=== PATIENT | male | born 1955 | race Caucasian/White ===

== ENCOUNTER → 2016-11-01 | Outpatient (CLI) | payer BC, OTHER ==
[~2016-11-01] MED LIST: B-CO1TAB29 PO; CARV12.5 PO; CHOL100027 PO; CLON0.5T3 PO; CLOP1TAB15 PO; CYAN10002 INJ; FURO40TA3 PO; GLYB1.257 PO; ISOS30TA3 PO; LOSA25TA18 PO; METF1000 PO; MULT-506 PO; NITR0.4S UT; ROSU5TAB PO
[2016-11-01 13:43] LABS: ESTIMATED AVERAGE GLUCOSE 151 mg/dl; HA1C FLAG Normal (Normal)
[2016-11-01 13:49] LABS: ALKALINE PHOSPHATASE 76 U/L (45-117); AST/SGOT 20 U/L (15-37); BLOOD UREA NITROGEN 11 mg/dl (7-18); CALCIUM 9.5 mg/dl (8.5-10.1); CARBON DIOXIDE 29 mmol/L (21-32); CHLORIDE 105 mmol/L (98-107); GLUCOSE 140 mg/dl (70-99); HDL CHOLESTEROL 32 mg/dl; POTASSIUM 4.3 mmol/L (3.5-5.1); SODIUM 143 mmol/L (136-145)
[2016-11-01 13:54] LABS: ALB/GLOB RATIO 1.4 (0.9-2); ALT/SGPT 36 U/L (12-78); CHOLESTEROL 105 mg/dl (0-200); CHOLESTEROL/HDL RATIO 3.3; TRIGLYCERIDES 243 mg/dl (0-150); VERY LOW DENSITY LIPOPROT CALC 49 mg/dl
== END | disposition home or self-care (01) ==
LOC: C.LABSPEC 12:52
PROVIDERS: ATTEND Internal Medicine
DX: E78.5 Hyperlipidemia, unspecified (principal); I10 Essential (primary) hypertension; I25.10 Atherosclerotic heart disease of native coronary artery without angina pectoris; E11.9 Type 2 diabetes mellitus without complications; Z00.00 Encounter for general adult medical examination without abnormal findings

== ENCOUNTER → 2017-07-05 | Outpatient (CLI) | payer BC, OTHER ==
[2017-07-05 13:46] LABS: ESTIMATED AVERAGE GLUCOSE 128 mg/dl; HA1C FLAG Normal (Normal)
[2017-07-05 14:03] LABS: ALT/SGPT 26 U/L (12-78); BLOOD UREA NITROGEN 13 mg/dl (7-18); BUN/CREATININE RATIO 12.6 (10-20); CALCIUM 9.2 mg/dl (8.5-10.1); CARBON DIOXIDE 32 mmol/L (21-32); CHLORIDE 105 mmol/L (98-107); CHOLESTEROL 99 mg/dl (0-200); GLUCOSE 107 mg/dl (70-99); POTASSIUM 4.4 mmol/L (3.5-5.1); SODIUM 142 mmol/L (136-145)
[2017-07-05 14:06] LABS: ALB/GLOB RATIO 1.4 (0.9-2); ALKALINE PHOSPHATASE 76 U/L (45-117); AST/SGOT 16 U/L (15-37); CHOLESTEROL/HDL RATIO 3.2; HDL CHOLESTEROL 31 mg/dl; TRIGLYCERIDES 219 mg/dl (0-150); VERY LOW DENSITY LIPOPROT CALC 44 mg/dl
== END | disposition home or self-care (01) ==
LOC: C.LABSPEC 12:38
PROVIDERS: ATTEND Internal Medicine
DX: I25.10 Atherosclerotic heart disease of native coronary artery without angina pectoris (principal); E78.5 Hyperlipidemia, unspecified; E11.9 Type 2 diabetes mellitus without complications; I10 Essential (primary) hypertension

== ENCOUNTER → 2018-02-27 | Outpatient (CLI) | payer BC, OTHER ==
[2018-02-27 12:55] LABS: ALT/SGPT 24 U/L (12-78); AST/SGOT 15 U/L (15-37); BLOOD UREA NITROGEN 17 mg/dl (7-18); CARBON DIOXIDE 30 mmol/L (21-32); CREATININE 1.09 mg/dl (0.60-1.40); GLUCOSE 101 mg/dl (70-99); POTASSIUM 4.1 mmol/L (3.5-5.1); SODIUM 140 mmol/L (136-145)
[2018-02-27 12:58] LABS: ALKALINE PHOSPHATASE 74 U/L (45-117); CHOLESTEROL 92 mg/dl (0-200); LDL CHOLESTEROL (DIRECT) 60 mg/dl; TOTAL PROTEIN 7.2 gm/dl (6.4-8.2)
== END | disposition home or self-care (01) ==
LOC: C.LABSPEC 12:15
PROVIDERS: ATTEND Internal Medicine
DX: I25.10 Atherosclerotic heart disease of native coronary artery without angina pectoris (principal); E11.9 Type 2 diabetes mellitus without complications; I10 Essential (primary) hypertension; E78.5 Hyperlipidemia, unspecified

== ENCOUNTER 2019-02-09 16:55 | Inpatient (IN) ==
[2019-02-09] MEDS ORDERED: ALBUT/IPRATROP 3MG/0.5MG NEB 3 ML VIAL INH STA (17:15)
--- NOTE | 2019-02-09 17:30 | XRay Report ---
XR chest 1V portable CLINICAL HISTORY: sob dyspnea COMPARISON STUDY: 02/05/2014 FINDINGS: Moderate cardiac megaly. Interstitial changes both lung bases most likely cardiogenic. With in the upper lungs are clear. IMPRESSION: Interstitial phase of congestive heart failure. The above report was generated using voice recognition software. It may contain grammatical, syntax or spelling errors. Electronically signed by: Lester Gómez M.D. 02/09/2019 5:29 PM
--- NOTE | 2019-02-09 17:42 | Emergency Department Note ---
Entered by Benoit Simmons acting as a scribe for Thong Godoy MD History of Present Illness General Chief complaint: Fever Stated complaint: COUGH FEVER TROUBLE BREATHING Time Seen by Provider: 02/09/19 17:11 Source: patient History of Present Illness Provider complaint: Cough Onset (ago): month(s) 1 Location: chest Radiation: non-radiation Pain Consistency: + constant and + other (Worsening) Associated symptoms: + nausea/vomiting (No vomiting), + shortness of breath and + other (Congested); no chest pain The patient is a 63 year old male who presents to the Emergency Room with complaints of a constant productive cough and congestion for the past month but it has worsened over the past couple days. The coughs consistently produce a yellow colored mucous and this morning there was blood present as well. When the patient has coughing fits, he becomes very short of breath. He also notes that he gets dizzy whenever he stand up. Three days ago the patient went to his family doctors office and his flu swab came back negative. The patient has an extensive cardiac history including 8 stents but reports no chest pain, however he does have some soreness from coughing. He states that he has been staying hydrated and does not use oxygen at baseline. 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 Gaytan. He is not currently on any antibiotics. Home Medications Home Medications Medication Instructions Recorded Confirmed Type aspirin [Aspirin Low Dose] 81 mg PO DAILY 02/09/19 02/09/19 History atorvastatin 20 mg PO DAILY 02/09/19 02/09/19 History carvedilol 12.5 mg PO DAILY 02/09/19 02/09/19 History cholecalciferol (vitamin D3) 5,000 unit PO DAILY 02/09/19 02/09/19 History [Vitamin D3] clonazepam 0.5 mg PO HS 02/09/19 02/09/19 History clopidogrel 75 mg PO DAILY 02/09/19 02/09/19 History cyanocobalamin (vitamin B-12) 1,000 mcg IM MONTHLY 02/09/19 02/09/19 History furosemide 40 mg PO DAILY 02/09/19 02/09/19 History gabapentin 300 mg PO HS 02/09/19 02/09/19 History glyburide 1.25 mg PO DAILY 02/09/19 02/09/19 History isosorbide mononitrate 60 mg PO DAILY 02/09/19 02/09/19 History losartan 25 mg PO DAILY 02/09/19 02/09/19 History metformin [Glucophage] 1,000 mg PO BID 02/09/19 02/09/19 History nitroglycerin 0.4 mg SUBLINGUAL DIRECTED 02/09/19 02/09/19 History ranolazine [Ranexa] 500 mg PO BID 02/09/19 02/09/19 History Allergies Allergy/AdvReac Type Severity Reaction Status Date / Time Penicillins Allergy Unknown Verified 02/09/19 18:22 simvastatin Allergy Unknown muscle pain Verified 02/09/19 18:22 Sulfa (Sulfonamide Allergy Unknown Verified 02/09/19 18:22 Antibiotics) oxycodone AdvReac Mild N/V Verified 02/09/19 18:22 Past Med/Surg History Medical History Diabetes (Chronic) Hyperlipidemia (Chronic) CA (myocardial infarction) (Chronic) 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 and A total of 10 systems reviewed and were otherwise negative Physical Exam Vital Signs Vital Signs - 24 hr 02/09/19 16:58 02/09/19 17:53 02/09/19 17:54 Temperature 36.8 C Temperature Source Oral Sepsis Recent Fever Within 48 Hours Yes Sepsis New/Unexplained Change in Mental Status No Sepsis Action Taken by Nursing No Action Required Pulse Rate 92 H Pulse Rate [Apical] 89 Pulse Rhythm Regular Pulse Strength Normal Respiratory Rate 20 18 Respiratory Effort / Characteristics Non-Labored Spontaneous Non-Labored Spontaneous Respiratory Depth Normal Normal Respiratory Pattern Regular Regular Blood Pressure 95/56 L Blood Pressure [Right Arm] 93/52 L Blood Pressure Mean 69 Blood Pressure Mean [Right Arm] 65 Blood Pressure Position Sitting Blood Pressure Position [Right Arm] Sitting Pulse Oximetry 95 95 94 Pulse Oximetry [Right Index Finger] Oxygen Delivery Method Room Air Room Air Room Air Oxygen Delivery Method [Right Index Finger] 02/09/19 18:30 02/09/19 19:00 02/09/19 19:30 Temperature Temperature Source Sepsis Recent Fever Within 48 Hours Sepsis New/Unexplained Change in Mental Status Sepsis Action Taken by Nursing Pulse Rate 86 90 Pulse Rate [Apical] 88 Pulse Rhythm Pulse Strength Respiratory Rate 18 22 17 Respiratory Effort / Characteristics Non-Labored Spontaneous Respiratory Depth Normal Respiratory Pattern Regular Blood Pressure 101/52 L 101/56 L Blood Pressure [Right Arm] 97/57 L Blood Pressure Mean 68 71 Blood Pressure Mean [Right Arm] 70 Blood Pressure Position Blood Pressure Position [Right Arm] Sitting Pulse Oximetry 93 95 93 Pulse Oximetry [Right Index Finger] Oxygen Delivery Method Room Air Room Air Room Air Oxygen Delivery Method [Right Index Finger] 02/09/19 20:17 02/09/19 20:30 02/09/19 21:32 Temperature Temperature Source Sepsis Recent Fever Within 48 Hours Sepsis New/Unexplained Change in Mental Status Sepsis Action Taken by Nursing Pulse Rate 86 85 Pulse Rate [Apical] Pulse Rhythm Pulse Strength Respiratory Rate 21 24 Respiratory Effort / Characteristics Respiratory Depth Respiratory Pattern Blood Pressure 103/57 L 105/62 Blood Pressure [Right Arm] Blood Pressure Mean 72 76 Blood Pressure Mean [Right Arm] Blood Pressure Position Blood Pressure Position [Right Arm] Pulse Oximetry 94 95 Pulse Oximetry [Right Index Finger] 94 Oxygen Delivery Method Room Air Room Air Oxygen Delivery Method [Right Index Finger] Room Air 02/09/19 21:48 Temperature 37.2 C Temperature Source Oral Sepsis Recent Fever Within 48 Hours Sepsis New/Unexplained Change in Mental Status Sepsis Action Taken by Nursing Pulse Rate 87 Pulse Rate [Apical] 84 Pulse Rhythm Pulse Strength Respiratory Rate 20 Respiratory Effort / Characteristics Non-Labored Respiratory Depth Respiratory Pattern Blood Pressure Blood Pressure [Right Arm] 100/61 Blood Pressure Mean Blood Pressure Mean [Right Arm] 74 Blood Pressure Position Blood Pressure Position [Right Arm] Pulse Oximetry 94 Pulse Oximetry [Right Index Finger] Oxygen Delivery Method Room Air Oxygen Delivery Method [Right Index Finger] GENERAL: Patient is in no acute distress. HEENT: No acute trauma, normocephalic atraumatic, mucous membranes moist, no nasal congestion, no scleral icterus. NECK: No stridor, no adenopathy, no meningismus, trachea is midline. LUNGS: Moist cough noted. Diminished breath sounds bilaterally, equal breath sounds bilaterally. No wheezing or rhonchi. HEART: Without murmurs gallops or rubs, regular rate and rhythm. ABDOMEN: Soft, nontender, bowel sounds positive, no hernias, no peritonitis. EXTREMITIES: No cyanosis or edema, full range of motion of all the joints wi thout pain or difficulty, no signs for acute trauma. NEUROLOGIC: Oriented x 3, no acute motor or sensory deficits, no focal weakness. SKIN: No rash, no jaundice, no diaphoresis. Course 1710: The patient was evaluated in room C02B, and a complete history and physical examination were performed. 1834: I reevaluated the patient and he is stable. I also updated him and his fiance on the results and treatment plan. 1911: I spoke to Dr. Irving Flores [facility] about the patient's case and she is going to accept him for further evaluation. Consultations Consultation #1: I spoke to Dr. Irving Flores [facility] about the patient's case and she is going to accept him for further evaluation. Time: 19:12 Administered Medications Discontinued Medications Albuterol (Duoneb) 3 ml INH NOW STA Stop: 02/09/19 17:16 Last Admin: 02/09/19 17:32 Dose: 3 ml Documented by: [id number] Furosemide (Lasix) Confirm Administered Dose 40 mg IV .STK-MED ONE Stop: 02/09/19 19:01 Last Admin: 02/09/19 19:08 Dose: Not Given Documented by: [id number] Furosemide 20 mg/ Syringe 2 mls @ 4 mls/min IV ONE ONE Stop: 02/09/19 18:34 Last Admin: 02/09/19 19:10 Dose: 4 mls/min Documented by: [id number] Ceftriaxone Sodium (Rocephin) 1,000 mg in 50 mls @ 100 mls/hr IV NOW STA Stop: 02/09/19 19:02 Last Infusion: 02/09/19 19:49 Dose: 0 mls/hr Documented by: [id number] Admin: 02/09/19 19:09 Dose: 100 mls/hr Documented by: [id number] Medical Decision Making Differential Diagnosis Differential Diagnosis: Bronchitis, Pneumonia, CHF, Cardiac ischemia, Anemia, Sinusitis, URI, Influenza or flu-like symptoms, amongst others. Medical Records Attestation: I reviewed the patient's medical records. Home Medications Current Medication List: was personally reviewed by me Laboratory Data Attestation: I reviewed the patient's lab results. Result diagrams: 02/09/19 17:38 02/09/19 17:38 Lab Results 02/09/19 02/09/19 02/09/19 Range/Units 17:33 17:38 17:38 WBC 8.77 (4.8-10.8) K/uL RBC 3.66 L (4.7-6.1) M/uL Hgb 11.5 L (14.0-18.0) g/dL Hct 34.2 L (42-52) % MCV 93.4 (80-100) fL MCH 31.4 (25-34) pg MCHC 33.6 (32-36) g/dL RDW Std Deviation 48.9 H (36.4-46.3) fL RDW Coeff of Neyda 14.3 (11.5-14.5) % Plt Count 149 (130-400) K/uL MPV 10.9 H (7.4-10.4) fL Immature Gran % (Auto) 0.2 % Neut % (Auto) 75.2 % Lymph % (Auto) 10.4 % [place] % (Auto) 12.8 % Eos % (Auto) 1.3 % Baso % (Auto) 0.1 % Immature Gran # (Auto) 0.02 (0.00-0.02) K/uL Neut # (Auto) 6.60 H (1.4-6.5) K/uL Lymph # (Auto) 0.91 L (1.2-3.4) K/uL [place] # (Auto) 1.12 H (0.11-0.59) K/uL Eos # (Auto) 0.11 (0-0.5) K/uL Baso # (Auto) 0.01 (0-0.2) K/uL PT 11.8 (9.0-12.0) Seconds INR 1.2 H (0.9-1.1) APTT 30.2 (21.0-31.0) Seconds PTT Ratio 1.1 Sodium (136-145) mmol/L Potassium (3.5-5.1) mmol/L Chloride (98-107) mmol/L Carbon Dioxide (21-32) mmol/L Anion Gap (3-11) BUN (7-18) mg/dl Creatinine (0.6-1.4) mg/dl Est Cr Clr Drug Dosing ml/min Est GFR ( Amer) Est GFR (Non-Af Amer) BUN/Creatinine Ratio (10-20) Glucose (70-99) mg/dl Calcium (8.5-10.1) mg/dl Phosphorus (2.5-4.9) mg/dl Magnesium (1.8-2.4) mg/dl Total Bilirubin (0.2-1) mg/dl AST (15-37) U/L ALT (12-78) U/L Alkaline Phosphatase (45-117) U/L Troponin I (0-0.045) ng/ml NT-Pro-B Natriuret Pep (0-900) pg/ml Total Protein (6.4-8.2) gm/dl Albumin (3.4-5.0) gm/dl Globulin (2.5-4.0) gm/dl Albumin/Globulin Ratio (0.9-2) Procalcitonin (0-0.5) ng/ml Influenza Type A (PCR) Neg for Influ A (Neg) Influenza Type B (PCR) Neg for Influ B (Neg) 02/09/19 02/09/19 02/09/19 Range/Units 17:38 21:47 21:47 WBC (4.8-10.8) K/uL RBC (4.7-6.1) M/uL Hgb (14.0-18.0) g/dL Hct (42-52) % MCV (80-100) fL MCH (25-34) pg MCHC (32-36) g/dL RDW Std Deviation (36.4-46.3) fL RDW Coeff of Neyda (11.5-14.5) % Plt Count (130-400) K/uL MPV (7.4-10.4) fL Immature Gran % (Auto) % Neut % (Auto) % Lymph % (Auto) % [place] % (Auto) % Eos % (Auto) % Baso % (Auto) % Immature Gran # (Auto) (0.00-0.02) K/uL Neut # (Auto) (1.4-6.5) K/uL Lymph # (Auto) (1.2-3.4) K/uL [place] # (Auto) (0.11-0.59) K/uL Eos # (Auto) (0-0.5) K/uL Baso # (Auto) (0-0.2) K/uL PT (9.0-12.0) Seconds INR (0.9-1.1) APTT (21.0-31.0) Seconds PTT Ratio Sodium 139 (136-145) mmol/L Potassium 4.0 (3.5-5.1) mmol/L Chloride 103 (98-107) mmol/L Carbon Dioxide 28 (21-32) mmol/L Anion Gap 8.0 (3-11) BUN 19 H (7-18) mg/dl Creatinine 1.07 (0.6-1.4) mg/dl Est Cr Clr Drug Dosing 85.3 ml/min Est GFR ( Amer) 84.0 Est GFR (Non-Af Amer) 72.5 BUN/Creatinine Ratio 18.0 (10-20) Glucose 131 H (70-99) mg/dl Calcium 8.8 (8.5-10.1) mg/dl Phosphorus 3.1 (2.5-4.9) mg/dl Magnesium 1.9 (1.8-2.4) mg/dl Total Bilirubin 0.7 (0.2-1) mg/dl AST 14 L (15-37) U/L ALT 23 (12-78) U/L Alkaline Phosphatase 93 (45-117) U/L Troponin I 0.403 H* 0.427 H* (0-0.045) ng/ml NT-Pro-B Natriuret Pep 4852 H (0-900) pg/ml Total Protein 6.2 L (6.4-8.2) gm/dl Albumin 2.9 L (3.4-5.0) gm/dl Globulin 3.3 (2.5-4.0) gm/dl Albumin/Globulin Ratio 0.9 (0.9-2) Procalcitonin < 0.05 (0-0.5) ng/ml Influenza Type A (PCR) (Neg) Influenza Type B (PCR) (Neg) Imaging Data Radiologist's Impression: Radiology results as stated below per my review and the radiologist's interpretation: XR chest 1V portable CLINICAL HISTORY: sob dyspnea COMPARISON STUDY: 02/05/2014 FINDINGS: Moderate cardiac megaly. Interstitial changes both lung bases most likely cardiogenic. Within the upper lungs are clear. IMPRESSION: Interstitial phase of congestive heart failure. The above report was generated using voice recognition software. It may contain grammatical, syntax or spelling errors. Electronically signed by: Lester Gómez M.D. 02/09/2019 5:29 PM ECG Data Attestation: I personally reviewed and interpreted this ECG as follows: Indication: SOB/dyspnea Rate (beats per minute): 88 Rhythm: normal sinus Findings: + T-wave inversion (Inferiorly and laterally); no ST elevation Comparison ECG Date: from (02/05/14) Change: the following changes noted (Significant changes have occurred) Blood Pressure Blood Pressure Findings: Low blood pressure Blood Pressure Disposition: further management by hospitalist MDM Narrative There is no leukocytosis. The patient is somewhat anemic with a hemoglobin of 11.5, the number is nowhere critical. No concerning coagulopathy. No significa nt electrolyte abnormality or kidney failure. No hepatitis. BNP is elevated at over 4000, this is consistent with fluid overload. EKG shows a sinus rhythm, there are some T wave changes in the inferior and lateral leads. These changes are new compared to an EKG from 2013. Cardiac troponin was slightly elevated, this could be consistent with cardiac strain or possibly mismatch. Chest film does show some parenchymal congestion possibly consistent with CHF. There was no focal pneumonia. Influenza testing was negative. The patient received IV Lasix and a DuoNeb. He received a dose of IV ceftriaxone. He does seem comfortable. His blood pressure has remained somewhat low. He has coughed up some yellow sputum at times. The patient presents with increasing dyspnea and cough. He is slightly hypotensive, he appears to be fluid overloaded by lab work and by chest film. He does have an elevated cardiac troponin and some abnormal findings on his EKG. Given the findings on workup, I do think a hospital stay is warranted. I spoke to the patient and case management. The on-call hospitalist was consulted. Further cardiac workup is warranted, diuresis is needed. Impression & Plan Shortness of breath, CHF (congestive heart failure), Hypotension, Elevated troponin, Abnormal EKG Discharge Plan Visit Data *Final* Discharge Date/Time: 02/09/19 21:00 Chief Complaint: Fever Stated Complaint: COUGH FEVER TROUBLE BREATHING ED Provider: Thong Godoy Discharge Problem: Shortness of breath, CHF (congestive heart failure), Hypotension, Elevated troponin, Abnormal EKG Patient Disposition: Admitted As Inpatient Discharge Instructions Interventions: ED Discharge Assessment Last Done: 02/09/19 21:00 Discharge Problem: CHF (congestive heart failure) Qualifiers: Heart failure type: unspecified Heart failure chronicity: unspecified Qualified Code(s): I50.9 - Heart failure, unspecified Hypotension Qualifiers: Hypotension type: unspecified hypotension type Qualified Code(s): I95.9 - Hypotension, unspecified The scribe's documentation has been prepared under my direction and personally reviewed by me in its entirety. I confirm that the note above accurately reflects all work, treatment, procedures, and medical decision making performed by me.
[2019-02-09 18:00] LABS: Basophils # (auto) 0.01 K/uL (0-0.2); Basophils % (auto) 0.1 %; Eosinophils # (auto) 0.11 K/uL (0-0.5); Eosinophils % (auto) 1.3 %; Hematocrit (blood only) 34.2 % (42-52); Hemoglobin 11.5 g/dL (14.0-18.0); Immature Granulocytes # (auto) 0.02 K/uL (0.00-0.02); Immature Granulocytes % (auto) 0.2 %; Lymphocytes # (auto) 0.91 K/uL (1.2-3.4); Lymphocytes % (auto) 10.4 %; Mean Corpuscular Hgb Conc 33.6 g/dL (32-36); Mean Corpuscular Volume 93.4 fL (80-100); Mean Platelet Volume 10.9 fL (7.4-10.4); Monocytes # (auto) 1.12 K/uL (0.11-0.59); Monocytes % (auto) 12.8 %; Neutrophils % (auto) 75.2 %; Platelet Count 149 K/uL (130-400); RDW Coefficient of Variation 14.3 % (11.5-14.5); RDW Standard Deviation 48.9 fL (36.4-46.3); Red Blood Count 3.66 M/uL (4.7-6.1); White Blood Count 8.77 K/uL (4.8-10.8)
[2019-02-09 18:11] LABS: Influenza A virus by PCR Neg for Influ A (Neg); Influenza B virus by PCR Neg for Influ B (Neg)
[2019-02-09 18:17] LABS: INR 1.2 (0.9-1.1); Partial Thromboplastin Ratio 1.1; Partial Thromboplastin Time 30.2 Seconds (21.0-31.0); Prothrombin Time 11.8 Seconds (9.0-12.0)
[2019-02-09 18:18] LABS: Albumin Level 2.9 gm/dl (3.4-5.0); Calcium 8.8 mg/dl (8.5-10.1); Creatinine Clr Calc Pharmacy 85.3 ml/min; Est GFR (Non-African American) 72.5
[2019-02-09 18:26] LABS: Albumin Globulin Ratio 0.9 (0.9-2); Bilirubin,Total 0.7 mg/dl (0.2-1); Globulin 3.3 gm/dl (2.5-4.0); Total Protein 6.2 gm/dl (6.4-8.2); Troponin I 0.403 ng/ml (0-0.045)
[2019-02-09] MEDS ORDERED: cefTRIAXone SODIUM 1,000 MG/50 ML BAG IV STA (18:33)
[2019-02-09] MEDS ORDERED: FUROSEMIDE 20 MG in SYRINGE 0 ML IV ONE (18:33)
[2019-02-09] MEDS ORDERED: FUROSEMIDE 40 MG/4 ML VIAL IV ONE (19:00)
[2019-02-09] MEDS ORDERED: DOCUSATE SODIUM 100 MG CAP PO PRN (21:32)
[2019-02-09] MEDS ORDERED: GLUCOSE 40% GEL 15 GM TUBE PO PRN (21:32)
[2019-02-09] MEDS ORDERED: GLUCOSE 10 TABS/TUBE PO PRN (21:32)
[2019-02-09] MEDS ORDERED: DEXTROSE 50% 50 ML SYRINGE IV PRN (21:32)
[2019-02-09] MEDS ORDERED: ONDANSETRON INJ 2 MG/ML 2 ML VIAL IV PRN (21:32)
[2019-02-09] MEDS ORDERED: GLUCAGON FOR INJ 1 MG VIAL SQ PRN (21:32)
[2019-02-09] MEDS ORDERED: CARBOHYDRATES FOR HYPOGLYCEMIA PO PRN (21:32)
[2019-02-09] MEDS ORDERED: NITROGLYCERIN SL 0.4 MG/TAB TAB SL PRN (21:32)
[2019-02-09] MEDS ORDERED: ENOXAPARIN INJ 40 MG/0.4 ML SYR SQ SCH (21:45)
[2019-02-09 22:21] LABS: Magnesium 1.9 mg/dl (1.8-2.4); Phosphorus 3.1 mg/dl (2.5-4.9); Troponin I 0.427 ng/ml (0-0.045)
[2019-02-10] MEDS: BENZONATATE 100 MG CAPSULE PO SCH ×4 (00:35→20:57)
[2019-02-10] MEDS: clonazePAM 0.5 MG TAB PO SCH ×2 (00:35→20:57)
--- NOTE | 2019-02-10 01:22 | History & Physical Report ---
Date of Service February 09, 2019 Assessment & Plan (1) Shortness of breath: Patient with progressive SOB over the last month, acute worsening over the last three days. Also with edema and orthopnea. He reports some mild dull left sided chest pressure at times. Patient presently hemodynamically stable, NAD. Adequate oxygenation on room air with no evidence of respiratory distress. He is afebrile, no leukocytosis, Procalcitonin negative, no infiltrate noted on CXR to suggest infectious process. Elevated BNP and interstitial edema concerning for CHF. Last available echo in [facility] from 01/15/13 which showed multiple WMA. LVEF of 50 - 55%, Grade I diastolic dysfunction. -Admit to PCU -Diuresis with Lasix 20mg IV BID -Monitor renal function and electrolytes -Strict I/Os -Daily weights -Low Na diet as tolerated -Check 2D echo in the AM -[facility] Cardiology consultation - appreciate assistance with this case -Trend cardiac enzymes Present on Admission?: Yes (2) CHF (congestive heart failure): Concern for CHF -Plan as above -Continue ASA, Plavix, Atorvastatin, Carvedilol, Losartan -Lasix as above Present on Admission?: Yes (3) Elevated troponin: Patient with mildly elevated troponin. Presently with no CP. EKG with ST-T changes new from prior. Concern for demand ischemia in setting of presumed CHF. -Continue to trend troponin -If level increases or patient develops chest pain will initiate heparin gtt -Cardiac monitoring Present on Admission?: Yes (4) CAD (coronary artery disease): Patient with early onset aggressive CAD. Has had multiple PCIs. -Continue ASA, Plavix, Metoprolol, Cozaar, increased dose of Atorvastatin -Continue anti-anginals, Ranexa -Continue Imdur -Trend cardiac enzymes -EKG in AM (5) Abnormal EKG: As above (6) Diabetes: Well controlled on Glipizide and Metformin at home. SkC8a=8 on 02/27/18. -Hold Glipizide and Metformin -Lantus 7u BID, ISS -Continue to monitor Present on Admission?: Yes (7) Hyperlipidemia: Chronic -Continue Atorvastatin -Will increase to 80mg po daily -Continue to monitor F/E/N - Diuresis as above, monitor renal function and electrolytes and replete as needed, Heart healthy diet as tolerated, NPO after midnight for possible cardiac catheterization Ppx - Patient on ASA and Plavix Code - Full Dispo - Admit to PCU Sutures to be removed tomorrow Present on Admission?: Yes History of Present Illness Chief Complaint: Cough/congestion Primary Care Provider: Zac Torres MD Mr. Mcdowell is a pleasant 63yo male with history of early onset aggressive CAD present since age 48. He has had multiple PCIs in the past - left circumflex and right coronary artery in 1998, angioplasty of the left anterior descending in 2000 and 2007, stenting of the second obtuse marginal January 2011, stenting of the obtuse marginal on 12/12/2012 due to recurrent unstable angina, repeat presentation 01/15/13 with acute in-stent thrombosis noted on coronary angiography, this vessel was not amenable to PCI and he completed a lateral apical infarction at that time. Patient follows with Dr. Gaytan of [facility] Cardiology. He believes he was last seen in January 2018 and is scheduled to see him next month. Patient presents today with complaint of cough for a couple of months as well as chest congestion. His symptoms acutely worsened on Sunday02/07/19. He was seen by his PCP on 02/07 and was swabbed for the flu which was reportedly negative. Patient's symptoms continued to progress - ISAAC, SOB especially with coughing as well as dizziness and nausea. He admits to worsening edema and orthopnea as well as dull left sided chest pressure since yesterday. Patient denies fevers but had some shaking chills. He was in [place] for an auto race on 02/08 and his symptoms progressed. He has been taking Tylenol and Chorecedin for symptom management. ER Course: Albuterol, Ceftriaxone, Lasix 20mg IV Allergies Allergy/AdvReac Type Severity Reaction Status Date / Time Penicillins Allergy Unknown Verified 02/09/19 18:22 simvastatin Allergy Unknown muscle pain Verified 02/09/19 18:22 Sulfa (Sulfonamide Allergy Unknown Verified 02/09/19 18:22 Antibiotics) oxycodone AdvReac Mild N/V Verified 02/09/19 18:22 Home Medications Home Medications Medication Instructions Recorded Confirmed Type aspirin [Aspirin Low Dose] 81 mg PO DAILY 02/09/19 02/09/19 History atorvastatin 20 mg PO DAILY 02/09/19 02/09/19 History carvedilol 12.5 mg PO DAILY 02/09/19 02/09/19 History cholecalciferol (vitamin D3) 5,000 unit PO DAILY 02/09/19 02/09/19 History [Vitamin D3] clonazepam 0.5 mg PO HS 02/09/19 02/09/19 History clopidogrel 75 mg PO DAILY 02/09/19 02/09/19 History cyanocobalamin (vitamin B-12) 1,000 mcg IM MONTHLY 02/09/19 02/09/19 History furosemide 40 mg PO DAILY 02/09/19 02/09/19 History gabapentin 300 mg PO HS 02/09/19 02/09/19 History glyburide 1.25 mg PO DAILY 02/09/19 02/09/19 History isosorbide mononitrate 60 mg PO DAILY 02/09/19 02/09/19 History losartan 25 mg PO DAILY 02/09/19 02/09/19 History metformin [Glucophage] 1,000 mg PO BID 02/09/19 02/09/19 History nitroglycerin 0.4 mg SUBLINGUAL DIRECTED 02/09/19 02/09/19 History ranolazine [Ranexa] 500 mg PO BID 02/09/19 02/09/19 History Past Med/Surg History Medical History Diabetes (Chronic) Hyperlipidemia (Chronic) [place] (myocardial infarction) (Chronic) Bypass gastroenterostomy (Resolved 01/14/13) Chest pain (Acute) Unstable angina (Acute) CAD (coronary artery disease) Peripheral neuropathy Surgical History S/P appendectomy S/P cardiac catheterization S/P cholecystectomy Social History Preferred Language: Ukrainian Communication Ability: Effective Commercial Attorney Required: No Beliefs That Will Affect Care: None Current Living Situation: Significant Other Other Information That Helps Us Care for You: No Feels Safe at Home: Yes Safety Concerns: Feels Safe At This Time Smoking Status: Never smoker Hx Alcohol Use: No Hx Substance Use: No Review of Systems All systems reviewed & are unremarkable except as noted in HPI & below Physical Exam Vital Signs (Past 24 Hours): Last Vital Signs Temp 37.4 C 02/09/19 23:16 Pulse 100 H 02/09/19 23:16 Resp 18 02/09/19 23:16 BP 99/44 L 02/09/19 23:16 Pulse Ox 92 02/09/19 23:19 Physical Exam: General: patient resting comfortably, NAD, anxious but non- toxic in appearance, AA&O x 4 Skin: warm, dry, no rashes or lesions, sutures present on right index finger HEENT: NC/AT, PERRL, EOMI, anicteric sclera, conjunctiva without injection, external ear normal to inspection and nontender, nares patent, moist mucus membranes, dentition intact, no oropharyngeal lesions, neck supple, trachea midline, no LAD, no thyromegaly, no JVD Heart: +S1/S2, regular, no m/r/g Lungs: equal air entry bilaterally, crackles in bilateral bases, no rhonchi/wheezes Abd: +BS, soft, NT/ND, no masses/organomegaly/ascites Ext: warm, 2+ pulses in UE/LE bilaterally, no clubbing/cyanosis, 1+ pitting edema of bilateral LEs Neuro: nonfocal, patient AA&O x 4, speech intact, no facial droop, moving all extremities on command with equal strength 5/5 Results & Data Laboratory Results Lab Results 02/09/19 02/09/19 02/09/19 Range/Units 17:33 17:38 17:38 WBC 8.77 (4.8-10.8) K/uL RBC 3.66 L (4.7-6.1) M/uL Hgb 11.5 L (14.0-18.0) g/dL Hct 34.2 L (42-52) % MCV 93.4 (80-100) fL MCH 31.4 (25-34) pg MCHC 33.6 (32-36) g/dL RDW Std Deviation 48.9 H (36.4-46.3) fL RDW Coeff of Neyda 14.3 (11.5-14.5) % Plt Count 149 (130-400) K/uL MPV 10.9 H (7.4-10.4) fL Immature Gran % (Auto) 0.2 % Neut % (Auto) 75.2 % Lymph % (Auto) 10.4 % [place] % (Auto) 12.8 % Eos % (Auto) 1.3 % Baso % (Auto) 0.1 % Immature Gran # (Auto) 0.02 (0.00-0.02) K/uL Neut # (Auto) 6.60 H (1.4-6.5) K/uL Lymph # (Auto) 0.91 L (1.2-3.4) K/uL [place] # (Auto) 1.12 H (0.11-0.59) K/uL Eos # (Auto) 0.11 (0-0.5) K/uL Baso # (Auto) 0.01 (0-0.2) K/uL PT 11.8 (9.0-12.0) Seconds INR 1.2 H (0.9-1.1) APTT 30.2 (21.0-31.0) Seconds PTT Ratio 1.1 Sodium (136-145) mmol/L Potassium (3.5-5.1) mmol/L Chloride (98-107) mmol/L Carbon Dioxide (21-32) mmol/L Anion Gap (3-11) BUN (7-18) mg/dl Creatinine (0.6-1.4) mg/dl Est Cr Clr Drug Dosing ml/min Est GFR ( Amer) Est GFR (Non-Af Amer) BUN/Creatinine Ratio (10-20) Glucose (70-99) mg/dl Calcium (8.5-10.1) mg/dl Phosphorus (2.5-4.9) mg/dl Magnesium (1.8-2.4) mg/dl Total Bilirubin (0.2-1) mg/dl AST (15-37) U/L ALT (12-78) U/L Alkaline Phosphatase (45-117) U/L Troponin I (0-0.045) ng/ml NT-Pro-B Natriuret Pep (0-900) pg/ml Total Protein (6.4-8.2) gm/dl Albumin (3.4-5.0) gm/dl Globulin (2.5-4.0) gm/dl Albumin/Globulin Ratio (0.9-2) Procalcitonin (0-0.5) ng/ml Influenza Type A (PCR) Neg for Influ A (Neg) Influenza Type B (PCR) Neg for Influ B (Neg) 02/09/19 02/09/19 02/09/19 Range/Units 17:38 21:47 21:47 WBC (4.8-10.8) K/uL RBC (4.7-6.1) M/uL Hgb (14.0-18.0) g/dL Hct (42-52) % MCV (80-100) fL MCH (25-34) pg MCHC (32-36) g/dL RDW Std Deviation (36.4-46.3) fL RDW Coeff of Neyda (11.5-14.5) % Plt Count (130-400) K/uL MPV (7.4-10.4) fL Immature Gran % (Auto) % Neut % (Auto) % Lymph % (Auto) % [place] % (Auto) % Eos % (Auto) % Baso % (Auto) % Immature Gran # (Auto) (0.00-0.02) K/uL Neut # (Auto) (1.4-6.5) K/uL Lymph # (Auto) (1.2-3.4) K/uL [place] # (Auto) (0.11-0.59) K/uL Eos # (Auto) (0-0.5) K/uL Baso # (Auto) (0-0.2) K/uL PT (9.0-12.0) Seconds INR (0.9-1.1) APTT (21.0-31.0) Seconds PTT Ratio Sodium 139 (136-145) mmol/L Potassium 4.0 (3.5-5.1) mmol/L Chloride 103 (98-107) mmol/L Carbon Dioxide 28 (21-32) mmol/L Anion Gap 8.0 (3-11) BUN 19 H (7-18) mg/dl Creatinine 1.07 (0.6-1.4) mg/dl Est Cr Clr Drug Dosing 85.3 ml/min Est GFR ( Amer) 84.0 Est GFR (Non-Af Amer) 72.5 BUN/Creatinine Ratio 18.0 (10-20) Glucose 131 H (70-99) mg/dl Calcium 8.8 (8.5-10.1) mg/dl Phosphorus 3.1 (2.5-4.9) mg/dl Magnesium 1.9 (1.8-2.4) mg/dl Total Bilirubin 0.7 (0.2-1) mg/dl AST 14 L (15-37) U/L ALT 23 (12-78) U/L Alkaline Phosphatase 93 (45-117) U/L Troponin I 0.403 H* 0.427 H* (0-0.045) ng/ml NT-Pro-B Natriuret Pep 4852 H (0-900) pg/ml Total Protein 6.2 L (6.4-8.2) gm/dl Albumin 2.9 L (3.4-5.0) gm/dl Globulin 3.3 (2.5-4.0) gm/dl Albumin/Globulin Ratio 0.9 (0.9-2) Procalcitonin < 0.05 (0-0.5) ng/ml Influenza Type A (PCR) (Neg) Influenza Type B (PCR) (Neg) Diagnostic Findings XR chest 1V portable CLINICAL HISTORY: sob dyspnea COMPARISON STUDY: 02/05/2014 FINDINGS: Moderate cardiac megaly. Interstitial changes both lung bases most likely cardiogenic. Within the upper lungs are clear. IMPRESSION: Interstitial phase of congestive heart failure. The above report was generated using voice recognition software. It may contain grammatical, syntax or spelling errors. Electronically signed by: Lester Gómez M.D. 02/09/2019 5:29 PM Dictated: 02/09/191727 Transcribed: 02/09/191727 ECG Additional Comments: The study shows NSR at 88bpm, normal axis, WO=301, LHG=316, AIh=940. ST depression in lateral leads, TWI in inferior/lateral leads Code Status & VTE Plan Code Status FULL Critical Care Time Critical Care Time: No (1) Diabetes Diabetes mellitus complication detail: with polyneuropathy Diabetes mellitus complication status: with neurologic complications Diabetes mellitus shelter insulin use: with lobsterman use Diabetes mellitus type: type 2 Qualified Code(s): E11.42 - Type 2 diabetes mellitus with diabetic polyneuropathy; Z79.4 - senior care (current) use of insulin (2) CAD (coronary artery disease) Coronary Disease-Associated Artery/Lesion type: [place] artery [place] vs. transplanted heart: [place] heart Associated angina: angina presence unspecified Qualified Code(s): I25.10 - Atherosclerotic heart disease of [place] coronary artery without angina pectoris (3) CHF (congestive heart failure) Heart failure chronicity: unspecified Heart failure type: unspecified Qualified Code(s): I50.9 - Heart failure, unspecified (4) Hyperlipidemia Hyperlipidemia type: unspecified Qualified Code(s): E78.5 - Hyperlipidemia, unspecified
[2019-02-10] MEDS ORDERED: Heparin IV Standard *NO* Bolus IV ONE (05:00)
[2019-02-10] MEDS ORDERED: Heparin Adult STANDARD Wt-Based Dextrose 5% 25,000 units/500 mL IV SCH (05:15)
[2019-02-10 05:40] LABS: Basophils # (auto) 0.02 K/uL (0-0.2); Basophils % (auto) 0.3 %; Eosinophils # (auto) 0.16 K/uL (0-0.5); Eosinophils % (auto) 2.2 %; Hematocrit (blood only) 35.6 % (42-52); Immature Granulocytes # (auto) 0.01 K/uL (0.00-0.02); Immature Granulocytes % (auto) 0.1 %; Lymphocytes # (auto) 0.88 K/uL (1.2-3.4); Lymphocytes % (auto) 11.9 %; Mean Corpuscular Volume 94.7 fL (80-100); Mean Platelet Volume 10.9 fL (7.4-10.4); Monocytes # (auto) 0.92 K/uL (0.11-0.59); Monocytes % (auto) 12.4 %; Neutrophils # (auto) 5.42 K/uL (1.4-6.5); Neutrophils % (auto) 73.1 %; Platelet Count 153 K/uL (130-400); RDW Coefficient of Variation 14.4 % (11.5-14.5); RDW Standard Deviation 49.6 fL (36.4-46.3); Red Blood Count 3.76 M/uL (4.7-6.1); White Blood Count 7.41 K/uL (4.8-10.8)
[2019-02-10 05:46] LABS: Mean Corpuscular Hgb Conc 33.7 g/dL (32-36)
[2019-02-10 05:48] LABS: INR 1.2 (0.9-1.1); Partial Thromboplastin Ratio 1.1; Partial Thromboplastin Time 30.6 Seconds (21.0-31.0); Prothrombin Time 11.9 Seconds (9.0-12.0)
[2019-02-10 06:09] LABS: BUN Creatinine Ratio 19.3 (10-20); Calcium 8.4 mg/dl (8.5-10.1); Creatinine Clr Calc Pharmacy 102.3 ml/min; Est GFR (African American) 104.5; Est GFR (Non-African American) 90.1; Potassium 3.6 mmol/L (3.5-5.1)
[2019-02-10 06:14] LABS: Prealbumin 10.6 mg/dl (20-40)
[2019-02-10] MEDS: INSULIN ASPART 100 UNITS/ML 3 ML PEN SC SCH ×5 (08:39→21:00)
[2019-02-10] MEDS: FUROSEMIDE 20 MG in SYRINGE 0 ML IV SCH ×2 (08:49→20:57)
[2019-02-10] MEDS: RANOLAZINE 500 MG ER TAB PO SCH ×2 (08:50→20:57)
[2019-02-10] MEDS: ASPIRIN 81 MG ECTAB PO SCH (08:50)
[2019-02-10] MEDS: LOSARTAN POTASSIUM 25 MG TAB PO SCH (08:51)
[2019-02-10] MEDS: CLOPIDOGREL BISULFATE 75 MG TAB PO SCH (08:51)
[2019-02-10] MEDS: INSULIN GLARGINE SOLOSTAR 100 UNITS/ML 3 ML PEN SC SCH ×2 (08:53→21:01)
[2019-02-10] MEDS ORDERED: FUROSEMIDE 40 MG TAB PO SCH (09:00)
[2019-02-10] MEDS ORDERED: ISOSORBIDE MONO EXTENDED REL 60 MG TABCR PO SCH (09:00)
[2019-02-10] MEDS ORDERED: ATORVASTATIN 20 MG TAB PO SCH (09:00)
[2019-02-10] MEDS ORDERED: CARVEDILOL 12.5 MG TAB PO SCH (09:00)
--- NOTE | 2019-02-10 10:36 | Hospitalist Progress Note ---
Date of Service February 10, 2019 Assessment & Plan (1) Shortness of breath: Patient with progressive SOB over the last month, acute worsening over the last three days. Also with edema and orthopnea. He reports some mild dull left sided chest pressure at times. - afebrile, no leukocytosis, Procalcitonin negative, no infiltrate noted on CXR to suggest infectious process in the lungs. - Elevated BNP and interstitial edema concerning for CHF. - Last available echo in [facility] from 01/15/13 which showed multiple WMA. LVEF of 50 - 55%, Grade I diastolic dysfunction. Repeat echo with decreased EF 25% and akinesis of the posterior and inferior justin with diffuse hypokinesis. -continue diuresis with Lasix 20mg IV BID -Strict I/Os -Daily weights -Low Na diet as tolerated -[facility] consultation - discussed with Dr. Gaytan, likely will need cath tomorrow morning -Trend cardiac enzymes - peaked at .43 and are trending down (2) CHF (congestive heart failure): Concern for CHF -Plan as above -Continue ASA, Plavix, Atorvastatin, Carvedilol, Losartan -Lasix as above (3) Elevated troponin: Patient with mildly elevated troponin, peaked at 0.43. Presently with no CP. EKG with ST-T changes new from prior. - per cardiology, continue heparin gtt and will likely go for cath tomorrow - made NPO after MN. -Cardiac monitoring (4) CAD (coronary artery disease): Patient with early onset aggressive CAD. Has had multiple PCIs. -Continue ASA, Plavix, Metoprolol, Cozaar, increased dose of Atorvastatin -Continue anti-anginals, Ranexa -Continue Imdur (5) Abnormal EKG: As above (6) Diabetes: Well controlled on Glipizide and Metformin at home. DqQ6v=2 on 02/27/18. -Hold Glipizide and Metformin -Lantus 7u BID, ISS -Continue to monitor (7) Hyperlipidemia: Chronic -Continue Atorvastatin -Will increase to 80mg po daily -Continue to monitor (8) Sinusitis: With persistent cough over the last month and pain across maxillary sinuses that worsens when he bends forward, chills. Will start Levaquin 500 mg which patient reports he has tolerated in the past as he has a penicillin allergy. (9) DVT prophylaxis: Heparin gtt Subjective Mr. Mcdowell reports he has had a productive cough for months, now worsening with sob since Sunday. He is producing yellow sputum and reports chills and nausea. He does have sinus pain through his maxillary sinuses. Denies chest pain. Review of Systems All systems reviewed & are unremarkable except as noted in HPI & below Physical Exam Vital Signs (Past 24 Hours): Last Vital Signs Temp 36.8 C 02/10/19 07:56 Pulse 76 02/10/19 07:56 Resp 18 02/10/19 07:56 BP 98/60 L 02/10/19 07:56 Pulse Ox 97 02/10/19 07:56 Physical Exam: General: no distress Eyes: normal inspection, PERLL Respiratory: chest non tender, diminished to auscultation, no respiratory distress, no accessory muscle use Cardiac: regular rate and rhythm, no rub or gallop, no murmur, no edema, no jvd GI/: active bowel sounds, no abd pain or tenderness, soft, non distended Extremities: normal range of motion, normal strength, non tender Neuro/Psych: alert and oriented x 3, normal mood and affect Skin: normal color, dry Results & Data Laboratory Results Abnormal lab results 02/09/19 02/09/19 02/09/19 Range/Units 17:38 17:38 17:38 RBC 3.66 L (4.7-6.1) M/uL Hgb 11.5 L (14.0-18.0) g/dL Hct 34.2 L (42-52) % RDW Std Deviation 48.9 H (36.4-46.3) fL MPV 10.9 H (7.4-10.4) fL Neut # (Auto) 6.60 H (1.4-6.5) K/uL Lymph # (Auto) 0.91 L (1.2-3.4) K/uL [place] # (Auto) 1.12 H (0.11-0.59) K/uL INR 1.2 H (0.9-1.1) BUN 19 H (7-18) mg/dl Glucose 131 H (70-99) mg/dl Calcium (8.5-10.1) mg/dl AST 14 L (15-37) U/L Troponin I 0.403 H* (0-0.045) ng/ml NT-Pro-B Natriuret Pep 4852 H (0-900) pg/ml Total Protein 6.2 L (6.4-8.2) gm/dl Albumin 2.9 L (3.4-5.0) gm/dl Prealbumin (20-40) mg/dl 02/09/19 02/10/19 02/10/19 Range/Units 21:47 05:16 05:16 RBC 3.76 L (4.7-6.1) M/uL Hgb 12.0 L (14.0-18.0) g/dL Hct 35.6 L (42-52) % RDW Std Deviation 49.6 H (36.4-46.3) fL MPV 10.9 H (7.4-10.4) fL Neut # (Auto) (1.4-6.5) K/uL Lymph # (Auto) 0.88 L (1.2-3.4) K/uL [place] # (Auto) 0.92 H (0.11-0.59) K/uL INR (0.9-1.1) BUN (7-18) mg/dl Glucose (70-99) mg/dl Calcium 8.4 L (8.5-10.1) mg/dl AST (15-37) U/L Troponin I 0.427 H* (0-0.045) ng/ml NT-Pro-B Natriuret Pep (0-900) pg/ml Total Protein (6.4-8.2) gm/dl Albumin (3.4-5.0) gm/dl Prealbumin 10.6 L (20-40) mg/dl 02/10/19 02/10/19 Range/Units 05:16 08:47 RBC (4.7-6.1) M/uL Hgb (14.0-18.0) g/dL Hct (42-52) % RDW Std Deviation (36.4-46.3) fL MPV (7.4-10.4) fL Neut # (Auto) (1.4-6.5) K/uL Lymph # (Auto) (1.2-3.4) K/uL [place] # (Auto) (0.11-0.59) K/uL INR 1.2 H (0.9-1.1) BUN (7-18) mg/dl Glucose (70-99) mg/dl Calcium (8.5-10.1) mg/dl AST (15-37) U/L Troponin I 0.270 H* (0-0.045) ng/ml NT-Pro-B Natriuret Pep (0-900) pg/ml Total Protein (6.4-8.2) gm/dl Albumin (3.4-5.0) gm/dl Prealbumin (20-40) mg/dl (1) Diabetes Diabetes mellitus complication detail: with polyneuropathy Diabetes mellitus complication status: with neurologic complications Diabetes mellitus termite exterminator insulin use: with correction use Diabetes mellitus type: type 2 Qualified Code(s): E11.42 - Type 2 diabetes mellitus with diabetic polyneuropathy; Z79.4 - computer terminal operator (current) use of insulin (2) CAD (coronary artery disease) Associated angina: angina presence unspecified Coronary Disease-Associated Artery/Lesion type: [place] artery [place] vs. transplanted heart: [place] heart Qualified Code(s): I25.10 - Atherosclerotic heart disease of [place] coronary artery without angina pectoris (3) CHF (congestive heart failure) Heart failure chronicity: unspecified Heart failure type: unspecified Qualified Code(s): I50.9 - Heart failure, unspecified (4) Hyperlipidemia Hyperlipidemia type: unspecified Qualified Code(s): E78.5 - Hyperlipidemia, unspecified
[2019-02-10] MEDS: ATORVASTATIN 40 MG TAB PO SCH ×2 (11:01→11:03)
[2019-02-10] MEDS: PREGABALIN 75 MG CAP PO SCH (11:29)
[2019-02-10 12:28] LABS: Partial Thromboplastin Ratio 1.7
[2019-02-10 12:37] LABS: Partial Thromboplastin Time 46.4 Seconds (21.0-31.0)
[2019-02-10] MEDS: levoFLOXacin 500 MG TAB PO SCH (12:46)
--- NOTE | 2019-02-10 14:00 | Consultation Report ---
DATE OF CONSULTATION: 02/10/2019 REFERRING PHYSICIAN: Brittney Villatoro DO PRIMARY CARE PHYSICIAN: Zac Torres MD INDICATIONS: Cough, shortness of breath, congestive heart failure, elevated troponin. HISTORY OF PRESENT ILLNESS: The patient is a very complex 63-year-old male with known history of ischemic cardiomyopathy with prior multiple coronary interventions. History is notable for prior two-vessel angioplasty in 1989 of the circumflex and right coronary artery, angioplasty of the left anterior descending in 2000, stenting of the mid left anterior descending in 2007, and stenting of an obtuse marginal in January 2011 and November 2012. He is noted to have thrombotic occlusion of the stented obtuse marginal in 2012. Most recent diagnostic cardiac catheterization was performed in 2013, which demonstrated diffuse coronary atherosclerosis with normal left main, 40% proximal LAD, and patent stent in the mid LAD, 50% mid left circumflex, 100% occlusion of the obtuse marginal and 60% of the distal circumflex with the circumflex dominant. LV systolic function was noted approximately 40% at that time. His underlying history is notable for class 2 angina pectoris, low HDL dyslipidemia, diabetes mellitus. The patient presents this admission noting difficulty with cough and shortness of breath for nearly a month's duration. Symptoms are becoming persistently worse after recent travel with severe coughing and shortness of breath. He noted no distinct chest discomfort though has felt tight in the chest with symptoms. Notes no productive cough. Notes no melena, hematochezia, dysuria, or hematuria. Weight has been gradually trending downward and is down at least 6 kilograms over the last year's time. He notes no distinct fevers or chills. Notes no melena, hematochezia, dysuria, or hematuria. Notes no headache or visual changes. Notes no acute neurologic complaints. He is modestly active about home with symptoms worsening over the past month with acute dyspnea x3 days. He was seen in the outpatient setting on Sunday 3 days ago for symptoms and flu screening was negative. On presentation to the Emergency Room, troponins are elevated and chest x-rays demonstrate an increase in interstitial process, probable early congestive failure. Echocardiogram this morning demonstrates decline in overall LV function with inferoposterior worsening wall motion abnormalities, EF 25% to 30%. He is referred now for further evaluation with review of systems as above. ALLERGIES: PENICILLIN, SIMVASTATIN, SULFA ANTIBIOTICS AND ROXICET. HE HAS HAD PAST HISTORY OF POOR TOLERANCE OF HIGHER DOSE STATINS. MEDICATIONS: Per list prior to hospitalization were aspirin 81 mg p.o. daily, atorvastatin 20 mg p.o. daily, carvedilol 12.5 mg p.o. daily. Prior outpatient records are demonstrating carvedilol 25 mg in a.m. and 12.5 mg in p.m., history of clopidogrel 75 mg p.o. daily, clonazepam at bedtime, furosemide 40 mg p.o. daily, gabapentin 300 mg at bedtime, glyburide 1.25 mg every day, isosorbide 60 mg p.o. daily, losartan 25 mg p.o. daily, metformin 1000 mg twice per day, Ranexa 500 mg b.i.d., nitroglycerin sublingual p.r.n. PAST SURGICAL HISTORY: Notable for appendectomy, cholecystectomy, prior multiple cystoscopies, prior SVT ablation. FAMILY HISTORY: Noncontributory. SOCIAL HISTORY: The patient is a nonsmoker since 1999 with prior history of greater than [id number]-[id number] history of tobacco use. Uses no significant alcoholic beverages. PHYSICAL EXAMINATION: GENERAL: The patient is a chronically ill appearing, age-appropriate male denying any current acute distress. VITAL SIGNS: Heart rate is 76, blood pressure is 98/60. HEENT: Normocephalic and atraumatic. Nares without discharge. NECK: Thin. There is no distinct jugular venous distention. LUNGS: Reveal crackles bibasilar. CARDIOVASCULAR: Regular with normal S1, S2. There is no S3 gallop. PMI is nondisplaced. ABDOMEN: Soft, nontender. There is no palpable hepatosplenomegaly. EXTREMITIES: Without cyanosis or clubbing. There is trace to 1+ lower extremity edema bilaterally. NEUROLOGIC: The patient is alert and answering questions appropriately. DATA: EKG demonstrates sinus rhythm with nonspecific intraventricular conduction delay, T-wave inversion in inferolateral leads. Echocardiogram performed this morning demonstrates inferoposterior basilar scar with EF 25% to 30% with [id number] mitral and tricuspid insufficiency and elevated pulmonary pressures. Chest x-ray reveals diffuse interstitial markings. LABORATORY STUDIES: White cell count 7.4, hemoglobin is 12.0, platelet count is 153. Sodium is 141, potassium is 3.6, chloride is 107, bicarbonate is 30, BUN 17, creatinine 0.88. Troponins are elevated at 0.4, 0.4, and 0.3. IMPRESSION: A complex 63-year-old male with a history of known ischemic heart disease and ischemic cardiomyopathy, presents now with 1-month history of worsening cough and shortness of breath culminating in severe shortness of breath x3 days. X-ray and exam suggest mild congestive heart failure. Echocardiogram demonstrates decline in LV function. PLAN: Diuresis initiated. We will continue IV heparin. Will likely need to proceed with diagnostic cardiac catheterization this admission. In the interim, we will change medical therapies to hopefully allow slightly greater blood pressure. The patient's cough and weight loss is concerning, though x-ray initially looks like congestive heart failure is a possible cause.
[2019-02-10] MEDS ORDERED: NiCARDipine HCL INJ 2.5 MG/ML 10 ML AMP ONE (15:22)
[2019-02-10] MEDS ORDERED: HEPARIN (PORCINE) 1000 UNIT/ML 10 ML (CATH LAB USE ONLY) ONE (15:22)
[2019-02-10] MEDS ORDERED: NITROGLYCERIN/D5W 100MCG/ML 20ML SYR ONE (15:22)
[2019-02-10] MEDS ORDERED: fentaNYL citrate 100 MCG/2 ML VIAL ONE (15:23)
[2019-02-10] MEDS ORDERED: MIDAZOLAM HCL 1 MG/ML 2ML VIAL ONE ×2 (15:23→16:47)
--- NOTE | 2019-02-10 16:32 | Cardiac Catheterization ---
Cardiac Cath Procedure: Brief Procedure Date February 10, 2019 Pre-Procedure Diagnosis Pre-Procedure Diagnosis: Non STEMI AUC Score AUC Score: 8 Post-Procedure Diagnosis Post-Procedure Diagnosis: Severe CAD Procedure(s) Performed Procedure(s) Performed: Coronary Angiography and Left Heart Cath Supervisor Functional Testing Terry Gaytan MD Automotive Title Clerk(s) Sandoval Conte Estimated Blood Loss Estimated Blood Loss: <15cc Medication(s) Medication(s): Fentanyl (12.5 mcg IV), Heparin (2000 units IV), Lidocaine 1% (Local infiltration access site), Nicardipine (250 mcg intra-arterial after arterial sheath inserted) and Versed (1 mg IV) Preliminary Findings Left dominant coronary anatomy Left main: Long and moderately calcified without obstruction Left anterior descending: Type III in distribution, giving rise to a moderate first diagonal small second diagonal. Within the left anterior descending there is a long area stenting in its proximal segment with in-stent narrowing of 50% there is moderate diffuse disease in the mid vessel of 30%. A large first diagonal branch is narrowed at its origin by 60% Left circumflex: Dominant in distribution. Gives rise to a small first marginal, a moderately large and chronically occluded second marginal and turns along the AV groove to give rise to 2 long posterior lateral branches and a posterior descending artery. Within the left circumflex there is a long area of stenting in its proximal third encompassing the origin of the small first marginal branch. The origin of the marginal branch is narrowed by 80%. The left circumflex beyond the area of stent has a high-grade 99% stenosis at its AV groove portion. The distal circumflex beyond the posterior lateral branches has competitive flow via right to left collateral fill Right coronary artery: Small nondominant consisting of 2 large right ventricular branches supplying collateral flow to the distal circumflex LV angiography: Not performed LV end-diastolic pressure 24 Recommendations Recommendations: PCI without planned CABG Specimens Specimens: None Fluids (cc crystalloids) Fluids (cc crystalloids): 28 Anesthesia Start time 1547, stop time 1613 Procedural Complication(s) None
--- NOTE | 2019-02-10 16:42 | Cardiac Catheterization ---
Cardiac Cath Procedure Full Procedure Date February 10, 2019 Pre-Procedure Diagnosis Pre-Procedure Diagnosis: Non STEMI AUC Score AUC Score: 8 Post-Procedure Diagnosis Post-Procedure Diagnosis: Severe CAD Procedure(s) Performed Procedure(s) Performed: Coronary Angiography and Left Heart Cath Ict Analyst Terry Gaytan MD Warp Preparer(s) Sandoval Conte Estimated Blood Loss Estimated Blood Loss: <15cc Medication(s) Medication(s): Fentanyl (12.5 mcg IV), Heparin (2000 units IV), Lidocaine 1% (Local infiltration access site), Nicardipine (250 mcg intra-arterial after arterial sheath inserted) and Versed (1 mg IV) Summary of Findings Left dominant coronary anatomy Left main: Long and moderately calcified without obstruction Left anterior descending: Type III in distribution, giving rise to a moderate first diagonal small second diagonal. Within the left anterior descending there is a long area stenting in its proximal segment with in-stent narrowing of 50% there is moderate diffuse disease in the mid vessel of 30%. A large first diagonal branch is narrowed at its origin by 60% Left circumflex: Dominant in distribution. Gives rise to a small first marginal, a moderately large and chronically occluded second marginal and turns along the AV groove to give rise to 2 long posterior lateral branches and a posterior descending artery. Within the left circumflex there is a long area of stenting in its proximal third encompassing the origin of the small first marginal branch. The origin of the first marginal branch is narrowed by 80%. The second marginal branch is known to be chronically occluded and fills faintly via left to left collateral fill. The left circumflex beyond the proximal area of stenting has a high-grade 99% stenosis at its AV groove portion. The distal circumflex beyond the posterior lateral branches has competitive flow via right to left collateral fill Right coronary artery: Small nondominant consisting of 2 large right ventricular branches supplying collateral flow to the distal circumflex LV angiography: Not performed LV end-diastolic pressure 24 Hemodynamics Rest Ao:: / Final Ao: LV: /08/21 Recommendations Recommendations: PCI without planned CABG Specimens Specimens: None Radiation Exposure (mGy) 1448 Contrast (mls) 67 Fluids (cc crystalloids) Fluids (cc crystalloids): 28 Anesthesia Start time 1547, stop time 1613 Procedural Complication(s) None ACC Data: Certification Engineer Cardiac Status 63-year-old male with known diffuse coronary disease, prior multivessel stenting presented with worsening shortness of breath cough with acute dyspnea times 2-3 days elevated troponin consistent with non-ST segment elevation myocardial infarction and decline in overall LV systolic function on echocardiogram EF now 25%, newly observed congestive heart failure present CAD Presenation: Non STEMI Anginal Classification: CCS IV Heart Failure: Yes Cardiogenic Shock within 24 Hours: No Cardiac Arrest within 24 Hours: No Imaging Studies Past 6 Months: Yes Stress Studies Past 6 Months: No Standard Exercise Test: No Stress Echocardiogram: No Stress Testing w/SPECT MPI: No Cardiac CTA: No Coronary Anatomy Dominant: Left Left Main (% Stenosis): Ostial (10% with moderate calcification) LAD (% Stenosis): Proximal (50) and Mid (40) D1 (% Stenosis): Ostial (70) D2 (% Stenosis): Normal (Small) Circumflex (% Stenosis): Proximal (30) and Mid (99%) OM1 (% Stenosis): Ostial (80%) OM2 (% Stenosis): Ostial (100%) L PL1 (% Stenosis): Normal L PL2 (% Stenosis): Normal L PDA (% Stenosis): Normal Diagnostic Physicians Name: Terry Gaytan MD Status: Urgent Closure Device Percutaneous Entry Location: Radial Recommendations: PCI without planned CABG
[2019-02-10] MEDS ORDERED: CLOPIDOGREL BISULFATE 300 MG TAB ONE (17:02)
--- NOTE | 2019-02-10 17:02 | Post Anesthesia Assessment ---
Date of Service February 10, 2019 Post Sedation Assessment Vital Signs Temp Pulse Pulse Resp BP BP BP 02/10/19 11:46 36.8 C 92 H 18 94/45 L 02/10/19 08:30 89 02/10/19 07:56 36.8 C 76 18 98/60 L 02/10/19 04:51 37.3 C 76 18 103/60 02/09/19 23:19 02/09/19 23:16 37.4 C 100 H 18 99/44 L 02/09/19 21:48 37.2 C 87 84 20 100/61 02/09/19 21:32 02/09/19 20:30 85 24 105/62 02/09/19 20:17 86 21 103/57 L 02/09/19 19:30 90 17 101/56 L 02/09/19 19:00 86 22 101/52 L 02/09/19 18:30 88 18 97/57 L 02/09/19 17:54 02/09/19 17:53 89 18 93/52 L Pulse Ox Pulse Ox 02/10/19 11:46 95 02/10/19 08:30 02/10/19 07:56 97 02/10/19 04:51 92 02/09/19 23:19 92 02/09/19 23:16 86 L 02/09/19 21:48 94 02/09/19 21:32 94 02/09/19 20:30 95 02/09/19 20:17 94 02/09/19 19:30 93 02/09/19 19:00 95 02/09/19 18:30 93 02/09/19 17:54 94 02/09/19 17:53 95 Recovery Score Activity: Moves 4 extremities Respiration: Deep Breath/Cough Circulation: +/-20% PreAnes Value Consciousness: Fully Awake Oxygen Saturation: O2 needed for >90% Discharge Sedation Level of Care: Fast Track Phase II Post Sedation Plan On clinical assessment, the patient appears to have tolerated the sedation without complications. Patient is recovering as anticipated. Patient will continue to be monitored by nursing and may be discharged when sedation discharge criteria are met per below protocol. Upon Completions of procedure and additional 15 minutes continue every 5 minute vital signs and the P.A.R. score; then discharge to a Phase I or Fast Track to Phase II per the following guidelines: * Discharge Patient to appropriate Phase II area if PAR is 8 or greater or return to pre- procedure baseline. The post - procedure orders will be as directed. * If PAR score is less than 8 or not return to pre-procedure baseline then patient will follow Phase I monitoring till PAR is reached for Phase II. The Phase I may be done in procedure room or may call to secure a Phase I area. * If naloxone or flumazenil are used for reversal, hold in Phase I for continued monitoring from when last reversal dose was given for a minimum of 60 minutes or longer pending the nurse and/or physician discretion of patient condition before discharge to Phase II. Please call the Sedation Physician to re-evaluate and complete post-note for discharge to Phase II area. Do NOT discharge from procedure sedation or Phase 1 until post- sedation evaluation note is complete by procedure /sedation MD Sedation Discharge Instructions to be given to the patient at discharge to home.
--- NOTE | 2019-02-10 17:07 | Cardiac Catheterization ---
Cardiac Cath Procedure: Brief Procedure Date February 10, 2019 Pre-Procedure Diagnosis Pre-Procedure Diagnosis: Non STEMI AUC Score AUC Score: 8 Post-Procedure Diagnosis Post-Procedure Diagnosis: Severe CAD Procedure(s) Performed Procedure(s) Performed: Coronary Angiography and Drug Eluting Stent Reprint Sorter Iker Moya MD Rounding Machine Tender(s) Sandoval Conte Estimated Blood Loss Estimated Blood Loss: <15cc Medication(s) Medication(s): Clopidogrel, Fentanyl (12.5 mcg IV), Heparin (2000 units IV), Nicardipine (250 mcg intra-arterial after arterial sheath inserted), Nitroglycerin and Versed (1 mg IV) Preliminary Findings For full details of patient's coronary angiography please see cath report dictated by Dr. Gaytan. Found to have subtotal occlusion of mid circumflex. Successful PCI of mid circumflex with single drug-eluting stent (2.75 x 18 mm Xience [place]; postdilated with 3.5 NC). Recommendations: Reloaded with clopidogrel 300 mg in label fuser tender Continue clopidogrel likely indefinitely in the setting of multiple, overlapping stents. If were to need invasive procedure clopidogrel could be held in 1 month. 88//43/62 /44/ contrast: 142 mGy 3911 Recommendations Recommendations: PCI without planned CABG Specimens Specimens: None Fluids (cc crystalloids) Fluids (cc crystalloids): 88 Drains Drains: none Anesthesia moderate Procedural Complication(s) None Disposition PCU
[2019-02-10] MEDS: METOPROLOL SUCC 25MG EXT REL TAB PO SCH (20:59)
[2019-02-10] MEDS ORDERED: GABAPENTIN 300 MG CAP PO SCH (21:00)
--- NOTE | 2019-02-10 22:09 | Cardiac Catheterization ---
Cardiac Cath Procedure Full Procedure Date February 10, 2019 Pre-Procedure Diagnosis Pre-Procedure Diagnosis: Non STEMI AUC Score AUC Score: 8 Post-Procedure Diagnosis Post-Procedure Diagnosis: Severe CAD and Successful PCI Procedure(s) Performed Procedure(s) Performed: Coronary Angiography and Drug Eluting Stent Scrap Drop Operator Iker Moya MD Director Of Convention Services(s) Sandoval Conte Estimated Blood Loss Estimated Blood Loss: <15cc Medication(s) Medication(s): Clopidogrel, Fentanyl (12.5 mcg IV), Heparin (2000 units IV), Nicardipine (250 mcg intra-arterial after arterial sheath inserted), Nitroglycerin and Versed (1 mg IV) Summary of Findings Indication: NSTEMI, Cardiomyopathy Access: 6Fr right radial artery Catheters: EBU 3.75 guide Findings: For full details of patient's coronary angiography please see cath report dictated by Dr. Gaytan. Found to have subtotal occlusion of mid circumflex. Decision to proceed with PCI of circumflex. -- PCI -- Antithrombotic therapy: Heparin, Clopidogrel Procedure: Left main cannulated with EBU 3.75 guide Cargo Service Supervisor 50 wire passed across lesion into distal vessel Mid circumflex lesion predilated with 2.0 and 2.5 compliant balloons Dilated lesion stented with 2.75 x 18 mm Xience [place] Stent post-dilated with 3.5 noncompliant balloon IC vasodilators administered for spasm Post procedure DOROTHY 3 flow, stent well expanded with minimal residual stenosis and no apparent cardiac complications. Arterial Closure: TR Band Summary: 1. Successful PCI of mid circumflex with a single drug-eluting stent overlapping distal aspect of prior stent (2.75 x Recommendations: To PCU for continued monitoring Continue clopidogrel likely indefinitely in the setting of multiple, overlapping stents. If were to need invasive procedure clopidogrel could be held in 1 month. Continue statin, and ASCVD risk factor modification Consult cardiac Rehab Hemodynamics Rest Ao:: Final Ao: LV: -- Recommendations Recommendations: PCI without planned CABG Specimens Specimens: None Radiation Exposure (mGy) 3911 Contrast (mls) 142 Fluids (cc crystalloids) Fluids (cc crystalloids): 88 Drains Drains: none Anesthesia moderate Procedural Complication(s) None Disposition PCU ACC Data: Body Service Team Member Cardiac Status Clinical evaluation leading to the procedure CAD Presenation: Non STEMI Anginal Classification: CCS III Heart Failure: NYHA Class: CCS III Cardiogenic Shock within 24 Hours: No Cardiac Arrest within 24 Hours: No Imaging Studies Past 6 Months: Yes Stress Studies Past 6 Months: No Diagnostic Physicians Name: Iker Moya MD Status: Elective Closure Device Percutaneous Entry Location: Radial Closure Device: Radial Band Recommendations: PCI without planned CABG PCI Indication: PCI for high risk Non-PANCHO Lesion Segment Name: mid circumflex Culprit Artery: Yes Stenosis Prior to Rx (%): 99 Chronic Total Occlusion: No IVUS: No FFR: No Pre-Procedure DOROTHY Flow: 2 Previously Treated Lesion: No Lesion Complexity: Non-High/Non-C Lesion Length (mm): 15 Thrombus Present: Yes Bifurcation Lesion: No Guidewire Across Lesion: Stenosis Post-Procedure (%): 0 Post-Procedure DOROTHY Flow: 3 Devices(s) Deployed: Yes Yes Intraprocedure Events Significant Disection: No Perforation: No
[2019-02-10 22:11] LABS: Appearance Urine Clear (Clear); Bilirubin Urine Negative (Negative); Blood Urine Negative (Negative); Color Urine Yellow; Glucose Urine UA Negative (Negative); Ketones Urine Negative (Negative); Leukocyte Esterase Urine Negative (Negative); Nitrite Urine Negative (Negative); Protein Urine Negative (Negative); Specific Gravity Urine 1.037 (1.000-1.030); Urobilinogen Urine Negative (Negative); pH Urine 6.5 (4.5-7.5)
[2019-02-11] MEDS: ACETAMINOPHEN 325 MG TAB PO PRN ×2 (00:05→11:25)
[2019-02-11 07:04] LABS: Hematocrit (blood only) 37.2 % (42-52); Hemoglobin 12.8 g/dL (14.0-18.0); Mean Corpuscular Hgb Conc 34.4 g/dL (32-36); Mean Corpuscular Volume 92.5 fL (80-100); Mean Platelet Volume 10.8 fL (7.4-10.4); Platelet Count 180 K/uL (130-400); RDW Standard Deviation 47.6 fL (36.4-46.3); Red Blood Count 4.02 M/uL (4.7-6.1); White Blood Count 7.72 K/uL (4.8-10.8)
[2019-02-11 07:29] LABS: BUN Creatinine Ratio 16.6 (10-20); Calcium 8.8 mg/dl (8.5-10.1); Creatinine Clr Calc Pharmacy 96.8 ml/min; Est GFR (African American) 105.5; Potassium 3.5 mmol/L (3.5-5.1)
[2019-02-11] MEDS: INSULIN ASPART 100 UNITS/ML 3 ML PEN SC SCH ×4 (08:00→20:50)
[2019-02-11] MEDS: INSULIN GLARGINE SOLOSTAR 100 UNITS/ML 3 ML PEN SC SCH ×2 (08:00→20:52)
[2019-02-11] MEDS: CLOPIDOGREL BISULFATE 75 MG TAB PO SCH (08:02)
[2019-02-11] MEDS: METOPROLOL SUCC 25MG EXT REL TAB PO SCH ×2 (08:03→20:51)
[2019-02-11] MEDS: ASPIRIN 81 MG ECTAB PO SCH (08:03)
[2019-02-11] MEDS: LOSARTAN POTASSIUM 25 MG TAB PO SCH (08:03)
[2019-02-11] MEDS: RANOLAZINE 500 MG ER TAB PO SCH (08:04)
[2019-02-11] MEDS: BENZONATATE 100 MG CAPSULE PO SCH ×3 (08:04→20:50)
[2019-02-11] MEDS: ISOSORBIDE MONO EXTENDED REL 30 MG TABCR PO SCH (08:04)
[2019-02-11] MEDS: FUROSEMIDE 20 MG in SYRINGE 0 ML IV SCH ×2 (08:05→18:46)
[2019-02-11] MEDS: ATORVASTATIN 40 MG TAB PO SCH (08:05)
[2019-02-11] MEDS: PREGABALIN 75 MG CAP PO SCH (08:07)
--- NOTE | 2019-02-11 09:13 | Hospitalist Progress Note ---
Date of Service February 11, 2019 Assessment & Plan (1) Shortness of breath: Patient with progressive SOB over the last month, acute worsening over the three days prior to admission. Also with edema and orthopnea. He reports some mild dull left sided chest pressure at times. - afebrile, no leukocytosis, Procalcitonin negative, no infiltrate noted on CXR to suggest infectious process in the lungs. - Elevated BNP and interstitial edema concerning for CHF. - Last available echo in [facility] from 01/15/13 which showed multiple WMA. LVEF of 50 - 55%, Grade I diastolic dysfunction. Repeat echo with decreased EF 25% and akinesis of the posterior and inferior justin with diffuse hypokinesis. -continue diuresis with Lasix 20mg IV BID -Strict I/Os -Daily weights -Low Na diet as tolerated -[facility] Cardiology consultation -Trend cardiac enzymes - peaked at .43 and are trending down - cardiac cath 02/10 with stent to the distal circumflex (2) CHF (congestive heart failure): Acute systolic CHF -Plan as above -Continue ASA, Plavix, Atorvastatin, Carvedilol, Losartan -Lasix as above - negative a liter and a half and 1kg (3) Elevated troponin: Patient with mildly elevated troponin, peaked at 0.43. Presently with no CP. EKG with ST-T changes new from prior. - cath 02/10 as above -Cardiac monitoring (4) CAD (coronary artery disease): Patient with early onset aggressive CAD. Has had multiple PCIs. -Continue ASA, Plavix, Metoprolol, Cozaar, increased dose of Atorvastatin -Continue anti-anginals, Ranexa -Continue Imdur (5) Abnormal EKG: As above (6) Diabetes: Well controlled on Glipizide and Metformin at home. [id number]=8 on 02/27/18. -Hold Glipizide and Metformin -Lantus 7u BID, ISS -Continue to monitor (7) Hyperlipidemia: Chronic -Continue Atorvastatin -Will increase to 80mg po daily -Continue to monitor (8) Sinusitis: With persistent cough over the last month and pain across maxillary sinuses that worsens when he bends forward, chills. - continue Levaquin 500 mg started 02/11 (9) DVT prophylaxis: heparin subq Subjective Mr. Richardson is less sob today. Continues to have a cough productive of clear to yellow sputum and pain through his maxillary sinuses. Review of Systems All systems reviewed & are unremarkable except as noted in HPI & below Physical Exam Vital Signs (Past 24 Hours): Last Vital Signs Temp 36.6 C 02/11/19 08:08 Pulse 77 02/11/19 08:08 Resp 18 02/11/19 08:08 BP 95/54 L 02/11/19 08:08 Pulse Ox 92 02/11/19 08:08 Physical Exam: General: no distress Eyes: normal inspection, PERLL Respiratory: chest non tender, clear to auscultation, normal breath sounds, no respiratory distress, no accessory muscle use Cardiac: regular rate and rhythm, no rub or gallop, no murmur, no edema, no jvd GI/: active bowel sounds, no abd pain or tenderness, soft, non distended Extremities: normal range of motion, normal strength, non tender Neuro/Psych: alert and oriented x 3, normal mood and affect Skin: normal color, dry (1) Diabetes Diabetes mellitus complication detail: with polyneuropathy Diabetes mellitus complication status: with neurologic complications Diabetes mellitus supervisor intermediates insulin use: with snf use Diabetes mellitus type: type 2 Qualified Code(s): E11.42 - Type 2 diabetes mellitus with diabetic polyneuropathy; Z79.4 - long term care phlebotomist (current) use of insulin (2) CAD (coronary artery disease) Associated angina: angina presence unspecified Coronary Disease-Associated Artery/Lesion type: [place] artery [place] vs. transplanted heart: [place] heart Qualified Code(s): I25.10 - Atherosclerotic heart disease of [place] coronary artery without angina pectoris (3) CHF (congestive heart failure) Heart failure chronicity: unspecified Heart failure type: unspecified Qualified Code(s): I50.9 - Heart failure, unspecified (4) Hyperlipidemia Hyperlipidemia type: unspecified Qualified Code(s): E78.5 - Hyperlipidemia, unspecified
[2019-02-11] MEDS ORDERED: POTASSIUM CHLORIDE 20 MEQ TABCR PO ONE (10:30)
[2019-02-11] MEDS: FUROSEMIDE 40 MG TAB PO SCH (11:06)
[2019-02-11] MEDS: levoFLOXacin 500 MG TAB PO SCH (11:26)
[2019-02-11] MEDS ORDERED: GUAIFENESIN/CODEINE 100MG/10MG 5ML UDC PO PRN (11:49)
--- NOTE | 2019-02-11 11:59 | Cardiology Progress Note ---
Date of Service February 11, 2019 Assessment & Plan (1) CHF (congestive heart failure): Patient is responded to diuresis we will continue IV furosemide today, resume oral diuretic in a.m. Add spironolactone to her regimen We will optimize medical regimen. Will discontinue carvedilol to allow greater blood pressure begin Toprol-XL. Reduce Imdur to 30 mg/day Discontinue Ranexa Ultimate goal stable medical regimen to allow initiation of Entresto as outpatient (2) CAD (coronary artery disease): Status post urgent diagnostic cardiac catheterization yesterday demonstrating 99% circumflex and AV groove portion of a dominant vessel. Patient status post successful drug-eluting stent We will continue aspirin and clopidogrel (3) Cardiomyopathy, ischemic: Recommendations as above (4) Sinusitis: Patient with persistent symptoms Subjective Patient seen and examined, chart medications telemetry reviewed. Patient feels improved this morning but continues to have difficulties with marked sinus and facial pressure. Denies any chest pain or worsening shortness of breath. Notes no dizziness or lightness notes no syncope or near syncope tolerating current medications Right radial access healing well Physical Exam Vital Signs (Past 24 Hours): Last Vital Signs Temp 36.6 C 02/11/19 08:08 Pulse 77 02/11/19 08:08 Resp 18 02/11/19 08:08 BP 95/54 L 02/11/19 08:08 Pulse Ox 92 02/11/19 08:08 Constitutional: WD/WN, vitals as above Eyes: PERRL, conjunctivae normal, anicteric sclerae ENMT: external ear and nose normal, oropharynx normal Neck: trachea midline, no thyromegaly Respiratory: normal respiratory effort and + cough; no respiratory distress and no audible wheezes Auscultation: lungs clear to auscultation bilaterally and + diminished lung sounds Cardiovascular: Rate/Rhythm: regular rate and regular rhythm Heart Sounds: normal S1 and normal S2; no gallop and no murmur Extremities: + pedal edema Gastrointestinal (Abdomen): normal bowel sounds, soft, nontender, no hepatosplenomegaly Musculoskeletal: no cyanosis or clubbing, extremities motor strength 5/5 Results & Data Laboratory Results Laboratory Results - last 24 hr 02/10/19 02/10/19 02/10/19 11:54 15:37 17:35 WBC RBC Hgb Hct MCV MCH MCHC RDW Std Deviation RDW Coeff of Neyda Plt Count MPV APTT 46.4 H* PTT Ratio 1.7 Activ Coag Time Kaolin 224 H Sodium Potassium Chloride Carbon Dioxide Anion Gap BUN Creatinine Est Cr Clr Drug Dosing Est GFR ( Amer) Est GFR (Non-Af Amer) BUN/Creatinine Ratio Glucose POC Glucose 100 H Calcium Urine Color Urine Appearance Urine pH Ur Specific [place] Urine Protein Urine Glucose (UA) Urine Ketones Urine Blood Urine Nitrite Urine Bilirubin Urine Urobilinogen Ur Leukocyte Esterase 02/10/19 02/10/19 02/11/19 20:37 21:27 06:39 WBC 7.72 RBC 4.02 L Hgb 12.8 L Hct 37.2 L MCV 92.5 MCH 31.8 MCHC 34.4 RDW Std Deviation 47.6 H RDW Coeff of Neyda 14.0 Plt Count 180 MPV 10.8 H APTT PTT Ratio Activ Coag Time Kaolin Sodium Potassium Chloride Carbon Dioxide Anion Gap BUN Creatinine Est Cr Clr Drug Dosing Est GFR ( Amer) Est GFR (Non-Af Amer) BUN/Creatinine Ratio Glucose POC Glucose 159 H Calcium Urine Color Yellow Urine Appearance Clear Urine pH 6.5 Ur Specific [place] 1.037 H Urine Protein Negative Urine Glucose (UA) Negative Urine Ketones Negative Urine Blood Negative Urine Nitrite Negative Urine Bilirubin Negative Urine Urobilinogen Negative Ur Leukocyte Esterase Negative 02/11/19 02/11/19 02/11/19 06:39 07:41 11:21 WBC RBC Hgb Hct MCV MCH MCHC RDW Std Deviation RDW Coeff of Neyda Plt Count MPV APTT PTT Ratio Activ Coag Time Kaolin Sodium 141 Potassium 3.5 Chloride 106 Carbon Dioxide 29 Anion Gap 6.0 BUN 14 Creatinine 0.86 Est Cr Clr Drug Dosing 96.8 Est GFR ( Amer) 105.5 Est GFR (Non-Af Amer) 91.0 BUN/Creatinine Ratio 16.6 Glucose 102 H POC Glucose 125 H 137 H Calcium 8.8 Urine Color Urine Appearance Urine pH Ur Specific [place] Urine Protein Urine Glucose (UA) Urine Ketones Urine Blood Urine Nitrite Urine Bilirubin Urine Urobilinogen Ur Leukocyte Esterase (1) CHF (congestive heart failure) Heart failure chronicity: unspecified Heart failure type: unspecified Qualified Code(s): I50.9 - Heart failure, unspecified (2) CAD (coronary artery disease) Coronary Disease-Associated Artery/Lesion type: [place] artery [place] vs. transplanted heart: [place] heart Associated angina: angina presence unspecified Qualified Code(s): I25.10 - Atherosclerotic heart disease of [place] coronary artery without angina pectoris
[2019-02-11] MEDS: SPIRONOLACTONE 25 MG TAB PO SCH (12:14)
[2019-02-11] MEDS: clonazePAM 0.5 MG TAB PO SCH (20:49)
[2019-02-11] MEDS: HEPARIN SOD 5,000 UNIT/0.5 ML VIAL SQ SCH (20:51)
[2019-02-12 07:54] LABS: Hematocrit (blood only) 38.2 % (42-52); Mean Corpuscular Volume 92.7 fL (80-100); Mean Platelet Volume 10.5 fL (7.4-10.4); Platelet Count 188 K/uL (130-400); RDW Coefficient of Variation 14.1 % (11.5-14.5); RDW Standard Deviation 47.8 fL (36.4-46.3); Red Blood Count 4.12 M/uL (4.7-6.1); White Blood Count 6.58 K/uL (4.8-10.8)
[2019-02-12 08:12] LABS: BUN Creatinine Ratio 13.5 (10-20); Calcium 9.3 mg/dl (8.5-10.1); Creatinine Clr Calc Pharmacy 101.5 ml/min; Est GFR (African American) 107.6; Est GFR (Non-African American) 92.8; Potassium 3.9 mmol/L (3.5-5.1)
[2019-02-12] MEDS: INSULIN ASPART 100 UNITS/ML 3 ML PEN SC SCH ×4 (09:13→20:36)
[2019-02-12] MEDS: SPIRONOLACTONE 25 MG TAB PO SCH (09:18)
[2019-02-12] MEDS: LOSARTAN POTASSIUM 25 MG TAB PO SCH (09:20)
[2019-02-12] MEDS: ASPIRIN 81 MG ECTAB PO SCH (09:21)
[2019-02-12] MEDS: ISOSORBIDE MONO EXTENDED REL 30 MG TABCR PO SCH (09:24)
[2019-02-12] MEDS: ATORVASTATIN 40 MG TAB PO SCH (09:27)
[2019-02-12] MEDS: CLOPIDOGREL BISULFATE 75 MG TAB PO SCH (09:28)
[2019-02-12] MEDS: BENZONATATE 100 MG CAPSULE PO SCH ×3 (09:29→20:33)
[2019-02-12] MEDS: PREGABALIN 75 MG CAP PO SCH (09:29)
[2019-02-12] MEDS: METOPROLOL SUCC 25MG EXT REL TAB PO SCH ×2 (09:30→20:34)
[2019-02-12] MEDS: FUROSEMIDE 40 MG TAB PO SCH (09:31)
[2019-02-12] MEDS: FUROSEMIDE 20 MG in SYRINGE 0 ML IV SCH (09:32)
[2019-02-12] MEDS: HEPARIN SOD 5,000 UNIT/0.5 ML VIAL SQ SCH ×2 (09:33→20:34)
[2019-02-12] MEDS: INSULIN GLARGINE SOLOSTAR 100 UNITS/ML 3 ML PEN SC SCH ×2 (09:33→20:35)
--- NOTE | 2019-02-12 11:23 | Cardiology Progress Note ---
Date of Service February 12, 2019 Assessment & Plan (1) CHF (congestive heart failure): Patient is responded to diuresis adjustments made to medical regimen for optimization of therapy We will see patient return to tentative appointment on 02/26/2019 Consider Entresto at time of post discharge evaluation CHF instructions and teaching ordered (2) CAD (coronary artery disease): Status post urgent diagnostic cardiac catheterization yesterday demonstrat ing 99% circumflex and AV groove portion of a dominant vessel. Patient status post successful drug-eluting stent We will continue aspirin and clopidogrel (3) Cardiomyopathy, ischemic: Recommendations as above (4) Sinusitis: Patient with persistent symptoms on antibiotic therapies if symptoms persist may require corticosteroid treatment Subjective Patient seen and examined, chart medications telemetry reviewed. Patient feels improved this morning but continues to have difficulties with sinus drainage and facial pressure. Denies any chest pain or worsening shortness of breath. Notes no dizziness or lightness notes no syncope or near syncope tolerating current medications Right radial access healing well Physical Exam Vital Signs (Past 24 Hours): Last Vital Signs Temp 36.9 C 02/12/19 07:55 Pulse 78 02/12/19 07:55 Resp 18 02/12/19 07:55 BP 101/59 L 02/12/19 07:55 Pulse Ox 94 02/12/19 07:55 Constitutional: WD/WN, vitals as above Eyes: PERRL, conjunctivae normal, anicteric sclerae ENMT: external ear and nose normal, oropharynx normal Neck: trachea midline, no thyromegaly Respiratory: normal respiratory effort and + cough; no respiratory distress and no audible wheezes Auscultation: lungs clear to auscultation bilaterally and + diminished lung sounds Cardiovascular: Rate/Rhythm: regular rate and regular rhythm Heart Sounds: normal S1 and normal S2; no gallop and no murmur Extremities: + pedal edema Gastrointestinal (Abdomen): normal bowel sounds, soft, nontender, no hepatosplenomegaly Musculoskeletal: no cyanosis or clubbing, extremities motor strength 5/5 Results & Data Laboratory Results Laboratory Results - last 24 hr 02/11/19 02/11/19 02/11/19 11:21 16:24 20:35 WBC RBC Hgb Hct MCV MCH MCHC RDW Std Deviation RDW Coeff of Neyda Plt Count MPV Sodium Potassium Chloride Carbon Dioxide Anion Gap BUN Creatinine Est Cr Clr Drug Dosing Est GFR ( Amer) Est GFR (Non-Af Amer) BUN/Creatinine Ratio Glucose POC Glucose 137 H 132 H 121 H Calcium 02/12/19 02/12/19 02/12/19 07:26 07:29 07:29 WBC 6.58 RBC 4.12 L Hgb 13.0 L Hct 38.2 L MCV 92.7 MCH 31.6 MCHC 34.0 RDW Std Deviation 47.8 H RDW Coeff of Neyda 14.1 Plt Count 188 MPV 10.5 H Sodium 140 Potassium 3.9 Chloride 107 Carbon Dioxide 28 Anion Gap 5.0 BUN 11 Creatinine 0.82 Est Cr Clr Drug Dosing 101.5 Est GFR ( Amer) 107.6 Est GFR (Non-Af Amer) 92.8 BUN/Creatinine Ratio 13.5 Glucose 110 H POC Glucose 109 H Calcium 9.3 (1) CHF (congestive heart failure) Heart failure chronicity: unspecified Heart failure type: unspecified Qualified Code(s): I50.9 - Heart failure, unspecified (2) CAD (coronary artery disease) Coronary Disease-Associated Artery/Lesion type: [place] artery [place] vs. transplanted heart: platinum heart Associated angina: angina presence unspecified Qualified Code(s): I25.10 - Atherosclerotic heart disease of [place] coronary artery without angina pectoris
[2019-02-12] MEDS: FLUTICASONE PROPIONATE NA SPR 16 GM BTL SCH (12:06)
[2019-02-12] MEDS: levoFLOXacin 500 MG TAB PO SCH (12:17)
--- NOTE | 2019-02-12 13:28 | Hospitalist Progress Note ---
Date of Service February 12, 2019 Assessment & Plan (1) Shortness of breath: Patient with progressive SOB over the last month, acute worsening over the three days prior to admission. Also with edema and orthopnea. He reports some mild dull left sided chest pressure at times. - afebrile, no leukocytosis, Procalcitonin negative, no infiltrate noted on CXR to suggest infectious process in the lungs. - Elevated BNP and interstitial edema concerning for CHF on admission - Last available echo in [facility] from 01/15/13 which showed multiple WMA. LVEF of 50 - 55%, Grade I diastolic dysfunction. Repeat echo with decreased EF 25% and akinesis of the posterior and inferior justin with diffuse hypokinesis. -diuresed with Lasix 20mg IV BID - now back to home dosing po lasix -Strict I/Os - almost 3L negative -Daily weights - decreased by 2 kg -Low Na diet as tolerated -[facility] consultation -Trend cardiac enzymes - peaked at .43 and are trending down - cardiac cath 02/10 with stent to the distal circumflex (2) CHF (congestive heart failure): Acute systolic CHF -Plan as above -Continue ASA, Plavix, Atorvastatin, Carvedilol, Losartan -Lasix as above (3) Elevated troponin: Patient with mildly elevated troponin, peaked at 0.43. Presently with no CP. EKG with ST-T changes new from prior. - cath 02/10 as above -Cardiac monitoring (4) CAD (coronary artery disease): Patient with early onset aggressive CAD. Has had multiple PCIs. -Continue ASA, Plavix, Metoprolol, Cozaar, increased dose of Atorvastatin -Continue anti-anginals, Ranexa -Continue Imdur (5) Abnormal EKG: As above (6) Diabetes: Well controlled on Glipizide and Metformin at home. [id number] on 02/27/18. -Hold Glipizide and Metformin -Lantus 7u BID, ISS -Continue to monitor (7) Hyperlipidemia: Chronic -Continue Atorvastatin -Will increase to 80mg po daily -Continue to monitor (8) Sinusitis: With persistent cough over the last month and pain across maxillary sinuses that worsens when he bends forward, chills. - continue Levaquin 500 mg started 02/11 - will add nasal irrigation and Flonase (9) DVT prophylaxis: heparin subq Subjective MrPoli Rays breathing is much better today but his cough persists. He is not getting much sleep. He is able to lay flat without getting sob. Review of Systems Review of Systems: All systems reviewed & are unremarkable except as noted in HPI & below Physical Exam Physical Exam: General: no distress Eyes: normal inspection, PERLL Respiratory: chest non tender, clear to auscultation, normal breath sounds, no respiratory distress, no accessory muscle use Cardiac: regular rate and rhythm, no rub or gallop, no murmur, no edema, no jvd GI/: active bowel sounds, no abd pain or tenderness, soft, non distended Extremities: normal range of motion, normal strength, non tender Neuro/Psych: alert and oriented x 3, normal mood and affect Skin: normal color, dry Results & Data Vital Signs (Past 12 Hours) Vital Signs Temp Pulse Pulse Resp BP Pulse Ox 02/12/19 11:38 36.4 C L 80 24 87/42 L 95 02/12/19 07:55 36.9 C 78 18 101/59 L 94 02/12/19 07:42 83 02/12/19 04:24 37.1 C 74 19 106/64 93 (1) CHF (congestive heart failure) Heart failure chronicity: unspecified Heart failure type: unspecified Qualified Code(s): I50.9 - Heart failure, unspecified (2) CAD (coronary artery disease) Coronary Disease-Associated Artery/Lesion type: [place] artery [place] vs. transplanted heart: [place] heart Associated angina: angina presence unspecified Qualified Code(s): I25.10 - Atherosclerotic heart disease of [place] coronary artery without angina pectoris (3) Diabetes Diabetes mellitus type: type 2 Diabetes mellitus detention insulin use: with terminal operator use Diabetes mellitus complication status: with neurologic complications Diabetes mellitus complication detail: with polyneuropathy Qualified Code(s): E11.42 - Type 2 diabetes mellitus with diabetic polyneuropathy; Z79.4 - senior living (current) use of insulin (4) Hyperlipidemia Hyperlipidemia type: unspecified Qualified Code(s): E78.5 - Hyperlipidemia, unspecified
[2019-02-12] MEDS: clonazePAM 0.5 MG TAB PO SCH (20:34)
[2019-02-13 06:41] LABS: Hematocrit (blood only) 38.9 % (42-52); Hemoglobin 13.1 g/dL (14.0-18.0); Mean Corpuscular Hgb Conc 33.7 g/dL (32-36); Mean Corpuscular Volume 92.6 fL (80-100); Mean Platelet Volume 10.4 fL (7.4-10.4); Platelet Count 189 K/uL (130-400); RDW Coefficient of Variation 13.9 % (11.5-14.5); White Blood Count 6.11 K/uL (4.8-10.8)
[2019-02-13 07:12] LABS: Calcium 8.5 mg/dl (8.5-10.1); Creatinine Clr Calc Pharmacy 106.7 ml/min; Est GFR (African American) 109.8; Est GFR (Non-African American) 94.7; Potassium 3.8 mmol/L (3.5-5.1)
[2019-02-13] MEDS: FUROSEMIDE 40 MG TAB PO SCH (07:38)
[2019-02-13] MEDS: LOSARTAN POTASSIUM 25 MG TAB PO SCH (07:38)
[2019-02-13] MEDS: SPIRONOLACTONE 25 MG TAB PO SCH (07:38)
[2019-02-13] MEDS: ASPIRIN 81 MG ECTAB PO SCH (07:38)
[2019-02-13] MEDS: BENZONATATE 100 MG CAPSULE PO SCH ×2 (07:38→14:07)
[2019-02-13] MEDS: METOPROLOL SUCC 25MG EXT REL TAB PO SCH (07:39)
[2019-02-13] MEDS: ISOSORBIDE MONO EXTENDED REL 30 MG TABCR PO SCH (07:39)
[2019-02-13] MEDS: ATORVASTATIN 40 MG TAB PO SCH (07:39)
[2019-02-13] MEDS: CLOPIDOGREL BISULFATE 75 MG TAB PO SCH (07:39)
[2019-02-13] MEDS: HEPARIN SOD 5,000 UNIT/0.5 ML VIAL SQ SCH (07:40)
[2019-02-13] MEDS: INSULIN ASPART 100 UNITS/ML 3 ML PEN SC SCH ×2 (07:40→12:20)
[2019-02-13] MEDS: INSULIN GLARGINE SOLOSTAR 100 UNITS/ML 3 ML PEN SC SCH (07:41)
[2019-02-13] MEDS: FLUTICASONE PROPIONATE NA SPR 16 GM BTL SCH (07:41)
[2019-02-13] MEDS: PREGABALIN 75 MG CAP PO SCH (09:03)
[2019-02-13] MEDS: levoFLOXacin 500 MG TAB PO SCH (12:19)
[2019-02-13] MEDS ORDERED: OPTIRAY 320 125ml IV PRN (12:38)
--- NOTE | 2019-02-13 12:59 | CT Scan Report ---
CT head/brain wo con CT DOSE: 750.89 mGy.cm HISTORY: Mental status change rule out stroke, sinusitis TECHNIQUE: Multiaxial CT images of the head were performed without the use of intravenous contrast. A dose lowering technique was utilized adhering to the principles of ALARA. Comparison: None Findings: Moderate mucosal thickening of all major sinuses. Air-fluid level within the left maxillary sinus. Mastoid air cells are clear. The calvarium and skull base are intact. The ventricles and sulc i are within normal limits. There is no mass, hematoma, midline shift, or acute infarct. Impression: No acute intracranial abnormality. Combination of acute and chronic sinusitis as discussed. The above report was generated using voice recognition software. It may contain grammatical, syntax or spelling errors. Electronically signed by: Lester Gómez M.D. 02/13/2019 12:57 PM
--- NOTE | 2019-02-13 13:16 | CT Scan Report ---
CTA ANGIOGRAPHY OF THE HEAD CLINICAL HISTORY: Stroke symptoms. COMPARISON STUDY: CT June 24, 2009. TECHNIQUE: Helical axial images of the head were obtained following uneventful intravenous administr ation of 120 cc of Optiray 320. Automated exposure control was utilized for the study. A dose lower ing technique was utilized adhering to the principles of ALARA. FINDINGS: Please note that the head CT will be reported separately. No acute intracranial hemorrhage, midline shift or mass effect is present. There is extensive mucosal thickening of the sinuses with a ir-fluid level within the left maxillary sinus. Ventricular system is normal. Basilar cisterns are pa tent. The bilateral M1, M2, A1 and A2 segments are patent. There is moderate calcified plaque within the bilateral cavernous carotids with mild stenosis. No abrupt vessel cut off is identified. There is no intracranial aneurysm. Posterior circulation is intact. IMPRESSION: 1. Unremarkable CTA of the head for age. No aneurysm. No abrupt vessel cut off. 2. Findings suggestive of acute on chronic sinusitis. Electronically signed by: Rober Ricci M.D. 02/13/2019 1:15 PM
--- NOTE | 2019-02-13 13:41 | Cardiology Progress Note ---
Date of Service February 13, 2019 Assessment & Plan (1) CHF (congestive heart failure): Patient is responded to diuresis adjustments made to medical regimen for optimization of therapy We will see patient return to tentative appointment on 02/26/2019 Consider Entresto at time of post discharge evaluation CHF instructions and teaching ordered (2) CAD (coronary artery disease): Status post urgent diagnostic cardiac catheterization yesterday demonstrat ing 99% circumflex and AV groove portion of a dominant vessel. Patient status post successful drug-eluting stent We will continue aspirin and clopidogrel Patient presented with likely demand based non-ST segment elevation MS acutely exacerbated by worsening respiratory status, declining LV function and congestive heart failure. Patient notes symptoms of angina worsening over the past 2 months prior. Patient had successful revascularization as above Will follow cardiomyopathy post hospital discharge. Currently patient on guideline directed optimal medical regimen including CHF indicated beta-mack, losartan, statin, dual antiplatelet therapy, spironolactone. Arrangements made for follow-up in the next 2 weeks time (3) Cardiomyopathy, ischemic: Recommendations as above (4) Sinusitis: Patient with persistent symptoms on antibiotic therapies if symptoms persist may require corticosteroid treatment Subjective No chest pain or shortness of breath. Still with cough and sinus pressure but improved. No orthopnea. Lower extremity edema improved. Has noted some visual changes today with floating spots. Notes no acute neurologic loss motor strength or speech Blood sugars have been controlled Telemetry reveals no arrhythmias Physical Exam Constitutional: WD/WN, vitals as above Eyes: PERRL, conjunctivae normal, anicteric sclerae ENMT: external ear and nose normal, oropharynx normal Neck: trachea midline, no thyromegaly Respiratory: normal respiratory effort and + cough; no respiratory distress and no audible wheezes Auscultation: lungs clear to auscultation bilaterally and + diminished lung sounds Cardiovascular: Rate/Rhythm: regular rate and regular rhythm Heart Sounds: normal S1 and normal S2; no gallop and no murmur Extremities: no pedal edema Gastrointestinal (Abdomen): normal bowel sounds, soft, nontender, no hepatosplenomegaly Musculoskeletal: no cyanosis or clubbing, extremities motor strength 5/5 Results & Data Vital Signs (Past 12 Hours) Vital Signs Temp Pulse Resp BP Pulse Ox 02/13/19 11:59 36.8 C 92 H 18 103/74 94 02/13/19 07:31 36.9 C 75 16 119/49 L 95 02/13/19 03:06 36.8 C 62 17 100/61 93 Laboratory Results Laboratory Results - last 24 hr 02/12/19 02/12/19 02/13/19 16:14 20:20 06:22 WBC 6.11 RBC 4.20 L Hgb 13.1 L Hct 38.9 L MCV 92.6 MCH 31.2 MCHC 33.7 RDW Std Deviation 47.0 H RDW Coeff of Neyda 13.9 Plt Count 189 MPV 10.4 Sodium Potassium Chloride Carbon Dioxide Anion Gap BUN Creatinine Est Cr Clr Drug Dosing Est GFR ( Amer) Est GFR (Non-Af Amer) BUN/Creatinine Ratio Glucose POC Glucose 122 H 251 H Calcium 02/13/19 02/13/19 02/13/19 06:22 07:30 11:22 WBC RBC Hgb Hct MCV MCH MCHC RDW Std Deviation RDW Coeff of Neyda Plt Count MPV Sodium 141 Potassium 3.8 Chloride 109 H Carbon Dioxide 29 Anion Gap 3.0 BUN 13 Creatinine 0.78 Est Cr Clr Drug Dosing 106.7 Est GFR ( Amer) 109.8 Est GFR (Non-Af Amer) 94.7 BUN/Creatinine Ratio 17.0 Glucose 111 H POC Glucose 135 H 119 H Calcium 8.5 (1) CHF (congestive heart failure) Heart failure chronicity: unspecified Heart failure type: unspecified Qualified Code(s): I50.9 - Heart failure, unspecified (2) CAD (coronary artery disease) Coronary Disease-Associated Artery/Lesion type: [place] artery [place] vs. transplanted heart: [place] heart Associated angina: angina presence unspecified Qualified Code(s): I25.10 - Atherosclerotic heart disease of [place] coronary artery without angina pectoris
--- NOTE | 2019-02-13 15:57 | Discharge Summary ---
Date of Service February 13, 2019 Admission HPI Per Admitting Provider Mr. Mcdowell is a pleasant 63yo male with history of early onset aggressive CAD present since age 48. He has had multiple PCIs in the past - left circumflex and right coronary artery in 1998, angioplasty of the left anterior descending in 2000 and 2007, stenting of the second obtuse marginal January 2011, stenting of the obtuse marginal on 12/12/2012 due to recurrent unstable angina, repeat presentation 01/15/13 with acute in-stent thrombosis noted on coronary angiography, this vessel was not amenable to PCI and he completed a lateral apical infarction at that time. Patient follows with Dr. Gaytan of [facility]. He believes he was last seen in January 2018 and is scheduled to see him next month. Patient presents today with complaint of cough for a couple of months as well as chest congestion. His symptoms acutely worsened on Sunday02/07/19. He was seen by his PCP on 02/07 and was swabbed for the flu which was reportedly negative. Patient's symptoms continued to progress - ISAAC, SOB especially with coughing as well as dizziness and nausea. He admits to worsening edema and orthopnea as well as dull left sided chest pressure since yesterday. Patient denies fevers but had some shaking chills. He was in [place] for an auto race on 02/08 and his symptoms progressed. He has been taking Tylenol and Chorecedin for symptom management. ER Course: Albuterol, Ceftriaxone, Lasix 20mg IV Principal Diagnosis CHF exacerbation Discharge Exam Constitutional WD/WN, vitals as above Eyes PERRL, conjunctivae normal, anicteric sclerae Respiratory normal respiratory effort, lungs clear to auscultation Cardiovascular RRR, no murmur, no edema Gastrointestinal (Abdomen) normal bowel sounds, soft, nontender, no hepatosplenomegaly Musculoskeletal no cyanosis or clubbing, extremities motor strength 5/5 Skin no rashes, warm and dry Neurologic moves all extremities and awake Psychiatric A+Ox3, euthymic affect Discharge Data Allergies Allergy/AdvReac Type Severity Reaction Status Date / Time Penicillins Allergy Unknown Verified 02/09/19 18:22 simvastatin Allergy Unknown muscle pain Verified 02/09/19 18:22 Sulfa (Sulfonamide Allergy Unknown Verified 02/09/19 18:22 Antibiotics) oxycodone AdvReac Mild N/V Verified 02/09/19 18:22 Consultations 02/09/19 18:59 ED Decision to Admit Stat 02/09/19 21:32 Consult Cardiology Routine 02/10/19 17:09 Consult Cardiac Rehabilitation Routine Procedures Performed Operation Date: 02/10/19 15:20 Actual Procedures p Cath, Left with Cors and Vent - Terry Gaytan MD s Cineradiography w/Routine Exam - Terry Gaytan MD s Drug Eluting Stent SGl Vessel - Estuardo Moya MD Ordered Studies 02/10/19 12:13 CL Cath Imgs for PACS use only Routine 02/13/19 11:01 CT angio head w con Routine CT head/brain wo con Routine Hospital Course (1) Shortness of breath: Patient with progressive SOB over the last month, acute worsening over the three days prior to admission. Also with edema and orthopnea. He reports some mild dull left sided chest pressure at times. - afebrile, no leukocytosis, Procalcitonin negative, no infiltrate noted on CXR to suggest infectious process in the lungs. - Elevated BNP and interstitial edema concerning for CHF on admission - Last available echo in [facility] from 01/15[facility]13 which showed multiple WMA. LVEF of 50 - 55%, Grade I diastolic dysfunction. Repeat echo with decreased EF 25% and akinesis of the posterior and inferior justin with diffuse hypokinesis. -diuresed with Lasix 20mg IV BID - now back to home dosing po lasix -Strict I/Os - almost 3L negative -Daily weights - decreased by 2 kg -Low Na diet as tolerated -[facility] consultation -Trend cardiac enzymes - peaked at .43 and are trending down - cardiac cath 02/10 with stent to the distal circumflex (2) CHF (congestive heart failure): Acute systolic CHF -Plan as above -Continue ASA, Plavix, Atorvastatin, Carvedilol, Losartan -Lasix as above (3) Elevated troponin: Patient with mildly elevated troponin, peaked at 0.43. Presently with no CP. EKG with ST-T changes new from prior. - cath 02/10 as above -Cardiac monitoring (4) Visual loss: Patient reporting today loss of vision in bottom right hemisphere of his eye. He does not have any focal findings on exam. No acute processes on CTA and CT of head except for acute on chronic sinusitis. Discussed case with gas collection system operator etcher printed circuit boards Dr. Huerta. He arranged for an appointment with Dr. Gonzales tomorrow at 1:00 pm to further evaluate. (5) CAD (coronary artery disease): Patient with early onset aggressive CAD. Has had multiple PCIs. -Continue ASA, Plavix, Metoprolol, Cozaar, increased dose of Atorvastatin -discontinued Ranexa per cardiology -Imdur decreased per cardiology (6) Abnormal EKG: As above (7) Diabetes: Well controlled on Glipizide and Metformin at home. [id number] on 02/27/18. -Hold Glipizide and Metformin - can restart for home but metformin will be held until 02/16 to avoid dye interaction -Lantus 7u BID, ISS -Continue to monitor (8) Hyperlipidemia: Chronic -Continue Atorvastatin -Will increase to 80mg po daily -Continue to monitor (9) Sinusitis: With persistent cough over the last month and pain across maxillary sinuses that worsens when he bends forward, chills - chills now resolved, pain is much relieved - continue Levaquin 500 mg started 02/11 for 7 day regimen - continue nasal irrigation and Flonase - sinusitis seen on CT (10) DVT prophylaxis: heparin subq while inpatient Note: I called patient after he had left to let him know that I had added one m ore script for his increased atorvastatin. His girlfriend Crista got on the phone as she was concerned because he "flipped out on her". I asked her for further clarification and she was unable to really describe what happened except that he was agitated and upset. I asked her if she was concerned for her safety or his and she said no. She denied any confusion, hemiplegia, slurred speech, increase in vision changes, or aphasia and said that she knew the s/s of stroke and was not concerned for that. I did tell her to take him back to the hospital if she felt his situation was urgent or if he had s/s of change in mental status or stroke. Total Time Total Time Spent Total Time Spent (In Minutes): greater than 30 minutes Discharge Plan Discharge Items Patient Disposition: Home - Self-Care Reason For Visit: CHF ADMISSION Discharge Diagnosis: CHF exacerbation, chest pain Discharge Goals: Decrease discomfort and Improve disease control Activity: Resume your previous activity Activity Comment: gradually as tolerated Non-emergency contact: Primary Care Provider and Sharepoint Administrator Call non-emergency contact if: you have any medication questions, your pain is worsening and you have a fever Follow-up/Referrals: Zac Torres MD [Primary Care Provider] - 02/17/19 11:30 am (Please, follow up with Dr. Brendon Glass on SundayFebruary 17 at 11:30 am. *If you need to change this appointment, call the office at [phone].) Iona Bear CRNP [Hospitalist] - Terry Gaytan MD [Physician] - 02/26/19 9:45 am (Please, follow up with Dr. Terry Gaytan on SundayFebruary 26 at 9:45 am. *If you need to change this appointment, call the office at [phone].) Addtl Provider Instructions: You have an appointment with Dr. Gonzales in the [facility] office at 1:00 pm Wednesday 02/14 . The address is: [address] [place] [address], [address], [place] [address] Please make sure you make this appointment to avoid delay on care concerning your vision. Please hold your metformin until Friday 02/16 to avoid potential interaction with CT dye. Please keep your follow up appointments and complete your antibiotic regimen. Take the Flonase we were giving you home with you and continue until the bottle is finished. Continue nasal irrigation Prescriptions: New isosorbide mononitrate 30 mg Tablet Extended Release 24 Hr 30 mg PO DAILY Qty: 30 RF: 1 spironolactone 25 mg Tablet 12.5 mg PO DAILY 30 Days Qty: 15 RF: 1 metoprolol succinate 25 mg Tablet Extended Release 24 Hr 25 mg PO BID 30 Days Qty: 60 RF: 0 Lyrica 75 mg Capsule 75 mg PO DAILY Qty: 30 RF: 0 levofloxacin 500 mg Tablet 500 mg PO DAILY@1100 Qty: 3 RF: 0 atorvastatin 20 mg Tablet 80 mg PO DAILY Qty: 30 RF: 0 Continued furosemide 40 mg Tablet 40 mg PO DAILY RF: 0 clonazepam 0.5 mg Tablet 0.5 mg PO HS RF: 0 clopidogrel 75 mg Tablet 75 mg PO DAILY RF: 0 aspirin [Aspirin Low Dose] 81 mg Tablet,Delayed Release (Dr/Ec) 81 mg PO DAILY RF: 0 cyanocobalamin (vitamin B-12) 1,000 mcg/mL Solution 1,000 mcg IM MONTHLY RF: 0 metformin [Glucophage] 1,000 mg Tablet 1,000 mg PO BID RF: 0 losartan 25 mg Tablet 25 mg PO DAILY RF: 0 nitroglycerin 0.4 mg Tablet, Sublingual 0.4 mg sublingual DIRECTED RF: 0 gabapentin 300 mg Capsule 300 mg PO HS RF: 0 glyburide 1.25 mg Tablet 1.25 mg PO DAILY RF: 0 cholecalciferol (vitamin D3) [Vitamin D3] 5,000 unit Tablet 5,000 unit PO DAILY RF: 0 Discontinued carvedilol 25 mg tablet 12.5 mg PO DAILY RF: 0 isosorbide mononitrate 60 mg Tablet Extended Release 24 Hr 60 mg PO DAILY RF: 0 ranolazine [Ranexa] 500 mg Tablet Extended Release 12 Hr 500 mg PO BID RF: 0 Stand-Alone Forms: [facility] Discharge Orders: Discharge Order (Routine); Ordered 02/13/19 Ordered By: Iona Bear Admission Data Admit Date/Time: 02/09/19 20:28 Attending Provider: Anirudh Vazquez Admit Provider: Brittney Villatoro Primary Care Provider: Zac Torres Other Providers: Brittney Villatoro ; Dandre Ortiz ; Nilo Trivedi ; Terry Gaytan ; Anirudh Roberts ; Rakesh Mead ; Lester Curry ; Nayla Salgado ; Lani Weiss Service: Telemetry Other Interventions: Discharge Summary Assessment (RN) Last Done: 02/13/19 15:54 DC Date/Time DO NOT enter until pt leaves facility: 02/13/19 16:18
== END 2019-02-13 16:18 | disposition home or self-care (01) | DRG 246 ==
LOC: ED 16:55 → 2S 20:28 → SUATTDRO 20:28 → 2S 21:00

== ENCOUNTER 2019-07-10 21:48 | Observation (INO) ==
[2019-07-10] MEDS ORDERED: NITROGLYCERIN 2% OINTMENT 30GM TUBE EXT ONE (22:14)
[2019-07-10] MEDS ORDERED: ASPIRIN 81 MG CHEW PO STA (22:14)
[2019-07-10] MEDS ORDERED: SODIUM CHLORIDE 0.9% 1000ML 1,000 ML IV SCH (22:15)
[2019-07-10 22:32] LABS: Basophils # (auto) 0.03 K/uL (0-0.2); Basophils % (auto) 0.7 %; Eosinophils % (auto) 2.4 %; Hematocrit (blood only) 39.2 % (42-52); Hemoglobin 12.9 g/dL (14.0-18.0); Lymphocytes # (auto) 0.65 K/uL (1.2-3.4); Lymphocytes % (auto) 15.3 %; Mean Corpuscular Hemoglobin 31.3 pg (25-34); Mean Corpuscular Hgb Conc 32.9 g/dL (32-36); Mean Corpuscular Volume 95.1 fL (80-100); Mean Platelet Volume 11.2 fL (7.4-10.4); Monocytes # (auto) 0.96 K/uL (0.11-0.59); Monocytes % (auto) 22.6 %; Neutrophils # (auto) 2.51 K/uL (1.4-6.5); Platelet Count 128 K/uL (130-400); RDW Coefficient of Variation 14.4 % (11.5-14.5); RDW Standard Deviation 50.1 fL (36.4-46.3); Red Blood Count 4.12 M/uL (4.7-6.1); White Blood Count 4.25 K/uL (4.8-10.8)
[2019-07-10 22:45] LABS: INR 1.1 (0.9-1.1); Partial Thromboplastin Time 26.9 Seconds (21.0-31.0); Prothrombin Time 11.1 Seconds (9.0-12.0)
[2019-07-10 22:49] LABS: Alanine Aminotransferase 22 U/L (12-78); Albumin Level 3.4 gm/dl (3.4-5.0); Aspartate Aminotransferase 14 U/L (15-37); BUN Creatinine Ratio 18.4 (10-20); Blood Urea Nitrogen 17 mg/dl (7-18); Calcium 8.7 mg/dl (8.5-10.1); Carbon Dioxide 30 mmol/L (21-32); Chloride 109 mmol/L (98-107); Est GFR (African American) 102.8; Est GFR (Non-African American) 88.7; Glucose 106 mg/dl (70-99); Lipase 301 U/L (73-393); Magnesium 2.2 mg/dl (1.8-2.4); Potassium 4.4 mmol/L (3.5-5.1); Sodium 142 mmol/L (136-145)
[2019-07-10 22:54] LABS: Alkaline Phosphatase 101 U/L (45-117); Bilirubin,Total 0.4 mg/dl (0.2-1); Globulin 3.4 gm/dl (2.5-4.0); NT Pro B Type Natriuretic Pept 3003 pg/ml (0-900); Total Protein 6.8 gm/dl (6.4-8.2); Troponin I 0.019 ng/ml (0-0.045)
--- NOTE | 2019-07-10 22:56 | XRay Report ---
XR chest 2V routine CLINICAL HISTORY: 64 years-old Male presenting with Chest pain, shortness of breath. TECHNIQUE: AP and lateral views of the chest were obtained. COMPARISON: 04/26/2019. FINDINGS: Atherosclerosis of the aortic arch. Cardiac silhouette mildly enlarged. Coronary artery calcification . No focal opacity. No large effusion or pneumothorax. Degenerative changes of the thoracic spine. Up per abdomen normal. IMPRESSION: 1. Cardiomegaly. No other convincing evidence of acute cardiopulmonary disease. Electronically signed by: Ben Peters M.D. 07/10/2019 10:55 PM
[2019-07-10] MEDS ORDERED: FUROSEMIDE 20 MG in SYRINGE 0 ML IV ONE (23:10)
--- NOTE | 2019-07-10 23:32 | Emergency Department Note ---
History of Present Illness General Chief complaint: Shortness of Breath/Dyspnea Stated complaint: SOB,BACK PAIN Time Seen by Provider: 07/10/19 22:07 History of Present Illness Maximum Pain Intensity: 5 This is a 64-year-old male presenting to the emergency department for evaluation of shortness of breath and back pain between his shoulder blades. The patient states that he worked until 7 PM, and when he got home he had his symptoms, this was roughly 3 hours prior to arrival. The patient has an extensive history of cardiopulmonary disease. He has multiple stents with n-STEMI a few months ago. He states that he has had at least 8 different heart attacks over the years. He does have a history of diabetes and unstable angina. The patient rates his current discomfort a 5/10. He is on Plavix but did not take any aspirin or nitroglycerin. Home Medications Home Medications Medication Instructions Recorded Confirmed Type clonazepam 0.5 mg PO HS 02/09/19 07/10/19 History clopidogrel 75 mg PO QAM 02/09/19 07/10/19 History cyanocobalamin (vitamin B-12) 1,000 mcg IM MONTHLY 02/09/19 07/10/19 History furosemide 40 mg PO QAM 02/09/19 07/10/19 History metformin [Glucophage] 1,000 mg PO BID 02/09/19 07/10/19 History glipizide 2.5 mg PO QAM 04/26/19 07/10/19 History metoprolol succinate 25 mg PO BID 04/26/19 07/10/19 History pregabalin [Lyrica] 75 mg PO HS 04/26/19 07/10/19 History atorvastatin 40 mg PO HS 07/10/19 07/10/19 History nitroglycerin 0.4 mg SUBLINGUAL DIRECTED PRN 07/10/19 07/10/19 History sacubitril-valsartan [Entresto] 1 tab PO BID 07/10/19 07/10/19 History Allergies Allergy/AdvReac Type Severity Reaction Status Date / Time Penicillins Allergy Unknown Unknown Verified 07/10/19 22:33 Sulfa (Sulfonamide Allergy Unknown Unknown Verified 07/10/19 22:33 Antibiotics) oxycodone AdvReac Mild Nausea/Vomi Verified 07/10/19 22:33 ting simvastatin AdvReac Unknown muscle pain Verified 07/10/19 22:33 Past Med/Surg History Medical History Diabetes (Chronic) Hyperlipidemia (Chronic) [place] (myocardial infarction) (Chronic) Bypass gastroenterostomy (Resolved 01/14/13) Chest pain (Acute) Unstable angina (Acute) CAD (coronary artery disease) Peripheral neuropathy Surgical History S/P appendectomy S/P cardiac catheterization S/P cholecystectomy Family History Father Coronary heart disease Other Diabetes Social History Preferred Language: Austrian Communication Ability: Effective 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 Required: No Beliefs That Will Affect Care: None Current Living Situation: Alone Feels Safe at Home: Yes Smoking Status: Never smoker Tobacco Type: smokeless tobacco ; Hx Alcohol Use: No Hx Substance Use: No Review of Systems A total of 10 systems reviewed and were otherwise negative Physical Exam Vital Signs Vital Signs - 24 hr 07/10/19 21:52 07/10/19 22:15 07/11/19 00:00 Temperature 36.9 C Temperature Source Oral Sepsis Recent Fever Within 48 Hours No Sepsis New/Unexplained Change in Mental Status No Sepsis Action Taken by Nursing No Action Required Pulse Rate 84 Pulse Rate [Bilateral] 100 H Respiratory Rate 20 20 Respiratory Effort / Characteristics Non-Labored Spontaneous Non-Labored Spontaneous Respiratory Depth Shallow Normal Blood Pressure 106/54 L Blood Pressure [Right Arm] 105/60 Blood Pressure Mean 71 Blood Pressure Mean [Right Arm] 75 Blood Pressure Position Sitting Blood Pressure Position [Right Arm] Sitting Pulse Oximetry 99 99 99 Oxygen Delivery Method Room Air Room Air Nasal Cannula Oxygen Flow Rate 2 VITALS: Vitals are noted on the nurse's note and reviewed by myself. Vital signs stable. GENERAL: Well-developed, well-nourished, white male, who is in no acute distress and resting comfortably. Patient is cooperative with the examination. HEAD: Normocephalic atraumatic. HEART: Regular rate and rhythm LUNGS: Clear to auscultation bilaterally without wheezes, rales or rhonchi. No retractions or accessory muscle use. ABDOMEN: Positive normal bowel sounds x 4. Soft, nontender, without masses or organomegaly. No guarding or rebound tenderness. MUSCULOSKELETAL: No muscle atrophy, erythema, or edema noted. Full range of motion in all extremities. NEURO: Patient was alert and oriented to person place and time. CN II through XII grossly intact. SKIN: The skin was without rashes, erythema, edema, or bruising. Capillary refill less than 2 seconds. Course Administered Medications Discontinued Medications Aspirin (Aspirin Chew) 324 mg PO NOW STA Stop: 07/10/19 22:15 Last Admin: 07/10/19 22:29 Dose: 324 mg Documented by: [id number] Furosemide (Lasix) Confirm Administered Dose 40 mg IV .STK-MED ONE Stop: 07/10/19 23:46 Last Admin: 07/10/19 23:49 Dose: 20 mg Documented by: [id number] Sodium Chloride (Nss 1000ml) 1,000 mls @ 125 mls/hr IV .Q8H SHANE Stop: 08/09/19 22:14 Last Admin: 07/10/19 23:49 Dose: 125 mls/hr Documented by: [id number] Furosemide 20 mg/ Syringe 2 mls @ 4 mls/min IV ONE ONE Stop: 07/10/19 23:11 Last Admin: 07/10/19 23:50 Dose: Not Given Documented by: [id number] Nitroglycerin (Nitro-Bid 2%) 1 inch EXT NOW ONE Stop: 07/10/19 22:15 Last Admin: 07/10/19 22:29 Dose: 1 inch Documented by: [id number] Medical Decision Making Differential Diagnosis Differential diagnosis includes, but is not limited to: Myocardial infarction, dysrhythmia, pericarditis, pneumothorax, aortic aneurysm/dissection, DVT/PE, anxiety, GERD, PUD, electrolyte imbalance, thyroid disorder, pneumonia, bronchitis, pancreatitis, and others Laboratory Data Result diagrams: 07/10/19 22:07/10/19 22:19 Lab Results 07/10/19 07/10/19 07/10/19 Range/Units : 22: 22:19 WBC 4.25 L (4.8-10.8) K/uL RBC 4.12 L (4.7-6.1) M/uL Hgb 12.9 L (14.0-18.0) g/dL Hct 39.2 L (42-52) % MCV 95.1 (80-100) fL MCH 31.3 (25-34) pg MCHC 32.9 (32-36) g/dL RDW Std Deviation 50.1 H (36.4-46.3) fL RDW Coeff of Neyda 14.4 (11.5-14.5) % Plt Count 128 L (130-400) K/uL MPV 11.2 H (7.4-10.4) fL Immature Gran % (Auto) 0.0 % Neut % (Auto) 59.0 % Lymph % (Auto) 15.3 % Clarke % (Auto) 22.6 % Eos % (Auto) 2.4 % Baso % (Auto) 0.7 % Immature Gran # (Auto) 0.00 (0.00-0.02) K/uL Neut # (Auto) 2.51 (1.4-6.5) K/uL Lymph # (Auto) 0.65 L (1.2-3.4) K/uL Clarke # (Auto) 0.96 H (0.11-0.59) K/uL Eos # (Auto) 0.10 (0-0.5) K/uL Baso # (Auto) 0.03 (0-0.2) K/uL PT 11.1 (9.0-12.0) Seconds INR 1.1 (0.9-1.1) APTT 26.9 (21.0-31.0) Seconds PTT Ratio 1.0 Sodium 142 (136-145) mmol/L Potassium 4.4 (3.5-5.1) mmol/L Chloride 109 H (98-107) mmol/L Carbon Dioxide 30 (21-32) mmol/L Anion Gap 4.0 (3-11) BUN 17 (7-18) mg/dl Creatinine 0.90 (0.6-1.4) mg/dl Est Cr Clr Drug Dosing Not Reportable Est GFR ( Amer) 102.8 Est GFR (Non-Af Amer) 88.7 BUN/Creatinine Ratio 18.4 (10-20) Glucose 106 H (70-99) mg/dl Calcium 8.7 (8.5-10.1) mg/dl Magnesium 2.2 (1.8-2.4) mg/dl Total Bilirubin 0.4 (0.2-1) mg/dl AST 14 L (15-37) U/L ALT 22 (12-78) U/L Alkaline Phosphatase 101 (45-117) U/L Troponin I 0.019 (0-0.045) ng/ml NT-Pro-B Natriuret Pep 3003 H (0-900) pg/ml Total Protein 6.8 (6.4-8.2) gm/dl Albumin 3.4 (3.4-5.0) gm/dl Globulin 3.4 (2.5-4.0) gm/dl Albumin/Globulin Ratio 1.0 (0.9-2) Lipase 301 (73-393) U/L TSH 1.630 (0.300-4.500) uIu/ml 07/10/19 Range/Units 22:19 WBC (4.8-10.8) K/uL RBC (4.7-6.1) M/uL Hgb (14.0-18.0) g/dL Hct (42-52) % MCV (80-100) fL MCH (25-34) pg MCHC (32-36) g/dL RDW Std Deviation (36.4-46.3) fL RDW Coeff of Neyda (11.5-14.5) % Plt Count (130-400) K/uL MPV (7.4-10.4) fL Immature Gran % (Auto) % Neut % (Auto) % Lymph % (Auto) % Clarke % (Auto) % Eos % (Auto) % Baso % (Auto) % Immature Gran # (Auto) (0.00-0.02) K/uL Neut # (Auto) (1.4-6.5) K/uL Lymph # (Auto) (1.2-3.4) K/uL Clarke # (Auto) (0.11-0.59) K/uL Eos # (Auto) (0-0.5) K/uL Baso # (Auto) (0-0.2) K/uL PT (9.0-12.0) Seconds INR (0.9-1.1) APTT (21.0-31.0) Seconds PTT Ratio Sodium (136-145) mmol/L Potassium (3.5-5.1) mmol/L Chloride (98-107) mmol/L Carbon Dioxide (21-32) mmol/L Anion Gap (3-11) BUN (7-18) mg/dl Creatinine (0.6-1.4) mg/dl Est Cr Clr Drug Dosing Est GFR ( Amer) Est GFR (Non-Af Amer) BUN/Creatinine Ratio (10-20) Glucose (70-99) mg/dl Calcium (8.5-10.1) mg/dl Magnesium (1.8-2.4) mg/dl Total Bilirubin (0.2-1) mg/dl AST (15-37) U/L ALT (12-78) U/L Alkaline Phosphatase (45-117) U/L Troponin I (0-0.045) ng/ml NT-Pro-B Natriuret Pep (0-900) pg/ml Total Protein (6.4-8.2) gm/dl Albumin (3.4-5.0) gm/dl Globulin (2.5-4.0) gm/dl Albumin/Globulin Ratio (0.9-2) Lipase (73-393) U/L TSH Cancelled (0.300-4.500) uIu/ml MDM Narrative Physical exam and history were performed. Nursing notes, EMR, and Medication List were personally reviewed. Patient appears to have shortness of breath as well as pain between his shoulder blades. The patient has an extensive history of cardiac disease. IV access was established and labs were obtained. EKG was normal sinus rhythm without acute ST elevation. Patient was placed on the quality assurance monitor final. He was given aspirin and Nitropaste. Case was discussed with my attending physician, Dr. Nair, who remained involved in care and decision-making. The patient's blood work is as above and was reviewed. He does not have a significantly elevated white blood cell count, gross anemia, bandemia, or significant electrolyte imbalance. Lipase and transaminases are not diagnostic. Troponin x1 is not 0, however it is not significantly elevated at this time. BNP is elevated at over 3000 and patient was given 20 mg IV Lasix. On reevaluation the patient did feel improved after aspirin and Nitropaste. I have significant concern for his symptoms which seem to best correlate with unstable angina, but certainly could evolve into an NSTEMI. Out of concern for the patient's history and well-being the case was discussed with the on-call hospitalist, Dr Norman, who agreed to evaluate the patient here in the department. Please see Dr. Norman's dictation for further patient course, plan, and disposition. The chart was completed utilizing [employer] Speech Voice Recognition Software. Grammatical errors, random word insertions, pronoun errors, and incomplete sentences are an occasional consequence of this system due to software limitations, ambient noise, and hardware issues. Any formal questions or concerns about the content, text, or information contained within the body of this dictation should be directly addressed to the provider for clarification. . Impression & Plan Unstable angina, Shortness of breath, CHF (congestive heart failure) Discharge Plan Visit Data *Final* Discharge Date/Time: 07/11/19 02:20 Chief Complaint: Shortness of Breath/Dyspnea Stated Complaint: SOB,BACK PAIN ED Provider: Ross Nair ED Midlevel Provider: Nilo Carrasco Discharge Problem: Unstable angina, Shortness of breath, CHF (congestive heart failure) Patient Disposition: Admitted As Inpatient
[2019-07-10] MEDS ORDERED: FUROSEMIDE 40 MG/4 ML VIAL IV ONE (23:45)
[2019-07-11] MEDS ORDERED: PREGABALIN 75 MG CAP PO SCH (00:39)
[2019-07-11] MEDS ORDERED: clonazePAM 0.5 MG TAB PO SCH (00:39)
--- NOTE | 2019-07-11 01:04 | History & Physical Report ---
Date of Service July 11, 2019 Assessment & Plan (1) Chest pain: Observation to tele serial trops PRN NTG continue metoprolol and Plavix Cardiology consult. DVT prophylaxis with SCDs and Lovenox (2) CAD (coronary artery disease): (3) Diabetes: Accu checks continue glipizide Hold metformin in event patient requires dye load cover highs with sliding scale insulin (4) Hyperlipidemia: Continue Atorvastatin History of Present Illness 64 y/r male presented to the ED with SOB and pain between shoulder blades and to the left shoulder with 5/10 intensity. No diaphoresis, cough, or F/C. He was not exerting himself at time of onset, but had worked a full day just prior. He has a history of multiple MIs and has had multiple stents placed. As I saw the patient he only had mild left shoulder pain. Primary Care Provider: Zac Torres MD Allergies Allergy/AdvReac Type Severity Reaction Status Date / Time Penicillins Allergy Unknown Unknown Verified 07/10/19 22:33 Sulfa (Sulfonamide Allergy Unknown Unknown Verified 07/10/19 22:33 Antibiotics) oxycodone AdvReac Mild Nausea/Vomi Verified 07/10/19 22:33 ting simvastatin AdvReac Unknown muscle pain Verified 07/10/19 22:33 Home Medications Home Medications Medication Instructions Recorded Confirmed Type clonazepam 0.5 mg PO HS 02/09/19 07/10/19 History clopidogrel 75 mg PO QAM 02/09/19 07/10/19 History cyanocobalamin (vitamin B-12) 1,000 mcg IM MONTHLY 02/09/19 07/10/19 History furosemide 40 mg PO QAM 02/09/19 07/10/19 History metformin [Glucophage] 1,000 mg PO BID 02/09/19 07/10/19 History glipizide 2.5 mg PO QAM 04/26/19 07/10/19 History metoprolol succinate 25 mg PO BID 04/26/19 07/10/19 History pregabalin [Lyrica] 75 mg PO HS 04/26/19 07/10/19 History atorvastatin 40 mg PO HS 07/10/19 07/10/19 History nitroglycerin 0.4 mg SUBLINGUAL DIRECTED PRN 07/10/19 07/10/19 History sacubitril-valsartan [Entresto] 1 tab PO BID 07/10/19 07/10/19 History Past Med/Surg History Medical History Diabetes (Chronic) Hyperlipidemia (Chronic) [place] (myocardial infarction) (Chronic) Bypass gastroenterostomy (Resolved 01/14/13) Chest pain (Acute) Unstable angina (Acute) CAD (coronary artery disease) Peripheral neuropathy Surgical History S/P appendectomy S/P cardiac catheterization S/P cholecystectomy Family History Father Coronary heart disease Other Diabetes Social History Preferred Language: Mexican Communication Ability: Effective Supervisor Cigar Processing Required: No Beliefs That Will Affect Care: None Current Living Situation: Significant Other Feels Safe at Home: Yes Smoking Status: Never smoker Tobacco Type: smokeless tobacco ; Hx Alcohol Use: No Hx Substance Use: No Review of Systems Review of Systems: NEEDS EDITING Constitutional- no fever; no weight loss Eyes- no acute visual changes ENT- no sinus drainage; no pharyngitis Pulmonary- no cough, no wheezing, no shortness of breath Cardiac- See HPI GI- no nausea, no vomiting, no diarrhea, no melena, no hematochezia - no dysuria, no hematuria Musculoskeletal- no arthralgias, no myalgias Derm- no rashes, no new skin lesions, no changing skin lesions Hematologic- no unusual bruising, no unusual bleeding Lymphatics- no adenopathy Endocrine- no polyuria or polydipsia; no heat or cold intolerance Neuro- no headaches, no focal neurologic symptoms Psych- no anxiety, no depression Physical Exam Physical Exam: NEEDS EDITING General- adult, not in acute distress Head- atraumatic Eyes- PERRL, EOMI, anicteric ENT- oropharynx clear Neck- supple, no JVD, no adenopathy, no thyromegaly. Lungs- clear to auscultation and percussion Heart- regular rhythm; no murmur, no gallop, no rub appreciated Abdomen- normal bowel sounds, soft, nontender. Extremities- no pretibial edema, no calf tenderness; peripheral pulses intact Neuro- alert, oriented x 3; PERRL, EOMI; no facial palsy; no dysarthria; motor 5/5 bilaterally. Skin- warm & dry Results & Data Vital Signs (Past 12 Hours) Vital Signs Temp Pulse Pulse Resp BP BP Pulse Ox 07/11/19 00:00 100 H 20 105/60 99 07/10/19 22:15 99 07/10/19 21:52 36.9 C 84 20 106/54 L 99 Laboratory Results Laboratory Results WBC 4.25 K/uL (4.8-10.8) L 07/10/19 22: RBC 4.12 M/uL (4.7-6.1) L 07/10/19 22: Hgb 12.9 g/dL (14.0-18.0) L 07/10/19 22: Hct 39.2 % (42-52) L 07/10/19 22: MCV 95.1 fL (80-100) 07/10/19 22: MCH 31.3 pg (25-34) 07/10/19 22: MCHC 32.9 g/dL (32-36) 07/10/19 22: RDW Std Deviation 50.1 fL (36.4-46.3) H 07/10/19: RDW Coeff of Neyda 14.4 % (11.5-14.5) 07/10/19 22: Plt Count 128 K/uL (130-400) L 07/10/19 22: MPV 11.2 fL (7.4-10.4) H 07/10/19 22:19 Immature Gran % (Auto) 0.0 % 07/10/19 22: Neut % (Auto) 59.0 % 07/10/19: Lymph % (Auto) 15.3 % 07/10/19: Peach % (Auto) 22.6 % 07/10/19 22: Eos % (Auto) 2.4 % 07/10/19: Baso % (Auto) 0.7 % 07/10/19: Immature Gran # (Auto) 0.00 K/uL (0.00-0.02) 07/10/19: Neut # (Auto) 2.51 K/uL (1.4-6.5) 07/10/19 22: Lymph # (Auto) 0.65 K/uL (1.2-3.4) L 07/10/19 22:19 Peach # (Auto) 0.96 K/uL (0.11-0.59) H 07/10/19 22:19 Eos # (Auto) 0.10 K/uL (0-0.5) 07/10/19 22: Baso # (Auto) 0.03 K/uL (0-0.2) 07/10/19 22: PT 11.1 Seconds (9.0-12.0) 07/10/19 22: INR 1.1 (0.9-1.1) 07/10/19 22: APTT 26.9 Seconds (21.0-31.0) 07/10/19 22: PTT Ratio 1.0 07/10/19 22: Sodium 142 mmol/L (136-145) 07/10/19 22: Potassium 4.4 mmol/L (3.5-5.1) 07/10/19 22: Chloride 109 mmol/L (98-107) H 07/10/19 22: Carbon Dioxide 30 mmol/L (21-32) 07/10/19 22: Anion Gap 4.0 (3-11) 07/10/19 22: BUN 17 mg/dl (7-18) 07/10/19 22: Creatinine 0.90 mg/dl (0.6-1.4) 07/10/19: Est Cr Clr Drug Dosing Not Reportable 07/10/19 22: Est GFR ( Amer) 102.8 07/10/19 22: Est GFR (Non-Af Amer) 88.7 07/10/19: BUN/Creatinine Ratio 18.4 (10-20) 07/10/19 22: Glucose 106 mg/dl (70-99) H 07/10/19 22:19 Calcium 8.7 mg/dl (8.5-10.1) 07/10/19 22: Magnesium 2.2 mg/dl (1.8-2.4) 09/12/19 22:19 Total Bilirubin 0.4 mg/dl (0.2-1) 07/10/19 22:19 AST 14 U/L (15-37) L 07/10/19 22:19 ALT 22 U/L (12-78) 07/10/19 22:19 Alkaline Phosphatase 101 U/L (45-117) 07/10/19 22:19 Troponin I 0.019 ng/ml (0-0.045) 07/10/19 22:19 NT-Pro-B Natriuret Pep 3003 pg/ml (0-900) H 07/10/19 22:19 Total Protein 6.8 gm/dl (6.4-8.2) 07/10/19 22: Albumin 3.4 gm/dl (3.4-5.0) 07/10/19 22: Globulin 3.4 gm/dl (2.5-4.0) 07/10/19 22:19 Albumin/Globulin Ratio 1.0 (0.9-2) 07/10/19 22: Lipase 301 U/L (73-393) 07/10/19 22:19 TSH 1.630 uIu/ml (0.300-4.500) 07/10/19 22: TSH Cancelled 07/10/19 22:19 Code Status & VTE Plan VTE Prophylaxis Plan VTE Prophylaxis will be ordered: Yes PG Care Time/CCT Total # of Minutes Spent Total Time Spent: 45 Total Time Spent with Patient: Total time spent is greater than 50% in coordination of care (as documented) at patient's floor/unit and/or counseling patient: (1) CAD (coronary artery disease) Coronary Disease-Associated Artery/Lesion type: [place] artery [place] vs. transplanted heart: [place] heart Associated angina: angina presence unspecified Qualified Code(s): I25.10 - Atherosclerotic heart disease of [place] coronary artery without angina pectoris (2) Diabetes Diabetes mellitus type: type 2 Diabetes mellitus care home insulin use: with terminal gauger use Diabetes mellitus complication status: with neurologic complications Diabetes mellitus complication detail: with polyneuropathy Qualified Code(s): E11.42 - Type 2 diabetes mellitus with diabetic polyneuropathy; Z79.4 - nursing home (current) use of insulin (3) Hyperlipidemia Hyperlipidemia type: unspecified Qualified Code(s): E78.5 - Hyperlipidemia, unspecified
[2019-07-11 01:34] LABS: Appearance Urine Clear (Clear); Bilirubin Urine Negative (Negative); Blood Urine Negative (Negative); Color Urine Yellow; Glucose Urine UA Negative (Negative); Ketones Urine Negative (Negative); Leukocyte Esterase Urine Negative (Negative); Nitrite Urine Negative (Negative); Protein Urine Negative (Negative); Urobilinogen Urine Negative (Negative)
[2019-07-11] MEDS ORDERED: MoRPHine SULFATE 2 MG/ML CARP IV PRN (02:14)
[2019-07-11] MEDS ORDERED: ACETAMINOPHEN 325 MG TAB PO PRN (02:14)
[2019-07-11] MEDS ORDERED: GLUCAGON FOR INJ 1 MG VIAL SQ PRN (02:14)
[2019-07-11] MEDS ORDERED: MoRPHine SULFATE 4 MG/ML 1 ML CARP\\VIAL IV PRN (02:14)
[2019-07-11] MEDS ORDERED: CARBOHYDRATES FOR HYPOGLYCEMIA PO PRN (02:14)
[2019-07-11] MEDS ORDERED: NITROGLYCERIN SL 0.4 MG/TAB TAB SL PRN (02:14)
[2019-07-11] MEDS ORDERED: DEXTROSE 50% 50 ML SYRINGE IV PRN (02:14)
[2019-07-11] MEDS ORDERED: GLUCOSE 40% GEL 15 GM TUBE PO PRN (02:14)
[2019-07-11] MEDS ORDERED: GLUCOSE 10 TABS/TUBE PO PRN (02:14)
[2019-07-11] MEDS ORDERED: CYANOCOBALAMIN 1000 MCG/ML VIAL IM SCH (02:14)
[2019-07-11] MEDS: SACUBITRIL-VALSARTAN 49/51 MG TAB PO SCH ×2 (04:40→11:00)
[2019-07-11] MEDS: METOPROLOL SUCC 25MG EXT REL TAB PO SCH ×2 (04:40→11:00)
[2019-07-11 06:49] LABS: Hematocrit (blood only) 37.8 % (42-52); Hemoglobin 12.7 g/dL (14.0-18.0); Mean Corpuscular Hemoglobin 32.1 pg (25-34); Mean Corpuscular Hgb Conc 33.6 g/dL (32-36); Mean Corpuscular Volume 95.5 fL (80-100); Platelet Count 121 K/uL (130-400); RDW Coefficient of Variation 14.5 % (11.5-14.5); RDW Standard Deviation 50.8 fL (36.4-46.3); Red Blood Count 3.96 M/uL (4.7-6.1); White Blood Count 3.76 K/uL (4.8-10.8)
[2019-07-11 07:19] LABS: BUN Creatinine Ratio 16.7 (10-20); Calcium 8.5 mg/dl (8.5-10.1); Creatinine Clr Calc Pharmacy 96.6 ml/min; Est GFR (African American) 105.2; Est GFR (Non-African American) 90.8; Magnesium 2.1 mg/dl (1.8-2.4)
[2019-07-11] MEDS ORDERED: ENOXAPARIN INJ 40 MG/0.4 ML SYR SQ SCH (08:00)
[2019-07-11 08:01] LABS: Estimated Average Glucose 137 mg/dl; Hemoglobin A1C 6.4 % (4.5-5.6)
--- NOTE | 2019-07-11 08:29 | Cardiology Consultation ---
Date of Consultation July 11, 2019 Assessment & Plan (1) Acute systolic HF (heart failure): Patient presents with SOB, possible mild volume overload, Symptoms improved with IV lasix x 2 doses. Resume oral furosemide today low sodium diet encouraged daily weight encouraged (2) Cardiomyopathy, ischemic: update echo We discussed AICD placement/EP referral as an outpatient if LVEF < 35% this was previously discussed as an outpatient, but patient was not interested in proceeding at that time. (3) Atypical chest pain: Patient with back pain/radiating to left shoulder/chest area resolved with nitro paste Negative cardiac enzymes x2 3rd set pending for 12:30 PM today He denies recent need for SL nitro or exertional chest pain Update 2D echo to reassess function Consider outpatient nuclear stress test if symptoms return/worsen. (4) CAD (coronary artery disease): Continue home medications. He reportedly has not been taking ASA. Will resume Otherwise continue atorvastatin, Plavix, Entresto, metoprolol Case discussed with Dr. Ortiz. Symptoms improved. Anticipate discharge later today if repeat enzymes are unremarkable and echo is unchanged. Cardiology f/u will be arranged. Supervising Physician Co-Signing Physician Notes Patient seen and examined with Nayla Salgado PA-C. Agree with findings and assessment as above. Symptoms resolved after 2 doses of IV lasix, likely representing congestion. PO diuretics resumed. Ok to d/c to home from cardiac standpoint. My office will call to arrange CHF clinic f/u in 1-2 weeks. Spironolactone added to regimen. Will check bmp in 1 week. Patient and fiancee in agreement with plan. General: Awake, alert and oriented x 3. No acute distress. HEENT: Normocephalic, atraumatic. Pupils equal, round and reactive to light and accommodation. Extraocular muscles are intact. Anicteric sclera. Moist mucous membranes. Neck: No JVD. No bruit. Cardiovascular: Regular. Positive S-4. Normal S-1 and S-2. No S-3. No murmurs or rubs. Pulmonary: Clear to auscultation B/L. No rales, rhonchi or wheezing Abdomen: Bowel sounds x 4, soft. No rebound, guarding or tenderness. No organomegaly. Extremities: No clubbing, cyanosis or edema. +2 pedal pulses bilaterally. Skin: Warm and dry. History of Present Illness Reason for Consultation: SOB; back pain; ischemic cardiomyopathy; history of CAD Requesting Physician: Dr. Norman Attending Physician: Dr. 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 Patient presented to [facility] emergency department yesterday with complaints of pain between his shoulder blades, radiating to his left shoulder x1 week. Symptoms were nonexertional. Yesterday the patient reported worsening shortness of breath with activity and at rest. His fiance noted that he had increased labored breathing and therefore he came to the emergency department for evaluation. Upon arrival EKG demonstrated ectopic atrial rhythm with T wave inversions similar to prior EKG. Initial cardiac enzymes negative. BNP elevated and chest x-ray was relatively unremarkable. Due to his shortness of breath and elevated BNP with mild weight gain, he was started on IV Lasix. Renée patterson reports ongoing cough over the last several days and fianc recently treated for bronchitis. He was started on Nitropatch which aided his back pain. He was admitted for further observation and treatment. At time of consult, patient reports interval improvement in his shortness of breath after several doses of IV Lasix. He continues to report sinus congestion and cough. Back pain improved. Blood pressure lower this AM. He denies orthopnea, PND or edema. Weight down about 5 lbs since admission with good diuresis. No dizziness, syncope or near syncope. No palpitations. No recent exertional chest pain. He does not weigh himself daily. He does not avoid high sodium foods ICD implantation previously discussed at office visit, but patient declined at that time. wished to wait for 6 months post intervention and repeat echo. Complex history: 1. Atherosclerotic coronary disease, diffuse, with multiple coronaryinterventions including 2-vessel angioplasty in 1998 of circumflex and rightcoronary artery; left anterior descending in 2000; stenting of the leftanterior descending in 2007, stenting of the obtuse marginal in JanuaryNovember 2012. 2. 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 3. Class II angina pectoris. 4. Low HDL dyslipidemia. 5. Diabetes mellitus. 6. Non ST segment elevation myocardial infarction February 09, 2019 setting of increased demand acute sinusitis. Coronary intervention drug-eluting stent to 99% AV groove circumflex, dominant vessel 7. Ischemic cardiomyopathy , EF 25 to 30% reconfirmed by study of May 28, 2019 8. Possible TIA /stroke post coronary intervention January 2019 Allergies Allergy/AdvReac Type Severity Reaction Status Date / Time Penicillins Allergy Unknown Unknown Verified 07/10/19 22:33 Sulfa (Sulfonamide Allergy Unknown Unknown Verified 07/10/19 22:33 Antibiotics) oxycodone AdvReac Mild Nausea/Vomi Verified 07/10/19 22:33 ting simvastatin AdvReac Unknown muscle pain Verified 07/10/19 22:33 Home Medications Home Medications Medication Instructions Recorded Confirmed Type clonazepam 0.5 mg PO HS 02/09/19 07/10/19 History clopidogrel 75 mg PO QAM 02/09/19 07/10/19 History cyanocobalamin (vitamin B-12) 1,000 mcg IM MONTHLY 02/09/19 07/10/19 History furosemide 40 mg PO QAM 02/09/19 07/10/19 History metformin [Glucophage] 1,000 mg PO BID 02/09/19 07/10/19 History glipizide 2.5 mg PO QAM 04/26/19 07/10/19 History metoprolol succinate 25 mg PO BID 04/26/19 07/10/19 History pregabalin [Lyrica] 75 mg PO HS 04/26/19 07/10/19 History atorvastatin 40 mg PO HS 07/10/19 07/10/19 History nitroglycerin 0.4 mg SUBLINGUAL DIRECTED PRN 07/10/19 07/10/19 History sacubitril-valsartan [Entresto] 1 tab PO BID 07/10/19 07/10/19 History Patient History Medical History Diabetes (Chronic) Hyperlipidemia (Chronic) ME (myocardial infarction) (Chronic) Bypass gastroenterostomy (Resolved 01/14/13) Chest pain (Acute) Unstable angina (Acute) CAD (coronary artery disease) Peripheral neuropathy Surgical History S/P appendectomy S/P cardiac catheterization S/P cholecystectomy Family History Father Coronary heart disease Other Diabetes Social History Preferred Language: German Communication Ability: 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 Beliefs That Will Affect Care: None Current Living Situation: Alone Feels Safe at Home: Yes Smoking Status: Never smoker Tobacco Type: smokeless tobacco ; Hx Alcohol Use: No Hx Substance Use: No Review of Systems Review of Systems: All systems reviewed & are unremarkable except as noted in HPI & below Physical Exam Constitutional: WD/WN, vitals as above well nourished; no acute distress Respiratory: normal respiratory effort Auscultation: + rales (mild bases b/l) Cardiovascular: Rate/Rhythm: regular rate and regular rhythm Heart Sounds: + murmur (II/ systolic murmur) Extremities: no edema Gastrointestinal (Abdomen): normal bowel sounds, soft, nontender, no hepatosplenomegaly Psychiatric: A+Ox3, euthymic affect Results & Data Vital Signs (Past 12 Hours) Vital Signs Temp Pulse Pulse Pulse Resp BP BP 07/11/19 07:27 36.9 C 81 18 86/47 L 07/11/19 02:14 37.1 C 86 20 104/57 L 07/11/19 01:13 90 18 105/58 L 07/11/19 00:00 100 H 20 105/60 07/10/19 22:15 07/10/19 21:52 36.9 C 84 20 106/54 L Pulse Ox 07/11/19 07:27 94 07/11/19 02:14 98 07/11/19 01:13 94 07/11/19 00:00 99 07/10/19 22:15 99 07/10/19 21:52 99 Laboratory Results 07/11/19 07/11/19 07/11/19 Range/Units 07:18 06:31 06:31 WBC (4.8-10.8) K/uL RBC (4.7-6.1) M/uL Hgb (14.0-18.0) g/dL Hct (42-52) % MCV (80-100) fL MCH (25-34) pg MCHC (32-36) g/dL RDW Std Deviation (36.4-46.3) fL RDW Coeff of Neyda (11.5-14.5) % Plt Count (130-400) K/uL MPV (7.4-10.4) fL Immature Gran % (Auto) % Neut % (Auto) % Lymph % (Auto) % Coleman % (Auto) % Eos % (Auto) % Baso % (Auto) % Immature Gran # (Auto) (0.00-0.02) K/uL Neut # (Auto) (1.4-6.5) K/uL Lymph # (Auto) (1.2-3.4) K/uL Coleman # (Auto) (0.11-0.59) K/uL Eos # (Auto) (0-0.5) K/uL Baso # (Auto) (0-0.2) K/uL PT (9.0-12.0) Seconds INR (0.9-1.1) APTT (21.0-31.0) Seconds PTT Ratio Sodium (136-145) mmol/L Potassium (3.5-5.1) mmol/L Chloride (98-107) mmol/L Carbon Dioxide (21-32) mmol/L Anion Gap (3-11) BUN (7-18) mg/dl Creatinine (0.6-1.4) mg/dl Est Cr Clr Drug Dosing Est GFR ( Amer) Est GFR (Non-Af Amer) BUN/Creatinine Ratio (10-20) Glucose (70-99) mg/dl POC Glucose 103 H (70-99) Estimat Average Glucose mg/dl Hemoglobin A1c (4.5-5.6) % Calcium (8.5-10.1) mg/dl Magnesium (1.8-2.4) mg/dl Total Bilirubin (0.2-1) mg/dl AST (15-37) U/L ALT (12-78) U/L Alkaline Phosphatase (45-117) U/L Troponin I 0.028 (0-0.045) ng/ml NT-Pro-B Natriuret Pep (0-900) pg/ml Total Protein (6.4-8.2) gm/dl Albumin (3.4-5.0) gm/dl Globulin (2.5-4.0) gm/dl Albumin/Globulin Ratio (0.9-2) Lipase (73-393) U/L TSH (0.300-4.500) uIu/ml Urine Color Urine Appearance (Clear) Urine pH (4.5-7.5) Ur Specific [place] (1.000-1.030) Urine Protein (Negative) Urine Glucose (UA) (Negative) Urine Ketones (Negative) Urine Blood (Negative) Urine Nitrite (Negative) Urine Bilirubin (Negative) Urine Urobilinogen (Negative) Ur Leukocyte Esterase (Negative) Hepatitis C Ab Screen Pending 07/11/19 07/11/19 07/11/19 Range/Units 06:31 06:31 06:31 WBC 3.76 L (4.8-10.8) K/uL RBC 3.96 L (4.7-6.1) M/uL Hgb 12.7 L (14.0-18.0) g/dL Hct 37.8 L (42-52) % MCV 95.5 (80-100) fL MCH 32.1 (25-34) pg MCHC 33.6 (32-36) g/dL RDW Std Deviation 50.8 H (36.4-46.3) fL RDW Coeff of Neyda 14.5 (11.5-14.5) % Plt Count 121 L (130-400) K/uL MPV 11.0 H (7.4-10.4) fL Immature Gran % (Auto) % Neut % (Auto) % Lymph % (Auto) % Coleman % (Auto) % Eos % (Auto) % Baso % (Auto) % Immature Gran # (Auto) (0.00-0.02) K/uL Neut # (Auto) (1.4-6.5) K/uL Lymph # (Auto) (1.2-3.4) K/uL Coleman # (Auto) (0.11-0.59) K/uL Eos # (Auto) (0-0.5) K/uL Baso # (Auto) (0-0.2) K/uL PT (9.0-12.0) Seconds INR (0.9-1.1) APTT (21.0-31.0) Seconds PTT Ratio Sodium 142 (136-145) mmol/L Potassium 4.0 (3.5-5.1) mmol/L Chloride 107 (98-107) mmol/L Carbon Dioxide 30 (21-32) mmol/L Anion Gap 5.0 (3-11) BUN 14 (7-18) mg/dl Creatinine 0.85 (0.6-1.4) mg/dl Est Cr Clr Drug Dosing 96.6 Est GFR ( Amer) 105.2 Est GFR (Non-Af Amer) 90.8 BUN/Creatinine Ratio 16.7 (10-20) Glucose 111 H (70-99) mg/dl POC Glucose (70-99) Estimat Average Glucose 137 mg/dl Hemoglobin A1c 6.4 H (4.5-5.6) % Calcium 8.5 (8.5-10.1) mg/dl Magnesium 2.1 (1.8-2.4) mg/dl Total Bilirubin (0.2-1) mg/dl AST (15-37) U/L ALT (12-78) U/L Alkaline Phosphatase (45-117) U/L Troponin I (0-0.045) ng/ml NT-Pro-B Natriuret Pep (0-900) pg/ml Total Protein (6.4-8.2) gm/dl Albumin (3.4-5.0) gm/dl Globulin (2.5-4.0) gm/dl Albumin/Globulin Ratio (0.9-2) Lipase (73-393) U/L TSH (0.300-4.500) uIu/ml Urine Color Urine Appearance (Clear) Urine pH (4.5-7.5) Ur Specific [place] (1.000-1.030) Urine Protein (Negative) Urine Glucose (UA) (Negative) Urine Ketones (Negative) Urine Blood (Negative) Urine Nitrite (Negative) Urine Bilirubin (Negative) Urine Urobilinogen (Negative) Ur Leukocyte Esterase (Negative) Hepatitis C Ab Screen 07/11/19 07/11/19 07/10/19 Range/Units 02:31 01:08 22:19 WBC (4.8-10.8) K/uL RBC (4.7-6.1) M/uL Hgb (14.0-18.0) g/dL Hct (42-52) % MCV (80-100) fL MCH (25-34) pg MCHC (32-36) g/dL RDW Std Deviation (36.4-46.3) fL RDW Coeff of Neyda (11.5-14.5) % Plt Count (130-400) K/uL MPV (7.4-10.4) fL Immature Gran % (Auto) % Neut % (Auto) % Lymph % (Auto) % Coleman % (Auto) % Eos % (Auto) % Baso % (Auto) % Immature Gran # (Auto) (0.00-0.02) K/uL Neut # (Auto) (1.4-6.5) K/uL Lymph # (Auto) (1.2-3.4) K/uL Coleman # (Auto) (0.11-0.59) K/uL Eos # (Auto) (0-0.5) K/uL Baso # (Auto) (0-0.2) K/uL PT (9.0-12.0) Seconds INR (0.9-1.1) APTT (21.0-31.0) Seconds PTT Ratio Sodium (136-145) mmol/L Potassium (3.5-5.1) mmol/L Chloride (98-107) mmol/L Carbon Dioxide (21-32) mmol/L Anion Gap (3-11) BUN (7-18) mg/dl Creatinine (0.6-1.4) mg/dl Est Cr Clr Drug Dosing Est GFR ( Amer) Est GFR (Non-Af Amer) BUN/Creatinine Ratio (10-20) Glucose (70-99) mg/dl POC Glucose 85 (70-99) Estimat Average Glucose mg/dl Hemoglobin A1c (4.5-5.6) % Calcium (8.5-10.1) mg/dl Magnesium (1.8-2.4) mg/dl Total Bilirubin (0.2-1) mg/dl AST (15-37) U/L ALT (12-78) U/L Alkaline Phosphatase (45-117) U/L Troponin I (0-0.045) ng/ml NT-Pro-B Natriuret Pep (0-900) pg/ml Total Protein (6.4-8.2) gm/dl Albumin (3.4-5.0) gm/dl Globulin (2.5-4.0) gm/dl Albumin/Globulin Ratio (0.9-2) Lipase (73-393) U/L TSH Cancelled (0.300-4.500) uIu/ml Urine Color Yellow Urine Appearance Clear (Clear) Urine pH 7.0 (4.5-7.5) Ur Specific [place] 1.010 (1.000-1.030) Urine Protein Negative (Negative) Urine Glucose (UA) Negative (Negative) Urine Ketones Negative (Negative) Urine Blood Negative (Negative) Urine Nitrite Negative (Negative) Urine Bilirubin Negative (Negative) Urine Urobilinogen Negative (Negative) Ur Leukocyte Esterase Negative (Negative) Hepatitis C Ab Screen 07/10/19 07/10/19 07/10/19 Range/Units 22:19 22:: WBC 4.25 L (4.8-10.8) K/uL RBC 4.12 L (4.7-6.1) M/uL Hgb 12.9 L (14.0-18.0) g/dL Hct 39.2 L (42-52) % MCV 95.1 (80-100) fL MCH 31.3 (25-34) pg MCHC 32.9 (32-36) g/dL RDW Std Deviation 50.1 H (36.4-46.3) fL RDW Coeff of Neyda 14.4 (11.5-14.5) % Plt Count 128 L (130-400) K/uL MPV 11.2 H (7.4-10.4) fL Immature Gran % (Auto) 0.0 % Neut % (Auto) 59.0 % Lymph % (Auto) 15.3 % Coleman % (Auto) 22.6 % Eos % (Auto) 2.4 % Baso % (Auto) 0.7 % Immature Gran # (Auto) 0.00 (0.00-0.02) K/uL Neut # (Auto) 2.51 (1.4-6.5) K/uL Lymph # (Auto) 0.65 L (1.2-3.4) K/uL Coleman # (Auto) 0.96 H (0.11-0.59) K/uL Eos # (Auto) 0.10 (0-0.5) K/uL Baso # (Auto) 0.03 (0-0.2) K/uL PT 11.1 (9.0-12.0) Seconds INR 1.1 (0.9-1.1) APTT 26.9 (21.0-31.0) Seconds PTT Ratio 1.0 Sodium 142 (136-145) mmol/L Potassium 4.4 (3.5-5.1) mmol/L Chloride 109 H (98-107) mmol/L Carbon Dioxide 30 (21-32) mmol/L Anion Gap 4.0 (3-11) BUN 17 (7-18) mg/dl Creatinine 0.90 (0.6-1.4) mg/dl Est Cr Clr Drug Dosing Not Reportable Est GFR ( Amer) 102.8 Est GFR (Non-Af Amer) 88.7 BUN/Creatinine Ratio 18.4 (10-20) Glucose 106 H (70-99) mg/dl POC Glucose (70-99) Estimat Average Glucose mg/dl Hemoglobin A1c (4.5-5.6) % Calcium 8.7 (8.5-10.1) mg/dl Magnesium 2.2 (1.8-2.4) mg/dl Total Bilirubin 0.4 (0.2-1) mg/dl AST 14 L (15-37) U/L ALT 22 (12-78) U/L Alkaline Phosphatase 101 (45-117) U/L Troponin I 0.019 (0-0.045) ng/ml NT-Pro-B Natriuret Pep 3003 H (0-900) pg/ml Total Protein 6.8 (6.4-8.2) gm/dl Albumin 3.4 (3.4-5.0) gm/dl Globulin 3.4 (2.5-4.0) gm/dl Albumin/Globulin Ratio 1.0 (0.9-2) Lipase 301 (73-393) U/L TSH 1.630 (0.300-4.500) uIu/ml Urine Color Urine Appearance (Clear) Urine pH (4.5-7.5) Ur Specific [place] (1.000-1.030) Urine Protein (Negative) Urine Glucose (UA) (Negative) Urine Ketones (Negative) Urine Blood (Negative) Urine Nitrite (Negative) Urine Bilirubin (Negative) Urine Urobilinogen (Negative) Ur Leukocyte Esterase (Negative) Hepatitis C Ab Screen Diagnostic Findings EKG on admission: Unusual P axis, possible ectopic atrial rhythm with Premature atrial complexes Septal infarct (cited on or before 10-JUL-2019) ST & T wave abnormality, consider inferolateral ischemia When compared with prior EKG in March 2019, No significant change was found chest xray on admission: 1. Cardiomegaly. No other convincing evidence of acute cardiopulmonary disease Prior echocardiogram report reviewed, dated May 28, 2019 at [facility]: Interpretation Summary The examination is adequate to evaluate the referral indication. Findings are consistent with an ischemic cardiomyopathy, with severe left ventricular systolic dysfunction. The left ventricle is severely dilated. There is a large sized septal, inferior, and posterior wall motion abnormality with hypokinesis to akinesis of the segments and associated myocardial thinning in this territory consistent with scar. Calculated LV ejection Fraction = 25% (three dimensional volumes). The left atrium is moderately enlarged (42-48 ml/m^2). Mild to moderate mitral regurgitation is present. The etiology of the mitral regurgitation is likely due to papillary muscle dysfunction as well as left ventricular chamber dilatation. There is evidence of either a small atrial septal defect or PFO with [id number] interatrial shunting documented by color-flow Doppler. (1) CAD (coronary artery disease) Associated angina: angina presence unspecified Coronary Disease-Associated Artery/Lesion type: [place] artery [place] vs. transplanted heart: [place] heart Qualified Code(s): I25.10 - Atherosclerotic heart disease of [place] coronary artery without angina pectoris
[2019-07-11] MEDS ORDERED: CLOPIDOGREL BISULFATE 75 MG TAB PO SCH (09:00)
[2019-07-11] MEDS ORDERED: FUROSEMIDE 40 MG TAB PO SCH (09:00)
[2019-07-11] MEDS ORDERED: FAMOTIDINE 20 MG TAB PO SCH (09:00)
[2019-07-11] MEDS ORDERED: glipiZIDE ER 2.5 MG TABCR PO SCH (09:00)
[2019-07-11] MEDS ORDERED: ASPIRIN 81 MG ECTAB PO SCH (10:00)
[2019-07-11] MEDS ORDERED: SPIRONOLACTONE 25 MG TAB PO SCH (13:15)
[2019-07-11] MEDS: INSULIN ASPART 100 UNITS/ML 3 ML PEN SC SCH ×2 (15:09→15:10)
[2019-07-11] MEDS ORDERED: ATORVASTATIN 40 MG TAB PO SCH (21:00)
--- NOTE | 2019-07-20 23:58 | Discharge Summary ---
Date of Service date of admission - July 11, 2019 date of discharge - July 11, 2019 Admission HPI Per Admitting Provider Patient is a 64 year old male well known to [facility] with primary medical radiation dosimetrist being Dr. Terry Gaytan. Patient presented to [facility] emergency department with complaints of pain between his shoulder blades, radiating to his left shoulder x1 week. Symptoms were nonexertional. Yesterday the patient reported worsening shortness of breat h with activity and at rest. His fiance noted that he had increased labored breathing and therefore he came to the emergency department for evaluation. Upon arrival EKG demonstrated ectopic atrial rhythm with T wave inversions similar to prior EKG. Initial cardiac enzymes negative. BNP elevated and chest x-ray was relatively unremarkable. Due to his shortness of breath and elevated BNP with mild weight gain, he was started on IV Lasix. Patient reports ongoing cough over the last several days and fianc recently treated for bronchitis. He was started on Nitropatch which aided his back pain. He was admitted for further observation and treatment. Principal Diagnosis chest pain, ACS ruled out Discharge Exam Constitutional WD/WN, vitals as above no acute distress ENMT external ear and nose normal, oropharynx normal Respiratory normal respiratory effort, lungs clear to auscultation Cardiovascular Rate/Rhythm: regular rate and regular rhythm Heart Sounds: normal S1 and normal S2; no murmur Vessels: posterior tibial pulses present and dorsalis pedis pulses present; no JVD Extremities: no edema Gastrointestinal (Abdomen) normal bowel sounds, soft, nontender, no hepatosplenomegaly Psychiatric A+Ox3, euthymic affect Discharge Data Allergies Allergy/AdvReac Type Severity Reaction Status Date / Time Penicillins Allergy Unknown Unknown Verified 07/10/19 22:33 Sulfa (Sulfonamide Allergy Unknown Unknown Verified 07/10/19 22:33 Antibiotics) oxycodone AdvReac Mild Nausea/Vomi Verified 07/10/19 22:33 ting simvastatin AdvReac Unknown muscle pain Verified 07/10/19 22:33 Consultations cardiology - Dandre Ortiz DO Procedures Performed echo - * EF 25-30% * akinesis or hypokinesis of all segments * limited study Hospital Course (1) Acute on chronic systolic heart failure: The patient likely had mildly decompensated CHF. Pulmonary symptoms improved rapidly with diuresis. He was seen by [facility] and aldactone 12.5mg daily was added to his lasix. He will need repeat labs in about 5 days to ensure stability of creatinine and potassium. Beta mack dose will remain the same. He will continue entresto. Echo was unchanged from 04/2019 echocardiogram. (2) Chest pain: Troponins were negative x 3. Symptoms may have been 2nd to decompensated CHF. (3) CAD (coronary artery disease): Ruled out for ACS while hospitalized. He will continue plavix, statin, beta mack, etc. (4) Diabetes: continue glipizide continue metformin (5) Hyperlipidemia: Continue Atorvastatin (6) Cough: May have been 2nd to decompensated CHF/volume overload. However, his had acute bronchitis and it is undetermined if he had early acute bronchitis as well. A prescription was given for doxycycline for a week. He was asked to HOLD the antibiotic and hold take it if pulmonary symptoms persisted and/or worsened over the next 5 days. (7) Leukopenia: If he indeed has a respiratory virus then perhaps his mild leukopenia and thrombocytopenia could be 2nd to such. In addition to BMP I recommended a repeat CBC w/ diff in about 5 days post- discharge. Total Time Total Time Spent Total Time Spent (In Minutes): 25 Total Time Includes: Examination of the Patient, Discharge Planning, Medication Reconciliation and Communication With Other Providers Discharge Plan Discharge Items Patient Disposition: Home - Self-Care Reason For Visit: CHEST PAIN Discharge Diagnosis: 1. chest pain - resolved; heart attack ruled out. 2. cough, congestion, shortness of breath - improved. Possibly due to fluid retention in the lungs from your heart VS developing bronchitis. Goals: 1. check for heart attack 2. relieve shortness of breath Activity: Resume your previous activity Non-emergency contact: Primary Care Provider and Assistant Basketball Coach Call non-emergency contact if: you have any medication questions, your symptoms worsen, your pain is not controlled, your pain is worsening and you have a fever Follow-up/Referrals: Zac Torres MD [Primary Care Provider] - (see Dr Brendon Glass in 5 days; you will need repeat labs at that time) Dandre Ortiz DO [Physician] - (see Dr Ortiz or Lukas in 1-2 weeks) Diet: Carb Consistent or DM2 and Heart Healthy Fluids: 1800ml (7 cups) Ambulatory Orders: Basic Metabolic Panel (Routine) Timeframe: 5 Days Location: Determined by Patient Ordered By: Shaw Noble Complete Blood Count with Diff (Routine) Timeframe: 5 Days Location: Determined by Patient Ordered By: Shaw Noble Addearline Attending Provider Instructions: You were seen for chest discomfort and shortness of breath. Your blood work for the heart was normal; therefore heart attack was ruled out. You were seen by [facility]. They felt you had been retaining fluid from your congestive heart failure over the last few days. Your shortness of breath may have been either from the congestive heart failure OR developing bronchitis. I believe it was probably the congestive heart failure. However, if your cough, sputum production, and/or congestion continues or worsens in the next 3-4 days you can fill the prescription for the antibiotic (doxycycline). Recommendations: 1. take aldactone (spironolactone) 12.5mg once daily for your heart. Take this every morning. It is a water pill. 2. if your cough/congestion worsens in the next 3-4 days you can fill the antibiotic. The antibiotic is doxycycline and it is taken twice daily for 7 days. The antibiotic can cause heartburn. It can also cause a rash if you go out in the sun while taking it. Thus, cover up in the sun for 7-10 days IF you fill the antibiotic. 3. check your weight EVERY MORNING when you awaken. Call your medical radiation dosimetrist if you gain more than 2-3 pounds of weight over 1-2 days. 4. may use sycl-uqi-[id number] mucinex up to 1200mg twice a day for cough/congestion, if desired. 5. your wbc (white count) and platelet count on your CBC were mildly low while here. This could be a sign of a virus. I would like for you to have repeat blood work in about 5 days. Please have your labs rechecked at that time. See lab slips. Follow-up -- see separate section Return to [facility] if -- * you have fevers over 100.5 degrees * you have worsening shortness of breath * you have chest pain * you have to use your nitroglycerin tablets that go under the tongue * any other concerns Pending Studies at Discharge: No Stand-Alone Forms: My [facility] Medications and DC Order Prescriptions: New spironolactone 25 mg Tablet 12.5 mg PO DAILY Qty: 30 RF: 1 Continued glipizide 2.5 mg tablet extended release 24hr 2.5 mg PO QAM RF: 0 metoprolol succinate 25 mg tablet extended release 24 hr 25 mg PO BID RF: 0 pregabalin [Lyrica] 75 mg capsule 75 mg PO HS RF: 0 furosemide 40 mg Tablet 40 mg PO QAM RF: 0 clonazepam 0.5 mg Tablet 0.5 mg PO HS RF: 0 clopidogrel 75 mg Tablet 75 mg PO QAM RF: 0 cyanocobalamin (vitamin B-12) 1,000 mcg/mL Solution 1,000 mcg IM MONTHLY RF: 0 metformin [Glucophage] 1,000 mg Tablet 1,000 mg PO BID RF: 0 atorvastatin 40 mg tablet 40 mg PO HS RF: 0 nitroglycerin 0.4 mg tablet, sublingual 0.4 mg sublingual DIRECTED PRN (Reason: Chest Pain) RF: 0 Entresto 49-51 mg tablet 1 tab PO BID RF: 0 Discharge Orders: Discharge Order (Routine); Ordered 07/11/19 Ordered By: Shaw Richardson/Other Patient Handouts: Doxycycline Monohydrate Oral tablet Admission Data Admit Date/Time: 07/11/19 00:39 Attending Provider: Shaw Noble Admit Provider: Charles Norman Primary Care Provider: Zac Torres Other Providers: Dandre Ortiz Keith D. Other Interventions: Discharge Summary Assessment (RN) Last Done: 07/11/19 17:22 DC Date/Time DO NOT enter until pt leaves facility: 07/11/19 17:45
== END 2019-07-11 17:45 | disposition home or self-care (01) ==
LOC: ED 21:48 → 2S 21:48 → SUATTDRO 07-11 00:39 → 2S 07-11 02:20

== ENCOUNTER 2019-07-30 11:08 | Observation (INO) ==
--- NOTE | 2019-07-30 12:52 | History & Physical Bridge Note ---
Date of Service July 30, 2019 History & Physical Bridge Note I have examined the patient, reviewed the History & Physical and in the interval since the performance of the History & Physical I have noted the following changes of clinical significance: no changes noted
--- NOTE | 2019-07-30 12:53 | Pre Anesthesia Assessment ---
Date of Service July 30, 2019 Pre Sedation Assessment Vital Signs Temp Pulse Resp BP Pulse Ox 07/30/19 12:20 36.8 C 73 18 111/58 L 98 Cardiovascular RRR, no murmur, no edema Respiratory normal respiratory effort, lungs clear to auscultation Pre-Sedation Airway Assessment Smoking Status: Never smoker Short, Thick Neck: No Thyromental Distance: > or= 3.5 Finger Breadths Oral Cavity: + Dental Abnormalities Mallampati Class: III ASA: ASA3 NPO Status Date of Last Intake of Fluids: 07/29/19 Date of Last Intake of Solid Food: 07/29/19 Procedure Planning Contraindications for Sedation: none Current Medications Reviewed: Yes Notes The planned sedation has been discussed with the patient. Informed Consent was obtained. I have identified the patient, determined the appropriateness of sedation and have assessed the patient immediately prior to the procedure. All medicine(s) and interventions are by my order.
[2019-07-30] MEDS ORDERED: LIDOCAINE HCL 1% 20 ML VIAL ONE (13:06)
[2019-07-30] MEDS ORDERED: BUPIVACAINE 0.25% 30 ML VIAL ONE (13:06)
[2019-07-30] MEDS ORDERED: BACITRACIN INJ 50,000 UNIT VIAL ONE (13:06)
[2019-07-30] MEDS ORDERED: fentaNYL citrate 100 MCG/2 ML VIAL ONE ×5 (13:07→15:38)
[2019-07-30] MEDS ORDERED: MIDAZOLAM HCL 5 MG/ML 1 ML VIAL ONE ×3 (13:07→16:11)
[2019-07-30] MEDS ORDERED: NURSING DECISION MEDICATION ONE (13:10)
[2019-07-30] MEDS ORDERED: CLINDAMYCIN 600 MG in DEXTROSE 5% 50 ML IV SCH (13:30)
--- NOTE | 2019-07-30 16:57 | Post Anesthesia Assessment ---
Date of Service July 30, 2019 Post Sedation Assessment Vital Signs Temp Pulse Resp BP Pulse Ox 07/30/19 12:20 36.8 C 73 18 111/58 L 98 Recovery Score Activity: Moves 4 extremities Respiration: Deep Breath/Cough Circulation: +/-20% PreAnes Value Consciousness: Fully Awake Oxygen Saturation: > 92% On Room Air Discharge Sedation Level of Care: Fast Track Phase II Post Sedation Plan On clinical assessment, the patient appears to have tolerated the sedation without complications. Patient is recovering as anticipated. Patient will continue to be monitored by nursing and may be discharged when sedation discharge criteria are met per below protocol. Upon Completions of procedure and additional 15 minutes continue every 5 minute vital signs and the P.A.R. score; then discharge to a Phase I or Fast Track to [facility] II per the following guidelines: * Discharge Patient to appropriate Phase II area if PAR is 8 or greater or return to pre- procedure baseline. The post - procedure orders will be as directed. * If PAR score is less than 8 or not return to pre-procedure baseline then patient will follow Phase I monitoring till PAR is reached for Phase II. The Phase I may be done in procedure room or may call to secure a Phase I area. * If naloxone or flumazenil are used for reversal, hold in Phase I for continued monitoring from when last reversal dose was given for a minimum of 60 minutes or longer pending the nurse and/or physician discretion of patient condition before discharge to Phase II. Please call the Sedation Physician to re-evaluate and complete post-note for discharge to Phase II area. Do NOT discharge from procedure sedation or Phase 1 until post- sedation evaluation note is complete by procedure /sedation MD Sedation Discharge Instructions to be given to the patient at discharge to home.
--- NOTE | 2019-07-30 16:59 | Operative Report ---
Post Operative Report Pre & Post Diagnosis Pre: ICM, Chronic systolic and diastolic HF-NYHA Class III, IVCD Post Same Operation Date: 07/30/19 13:00 <No data on this case meets the specified criteria> Procedure Operation Date: 07/30/19 13:00 Actual Procedures p ICD Insertion Single or Dual - DO kaitlin Bergeron Lead LV (No Priopr Implant) - DO kaitlin Bergeron Venogram, Unilateral - Lani Weiss DO Surgeon Lani Weiss, Clay Mixer none Estimated Blood Loss 35 Findings Consistent with Post-Op Diagnosis Specimens None Description of Procedure See official report I attest to the content of the Intraoperative Record and any orders documented therein. Any exceptions are noted below.
[2019-07-30] MEDS ORDERED: ACETAMINOPHEN 325 MG TAB PO PRN (17:00)
[2019-07-30] MEDS ORDERED: MoRPHine SULFATE 2 MG/ML CARP IV STA (18:03)
[2019-07-30] MEDS ORDERED: MoRPHine SULFATE 2 MG/ML CARP ONE (18:06)
[2019-07-30] MEDS ORDERED: clonazePAM 0.5 MG TAB PO PRN (20:18)
[2019-07-30] MEDS ORDERED: NITROGLYCERIN SL 0.4 MG/TAB TAB SL PRN (20:26)
[2019-07-30] MEDS ORDERED: PREGABALIN 75 MG CAP PO SCH (21:00)
[2019-07-30] MEDS ORDERED: ATORVASTATIN 40 MG TAB PO SCH (21:00)
[2019-07-30] MEDS: METOPROLOL SUCC 25MG EXT REL TAB PO SCH (21:49)
[2019-07-30] MEDS: SACUBITRIL-VALSARTAN 24-26 MG TAB PO SCH (21:51)
[2019-07-31] MEDS: OXYCODONE/ACETAMINOPHEN 5mg/325mg TAB PO PRN ×2 (00:18→06:22)
[2019-07-31] MEDS: ONDANSETRON INJ 2 MG/ML 2 ML VIAL IV PRN ×3 (00:18→10:55)
[2019-07-31] MEDS ORDERED: glipiZIDE 5 MG TAB PO SCH (07:30)
--- NOTE | 2019-07-31 07:38 | XRay Report ---
XR chest 1V portable CLINICAL HISTORY: post implant COMPARISON STUDY: Chest radiograph July 10, 2019. FINDINGS: There is no pneumothorax following placement of a left subclavian pacer/AICD. A lead projec ts over the right ventricle. Additional leads project over the right atrium. There is cardiomegaly wi thout evidence for pulmonary edema. Minimal right basilar opacity suggests atelectasis. There is no c onsolidation to suggest pneumonia. IMPRESSION: No pneumothorax following placement of a left subclavian pacer/AICD. Electronically signed by: Rober Ricci M.D. 07/31/2019 7:37 AM
[2019-07-31] MEDS ORDERED: METFORMIN HCL 500 MG TAB PO SCH (08:00)
[2019-07-31] MEDS: SACUBITRIL-VALSARTAN 24-26 MG TAB PO SCH (08:18)
[2019-07-31] MEDS: METOPROLOL SUCC 25MG EXT REL TAB PO SCH (08:21)
[2019-07-31] MEDS ORDERED: CLINDAMYCIN 900 MG in DEXTROSE 5% 50 ML IV ONE (08:31)
[2019-07-31] MEDS ORDERED: CLOPIDOGREL BISULFATE 75 MG TAB PO SCH (09:00)
[2019-07-31] MEDS ORDERED: FUROSEMIDE 40 MG TAB PO SCH (09:00)
[2019-07-31] MEDS ORDERED: SPIRONOLACTONE 25 MG TAB PO SCH (09:00)
--- NOTE | 2019-08-05 14:54 | Operative Report ---
DATE OF OPERATION: 07/30/2019 PREOPERATIVE DIAGNOSES: Ischemic cardiomyopathy; chronic combined systolic and diastolic heart failure, [place] Heart Association class 3; incomplete left bundle branch block with a QRS of 122 milliseconds. POSTOPERATIVE DIAGNOSES: same with now His bundle pacing the QRS is 79ms PROCEDURE: Biventricular implantable cardiac defibrillator under fluoroscopic guidance along with peripheral venogram and coronary sinus venogram with the LV lead positioned over the His bundle area. SURGEON: Lani Weiss DO. GAME PRESERVE MANAGER: None. ANESTHESIA: Monitored conscious sedation administered by Laureen Domínguez under my supervision for a total of 12 mg of Versed, 500 mcg of fentanyl. Start time 1:39, end time 4:55. INTRAVENOUS FLUIDS: 100 mL. ANTIBIOTICS: 600 mg of clindamycin. CONTRAST: 25 mL. URINE OUTPUT: Not applicable. SPECIMENS: None. FINDINGS: See below. DRAINS: None. BLOOD LOSS: 25 mL. INDICATIONS: This is a 64-year-old gentleman with past medical history for ischemic cardiomyopathy, ejection fraction of 25%-30% in 04/2019, coronary artery disease, history of multiple PCIs in the past. In 1998, he had PCI to the circ and RCA. In 2000 to the LAD. Then again in 2007 to the LAD. He had in 2010 PCI to the OM and then again in 2012 as well as most recently a non-STEMI in 01/2019 with another PCI to the circ. Hyperlipidemia, diabetes, history of a TIA/CVA post intervention of the cath in 01/2019, obstructive sleep apnea, gastroesophageal reflux disease, obesity, ectopic atrial arrhythmia. Due to his worsening ischemic cardiomyopathy, his heart failure and his incomplete left bundle, he was recommended a biventricular implantable cardiac defibrillator. CONSENT: Consent was obtained prior to the patient going into electrophysiology lab. The patient was informed of the risks, benefits and alternatives to the procedure. Risks include but not limited to sudden cardiac , cardiac arrhythmias, cerebrovascular accident, myocardial infarction, injury to the blood vessels, chamber of the heart, lungs, bleeding and infection. The patient understood these risks and agreed to the procedure as planned. Informed consent was obtained. DESCRIPTION OF THE PROCEDURE: The patient was brought into the electrophysiology lab in fasting state. He was connected to continuous patient monitor. A timeout was performed to ensure patient identity and procedure correctly. The patient was prepped and draped over the left infraclavicular space in normal surgical standard fashion. Monitored conscious sedation was given throughout the procedure for patient's comfort level. [place] precautions maintained throughout the procedure. 10 mL of 1% lidocaine-bupivacaine mixture were given in the left deltopectoral groove. Incision was made in the left deltopectoral groove. Blunt dissection was performed down to identify the cephalic vein. The cephalic vein was identified and isolated using 0 silk ties. Then a peripheral venogram using 10 mL of contrast diluted in 10 mL of saline was performed and this identified the axillary vein. Then using a needle stick, the axillary vein was obtained and a guidewire was inserted without any resistance. Then I went back to the cephalic vein, I nicked it with an 11 blade and a guidewire was inserted without any resistance. An 8-Angolan sheath was inserted over the guidewire without any resistance. Dilator was removed and a second guidewire was inserted through the 8-Angolan sheath to allow for retained venous access. The sheath was then removed and a 9.5-Angolan sheath was inserted over the guidewire without any resistance. Guidewire and dilator were removed and the defibrillator lead was advanced into right ventricle and positioned into right ventricular apex under fluoroscopic guidance. There was adequate pacing and sensing thresholds and no diaphragmatic stimulation with high output pacing. The 9.5-Angolan sheath was peeled away and lead was fixated to pectoralis muscle using 0 silk suture. A second 8-Angolan sheath was inserted over the retained guidewire without any resistance. The guidewire and dilator removed. The right atrial lead was then advanced into right atrium and positioned into the right atrial appendage under fluoroscopic guidance. There was adequate pacing and sensing thresholds and no diaphragmatic stimulation with high output pacing. The 8-Angolan sheath was peeled away and lead was fixated to pectoralis muscle using 0 silk suture. We then set up to do the LV lead. A 9.5-Angolan sheath was inserted over the guidewire through the axillary vein. The guidewire and dilator were removed. Then, the outer MPX Medtronic sheath was inserted over a guidewire into the right atrium. The guidewire and dilator removed and then we cannulated the coronary sinus with the EP diagnostic catheter and the MPX outer sheath was advanced through it. We then performed a coronary sinus venogram with the balloon out into the coronary sinus that was in a posterolateral branch, so we did try to wire this; however, I was able to eventually wire with a Whisper. There was a very sharp takeoff from the main coronary sinus branch into this vessel and I tried using an inner as well and I could never get stability that the lead would never migrate out, so we opted to abort the LV lead and do a His bundle instead, so the LV equipment was removed. The 9.5-Angolan sheath remained in and a His sheath was then advanced into right atrium. The dilator and wire were removed and then we did 3D electrogram mapping of the His bundle region and found the AH to be 95 milliseconds, HV to be 70 milliseconds. We screwed the His lead in and we got adequate pacing and sensing thresholds and impedance. The His sheath was then split under fluoroscopic guidance and then a 9.5-Angolan sheath was peeled away. The lead was fixated to pectoralis muscle using 0 silk suture. A defibrillator pocket was then created using blunt dissection over the pectoralis muscle. Pocket was flushed with copious amounts of bacitracin saline wash and inspected for hemostasis. The leads were then attached to the device, making sure that the pins were in appropriate position, passed set screws and set screws were all tightened. The device was then placed in the pocket, making sure that the leads were lying flat beneath the device. The incision was then closed in a 3-layer fashion using 2-0 Vicryl interrupted suture followed by 3-0 Vicryl interrupted suture, followed by 4-0 Monocryl running stitch, followed then by Dermabond, Matteo and Micropore dressing, then a pressure dressing over that. EQUIPMENT: 1. The generator is a FunnelFire WELDER METAL FAB-D SureScan [id number], serial number [id number]. 2. Right atrial lead Medtronic 5076-52 cm, serial number [id number]. 3. Right ventricular lead, Medtronic 6935M-62 cm, serial number [id number]. 4. Left ventricular, which is actually the His lead, Medtronic 3830-69 cm, serial number [id number]. INTRAOPERATIVE TESTIN. Right atrial lead: P waves 1.9 millivolts, impedance 546 ohms, threshold 0.5 volts at 0.4 milliseconds. 2. Right ventricular lead: R waves 18.9 millivolts, impedance 699 ohms, threshold 0.7 volts at 0.4 milliseconds. 3. Left ventricular lead positioned over the His bundle: R waves 2.3 millivolts, impedance 623 ohms, threshold 1.9 volts at 1 millisecond. FINAL MEASUREMENTS THROUGH THE DEVICE: 1. Right atrial lead: P-wave 2.9 millivolts, impedance 399 ohms, threshold 0.5 volts at 0.4 milliseconds. 2. Right ventricular lead: R-wave 20 millivolts, impedance 589 ohms, threshold 0.25 volts at 0.4 milliseconds. 3. Left ventricular lead which is the His bundle lead is impedance 456 ohms, threshold 1.5 volts at 1 millisecond. FINAL PARAMETERS: DDD 60/140. Right atrial and right ventricular amplitude 3.5 volts, pulse width 0.4 milliseconds, sensitivity 0.3 millivolts. The His bundle lead which is in the LV port has the amplitude of 4 volts and pulse width of 1 milliamp. He has a VT monitor zone of 140 beats for 32 detection intervals, VT zone at 171 beats for 20 detection intervals and a VF zone at 200 beats for 30/40 detection intervals. IMPRESSION: Successful biventricular rate responsive implantable cardiac defibrillator implant secondary to ischemic cardiomyopathy, incomplete left bundle branch block and chronic systolic and diastolic heart failure, [place] Heart Association class 3. PLAN: Monitor patient overnight, 12-lead ECG, chest x-ray. He is not allowed to lift the left elbow or left shoulder for 1 month. He cannot lift more than 10 pounds with the left arm for 2 weeks. He can shower in 2 days, let water run over the incision, do not scrub it. Try to keep the pressure dressing on for 2 days. Try to keep the Micropore dressing on until his wound check next week. Continue his home medications and follow up with general cardiology as scheduled. I attest to the content of the Intraoperative Record and any orders documented therein. Any exceptions are noted below. DANIEL
--- NOTE | 2019-08-13 10:35 | Discharge Summary ---
Date of Service July 31, 2019 Admission HPI Per Admitting Provider Pt admitted for elective biv ICD implant Admission Exam Per Admitting Provider aaox3, NAD NC/AT, EOMI Supple No JVD Nrl S1/S2, No murmur CTA b/l no w/r/r soft nt/nd no LE edema b/l skin intact no focal deficits Principal Diagnosis Ischemic cardiomyopathy s/p biv ICD Discharge Exam aaox3, NAD NC/AT, EOMI Supple No JVD Nrl S1/S2, No murmur CTA b/l no w/r/r soft nt/nd no LE edema b/l skin intact no focal deficits left pectoral incision intact, no hematoma mild ecchymosis ENMT Mallampati Class: III Respiratory normal respiratory effort, lungs clear to auscultation Cardiovascular RRR, no murmur, no edema Discharge Data Allergies Allergy/AdvReac Type Severity Reaction Status Date / Time Penicillins Allergy Unknown Unknown Verified 07/10/19 22:33 Sulfa (Sulfonamide Allergy Unknown Unknown Verified 07/10/19 22:33 Antibiotics) oxycodone AdvReac Mild Nausea/Vomi Verified 07/10/19 22:33 ting simvastatin AdvReac Unknown muscle pain Verified 07/10/19 22:33 Procedures Performed Operation Date: 07/30/19 13:00 Actual Procedures p ICD Insertion Single or Dual - Lani Weiss DO s Lead LV (No Priopr Implant) - Lani Weiss DO s Venogram, Unilateral - Lani Weiss DO Ordered Studies ECG: -BIV His bundle paced CXR: No PTX leads in position His BiV ICD Interrogation: normal stable lead testing since implant 07/30/19 06:45 EP Lab Images for PACS ONCE Hospital Course (1) Ischemic cardiomyopathy: Total Time Total Time Spent Total Time Spent (In Minutes): 30 Total Time Includes: Examination of the Patient, Discharge Planning, Medication Reconciliation and Other Discharge Plan Discharge Items Patient Disposition: Home - Self-Care Reason For Visit: BIVICD Discharge Diagnosis: ICM s/p BiV ICD(HIS BUndle) Condition on Discharge: Good Activity: Per Instructions section Activity Comment: do not raise the left elbow over the left shoulder for 1 month Lifting: No more than 10 pounds Lifting Comment: do not lift more than 10pounds with left arm for 2 weeks Bathing: Keep incision dry Bathing Comment: keep dry for at least 2 days Sexual Activity: After two weeks Driving/Machine Use: Resume 1 day after discharge 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 Weiss's office Device and wound check next Friday 08/10 at [facility] Keep outer big brown pressure dressing on for 2 days if possible Keep white thin dressing on until wound check if possible Pending Studies at Discharge: No Stand-Alone Forms: My [facility] Medications and DC Order Prescriptions: Continued glipizide 2.5 mg tablet extended release 24hr 2.5 mg PO QAM RF: 0 metoprolol succinate 25 mg tablet extended release 24 hr 25 mg PO BID RF: 0 pregabalin [Lyrica] 75 mg capsule 75 mg PO HS RF: 0 furosemide 40 mg Tablet 40 mg PO QAM RF: 0 clonazepam 0.5 mg Tablet 0.5 mg PO HS RF: 0 clopidogrel 75 mg Tablet 75 mg PO QAM RF: 0 cyanocobalamin (vitamin B-12) 1,000 mcg/mL Solution 1,000 mcg IM MONTHLY RF: 0 metformin [Glucophage] 1,000 mg Tablet 1,000 mg PO BID RF: 0 atorvastatin 40 mg tablet 40 mg PO HS RF: 0 nitroglycerin 0.4 mg tablet, sublingual 0.4 mg sublingual DIRECTED PRN (Reason: Chest Pain) RF: 0 Entresto 49-51 mg tablet 1 tab PO BID RF: 0 spironolactone 25 mg Tablet 12.5 mg PO DAILY Qty: 30 RF: 1 Discharge Orders: Discharge Order (Routine); Ordered 07/31/19 Ordered By: Lani Richardson/Other Patient Handouts: Pacemaker Biventricular and ICD Admission Data Admit Date/Time: 07/30/19 14:46 Attending Provider: Lani Weiss Admit Provider: Lani Weiss Primary Care Provider: Zac Torres Other Interventions: Discharge Summary Assessment (RN) Last Done: 07/31/19 10:42 DC Date/Time DO NOT enter until pt leaves facility: 07/31/19 12:01
== END 2019-07-31 12:01 | disposition home or self-care (01) ==
LOC: 2S 11:08 → EP 11:08
PROC: EPB.ICD (2019-07-30 13:00)

== ENCOUNTER 2020-06-12 16:21 | Inpatient (IN) ==
[2020-06-12] MEDS ORDERED: MoRPHine SULFATE 10 MG/ML CARP/VIAL IV STA (16:31)
[2020-06-12] MEDS ORDERED: ONDANSETRON INJ 2 MG/ML 2 ML VIAL IV STA (16:31)
[2020-06-12] MEDS ORDERED: NITROGLYCERIN 2% OINTMENT 30GM TUBE EXT STA (16:37)
--- NOTE | 2020-06-12 16:44 | Emergency Department Note ---
History of Present Illness General Chief Complaint: Chest Pain Stated Complaint: CHEST PAIN, CARDIAC Hx Time Seen by Provider: 06/12/20 16:26 Source: patient, RN notes reviewed and old records reviewed Mode of arrival: ambulatory Limitations: no limitations History of Present Illness Provider Complaint: chest pain Onset (ago): hour(s) 4 Duration: constant Onset: during rest Pain Radiation: back Severity: moderate Maximum Pain Intensity: 7 Current Pain Intensity: 7 Quality: + tightness Relieved By: + nothing Exacerbated By: + movement Treatments prior to arrival: other (Nitro) This is a 65-year-old male who has a history of stents. The patient reports he has a heart attacks and is complaining of chest pain that has been ongoing for the past 4 hours. Patient reports he took 2 nitro for the pain without relief of the symptoms. He reports the pain gets worse with walking. Home Medications Home Medications Medication Instructions Recorded Confirmed Type clonazepam 0.5 mg PO HS 02/09/19 06/12/20 History clopidogrel 75 mg PO QAM 02/09/19 06/12/20 History cyanocobalamin (vitamin B-12) 1,000 mcg IM MONTHLY 02/09/19 06/12/20 History furosemide 40 mg PO QAM 02/09/19 06/12/20 History metformin [Glucophage] 1,000 mg PO BID 02/09/19 06/12/20 History glipizide 2.5 mg PO QAM PRN 04/26/19 06/12/20 History metoprolol succinate 25 mg PO BID 04/26/19 06/12/20 History pregabalin [Lyrica] 75 mg PO HS 04/26/19 06/12/20 History atorvastatin 40 mg PO HS 07/10/19 06/12/20 History nitroglycerin 0.4 mg SUBLINGUAL DIRECTED PRN 07/10/19 06/12/20 History spironolactone 12.5 mg PO DAILY #30 tab 07/11/19 06/12/20 Rx sacubitril-valsartan [Entresto] 1 tab PO BID 06/12/20 06/12/20 History Allergies Allergy/AdvReac Type Severity Reaction Status Date / Time Penicillins Allergy Unknown Unknown Verified 06/12/20 17:14 Sulfa (Sulfonamide Allergy Unknown Unknown Verified 06/12/20 17:14 Antibiotics) oxycodone AdvReac Mild Nausea/Vomi Verified 06/12/20 17:14 ting simvastatin AdvReac Unknown muscle pain Verified 06/12/20 17:14 Past Med/Surg History Medical History 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) [facility] CAD (coronary artery disease) Chest pain Diabetes Hyperlipidemia [place] (myocardial infarction) 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 events; 10 stents in total Peripheral neuropathy Surgical History S/P appendectomy S/P cardiac catheterization S/P cholecystectomy Family History Father , 51 Coronary heart disease Myocardial infarction Brother Coronary heart disease Brother Coronary heart disease Other Diabetes Social History Smoking Status: Former smoker packs per day: 2; Years Smoked: 25; Hx Alcohol Use: No Hx Substance Use: No Preferred Language: Vietnamese Communication Ability: Effective Medical Accounts Receivable Specialist Required: No Beliefs That Will Affect Care: Yarsanism Yarsanism Beliefs: christain marital status: / marital status details: 01/2020 Current Living Situation: Alone current occupational status: employed 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 How many Children do You have: 1 How many Children do You have Comment: son Other Information That Helps Us Care for You: No Feels Safe at Home: Yes Safety Concerns: Feels Safe At This Time Physical Exam Vital Signs Vital Signs - 24 hr 06/12/20 16:42 06/12/20 16:53 06/12/20 17:36 Temperature Temperature Source Pulse Rate [Left Finger] 83 72 Pulse Rhythm [Left Finger] Pulse Strength [Left Finger] Respiratory Rate 12 16 Respiratory Effort / Characteristics Respiratory Depth Respiratory Pattern Blood Pressure [Left Arm] 114/60 125/62 Blood Pressure Mean [Left Arm] 78 83 Blood Pressure Position [Left Arm] Pulse Oximetry 98 98 99 Oxygen Delivery Method Nasal Cannula Nasal Cannula Nasal Cannula Oxygen Flow Rate 2 2 2 Fraction of Inspired Oxygen 98 06/12/20 18:40 06/12/20 18:47 06/12/20 20:30 Temperature 36.6 C Temperature Source Oral Pulse Rate [Left Finger] 69 71 70 Pulse Rhythm [Left Finger] Regular Pulse Strength [Left Finger] Normal Respiratory Rate 12 16 14 Respiratory Effort / Characteristics Non-Labored Spontaneous Respiratory Depth Normal Respiratory Pattern Regular Blood Pressure [Left Arm] 127/65 117/59 L 111/50 L Blood Pressure Mean [Left Arm] 85 78 70 Blood Pressure Position [Left Arm] Sitting Pulse Oximetry 99 99 95 Oxygen Delivery Method Nasal Cannula Nasal Cannula Room Air Oxygen Flow Rate 2 2 Fraction of Inspired Oxygen Course Administered Medications Aspirin (Aspirin 81 Mg Ectab) 81 mg PO [facility] Stop: 07/13/20 08:59 Last Admin: 06/13/20 08:54 Dose: 81 mg Documented by: [id number] Atorvastatin Calcium (Atorvastatin 40 Mg Tab) 40 mg PO [facility] Stop: 07/12/20 21:27 Last Admin: 06/12/20 22:26 Dose: 40 mg Documented by: [id number] Clonazepam (Clonazepam 0.5 Mg Tab) 0.5 mg PO [facility] Stop: 07/12/20 21:27 Last Admin: 06/12/20 22:30 Dose: 0.5 mg Documented by: [id number] Clopidogrel Bisulfate (Clopidogrel Bisulfate 75 Mg Tab) 75 mg PO [facility] Stop: 07/13/20 08:59 Last Admin: 06/13/20 08:54 Dose: 75 mg Documented by: [id number] Sodium Chloride (Nss) 500 mls @ 80 mls/hr IV .Q6H15M [facility] Stop: 06/13/20 18:30 Last Admin: 06/13/20 13:29 Dose: 80 mls/hr Documented by: [id number] Insulin Aspart (Insulin Aspart 100 Units/Ml 3 Ml Pen) [address] [facility] Stop: 07/13/20 07:29 Last Admin: 06/13/20 12:16 Dose: Not Given Documented by: [id number] Admin: 06/13/20 08:55 Dose: 2 units Documented by: [id number] Cosigned by: [id number] Pregabalin (Pregabalin 75 Mg Cap) 75 mg PO [facility] Stop: 07/12/20 21:27 Last Admin: 06/12/20 22:30 Dose: 75 mg Documented by: [id number] Sacubitril/Valsartan (Sacubitril-Valsartan 24-26 Mg Tab) 1 tab PO BID [facility] Stop: 07/12/20 21:27 Last Admin: 06/12/20 22:26 Dose: 1 tab Documented by: [id number] Discontinued Medications Aspirin (Aspirin Chew 324 Mg) Confirm Administered Dose 324 mg .ROUTE .STK-MED ONE Stop: 06/12/20 18:38 Last Admin: 06/12/20 18:39 Dose: 324 mg Documented by: [id number] Clopidogrel Bisulfate (Clopidogrel Bisulfate 300 Mg Tab) Confirm Administered Dose 300 mg .ROUTE .STK-MED ONE Stop: 06/12/20 20:11 Last Admin: 06/12/20 22:21 Dose: Not Given Documented by: [id number] Fentanyl Citrate (Fentanyl Citrate 100 Mcg/2 Ml Vial) Confirm Administered Dose 100 mcg .ROUTE .STK-MED ONE Stop: 06/12/20 18:46 Last Admin: 06/12/20 22:20 Dose: Not Given Documented by: [id number] Heparin Sodium (Porcine) (Heparin (Porcine) 1000 Unit/Ml 10 Ml (System Software Programmer Use Only)) Confirm Administered Dose 10,000 units .ROUTE .STK-MED ONE Stop: 06/12/20 18:46 Last Admin: 06/12/20 22:20 Dose: Not Given Documented by: [id number] Heparin Sodium (Porcine) (Heparin (Porcine) 1000 Unit/Ml 10 Ml (System Software Programmer Use Only)) Confirm Administered Dose 10,000 units .ROUTE .STK-MED ONE Stop: 06/12/20 19:48 Last Admin: 06/12/20 22:21 Dose: Not Given Documented by: [id number] Heparin Sodium/Dextrose (Heparin Iv Standard *No* Bolus) 1 ea N/A ONE ONE; Protocol Stop: 06/12/20 17:47 Last Admin: 06/12/20 18:39 Dose: Not Given Documented by: [id number] Heparin Sodium/Sodium Chloride (Heparin In Nss Infusion 1000 Unit/500 Ml (2 U/Ml) Bag) Confirm Administered Dose 3,000 units IV .STK-MED ONE Stop: 06/12/20 18:46 Last Admin: 06/12/20 22:20 Dose: Not Given Documented by: [id number] Heparin Sodium/Dextrose (Heparin Sodium/Dextrose) 25,000 units in 500 mls @ 0.02 mls/hr IV .Q24H [facility]; Protocol Stop: 07/12/20 17:59 Last Admin: 06/12/20 22:21 Dose: Not Given Documented by: [id number] Metoprolol Succinate (Metoprolol Succ 25mg Ext Rel Tab) 25 mg PO BID [facility] Stop: 07/12/20 21:27 Last Admin: 06/12/20 22:26 Dose: 25 mg Documented by: [id number] Midazolam HCl (Midazolam Hcl 1 Mg/Ml 2ml Vial) Confirm Administered Dose 2 mg .ROUTE .STK-MED ONE Stop: 06/12/20 18:46 Last Admin: 06/12/20 22:20 Dose: Not Given Documented by: [id number] Midazolam HCl (Midazolam Hcl 1 Mg/Ml 2ml Vial) Confirm Administered Dose 2 mg .ROUTE .STK-MED ONE Stop: 06/12/20 19:53 Last Admin: 06/12/20 22:21 Dose: Not Given Documented by: [id number] Morphine Sulfate (Morphine Sulfate 10 Mg/Ml Carp/Vial) 6 mg IV NOW STA Stop: 06/12/20 16:32 Last Admin: 06/12/20 16:50 Dose: 6 mg Documented by: [id number] Morphine Sulfate (Morphine Sulfate 2 Mg/Ml Carp) Confirm Administered Dose 2 mg .ROUTE .ST-MED ONE Stop: 06/12/20 18:02 Last Admin: 06/12/20 18:09 Dose: 2 mg Documented by: [id number] Morphine Sulfate (Morphine Sulfate 2 Mg/Ml Carp) 2 mg IV NOW STA Stop: 06/12/20 18:02 Last Admin: 06/12/20 18:09 Dose: Not Given Documented by: [id number] Nicardipine HCl (Nicardipine Hcl Inj 2.5 Mg/Ml 10 Ml Amp) Confirm Administered Dose 25 mg .ROUTE .STK-MED ONE Stop: 06/12/20 18:46 Last Admin: 06/12/20 22:20 Dose: Not Given Documented by: [id number] Nitroglycerin (Nitroglycerin 2% Ointment 30gm Tube) 1 inch EXT NOW STA Stop: 06/12/20 16:38 Last Admin: 06/12/20 16:50 Dose: 1 inch Documented by: [id number] Nitroglycerin (Nitroglycerin Sl 0.4 Mg/Tab Tab) 0.4 mg SL NOW STA Stop: 06/12/20 18:16 Last Admin: 06/12/20 22:21 Dose: Not Given Documented by: [id number] Nitroglycerin (Nitroglycerin Sl 0.4 Mg/Tab Tab) Confirm Administered Dose 0.4 mg .ROUTE .STK-MED ONE Stop: 06/12/20 18:17 Last Admin: 06/12/20 18:18 Dose: 0.4 mg Documented by: [id number] Nitroglycerin/Dextrose (Nitroglycerin/D5w 100mcg/Ml 20ml Syr) Confirm Administered Dose 2,000 mcg .ROUTE .STK-MED ONE Stop: 06/12/20 18:46 Last Admin: 06/12/20 22:20 Dose: Not Given Documented by: [id number] Ondansetron HCl (Ondansetron Inj 2 Mg/Ml 2 Ml Vial) 4 mg IV NOW STA Stop: 06/12/20 16:32 Last Admin: 06/12/20 16:50 Dose: 4 mg Documented by: [id number] Medical Decision Making Differential Diagnosis + stable angina, + atypical chest pain, + st elevation myocardial infarction, + costochondritis, + chest pain, + cardiac ischemia, + myocarditis, + pericarditis, + aortic dissection, + pneumonia and + pancreatitis Home Medications Current Medication List: was personally reviewed by me Laboratory Data Result diagrams: 06/12/20 16:34 06/13/20 05:55 Labs: Lab Results 06/12/20 06/12/20 06/12/20 Range/Units 16:34 16:34 16:34 WBC 8.08 (4.8-10.8) K/uL RBC 4.55 L (4.7-6.1) M/uL Hgb 14.8 (14.0-18.0) g/dL Hct 42.8 (42-52) % MCV 94.1 (80-100) fL MCH 32.5 (25-34) pg MCHC 34.6 (32-36) g/dL RDW Std Deviation 46.8 H (36.4-46.3) fL RDW Coeff of Neyda 13.6 (11.5-14.5) % Plt Count 173 (130-400) K/uL MPV 10.8 H (7.4-10.4) fL Immature Gran % (Auto) 0.4 % Neut % (Auto) 74.7 % Lymph % (Auto) 15.3 % [place] % (Auto) 7.4 % Eos % (Auto) 2.0 % Baso % (Auto) 0.2 % Neut # (Auto) 6.03 (1.4-6.5) K/uL Lymph # (Auto) 1.24 (1.2-3.4) K/uL [place] # (Auto) 0.60 H (0.11-0.59) K/uL Eos # (Auto) 0.16 (0-0.5) K/uL Baso # (Auto) 0.02 (0-0.2) K/uL Immature Gran # (Auto) 0.03 H (0.00-0.02) K/uL PT 11.1 (9.0-12.0) Seconds INR 1.1 (0.9-1.1) APTT 27.9 (21.0-31.0) Seconds PTT Ratio 1.0 Activ Coag Time Kaolin (94-140) SECONDS Sodium 142 (136-145) mmol/L Potassium 4.0 (3.5-5.1) mmol/L Chloride 109 H (98-107) mmol/L Carbon Dioxide 28 (21-32) mmol/L Anion Gap 5.0 (3-11) BUN 11 (7-18) mg/dl Creatinine 0.96 (0.6-1.4) mg/dl Est Cr Clr Drug Dosing 84.4 ml/min Est GFR ( Amer) 94.4 Est GFR (Non-Af Amer) 81.5 BUN/Creatinine Ratio 11.1 (10-20) Glucose 117 H (70-99) mg/dl POC Glucose (70-99) mg/dl Calcium 8.5 (8.5-10.1) mg/dl Total Bilirubin 0.6 (0.2-1) mg/dl AST 16 (15-37) U/L ALT 18 (12-78) U/L Alkaline Phosphatase 93 (45-117) U/L Total Creatine Kinase 95 (39-308) U/L CK-MB (CK-2) 3.1 (0.5-3.6) ng/ml CK/CKMB % Calc 3.3 H (0-3.0) POC Troponin I (0-0.045) ng/ml Troponin I < 0.015 (0-0.045) ng/ml NT-Pro-B Natriuret Pep 1549 H (0-900) pg/ml Total Protein 6.9 (6.4-8.2) gm/dl Albumin 3.4 (3.4-5.0) gm/dl Globulin 3.5 (2.5-4.0) gm/dl Albumin/Globulin Ratio 1.0 (0.9-2) Lipase 178 (73-393) U/L 06/12/20 06/12/20 06/12/20 Range/Units 16:46 19:33 19:55 WBC (4.8-10.8) K/uL RBC (4.7-6.1) M/uL Hgb (14.0-18.0) g/dL Hct (42-52) % MCV (80-100) fL MCH (25-34) pg MCHC (32-36) g/dL RDW Std Deviation (36.4-46.3) fL RDW Coeff of Neyda (11.5-14.5) % Plt Count (130-400) K/uL MPV (7.4-10.4) fL Immature Gran % (Auto) % Neut % (Auto) % Lymph % (Auto) % [place] % (Auto) % Eos % (Auto) % Baso % (Auto) % Neut # (Auto) (1.4-6.5) K/uL Lymph # (Auto) (1.2-3.4) K/uL [place] # (Auto) (0.11-0.59) K/uL Eos # (Auto) (0-0.5) K/uL Baso # (Auto) (0-0.2) K/uL Immature Gran # (Auto) (0.00-0.02) K/uL PT (9.0-12.0) Seconds INR (0.9-1.1) APTT (21.0-31.0) Seconds PTT Ratio Activ Coag Time Kaolin 257 H 268 H (94-140) SECONDS Sodium (136-145) mmol/L Potassium (3.5-5.1) mmol/L Chloride (98-107) mmol/L Carbon Dioxide (21-32) mmol/L Anion Gap (3-11) BUN (7-18) mg/dl Creatinine (0.6-1.4) mg/dl Est Cr Clr Drug Dosing ml/min Est GFR ( Amer) Est GFR (Non-Af Amer) BUN/Creatinine Ratio (10-20) Glucose (70-99) mg/dl POC Glucose (70-99) mg/dl Calcium (8.5-10.1) mg/dl Total Bilirubin (0.2-1) mg/dl AST (15-37) U/L ALT (12-78) U/L Alkaline Phosphatase (45-117) U/L Total Creatine Kinase (39-308) U/L CK-MB (CK-2) (0.5-3.6) ng/ml CK/CKMB % Calc (0-3.0) POC Troponin I < 0.03 (0-0.045) ng/ml Troponin I (0-0.045) ng/ml NT-Pro-B Natriuret Pep (0-900) pg/ml Total Protein (6.4-8.2) gm/dl Albumin (3.4-5.0) gm/dl Globulin (2.5-4.0) gm/dl Albumin/Globulin Ratio (0.9-2) Lipase (73-393) U/L 06/12/20 Range/Units 20:54 WBC (4.8-10.8) K/uL RBC (4.7-6.1) M/uL Hgb (14.0-18.0) g/dL Hct (42-52) % MCV (80-100) fL MCH (25-34) pg MCHC (32-36) g/dL RDW Std Deviation (36.4-46.3) fL RDW Coeff of Neyda (11.5-14.5) % Plt Count (130-400) K/uL MPV (7.4-10.4) fL Immature Gran % (Auto) % Neut % (Auto) % Lymph % (Auto) % [place] % (Auto) % Eos % (Auto) % Baso % (Auto) % Neut # (Auto) (1.4-6.5) K/uL Lymph # (Auto) (1.2-3.4) K/uL [place] # (Auto) (0.11-0.59) K/uL Eos # (Auto) (0-0.5) K/uL Baso # (Auto) (0-0.2) K/uL Immature Gran # (Auto) (0.00-0.02) K/uL PT (9.0-12.0) Seconds INR (0.9-1.1) APTT (21.0-31.0) Seconds PTT Ratio Activ Coag Time Kaolin (94-140) SECONDS Sodium (136-145) mmol/L Potassium (3.5-5.1) mmol/L Chloride (98-107) mmol/L Carbon Dioxide (21-32) mmol/L Anion Gap (3-11) BUN (7-18) mg/dl Creatinine (0.6-1.4) mg/dl Est Cr Clr Drug Dosing ml/min Est GFR ( Amer) Est GFR (Non-Af Amer) BUN/Creatinine Ratio (10-20) Glucose (70-99) mg/dl POC Glucose 106 H (70-99) mg/dl Calcium (8.5-10.1) mg/dl Total Bilirubin (0.2-1) mg/dl AST (15-37) U/L ALT (12-78) U/L Alkaline Phosphatase (45-117) U/L Total Creatine Kinase (39-308) U/L CK-MB (CK-2) (0.5-3.6) ng/ml CK/CKMB % Calc (0-3.0) POC Troponin I (0-0.045) ng/ml Troponin I (0-0.045) ng/ml NT-Pro-B Natriuret Pep (0-900) pg/ml Total Protein (6.4-8.2) gm/dl Albumin (3.4-5.0) gm/dl Globulin (2.5-4.0) gm/dl Albumin/Globulin Ratio (0.9-2) Lipase (73-393) U/L Imaging Data [place], [place] [phone] XRay Report Patient: GRACE LAUREN Date: 06/12/20 MR#: [id number]: [address] Acct ID:[id number]: [address] Date: 1955[facility] Zip: [place] [address] Age: 65Location: ED Sex: M Room/Bed: Att Phy:Diagnosis: CHEST PAIN, CARDIAC Hx Rina Phy: Zac Puga M.D.Service Date: 06/12/20 [facility] Phy:Interpreting Phy: Rainer Kay MD Admit Phy: Ordering Phy: Addison Gomes MD cc: ~ XR chest 1V portable CLINICAL HISTORY: Atypical chest pain COMPARISON STUDY: 07/31/2019 FINDINGS: The heart is mildly enlarged. There is a left subclavian pacer/defibrillator present. There is no failure. There is no focal pulmonary consolidation. There are no pleural effusions. There is mild basilar interstitial thickening similar to the prior study[ IMPRESSION: No active disease in the chest. ACT 112: Negative or not required by law. Electronically signed by: Rainer Kay M.D. 06/12/2020 5:11 PM Dictated: 06/12/201709 Transcribed: 06/12/201709: Radiologist's impression: [place], [place] [phone] XRay Report Patient: GRACE LAUREN Date: 06/12/20 MR#: [id number]: [address] Acct ID:[id number]: [address] Date: [address] [place] [address] Zip: [place] [address] Age: 65Location: ED Sex: M Room/Bed: Att Phy:Diagnosis: CHEST PAIN, CARDIAC Hx Rina Phy: Zac Puga M.D.Service Date: 06/12/20 [facility] Phy:Interpreting Phy: Rainer Kay MD Admit Phy: Ordering Phy: Addison Gomes MD cc: ~ XR chest 1V portable CLINICAL HISTORY: Atypical chest pain COMPARISON STUDY: 07/31/2019 FINDINGS: The heart is mildly enlarged. There is a left subclavian pacer/def ibrillator present. There is no failure. There is no focal pulmonary consolidation. There are no pleural effusions. There is mild basilar interstitial thickening similar to the prior study[ IMPRESSION: No active disease in the chest. ACT 112: Negative or not required by law. Electronically signed by: Rainer Kay M.D. 06/12/2020 5:11 PM Dictated: 06/12/201709 Transcribed: 06/12/201709 ECG Data Attestation: I personally reviewed and interpreted this ECG as follows: Indication: chest pain Rate (beats per minute): 84 Rhythm: other (Atrial-sense ventricular paced rhythm) Comparison ECG Date: from (06/12/2020) Change: the following changes noted (Paced changes) MDM Narrative This is a 65-year-old male who presents emergency department complaining of chest pain. The patient was given nitro and morphine here in the emergency department without relief of the pain. 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 He was placed on a heparin drip. He was subsequently discussed with the hospitalist and taken to the System Software Programmer. Patient was seen and evaluated as above in room C8. Review was performed of nursing notes and vital signs. I did review pertinent previous visits and patient history. After obtaining a thorough history and physical examination the above work up was performed. An order was placed for continuous cardiac monitoring. The monitor shows a rate of 75 with Normal SInus rhythm. The patient was evaluated during the global COVID-19 pandemic, and that diagnosis was suspected/considered upon their initial presentation. Their evaluation, treatment and testing was consistent with current guidelines for patients who present with complaints or symptoms that may be related to COVID- 19. Impression & Plan Chest pain Critical Care Time I have personally spent greater than 30 minutes of critical care time in the direct management of this patient. This includes bedside care, interpretation of diagnostic studies, and testing, discussion with consultants, patient, and family members, and other required patient management activities. This 30 minutes is in excess of all separately billable procedures. Discharge Plan Visit Data Chief Complaint: Chest Pain Stated Complaint: CHEST PAIN, CARDIAC Hx ED Provider: Addison Gomes Discharge Problem: Chest pain Patient Disposition: Still a Patient Discharge Instructions Interventions: ED Discharge Assessment Last Done: 06/12/20 18:58 Discharge Problem: Chest pain Qualifiers: Chest pain type: unspecified Qualified Code(s): R07.9 - Chest pain, unspecified
[2020-06-12 16:51] LABS: Basophils # (auto) 0.02 K/uL (0-0.2); Basophils % (auto) 0.2 %; Eosinophils # (auto) 0.16 K/uL (0-0.5); Hematocrit (blood only) 42.8 % (42-52); Hemoglobin 14.8 g/dL (14.0-18.0); Immature Granulocytes # (auto) 0.03 K/uL (0.00-0.02); Immature Granulocytes % (auto) 0.4 %; Lymphocytes # (auto) 1.24 K/uL (1.2-3.4); Lymphocytes % (auto) 15.3 %; Mean Corpuscular Hemoglobin 32.5 pg (25-34); Mean Corpuscular Hgb Conc 34.6 g/dL (32-36); Mean Corpuscular Volume 94.1 fL (80-100); Mean Platelet Volume 10.8 fL (7.4-10.4); Monocytes % (auto) 7.4 %; Neutrophils # (auto) 6.03 K/uL (1.4-6.5); Neutrophils % (auto) 74.7 %; Platelet Count 173 K/uL (130-400); RDW Coefficient of Variation 13.6 % (11.5-14.5); RDW Standard Deviation 46.8 fL (36.4-46.3); Red Blood Count 4.55 M/uL (4.7-6.1); White Blood Count 8.08 K/uL (4.8-10.8)
[2020-06-12 17:01] LABS: Alanine Aminotransferase 18 U/L (12-78); Albumin Level 3.4 gm/dl (3.4-5.0); Aspartate Aminotransferase 16 U/L (15-37); BUN Creatinine Ratio 11.1 (10-20); Blood Urea Nitrogen 11 mg/dl (7-18); Calcium 8.5 mg/dl (8.5-10.1); Carbon Dioxide 28 mmol/L (21-32); Chloride 109 mmol/L (98-107); Creatinine Clr Calc Pharmacy 84.4 ml/min; Est GFR (African American) 94.4; Est GFR (Non-African American) 81.5; Glucose 117 mg/dl (70-99); Lipase 178 U/L (73-393); Sodium 142 mmol/L (136-145)
[2020-06-12 17:02] LABS: INR 1.1 (0.9-1.1); Partial Thromboplastin Time 27.9 Seconds (21.0-31.0); Prothrombin Time 11.1 Seconds (9.0-12.0)
[2020-06-12 17:06] LABS: Alkaline Phosphatase 93 U/L (45-117); Bilirubin,Total 0.6 mg/dl (0.2-1); Creatine Kinase 95 U/L (39-308); Creatine Kinase MB 3.1 ng/ml (0.5-3.6); Globulin 3.5 gm/dl (2.5-4.0); NT Pro B Type Natriuretic Pept 1549 pg/ml (0-900); Total Protein 6.9 gm/dl (6.4-8.2); Troponin I < 0.015 ng/ml (0-0.045)
--- NOTE | 2020-06-12 17:12 | XRay Report ---
XR chest 1V portable CLINICAL HISTORY: Atypical chest pain COMPARISON STUDY: 07/31/2019 FINDINGS: The heart is mildly enlarged. There is a left subclavian pacer/defibrillator present. There is no failure. There is no focal pulmonary consolidation. There are no pleural effusions. There is m ild basilar interstitial thickening similar to the prior study[ IMPRESSION: No active disease in the chest. ACT 112: Negative or not required by law. Electronically signed by: Rainer Kay M.D. 06/12/2020 5:11 PM
[2020-06-12] MEDS ORDERED: Heparin IV Standard *NO* Bolus ONE (17:46)
--- NOTE | 2020-06-12 17:57 | History & Physical Report ---
Date of Service June 12, 2020 Assessment & Plan (1) ACS (acute coronary syndrome): ACS/unstable angina. Refractory chest pain despite copious SL/topical nitro and morphine IV in a patient with known, severe CAD s/p numerous stents in the past. Dr Terry Gaytan from [facility] Cardiology saw patient in consult in the ER. We discussed Mr Mcdowell's care, and in light of the above, decision was made to call a Code Heart Alert. 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 If cath does not reveal any culprit lesion consider CTA chest to r/o PE in light of patient's recent travel to [place]. (2) Precordial chest pain: see above in "ACS" (3) CAD (coronary artery disease): severe. s/p multiple acute MIs and [address] Gaytan. asa 324mg given in ER. cont plavix. check lipids in am; cont statin. cont BB. (4) Cardiomyopathy, ischemic: prior echo with EF <30%. has AICD/BiV pacer. cont BB. hold lasix/aldactone until creatinine is checked in am. if Cr is stable resume both diuretics. patient euvolemic at presentation tonight. (5) Status post biventricular pacemaker: with AICD. (6) Diabetic foot ulcer: left foot. clean, no signs of infection. appears it is packed with xeroform and covered with optifoam. cont local wound care. (7) Diabetes: BSGs ac/hs. DM diet. hold oral agents. novolog sliding scale. check a1c am. (8) Hyperlipidemia: check lipids am. cont statin. (9) Chronic systolic (congestive) heart failure: EF <30%. cont BB. cont entresto. euvolemic on exam. in light of contrast given for cath tonight hold lasix/aldactone, check Cr in am, and if stable then resume diuretics. (10) DVT prophylaxis: heparin 5000 BID care d/w Dr Gaytan History of Present Illness Chief Complaint: chest pain Primary Care Provider: Zac Torres MD 65yo male with history of CAD, T2DM, ischemic cardiomyopathy - presents with chest pain. Pain started about 2pm over the left upper breast. Pain has been constant and has not radiated to his left arm, neck, jaw or back. Some associated dyspnea. No nausea or emesis. Some sweats. Pain was 8/10 on pain scale in the car (brother brought him to [facility] by private car). Now it is 6-7/10. Pain is similar to past heart attack pain. Took 2 SL nitros at home without relief of pain. Has received nitropaste and morphine in the ER without resolution of pain. No fevers, chills, loss of taste or smell, cough, congestion. No change in appetite. No abdominal pain. During my assessment that patient, although comfortable-appearing, continued to complain of persistent left-sided chest pain. He initially was 6-7/10. Gave morphine 2mg IV x 1 without any relief. Additional SL nitro 0.4mg x 1 given with minimal improvement - down to 5/10 on pain scale. Thus, he had had total of 4mg of morphine, 3 SL nitro, and 1" nitropaste. Spoke with Dr Gaytan from [facility] cardiology. In light of his extensive CAD history and refractory chest pain we elected to activate a code Heart Alert. Heart Alert activated and patient taken to open hearth furnace laborer from ER. Allergies Allergy/AdvReac Type Severity Reaction Status Date / Time Penicillins Allergy Unknown Unknown Verified 06/12/20 17:14 Sulfa (Sulfonamide Allergy Unknown Unknown Verified 06/12/20 17:14 Antibiotics) oxycodone AdvReac Mild Nausea/Vomi Verified 06/12/20 17:14 ting simvastatin AdvReac Unknown muscle pain Verified 06/12/20 17:14 Home Medications Home Medications Medication Instructions Recorded Confirmed Type clonazepam 0.5 mg PO HS 02/09/19 06/12/20 History clopidogrel 75 mg PO QAM 02/09/19 06/12/20 History cyanocobalamin (vitamin B-12) 1,000 mcg IM MONTHLY 02/09/19 06/12/20 History furosemide 40 mg PO QAM 02/09/19 06/12/20 History metformin [Glucophage] 1,000 mg PO BID 02/09/19 06/12/20 History glipizide 2.5 mg PO QAM PRN 04/26/19 06/12/20 History metoprolol succinate 25 mg PO BID 04/26/19 06/12/20 History pregabalin [Lyrica] 75 mg PO HS 04/26/19 06/12/20 History atorvastatin 40 mg PO HS 07/10/19 06/12/20 History nitroglycerin 0.4 mg SUBLINGUAL DIRECTED PRN 07/10/19 06/12/20 History spironolactone 12.5 mg PO DAILY #30 tab 07/11/19 06/12/20 Rx sacubitril-valsartan [Entresto] 1 tab PO BID 06/12/20 06/12/20 History Past Med/Surg History Medical History 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) [facility] CAD (coronary artery disease) Chest pain Diabetes Hyperlipidemia ID (myocardial infarction) x 8 events; 10 stents in total Peripheral neuropathy Surgical History S/P appendectomy S/P cardiac catheterization S/P cholecystectomy Family History Father , 51 Coronary heart disease Myocardial infarction Brother Coronary heart disease Brother Coronary heart disease Other Diabetes Social History Smoking Status: Former smoker packs per day: 2; Years Smoked: 25; Hx Alcohol Use: No Hx Substance Use: No Preferred Language: Sierra Leonean Communication Ability: Effective Securities Broker Required: No Beliefs That Will Affect Care: None marital status: / marital status details: 01/2020 Current Living Situation: Alone current occupational status: employed current occupation: [employer] How many Children do You have: 1 How many Children do You have Comment: son Feels Safe at Home: Yes Physical Exam Constitutional: well developed, well nourished and + acute distress (occasionally would grab his left chest ); no altered mental status Eyes: PERRL ENMT: external ear and nose normal, oropharynx normal Neck: trachea midline, no thyromegaly Respiratory: normal respiratory effort, lungs clear to auscultation Cardiovascular: Rate/Rhythm: regular rate and regular rhythm Heart Sounds: normal S1 and normal S2; no murmur Vessels: posterior tibial pulses present and dorsalis pedis pulses present; no JVD Extremities: no edema Gastrointestinal (Abdomen): normal bowel sounds, soft, nontender, no hepatosplenomegaly Musculoskeletal: no cyanosis or clubbing, extremities motor strength 5/5 Skin: 0.5cm clean ulcer, left foot, plantar aspect, 5th metatarsal head region Neurologic: deep tendon reflexes 2+ bilaterally and moves all extremities; no focal motor deficits Psychiatric: Orientation: alert and oriented x 3 Affect: + anxious affect and + tearful affect Lymphatic: no cervical lymphadenopathy Results & Data Results & Data ([facility]) Vital Signs (Past 12 Hours) Vital Signs Temp Pulse Pulse Resp BP BP Pulse Ox 06/12/20 17:36 72 16 125/62 99 06/12/20 16:53 83 12 114/60 98 06/12/20 16:42 98 06/12/20 16:23 36.9 C 84 16 102/53 L 95 Laboratory Results Laboratory Results - last 24 hr 06/12/20 06/12/20 06/12/20 16:34 16:34 16:34 WBC 8.08 RBC 4.55 L Hgb 14.8 Hct 42.8 MCV 94.1 MCH 32.5 MCHC 34.6 RDW Std Deviation 46.8 H RDW Coeff of Neyda 13.6 Plt Count 173 MPV 10.8 H Immature Gran % (Auto) 0.4 Neut % (Auto) 74.7 Lymph % (Auto) 15.3 Bee % (Auto) 7.4 Eos % (Auto) 2.0 Baso % (Auto) 0.2 Neut # (Auto) 6.03 Lymph # (Auto) 1.24 Bee # (Auto) 0.60 H Eos # (Auto) 0.16 Baso # (Auto) 0.02 Immature Gran # (Auto) 0.03 H PT 11.1 INR 1.1 APTT 27.9 PTT Ratio 1.0 Activ Coag Time Kaolin Sodium 142 Potassium 4.0 Chloride 109 H Carbon Dioxide 28 Anion Gap 5.0 BUN 11 Creatinine 0.96 Est Cr Clr Drug Dosing 84.4 Est GFR ( Amer) 94.4 Est GFR (Non-Af Amer) 81.5 BUN/Creatinine Ratio 11.1 Glucose 117 H Calcium 8.5 Total Bilirubin 0.6 AST 16 ALT 18 Alkaline Phosphatase 93 Total Creatine Kinase 95 CK-MB (CK-2) 3.1 CK/CKMB % Calc 3.3 H POC Troponin I Troponin I < 0.015 NT-Pro-B Natriuret Pep 1549 H Total Protein 6.9 Albumin 3.4 Globulin 3.5 Albumin/Globulin Ratio 1.0 Lipase 178 06/12/20 06/12/20 06/12/20 16:46 19:33 19:55 WBC RBC Hgb Hct MCV MCH MCHC RDW Std Deviation RDW Coeff of Neyda Plt Count MPV Immature Gran % (Auto) Neut % (Auto) Lymph % (Auto) Bee % (Auto) Eos % (Auto) Baso % (Auto) Neut # (Auto) Lymph # (Auto) Bee # (Auto) Eos # (Auto) Baso # (Auto) Immature Gran # (Auto) PT INR APTT PTT Ratio Activ Coag Time Kaolin 257 H 268 H Sodium Potassium Chloride Carbon Dioxide Anion Gap BUN Creatinine Est Cr Clr Drug Dosing Est GFR ( Amer) Est GFR (Non-Af Amer) BUN/Creatinine Ratio Glucose Calcium Total Bilirubin AST ALT Alkaline Phosphatase Total Creatine Kinase CK-MB (CK-2) CK/CKMB % Calc POC Troponin I < 0.03 Troponin I NT-Pro-B Natriuret Pep Total Protein Albumin Globulin Albumin/Globulin Ratio Lipase Diagnostic Findings 1. CXR - no pulmonary edema, no infiltrates, AICD present 2. EKG - with pacemaker turned off transiently - NSR, no ST changes Code Status & VTE Plan Code Status full VTE Prophylaxis Plan VTE Prophylaxis will be ordered: Yes PG Care Time/CCT Total # of Minutes Spent Total Time Spent with Patient: Total time spent is greater than 50% in coordination of care (as documented) at patient's floor/unit and/or counseling patient: Coding Level of Care Code 45824 Initial Inpt Care Lvl 3 Diagnoses ACS (acute coronary syndrome) I24.9 Precordial chest pain R07.2 CAD (coronary artery disease) I25.10 Associated angina: angina presence unspecified Coronary Disease-Associated Artery/Lesion type: [place] artery [place] vs. transplanted heart: [place] heart Cardiomyopathy, ischemic I25.5 Status post biventricular pacemaker Z95.0 Diabetic foot ulcer E11.621; L97.529 Diabetes mellitus type: type 2 Diabetic foot ulcer location: unspecified part of foot Laterality: left Non-pressure ulcer stage: unspecified non-pressure ulcer stage Diabetes E11.42; Z79.4 Diabetes mellitus complication detail: with polyneuropathy Diabetes mellitus complication status: with neurologic complications Diabetes mellitus dedicated intermodal truck driver insulin use: with dedicated intermodal truck driver use Diabetes mellitus type: type 2 Hyperlipidemia E78.5 Hyperlipidemia type: unspecified Chronic systolic (congestive) heart failure I50.22 DVT prophylaxis Z29.9 (1) Diabetes Diabetes mellitus complication detail: with polyneuropathy Diabetes mellitus complication status: with neurologic complications Diabetes mellitus dedicated intermodal truck driver insulin use: with intermediate use Diabetes mellitus type: type 2 Qualified Code(s): E11.42 - Type 2 diabetes mellitus with diabetic polyneuropathy; Z79.4 - director long term care (current) use of insulin (2) CAD (coronary artery disease) Associated angina: angina presence unspecified Coronary Disease-Associated Artery/Lesion type: [place] artery [place] vs. transplanted heart: [place] heart Qualified Code(s): I25.10 - Atherosclerotic heart disease of [place] coronary artery without angina pectoris (3) Diabetic foot ulcer Diabetes mellitus type: type 2 Diabetic foot ulcer location: unspecified part of foot Laterality: left Non-pressure ulcer stage: unspecified non-pressure ulcer stage Qualified Code(s): E11.621 - Type 2 diabetes mellitus with foot ulcer; L97.529 - Non-pressure chronic ulcer of other part of left foot with unspecified severity (4) Hyperlipidemia Hyperlipidemia type: unspecified Qualified Code(s): E78.5 - Hyperlipidemia, unspecified
[2020-06-12] MEDS ORDERED: HEPARIN SODIUM/DEXTROSE 25,000 UNITS/500 ML BAG IV SCH (18:00)
[2020-06-12] MEDS ORDERED: MoRPHine SULFATE 2 MG/ML CARP IV STA (18:01)
[2020-06-12] MEDS ORDERED: MoRPHine SULFATE 2 MG/ML CARP ONE (18:01)
[2020-06-12] MEDS ORDERED: NITROGLYCERIN SL 0.4 MG/TAB TAB SL STA (18:15)
[2020-06-12] MEDS ORDERED: NITROGLYCERIN SL 0.4 MG/TAB TAB ONE (18:16)
--- NOTE | 2020-06-12 18:21 | Cardiology Consultation ---
Date of Consultation June 12, 2020 Assessment & Plan (1) Precordial chest pain: Patient presents with concerning symptoms reminiscent of his prior angina pectoris though no evidence of acute injury or ischemia by enzyme or EKG (pacemaker inhibited) Still remain concerned regarding complaints. We will plan on admitting to hospital with IV heparin with plans for diagnostic cardiac catheterization either later with stabilization or acutely if symptoms persist Addendum. Patient with persistent pain and now worsening once again while in the emergency room patient will go to cardiac catheterization as heart alert (2) Ischemic cardiomyopathy: (3) Status post biventricular pacemaker: His bundle lead, device functioning appropriately (4) Bypass gastroenterostomy: History of Present Illness Reason for Consultation: Chest pain Requesting Physician: Dr. Gomes Attending Physician: Dr. Rsuh History of Present Illness Patient is a 65-year-old male well-known to me with underlying cardiac history which includes 1. Atherosclerotic coronary disease, diffuse, with multiple coronaryinterventions including 2-vessel angioplasty in 1998 of circumflex and rightcoronary artery; left anterior descending in 2000; stenting of the leftanterior descending in 2007, stenting of the obtuse marginal in Januarynd November 2012. 2. Thrombotic occlusion with closure of the stented obtuse [id number]/20/2013 with lateral apical infarct. 3. Class II angina pectoris. 4. Low HDL dyslipidemia. 5. Diabetes mellitus. 6. Non ST segment elevation myocardial infarction February 09, 2019 setting of increased demand acute sinusitis. Coronary intervention drug-eluting stent to 99% AV groove circumflex, dominant vessel 7. Ischemic cardiomyopathy , EF 25 to 30% reconfirmed by study of May 28, 2019 8. Possible TIA /stroke post coronary intervention January 2019 9. Biventricular/His bundle pacer defibrillator implantation July 30, 2019:MedtronicModel:Karlene MRI CRTD [id number](His bundle pacing) Patient presents today noting having developed substernal chest pressure reminiscent of prior angina while sitting at rest approximately 4 hours prior to ER presentation. Symptoms did not respond to sublingual nitroglycerin who presented to emergency room. Initial symptoms improved with IV morphine topical nitrates and oxygen. Initial EKG demonstrated paced rhythm. Troponins at 4 hours of chest discomfort revealed no injury EKG repeated with pacemaker inhibited demonstrated normal tracing without ST elevation or ischemia Patient symptoms were gradually resolving Patient denies any fevers chills or productive cough. Notes no tachypalpitations syncope or near syncope. Notes no melena medication dysuria hematuria. Has been struggling with a nonhealing foot ulcer Denies acute weight gain or loss denies orthopnea PND or peripheral edema. Notes some home stress. Has been taking medications as prescribed including oral clopidogrel and Entresto 2426 twice daily No recent signs or symptoms of congestive heart failure Allergies Allergy/AdvReac Type Severity Reaction Status Date / Time Penicillins Allergy Unknown Unknown Verified 06/12/20 17:14 Sulfa (Sulfonamide Allergy Unknown Unknown Verified 06/12/20 17:14 Antibiotics) oxycodone AdvReac Mild Nausea/Vomi Verified 06/12/20 17:14 ting simvastatin AdvReac Unknown muscle pain Verified 06/12/20 17:14 Home Medications Home Medications Medication Instructions Recorded Confirmed Type clonazepam 0.5 mg PO HS 02/09/19 06/12/20 History clopidogrel 75 mg PO QAM 02/09/19 06/12/20 History cyanocobalamin (vitamin B-12) 1,000 mcg IM MONTHLY 02/09/19 06/12/20 History furosemide 40 mg PO QAM 02/09/19 06/12/20 History metformin [Glucophage] 1,000 mg PO BID 02/09/19 06/12/20 History glipizide 2.5 mg PO QAM PRN 04/26/19 06/12/20 History metoprolol succinate 25 mg PO BID 04/26/19 06/12/20 History pregabalin [Lyrica] 75 mg PO HS 04/26/19 06/12/20 History atorvastatin 40 mg PO HS 07/10/19 06/12/20 History nitroglycerin 0.4 mg SUBLINGUAL DIRECTED PRN 07/10/19 06/12/20 History spironolactone 12.5 mg PO DAILY #30 tab 07/11/19 06/12/20 Rx sacubitril-valsartan [Entresto] 1 tab PO BID 06/12/20 06/12/20 History Patient History Medical History 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) [facility] CAD (coronary artery disease) Chest pain Diabetes Hyperlipidemia SC (myocardial infarction) x 8 events; 10 stents in total Peripheral neuropathy Surgical History S/P appendectomy S/P cardiac catheterization S/P cholecystectomy Family History Father , 51 Coronary heart disease Myocardial infarction Brother Coronary heart disease Brother Coronary heart disease Other Diabetes Social History Smoking Status: Former smoker packs per day: 2; Years Smoked: 25; Hx Alcohol Use: No Hx Substance Use: No Preferred Language: Turkish Communication Ability: Effective Ginner Helper Required: No Beliefs That Will Affect Care: None marital status: / marital status details: 01/2020 Current Living Situation: Alone current occupational status: employed current occupation: [employer] How many Children do You have: 1 How many Children do You have Comment: son Feels Safe at Home: Yes Review of Systems Review of Systems: All systems reviewed & are unremarkable except as noted in HPI & below Physical Exam Constitutional: WD/WN, vitals as above Uncomfortable appearing but no acute distress currently Eyes: PERRL, conjunctivae normal, anicteric sclerae ENMT: external ear and nose normal, oropharynx normal Neck: trachea midline, no thyromegaly Respiratory: normal respiratory effort, lungs clear to auscultation Cardiovascular: Rate/Rhythm: regular rate and regular rhythm Heart Sounds: normal S1 and normal S2; no gallop and no murmur Palpation: normal PMI Vessels: normal carotid upstroke and radial pulses present; no JVD and no carotid bruit Extremities: no edema Chest (Breasts): Chest: + pacemaker (Pacer defibrillator site without tenderne ss) Gastrointestinal (Abdomen): normal bowel sounds, soft, nontender, no hepatosplenomegaly Musculoskeletal: no cyanosis or clubbing, extremities motor strength 5/5 Skin: no rashes, warm and dry Neurologic: PERRL, EOMI, accommodation nl, no face palsy, no dysarthria Psychiatric: A+Ox3, euthymic affect Results & Data ([facility]) Vital Signs (Past 12 Hours) Vital Signs Temp Pulse Pulse Resp BP BP Pulse Ox 06/12/20 17:36 72 16 125/62 99 06/12/20 16:53 83 12 114/60 98 06/12/20 16:42 98 06/12/20 16:23 36.9 C 84 16 102/53 L 95 Laboratory Results Laboratory Results - last 24 hr 06/12/20 06/12/20 06/12/20 16:34 16:34 16:34 WBC 8.08 RBC 4.55 L Hgb 14.8 Hct 42.8 MCV 94.1 MCH 32.5 MCHC 34.6 RDW Std Deviation 46.8 H RDW Coeff of Neyda 13.6 Plt Count 173 MPV 10.8 H Immature Gran % (Auto) 0.4 Neut % (Auto) 74.7 Lymph % (Auto) 15.3 Ector % (Auto) 7.4 Eos % (Auto) 2.0 Baso % (Auto) 0.2 Neut # (Auto) 6.03 Lymph # (Auto) 1.24 Ector # (Auto) 0.60 H Eos # (Auto) 0.16 Baso # (Auto) 0.02 Immature Gran # (Auto) 0.03 H PT 11.1 INR 1.1 APTT 27.9 PTT Ratio 1.0 Sodium 142 Potassium 4.0 Chloride 109 H Carbon Dioxide 28 Anion Gap 5.0 BUN 11 Creatinine 0.96 Est Cr Clr Drug Dosing 84.4 Est GFR ( Amer) 94.4 Est GFR (Non-Af Amer) 81.5 BUN/Creatinine Ratio 11.1 Glucose 117 H Calcium 8.5 Total Bilirubin 0.6 AST 16 ALT 18 Alkaline Phosphatase 93 Total Creatine Kinase 95 CK-MB (CK-2) 3.1 CK/CKMB % Calc 3.3 H POC Troponin I Troponin I < 0.015 NT-Pro-B Natriuret Pep 1549 H Total Protein 6.9 Albumin 3.4 Globulin 3.5 Albumin/Globulin Ratio 1.0 Lipase 178 06/12/20 16:46 WBC RBC Hgb Hct MCV MCH MCHC RDW Std Deviation RDW Coeff of Neyda Plt Count MPV Immature Gran % (Auto) Neut % (Auto) Lymph % (Auto) Ector % (Auto) Eos % (Auto) Baso % (Auto) Neut # (Auto) Lymph # (Auto) Ector # (Auto) Eos # (Auto) Baso # (Auto) Immature Gran # (Auto) PT INR APTT PTT Ratio Sodium Potassium Chloride Carbon Dioxide Anion Gap BUN Creatinine Est Cr Clr Drug Dosing Est GFR ( Amer) Est GFR (Non-Af Amer) BUN/Creatinine Ratio Glucose Calcium Total Bilirubin AST ALT Alkaline Phosphatase Total Creatine Kinase CK-MB (CK-2) CK/CKMB % Calc POC Troponin I < 0.03 Troponin I NT-Pro-B Natriuret Pep Total Protein Albumin Globulin Albumin/Globulin Ratio Lipase
[2020-06-12] MEDS ORDERED: ASPIRIN CHEW 324 MG ONE (18:37)
[2020-06-12] MEDS ORDERED: MIDAZOLAM HCL 1 MG/ML 2ML VIAL ONE ×2 (18:45→19:52)
[2020-06-12] MEDS ORDERED: fentaNYL citrate 100 MCG/2 ML VIAL ONE (18:45)
[2020-06-12] MEDS ORDERED: NiCARDipine HCL INJ 2.5 MG/ML 10 ML AMP ONE (18:45)
[2020-06-12] MEDS ORDERED: HEPARIN (PORCINE) 1000 UNIT/ML 10 ML (CATH LAB USE ONLY) ONE ×2 (18:45→19:47)
[2020-06-12] MEDS ORDERED: NITROGLYCERIN/D5W 100MCG/ML 20ML SYR ONE (18:45)
[2020-06-12] MEDS ORDERED: ASPIRIN CHEW 324 MG PO STA (18:47)
--- NOTE | 2020-06-12 19:02 | Pre Anesthesia Assessment ---
Date of Service June 12, 2020 Pre Sedation Assessment Vital Signs Temp Pulse Pulse Resp BP BP Pulse Ox 06/12/20 18:47 71 16 117/59 L 99 06/12/20 18:40 69 12 127/65 99 06/12/20 17:36 72 16 125/62 99 06/12/20 16:53 83 12 114/60 98 06/12/20 16:42 98 06/12/20 16:23 98.4 F 84 16 102/53 L 95 Cardiovascular RRR, no murmur, no edema Respiratory normal respiratory effort, lungs clear to auscultation Pre-Sedation Airway Assessment Smoking Status: Former smoker Hx Sleep Apnea: No Hx Difficult Intubation: No Short, Thick Neck: No Thyromental Distance: > or= 3.5 Finger Breadths Oral Cavity: + WNL Mallampati Class: III ASA: ASA2 Procedure Planning Contraindications for Sedation: none Current Medications Reviewed: Yes Notes The planned sedation has been discussed with the patient. Informed Consent was obtained. I have identified the patient, determined the appropriateness of sedation and have assessed the patient immediately prior to the procedure. All medicine(s) and interventions are by my order.
[2020-06-12] MEDS ORDERED: CLOPIDOGREL BISULFATE 300 MG TAB ONE (20:10)
--- NOTE | 2020-06-12 20:13 | Post Anesthesia Assessment ---
Date of Service June 12, 2020 Post Sedation Assessment Vital Signs Temp Pulse Pulse Resp BP BP Pulse Ox 06/12/20 18:47 71 16 117/59 L 99 06/12/20 18:40 69 12 127/65 99 06/12/20 17:36 72 16 125/62 99 06/12/20 16:53 83 12 114/60 98 06/12/20 16:42 98 06/12/20 16:23 98.4 F 84 16 102/53 L 95 Recovery Score Activity: Moves 4 extremities Respiration: Deep Breath/Cough Circulation: +/-20% PreAnes Value Consciousness: Fully Awake Oxygen Saturation: O2 needed for >90% Discharge Sedation Level of Care: Fast Track Phase II Post Sedation Plan On clinical assessment, the patient appears to have tolerated the sedation without complications. Patient is recovering as anticipated. Patient will continue to be monitored by nursing and may be discharged when sedation discharge criteria are met per below protocol. Upon Completions of procedure up to 15 minutes continue every 5 minute vital signs and the P.A.R. score; then discharge to a Phase I or Fast Track to Phase II per the following guidelines: * Discharge Patient to appropriate Phase II area if PAR is 8 or greater or return to pre- procedure baseline. The post - procedure orders will be as directed. * If PAR score is less than 8 or not return to pre-procedure baseline then patient will follow Phase I monitoring till PAR is reached for Phase II. The Phase I may be done in procedure room or may call to secure a Phase I area. * If naloxone or flumazenil are used for reversal, hold in Phase I for continued monitoring from when last reversal dose was given for a minimum of 60 minutes or longer pending the nurse and/or physician discretion of patient condition before discharge to Phase II. Please call the Sedation Physician to re-evaluate and complete post-note for discharge to Phase II area. Do NOT discharge from procedure sedation or Phase 1 until post- sedation evaluation note is complete by procedure /sedation MD Sedation Discharge Instructions to be given to the patient at discharge to home.
--- NOTE | 2020-06-12 20:29 | Cardiac Catheterization ---
ACC Data: [employer] Cardiac Status Clinical evaluation leading to the procedure CAD Presenation: Unstable angina Anginal Classification: CCS IV Heart Failure: No Cardiogenic Shock within 24 Hours: No Cardiac Arrest within 24 Hours: No Imaging Studies Past 6 Months: Yes Stress Studies Past 6 Months: No Diagnostic Physicians Name: Iker Moya MD Status: Elective Closure Device Percutaneous Entry Location: Radial Closure Device: Radial Band Recommendations: PCI without planned CABG PCI Indication: Unstable Angina Lesion Segment Name: Proximal LAD Culprit Artery: Yes Stenosis Prior to Rx (%): 75 Chronic Total Occlusion: No IVUS: Yes FFR: No Pre-Procedure DOROTHY Flow: 3 Previously Treated Lesion: Timeframe: time unknown Treated with Stent: Yes In- Stent Restenosis: Yes In-Stent Thrombosis: No Stent Type: AIDEE Yes Lesion Complexity: Non-High/Non-C Lesion Length (mm): 12 Thrombus Present: No Bifurcation Lesion: No Guidewire Across Lesion: Stenosis Post-Procedure (%): 0 Post-Procedure DOROTHY Flow: 3 Devices(s) Deployed: Yes Yes Lesion #2 Segment Name: Distal circumflex Culprit Artery: Yes Stenosis Prior to Rx (%): 75 Chronic Total Occlusion: No IVUS: No Pre-Procedure DOROTHY Flow: 3 Previously Treated Lesion: No Lesion Complexity: Non-High/Non-C Lesion Length (mm): 12 Thrombus Present: No Bifurcation Lesion: No Guidewire Across Lesion: Yes Stenosis Post-Procedure (%): 0 Post-Procedure DOROTHY Flow: 3 Devices(s) Deployed: Yes Intraprocedure Events Significant Disection: No Perforation: No Cardiac Cath Procedure Full Procedure Date June 12, 2020 Pre-Procedure Diagnosis Pre-Procedure Diagnosis: Acute Coronary Syndrome AUC Score AUC Score: 8 Post-Procedure Diagnosis Post-Procedure Diagnosis: Severe CAD and Successful PCI Procedure(s) Performed Procedure(s) Performed: Coronary Angiography, Drug Eluting Stent and IVUS Software Validation Technician Iker Moya MD Mystery Shopper(s) Schuyler Estimated Blood Loss Estimated Blood Loss: 20 Medication(s) Medication(s): Clopidogrel, Fentanyl, Heparin, Lidocaine 1%, Nicardipine, Nitroglycerin and Versed Summary of Findings Indication: Acute coronary syndrome Access: 6 Fr slender right radial artery Catheters: EBU 3.5 guide, JR4 Findings: LM -medium caliber, luminal irregularities LAD -70 to 80% proximal in-stent restenosis mid stent widely patent, distal vessel without significant disease. Medium caliber first diagonal without significant disease Circumflex -dominant, medium caliber, 40% proximal stenosis, mid to distal stent widely patent. Chronic occlusion of proximal OM 2 stent. 70 to 80% in distal AV groove circumflex prior to left PLB and PDA. RCA -small, nondominant, no significant disease LVEDP -13 -- PCI -- Antithrombotic therapy: Heparin, clopidogrel Procedure: Left main cannulated with EBU 3.5 guide BMW wire passed across LAD lesion into distal vessel IVUS used to assess severity and extent of disease. Severe in-stent restenosis involving proximal aspect prior stents with mild to moderate, severely calcified disease extending to ostium. MLA 2.9 mm, in-stent restenosis proximally 70 to 75% by IVUS. Proximal LAD lesion predilated with 2.5 compliant balloon Dilated lesion stented with 3.0 x 15 mm Issa drug-eluting stent Stent post-dilated with 3.5 noncompliant balloon IC vasodilators administered for spasm IVUS showed well apposed, well-expanded proximal LAD stent BMW wire removed from LAD and placed into distal left PLB across distal circumflex stenosis Distal circumflex dilated with 2.5 balloon Distal circumflex stented with 2.75 x 15 mm Issa drug-eluting stent Stent postdilated with stent balloon Post procedure DOROTHY 3 flow, stentS well expanded with minimal residual stenosis and no apparent cardiac complications. Arterial Closure: TR band Summary: 1. Severe 2 vessel coronary artery disease -70 to 80% proximal LAD in-stent restenosis 70 to 80% distal circumflex Chronic occlusion of proximal OM 2 stent Mid LAD and proximal to mid circumflex stents widely patent. 2. Normal intracardiac filling pressure 3. Successful PCI of proximal LAD in-stent restenosis with single drug-eluting stent (3.0 x 15 mm Issa; postdilated with 3.5 NC). 4. Successful PCI of distal circumflex with single drug-eluting stent (2.75 x 15 mm Issa). Recommendations: To PCU for continued monitoring Reloaded with clopidogrel 300 mg in cath Continue dual-antiplatelet therapy for at least 1 year, likely indefinitely in the setting of numerous, overlapping stents. Continue statin, and ASCVD risk factor modification Consult cardiac Rehab Hemodynamics Rest Ao:: 108/55/84 Final Ao: 108/58/79 LV: 104/13 Recommendations Recommendations: PCI without planned CABG Specimens Specimens: None Radiation Exposure (mGy) 3046 Contrast (mls) 150 Fluids (cc crystalloids) Fluids (cc crystalloids): 110 Drains Drains: None Anesthesia Moderate Procedural Complication(s) None Disposition PCU I attest to the content of the Intraoperative Record and any orders documented therein. Any exceptions are noted below. [facility] Card Cath Procedure Codes Cardiac Catheterization Procedure 1: Cardiovascular Cath Procedures: 04040 Coronaries and LHC (+/-LV) Therapeutic Services & Ancillary Proc Procedure 1: Cardiovascular Tx and Anc Procedures: 28676 IV Ultrasound (Coronary or Graft) Moderate Sedation Procedure 1: Sedation/Anesthesia: 09521 Mod Sedation by the same physician;Init15 Min Child Age 5 & Up Procedure 2: Sedation/Anesthesia: 43481 Mod Sedation by the same physician; Ea [id number] Minutes Stenting Procedure 1: Cardiovascular Stent Procedures: 47699 Perc transcatheter placement of intracoronary stent(s), with ang Procedure 2: Cardiovascular Stent Procedures: 52783 Ea addl branch of a major coronary artery PG Care Time/CCT Total # of Minutes Spent Total Time Spent with Patient: Total time spent is greater than 50% in coordination of care (as documented) at patient's floor/unit and/or counseling patient:
[2020-06-12] MEDS ORDERED: METOPROLOL SUCC 25MG EXT REL TAB PO SCH (21:28)
[2020-06-12] MEDS ORDERED: SACUBITRIL-VALSARTAN 24-26 MG TAB PO SCH (21:28)
[2020-06-12] MEDS ORDERED: NITROGLYCERIN SL 0.4 MG/TAB TAB SL PRN (21:28)
[2020-06-12] MEDS ORDERED: GLUCOSE 10 TABS/TUBE PO PRN (22:00)
[2020-06-12] MEDS ORDERED: GLUCAGON FOR INJ 1 MG VIAL IM PRN (22:00)
[2020-06-12] MEDS ORDERED: CARBOHYDRATES FOR HYPOGLYCEMIA PO PRN (22:00)
[2020-06-12] MEDS ORDERED: DEXTROSE 50% 50 ML SYRINGE IV PRN (22:00)
[2020-06-12] MEDS ORDERED: GLUCOSE 40% GEL 15 GM TUBE PO PRN (22:00)
[2020-06-12] MEDS: ATORVASTATIN 40 MG TAB PO SCH (22:26)
[2020-06-12] MEDS: PREGABALIN 75 MG CAP PO SCH (22:30)
[2020-06-12] MEDS: clonazePAM 0.5 MG TAB PO SCH (22:30)
[2020-06-13 06:45] LABS: BUN Creatinine Ratio 12.9 (10-20); Calcium 8.1 mg/dl (8.5-10.1); Creatinine Clr Calc Pharmacy 75.1 ml/min; Est GFR (African American) 74.3; Est GFR (Non-African American) 64.1; Potassium 4.2 mmol/L (3.5-5.1)
[2020-06-13 06:56] LABS: Troponin I 0.156 ng/ml (0-0.045)
[2020-06-13] MEDS: CLOPIDOGREL BISULFATE 75 MG TAB PO SCH (08:54)
[2020-06-13] MEDS: ASPIRIN 81 MG ECTAB PO SCH (08:54)
[2020-06-13] MEDS: INSULIN ASPART 100 UNITS/ML 3 ML PEN SC SCH ×4 (08:55→20:55)
[2020-06-13] MEDS ORDERED: CLOPIDOGREL BISULFATE 75 MG TAB PO SCH (09:00)
--- NOTE | 2020-06-13 12:35 | Cardiology Progress Note ---
Date of Service June 13, 2020 Assessment & Plan (1) ACS (acute coronary syndrome): Patient status post urgent diagnostic cardiac catheterization demonstrating two-vessel worsening disease with drug-eluting stents placed to the proximal left anterior descending and distal left circumflex. Patient tolerated procedure well (2) Ischemic cardiomyopathy: Echocardiogram without acute change in LV systolic function. 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 Patient on appropriate medical therapies though blood pressure chronically low. We will reduce metoprolol succinate to 12.5 mg twice per day, hold Entresto to restart on discharge in a.m. Hydrate gently today Complains predominantly of symptomatic hypoglycemia prior to admission. Will need reduction in insulin dose Arrange outpatient follow-up in 1 to 2 weeks time (3) Bypass gastroenterostomy: (4) Precordial chest pain: (5) Status post biventricular pacemaker: His bundle lead, device functioning appropriately Admission and Anticipated Discharge Date Admission Date: June 12, 2020 Subjective With Toprol and Entresto held this morning Patient was seen and examined, chart, medications, telemetry reviewed. No further chest pain or discomfort. Blood pressures trended low overnight, To prol and Entresto held this morning Patient overall feels well. Tolerated cardiac catheterization without difficulty last night Notes outpatient issues with hypoglycemia with associated irritability Physical Exam Constitutional: WD/WN, vitals as above Eyes: PERRL, conjunctivae normal, anicteric sclerae ENMT: external ear and nose normal, oropharynx normal Neck: trachea midline, no thyromegaly Respiratory: normal respiratory effort, lungs clear to auscultation Cardiovascular: Rate/Rhythm: regular rate and regular rhythm Heart Sounds: normal S1 and normal S2; no gallop and no murmur Palpation: normal PMI Vessels: normal carotid upstroke and radial pulses present; no JVD and no carotid bruit Extremities: no edema Chest (Breasts): Chest: + pacemaker (Pacer defibrillator site without tenderness) Gastrointestinal (Abdomen): normal bowel sounds, soft, nontender, no hepatosplenomegaly Musculoskeletal: no cyanosis or clubbing, extremities motor strength 5/5 Skin: no rashes, warm and dry Neurologic: PERRL, EOMI, accommodation nl, no face palsy, no dysarthria Psychiatric: A+Ox3, euthymic affect Results & Data ([facility]) Vital Signs (Past 12 Hours) Vital Signs Temp Pulse Pulse Resp BP Pulse Ox 06/13/20 11:30 36.8 C 89 16 90/52 L 97 06/13/20 08:00 74 06/13/20 07:57 36.5 C 82 18 85/40 L 98 06/13/20 06:48 75 14 78/46 L 92 06/13/20 05:48 76 16 82/44 L 94 06/13/20 04:48 72 16 80/54 L 95 06/13/20 03:48 74 16 82/48 L 93 06/13/20 02:48 73 16 70/30 L 92 06/13/20 02:14 74 16 78/56 L 94 06/13/20 01:48 71 16 86/52 L 93 06/13/20 01:33 75 16 82/52 L 94 06/13/20 01:18 76 14 80/48 L 95 06/13/20 01:03 76 14 82/48 L 95 Laboratory Results Laboratory Results - last 24 hr 06/12/20 06/12/20 06/12/20 16:34 16:34 16:34 WBC 8.08 RBC 4.55 L Hgb 14.8 Hct 42.8 MCV 94.1 MCH 32.5 MCHC 34.6 RDW Std Deviation 46.8 H RDW Coeff of Neyda 13.6 Plt Count 173 MPV 10.8 H Immature Gran % (Auto) 0.4 Neut % (Auto) 74.7 Lymph % (Auto) 15.3 [place] % (Auto) 7.4 Eos % (Auto) 2.0 Baso % (Auto) 0.2 Neut # (Auto) 6.03 Lymph # (Auto) 1.24 [place] # (Auto) 0.60 H Eos # (Auto) 0.16 Baso # (Auto) 0.02 Immature Gran # (Auto) 0.03 H PT 11.1 INR 1.1 APTT 27.9 PTT Ratio 1.0 Activ Coag Time Kaolin Sodium 142 Potassium 4.0 Chloride 109 H Carbon Dioxide 28 Anion Gap 5.0 BUN 11 Creatinine 0.96 Est Cr Clr Drug Dosing 84.4 Est GFR ( Amer) 94.4 Est GFR (Non-Af Amer) 81.5 BUN/Creatinine Ratio 11.1 Glucose 117 H POC Glucose Estimat Average Glucose Hemoglobin A1c Calcium 8.5 Total Bilirubin 0.6 AST 16 ALT 18 Alkaline Phosphatase 93 Total Creatine Kinase 95 CK-MB (CK-2) 3.1 CK/CKMB % Calc 3.3 H POC Troponin I Troponin I < 0.015 NT-Pro-B Natriuret Pep 1549 H Total Protein 6.9 Albumin 3.4 Globulin 3.5 Albumin/Globulin Ratio 1.0 Triglycerides Cholesterol LDL Cholesterol, Calc VLDL Cholesterol, Calc HDL Cholesterol Cholesterol/HDL Ratio Lipase 178 06/12/20 06/12/20 06/12/20 16:46 19:33 19:55 WBC RBC Hgb Hct MCV MCH MCHC RDW Std Deviation RDW Coeff of Neyda Plt Count MPV Immature Gran % (Auto) Neut % (Auto) Lymph % (Auto) [place] % (Auto) Eos % (Auto) Baso % (Auto) Neut # (Auto) Lymph # (Auto) [place] # (Auto) Eos # (Auto) Baso # (Auto) Immature Gran # (Auto) PT INR APTT PTT Ratio Activ Coag Time Kaolin 257 H 268 H Sodium Potassium Chloride Carbon Dioxide Anion Gap BUN Creatinine Est Cr Clr Drug Dosing Est GFR ( Amer) Est GFR (Non-Af Amer) BUN/Creatinine Ratio Glucose POC Glucose Estimat Average Glucose Hemoglobin A1c Calcium Total Bilirubin AST ALT Alkaline Phosphatase Total Creatine Kinase CK-MB (CK-2) CK/CKMB % Calc POC Troponin I < 0.03 Troponin I NT-Pro-B Natriuret Pep Total Protein Albumin Globulin Albumin/Globulin Ratio Triglycerides Cholesterol LDL Cholesterol, Calc VLDL Cholesterol, Calc HDL Cholesterol Cholesterol/HDL Ratio Lipase 06/12/20 06/13/20 06/13/20 20:54 00:13 05:55 WBC RBC Hgb Hct MCV MCH MCHC RDW Std Deviation RDW Coeff of Neyda Plt Count MPV Immature Gran % (Auto) Neut % (Auto) Lymph % (Auto) [place] % (Auto) Eos % (Auto) Baso % (Auto) Neut # (Auto) Lymph # (Auto) [place] # (Auto) Eos # (Auto) Baso # (Auto) Immature Gran # (Auto) PT INR APTT PTT Ratio Activ Coag Time Kaolin Sodium 142 Potassium 4.2 Chloride 109 H Carbon Dioxide 28 Anion Gap 5.0 BUN 15 Creatinine 1.17 Est Cr Clr Drug Dosing 75.1 Est GFR ( Amer) 74.3 Est GFR (Non-Af Amer) 64.1 BUN/Creatinine Ratio 12.9 Glucose 119 H POC Glucose 106 H Estimat Average Glucose Hemoglobin A1c Calcium 8.1 L Total Bilirubin AST ALT Alkaline Phosphatase Total Creatine Kinase CK-MB (CK-2) CK/CKMB % Calc POC Troponin I Troponin I 0.044 0.156 H* NT-Pro-B Natriuret Pep Total Protein Albumin Globulin Albumin/Globulin Ratio Triglycerides 119 Cholesterol 78 LDL Cholesterol, Calc 26 VLDL Cholesterol, Calc 24 HDL Cholesterol 28 Cholesterol/HDL Ratio 3 Lipase 06/13/20 06/13/20 06/13/20 05:55 07:15 11:29 WBC RBC Hgb Hct MCV MCH MCHC RDW Std Deviation RDW Coeff of Neyda Plt Count MPV Immature Gran % (Auto) Neut % (Auto) Lymph % (Auto) [place] % (Auto) Eos % (Auto) Baso % (Auto) Neut # (Auto) Lymph # (Auto) [place] # (Auto) Eos # (Auto) Baso # (Auto) Immature Gran # (Auto) PT INR APTT PTT Ratio Activ Coag Time Kaolin Sodium Potassium Chloride Carbon Dioxide Anion Gap BUN Creatinine Est Cr Clr Drug Dosing Est GFR ( Amer) Est GFR (Non-Af Amer) BUN/Creatinine Ratio Glucose POC Glucose 149 H 135 H Estimat Average Glucose Pending Hemoglobin A1c Pending Calcium Total Bilirubin AST ALT Alkaline Phosphatase Total Creatine Kinase CK-MB (CK-2) CK/CKMB % Calc POC Troponin I Troponin I NT-Pro-B Natriuret Pep Total Protein Albumin Globulin Albumin/Globulin Ratio Triglycerides Cholesterol LDL Cholesterol, Calc VLDL Cholesterol, Calc HDL Cholesterol Cholesterol/HDL Ratio Lipase
--- NOTE | 2020-06-13 13:04 | Hospitalist Progress Note ---
Date of Service June 13, 2020 Assessment & Plan (1) ACS (acute coronary syndrome): S/p PCI with AIDEE to proximal LAD (in-stent restenosis) and distal LCx on 06/[address] Moya. - Feels well today. - Continue medical therapy with ASA, Plavix, statin, and beta-mack (2) Precordial chest pain: see above in "ACS" (3) CAD (coronary artery disease): Severe. S/p multiple acute MIs and [address] Gaytan. - As above (4) Cardiomyopathy, ischemic: Prior echo with EF <30%. Has AICD/BiV pacer. - As above - Presently appears euvolemic. - Hold Lasix/aldactone at present (5) Status post biventricular pacemaker: with AICD. (6) Diabetic foot ulcer: Left foot. Clean, no signs of infection. - Appears it is packed with xeroform and covered with optifoam. - Cont local wound care. (7) Diabetes: BSGs ac/hs. DM diet. hold oral agents. novolog sliding scale. check a1c am. (8) Hyperlipidemia: check lipids am. cont statin. (9) Chronic systolic (congestive) heart failure: EF <30%. - Cont beta-mack - Entresto presently on hold for low BP -> Cardiology titrating. (10) DVT prophylaxis: heparin 5000 BID Admission and Anticipated Discharge Date Admission Date: June 12, 2020 Subjective Feels well. No chest pain. No lightheaded or dizziness. Reports no fevers/chills, chest pain, shortness of breath, abdominal pain, nausea, or vomiting. Physical Exam Constitutional: WD/WN, vitals as above Eyes: EOM intact bilaterally; no conjunctival abnormality ENMT: external ear and nose normal, oropharynx normal Neck: trachea midline, no thyromegaly normal visual inspection Respiratory: normal respiratory effort, lungs clear to auscultation no respiratory distress Cardiovascular: RRR, no murmur, no edema Gastrointestinal (Abdomen): Inspection/Auscultation: abdomen normal to inspection; abdomen not distended Musculoskeletal: no cyanosis or clubbing, extremities motor strength 5/5 Skin: no rashes, warm and dry Neurologic: moves all extremities and awake Psychiatric: Orientation: alert, oriented to person and cooperative Results & Data Results & Data ([facility]) Vital Signs (Past 12 Hours) Vital Signs Temp Pulse Pulse Resp BP Pulse Ox 06/13/20 11:30 36.8 C 89 16 90/52 L 97 06/13/20 08:00 74 06/13/20 07:57 36.5 C 82 18 85/40 L 98 06/13/20 06:48 75 14 78/46 L 92 06/13/20 05:48 76 16 82/44 L 94 06/13/20 04:48 72 16 80/54 L 95 06/13/20 03:48 74 16 82/48 L 93 06/13/20 02:48 73 16 70/30 L 92 06/13/20 02:14 74 16 78/56 L 94 06/13/20 01:48 71 16 86/52 L 93 06/13/20 01:33 75 16 82/52 L 94 06/13/20 01:18 76 14 80/48 L 95 06/13/20 01:03 76 14 82/48 L 95 PG Care Time/CCT Total # of Minutes Spent Total Time Spent with Patient: Total time spent is greater than 50% in coordination of care (as documented) at patient's floor/unit and/or counseling patient: Coding Level of Care Code 00893 Subseq Hosp Care Lvl 2 Diagnoses ACS (acute coronary syndrome) I24.9 Precordial chest pain R07.2 CAD (coronary artery disease) I25.10 Coronary Disease-Associated Artery/Lesion type: [place] artery [place] vs. transplanted heart: [place] heart Associated angina: angina presence unspecified Cardiomyopathy, ischemic I25.5 Status post biventricular pacemaker Z95.0 Diabetic foot ulcer E11.621; L97.529 Diabetic foot ulcer location: unspecified part of foot Diabetes mellitus type: type 2 Laterality: left Non-pressure ulcer stage: unspecified non-pressure ulcer stage Diabetes E11.42; Z79.4 Diabetes mellitus type: type 2 Diabetes mellitus mcc insulin use: with middle or intermediate school principal use Diabetes mellitus complication status: with neurologic complications Diabetes mellitus complication detail: with polyneuropathy Hyperlipidemia E78.5 Hyperlipidemia type: unspecified Chronic systolic (congestive) heart failure I50.22 DVT prophylaxis Z29.9 (1) CAD (coronary artery disease) Coronary Disease-Associated Artery/Lesion type: [place] artery [place] vs. transplanted heart: [place] heart Associated angina: angina presence unspecified Qualified Code(s): I25.10 - Atherosclerotic heart disease of [place] coronary artery without angina pectoris (2) Diabetic foot ulcer Diabetic foot ulcer location: unspecified part of foot Diabetes mellitus type: type 2 Laterality: left Non-pressure ulcer stage: unspecified non- pressure ulcer stage Qualified Code(s): E11.621 - Type 2 diabetes mellitus with foot ulcer; L97.529 - Non-pressure chronic ulcer of other part of left foot with unspecified severity (3) Diabetes Diabetes mellitus type: type 2 Diabetes mellitus middle or intermediate school principal insulin use: with mcc use Diabetes mellitus complication status: with neurologic complications Diabetes mellitus complication detail: with polyneuropathy Qualified Code(s): E11.42 - Type 2 diabetes mellitus with diabetic polyneuropathy; Z79.4 - terminal clerk (current) use of insulin (4) Hyperlipidemia Hyperlipidemia type: unspecified Qualified Code(s): E78.5 - Hyperlipidemia, unspecified
[2020-06-13] MEDS ORDERED: SODIUM CHLORIDE 0.9% 500 ML IV SCH (13:15)
[2020-06-13] MEDS: clonazePAM 0.5 MG TAB PO SCH (20:55)
[2020-06-13] MEDS: ATORVASTATIN 40 MG TAB PO SCH (20:55)
[2020-06-13] MEDS: PREGABALIN 75 MG CAP PO SCH (20:55)
[2020-06-13] MEDS: METOPROLOL SUCC 25MG EXT REL TAB PO SCH (20:56)
--- NOTE | 2020-06-13 22:53 | Electrocardiogram Report ---
Test Reason : Blood Pressure : / mmHG Vent. Rate : 084 BPM Atrial Rate : 084 BPM P-R Int : 168 ms QRS Dur : 114 ms QT Int : 390 ms P-R-T Axes : 000 012 -14 degrees QTc Int : 460 ms Atrial-sensed ventricular-paced rhythm Ectopic atrial rhythm Biventricular pacemaker detected Abnormal ECG When compared with ECG of 31-JUL-2019 08:40, Vent. rate has decreased BY 11 BPM Confirmed by Radhames Roblero ([id number]) on 06/13/2020 10:53:32 PM Referred By: REFERRED SELF Confirmed By:Radhames Roblero
--- NOTE | 2020-06-13 22:56 | Electrocardiogram Report ---
Test Reason : Blood Pressure : / mmHG Vent. Rate : 073 BPM Atrial Rate : 073 BPM P-R Int : 142 ms QRS Dur : 114 ms QT Int : 418 ms P-R-T Axes : 000 008 019 degrees QTc Int : 460 ms Ectopic atrial rhythm Nonspecific T wave abnormality When compared with ECG of 12-JUN-2020 16:30, Ventricular pacing is no longer present Confirmed by Radhames Roblero ([id number]) on 06/13/2020 10:56:08 PM Referred By: REFERRED SELF Confirmed By:Radhames Roblero
[2020-06-14 05:53] LABS: Estimated Average Glucose 120 mg/dl; Hemoglobin A1C 5.8 % (4.5-5.6)
[2020-06-14 06:13] LABS: Hematocrit (blood only) 39.2 % (42-52); Hemoglobin 13.3 g/dL (14.0-18.0); Mean Corpuscular Hemoglobin 32.1 pg (25-34); Mean Corpuscular Hgb Conc 33.9 g/dL (32-36); Mean Corpuscular Volume 94.7 fL (80-100); Mean Platelet Volume 10.4 fL (7.4-10.4); Platelet Count 144 K/uL (130-400); RDW Coefficient of Variation 13.7 % (11.5-14.5); RDW Standard Deviation 47.1 fL (36.4-46.3); Red Blood Count 4.14 M/uL (4.7-6.1); White Blood Count 6.25 K/uL (4.8-10.8)
[2020-06-14 06:33] LABS: BUN Creatinine Ratio 15.5 (10-20); Calcium 8.3 mg/dl (8.5-10.1); Creatinine Clr Calc Pharmacy 94.2 ml/min; Est GFR (Non-African American) 89.7; Magnesium 1.9 mg/dl (1.8-2.4); Potassium 4.1 mmol/L (3.5-5.1)
[2020-06-14] MEDS: ASPIRIN 81 MG ECTAB PO SCH (08:22)
[2020-06-14] MEDS: CLOPIDOGREL BISULFATE 75 MG TAB PO SCH (08:23)
[2020-06-14] MEDS: METOPROLOL SUCC 25MG EXT REL TAB PO SCH (08:23)
[2020-06-14] MEDS: INSULIN ASPART 100 UNITS/ML 3 ML PEN SC SCH (08:24)
--- NOTE | 2020-06-14 09:43 | Cardiology Progress Note ---
Date of Service June 14, 2020 Assessment & Plan (1) ACS (acute coronary syndrome): Patient status post urgent diagnostic cardiac catheterization demonstrating two-vessel worsening disease with drug-eluting stents placed to the proximal left anterior descending and distal left circumflex. Patient tolerated procedure well (2) Ischemic cardiomyopathy: Echocardiogram without acute change in LV systolic function. 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 Patient on appropriate medical therapies though blood pressure chronically low. We will reduce metoprolol succinate to 12.5 mg twice per day, hold Entresto to restart on discharge in a.m. Discharge on furosemide 5 days/week resume spironolactone Cardiology office will call with appointment next 1 to 2 weeks Complains predominantly of symptomatic hypoglycemia prior to admission. Will need reduction in insulin dose (3) Bypass gastroenterostomy: (4) Precordial chest pain: (5) Status post biventricular pacemaker: His bundle lead, device functioning appropriately Admission and Anticipated Discharge Date Admission Date: June 12, 2020 Subjective Patient was seen and examined, chart, medications, telemetry reviewed. No chest pain or shortness of breath overnight. Blood pressures improved after mild hydration, holding Entresto Physical Exam Constitutional: WD/WN, vitals as above Eyes: PERRL, conjunctivae normal, anicteric sclerae ENMT: external ear and nose normal, oropharynx normal Neck: trachea midline, no thyromegaly Respiratory: normal respiratory effort, lungs clear to auscultation Cardiovascular: Rate/Rhythm: regular rate and regular rhythm Heart Sounds: normal S1 and normal S2; no gallop and no murmur Palpation: normal PMI Vessels: normal carotid upstroke and radial pulses present; no JVD and no carotid bruit Extremities: no edema Chest (Breasts): Chest: + pacemaker (Pacer defibrillator site without tenderness) Gastrointestinal (Abdomen): normal bowel sounds, soft, nontender, no hepatosplenomegaly Musculoskeletal: no cyanosis or clubbing, extremities motor strength 5/5 Skin: no rashes, warm and dry Neurologic: PERRL, EOMI, accommodation nl, no face palsy, no dysarthria Psychiatric: A+Ox3, euthymic affect Results & Data ([facility]) Vital Signs (Past 12 Hours) Vital Signs Temp Pulse Pulse Resp BP Pulse Ox 06/14/20 07:49 36.8 C 79 18 115/60 96 06/14/20 04:35 37.0 C 78 18 108/56 L 96 06/13/20 23:51 37 C 87 16 104/70 95 Laboratory Results Laboratory Results - last 24 hr 06/13/20 06/13/20 06/13/20 05:55 11:29 16:35 WBC RBC Hgb Hct MCV MCH MCHC RDW Std Deviation RDW Coeff of Neyda Plt Count MPV Sodium Potassium Chloride Carbon Dioxide Anion Gap BUN Creatinine Est Cr Clr Drug Dosing Est GFR ( Amer) Est GFR (Non-Af Amer) BUN/Creatinine Ratio Glucose POC Glucose 135 H 250 H Estimat Average Glucose 120 Hemoglobin A1c 5.8 H Calcium Magnesium 06/13/20 06/14/20 06/14/20 20:04 05:30 05:30 WBC 6.25 RBC 4.14 L Hgb 13.3 L Hct 39.2 L MCV 94.7 MCH 32.1 MCHC 33.9 RDW Std Deviation 47.1 H RDW Coeff of Neyda 13.7 Plt Count 144 MPV 10.4 Sodium 144 Potassium 4.1 Chloride 111 H Carbon Dioxide 27 Anion Gap 6.0 BUN 13 Creatinine 0.86 D Est Cr Clr Drug Dosing 94.2 Est GFR ( Amer) 104.0 Est GFR (Non-Af Amer) 89.7 BUN/Creatinine Ratio 15.5 Glucose 120 H POC Glucose 99 Estimat Average Glucose Hemoglobin A1c Calcium 8.3 L Magnesium 1.9 06/14/20 07:20 WBC RBC Hgb Hct MCV MCH MCHC RDW Std Deviation RDW Coeff of Neyda Plt Count MPV Sodium Potassium Chloride Carbon Dioxide Anion Gap BUN Creatinine Est Cr Clr Drug Dosing Est GFR ( Amer) Est GFR (Non-Af Amer) BUN/Creatinine Ratio Glucose POC Glucose 136 H Estimat Average Glucose Hemoglobin A1c Calcium Magnesium
[2020-06-14 11:10] VITALS: BP 110/63; PULSE 97; TEMP 98.4; O2SAT 92
--- NOTE | 2020-06-14 15:37 | Discharge Summary ---
Date of Service June 14, 2020 Admission HPI Per Admitting Provider 65yo male with history of CAD, T2DM, ischemic cardiomyopathy - presents with chest pain. Pain started about 2pm over the left upper breast. Pain has been constant and has not radiated to his left arm, neck, jaw or back. Some associated dyspnea. No nausea or emesis. Some sweats. Pain was 8/10 on pain scale in the car (brother brought him to [facility] by private car). Now it is 6-7/10. Pain is similar to past heart attack pain. Took 2 SL nitros at home without relief of pain. Has received nitropaste and morphine in the ER without resolution of pain. No fevers, chills, loss of taste or smell, cough, congestion. No change in appetite. No abdominal pain. During my assessment that patient, although comfortable-appearing, continued to complain of persistent left-sided chest pain. He initially was 6-7/10. Gave morphine 2mg IV x 1 without any relief. Additional SL nitro 0.4mg x 1 given with minimal improvement - down to 5/10 on pain scale. Thus, he had had total of 4mg of morphine, 3 SL nitro, and 1" nitropaste. Spoke with Dr Gaytan from [facility] cardiology. In light of his extensive CAD history and refractory chest pain we elected to activate a code Heart Alert. Heart Alert activated and patient taken to warehouse laborer from ER. Principal Diagnosis Chest pain - Presumed cardiac in nature Discharge Exam Constitutional WD/WN, vitals as above Eyes EOM intact bilaterally; no conjunctival abnormality ENMT external ear and nose normal, oropharynx normal Neck trachea midline, no thyromegaly normal visual inspection Respiratory normal respiratory effort, lungs clear to auscultation no respiratory distress Cardiovascular RRR, no murmur, no edema Gastrointestinal (Abdomen) Inspection/Auscultation: abdomen normal to inspection; abdomen not distended Musculoskeletal no cyanosis or clubbing, extremities motor strength 5/5 Skin no rashes, warm and dry Neurologic moves all extremities and awake Psychiatric Orientation: alert, oriented to person and cooperative Discharge Data Allergies Allergy/AdvReac Type Severity Reaction Status Date / Time Penicillins Allergy Unknown Unknown Verified 06/12/20 17:14 Sulfa (Sulfonamide Allergy Unknown Unknown Verified 06/12/20 17:14 Antibiotics) oxycodone AdvReac Mild Nausea/Vomi Verified 06/12/20 17:14 ting simvastatin AdvReac Unknown muscle pain Verified 06/12/20 17:14 Consultations 06/12/20 17:25 Consult Cardiology Stat 06/12/20 17:46 ED Decision to Admit Stat 06/12/20 20:30 Consult Cardiac Rehabilitation Routine Procedures Performed Operation Date: 06/12/20 18:43 Actual Procedures p Cath, Left with Cors and Vent - Estuardo Moya MD s Aspiration/PCI w/AIDEE for Stemi - Estuardo Moya MD s Cineradiography w/Routine Exam - Estuardo Moya MD s IVUS Coronary Single Vessel - Estuardo Moya MD s Drug Eluting Stent each ADDTL Vessel - Estuardo Moya MD Ordered Studies 06/12/20 18:44 CL Cath Imgs for PACS use only Stat 06/12/20 20:33 CL IVUS Coronary Single Vessel Routine Hospital Course (1) ACS (acute coronary syndrome): S/p PCI with AIDEE to proximal LAD (in-stent restenosis) and distal LCx on 06/[address] Moya. - Continue medical therapy with ASA, Plavix, statin, and beta-mack - Chest pain free by discharge. (2) Precordial chest pain: see above in "ACS" (3) CAD (coronary artery disease): Severe. S/p multiple acute MIs and [address] Gaytan. - As above (4) Cardiomyopathy, ischemic: Prior echo with EF <30%. Has AICD/BiV pacer. - As above - Presently appears euvolemic. - Held Lasix/aldactone in the hospital after dye load from cath -> Discussed with Dr. Gaytan and sent home on Lasix 5x/wk (had been taking 6x/wk) and spi ronolactone every day. (5) Status post biventricular pacemaker: with AICD. (6) Diabetic foot ulcer: Left foot. Clean, no signs of infection. - Appears it is packed with xeroform and covered with optifoam. - Cont local wound care. (7) Diabetes: BSGs ac/hs. DM diet. hold oral agents. novolog sliding scale. check a1c am. (8) Hyperlipidemia: check lipids am. cont statin. (9) Chronic systolic (congestive) heart failure: EF <30%. - Cont beta-mack - Entresto temporarily on hold in the hospital -> Returned to this on discharge per Dr. Gaytan. (10) DVT prophylaxis: heparin 5000 BID Total Time Total Time Spent Total Time Spent (In Minutes): 35 Discharge Plan Discharge Items Patient Disposition: Home - Self-Care Reason For Visit: PCI/ACS Discharge Diagnosis: Chest pain; coronary artery blockage with stents Activity: Resume your previous activity Non-emergency contact: Primary Care Provider and Sewage Disposal Engineer Call non-emergency contact if: your symptoms worsen Follow-up/Referrals: Zac Torres MD [Primary Care Provider] - 06/17/20 9:15 am Terry Gaytan MD [Physician] - 06/25/20 8:30 am (Please see Dr. Gaytan in 1-2 weeks to be sure you are doing well.) Diet: Heart Healthy and Low Sodium (2gm) Addtl Attending Provider Instructions: You were admitted to the hospital with chest pain. This may have been due to the blockages in your arteries in your heart. Dr. Moya did a heart catheterization and put in 2 stents. Because of the new stents, you will need to take aspirin and Plavix both for at least 6 months, and likely a year. Please take the lower dose of metoprolol to help avoid low blood pressure. This means you will take a half pill instead of a whole. Otherwise, Dr. Gaytan also lowered your Lasix (furosemide) frequency to 5 times/week (skip 2 days) instead of 6 days per week. For your low blood sugars, please STOP the glipizide all together. This is the usual cause of low blood sugars. You should also take only a half pill of your metformin (the big pill you mentioned). Please see Dr. Gaytan in 1-2 weeks to be sure you're doing well. Pending Studies at Discharge: No Stand-Alone Forms: My imo.im, Smoking Cessation Medications and DC Order Prescriptions: New aspirin 81 mg Tablet,Delayed Release (Dr/Ec) 81 mg PO QAM Qty: 1 RF: 0 Continued pregabalin [Lyrica] 75 mg capsule 75 mg PO HS RF: 0 Entresto 24-26 mg tablet 1 tab PO BID RF: 0 furosemide 40 mg Tablet 40 mg PO QAM RF: 0 clonazepam 0.5 mg Tablet 0.5 mg PO HS RF: 0 clopidogrel 75 mg Tablet 75 mg PO QAM RF: 0 cyanocobalamin (vitamin B-12) 1,000 mcg/mL Solution 1,000 mcg IM MONTHLY RF: 0 atorvastatin 40 mg tablet 40 mg PO HS RF: 0 nitroglycerin 0.4 mg tablet, sublingual 0.4 mg sublingual DIRECTED PRN (Reason: Chest Pain) RF: 0 spironolactone 25 mg Tablet 12.5 mg PO DAILY Qty: 30 RF: 1 Changed metformin [Glucophage] 1,000 mg Tablet 500 mg PO BID Qty: 0 RF: 0 metoprolol succinate 25 mg tablet extended release 24 hr 12.5 mg PO BID Qty: 0 RF: 0 Discontinued glipizide 2.5 mg tablet extended release 24hr 2.5 mg PO QAM PRN (Reason: BSG>125) RF: 0 Discharge Orders: Discharge Order (Routine); Ordered 06/14/20 Ordered By: Dandy Fernandez Admission Data Admit Date/Time: 06/12/20 21:33 Attending Provider: Dandy Fernandez Admit Provider: Ben Davey Primary Care Provider: Zac Torres Other Providers: Terry Gaytan ; Dandy Fernandez Other Interventions: Discharge Summary Assessment (RN) Last Done: 06/14/20 11:07 Coding Level of Care Code D/C Day Management >30 mins Diagnoses ACS (acute coronary syndrome) I24.9 Precordial chest pain R07.2 CAD (coronary artery disease) I25.10 Coronary Disease-Associated Artery/Lesion type: jackson artery [place] vs. transplanted heart: jackson heart Associated angina: angina presence unspecified Cardiomyopathy, ischemic I25.5 Status post biventricular pacemaker Z95.0 Diabetic foot ulcer E11.621; L97.529 Diabetic foot ulcer location: unspecified part of foot Diabetes mellitus type: type 2 Laterality: left Non-pressure ulcer stage: unspecified non-pressure ulcer stage Diabetes E11.42; Z79.4 Diabetes mellitus type: type 2 Diabetes mellitus correction insulin use: with lye bath operator use Diabetes mellitus complication status: with neurologic complications Diabetes mellitus complication detail: with polyneuropathy Hyperlipidemia E78.5 Hyperlipidemia type: unspecified Chronic systolic (congestive) heart failure I50.22 DVT prophylaxis Z29.9
== END 2020-06-14 12:32 | disposition home or self-care (01) | DRG 247 ==
LOC: ED 16:21 → CC 18:53 → SUATTDRO 21:33 → 2E 21:33

== ENCOUNTER 2020-07-30 11:57 | Inpatient (IN) ==
[2020-07-30] MEDS ORDERED: ONDANSETRON INJ 2 MG/ML 2 ML VIAL IV STA (13:27)
[2020-07-30] MEDS ORDERED: CEFEPIME 2,000 MG in SYRINGE 0 ML IV STA (13:30)
[2020-07-30] MEDS ORDERED: CEFEPIME 20 ML IV STA (13:31)
[2020-07-30] MEDS ORDERED: DAPTOmycin 500 MG in SYRINGE 0 ML IV STA (13:32)
--- NOTE | 2020-07-30 13:34 | Emergency Department Note ---
Impression & Plan Osteomyelitis, Diabetic ulcer of left foot associated with type 2 diabetes mellitus, with fat layer exposed ED Provider Note INFORMANT: Patient ED PROVIDER(S): Johnny Astudillo MD CHIEF COMPLAINT: Foot infection PLAN: Disposition: Admitted Condition: Good MEDICAL DECISION MAKING: Patient is a 65-year-old male that presented with a left foot infection. X-ray imaging as an outpatient by the wound center did reveal findings concerning for osteomyelitis. They did report wound culture negative. The patient was quite uncomfortable. He has an overlying cellulitis. IV cefepime and daptomycin was initiated. The patient was given Dilaudid and Zofran for symptom control. I discussed further management in the hospital with the patient and family and they were in agreement. Consultation was made with internal medicine for further management. Triage Nursing notes reviewed and agree them. Additional history obtained from patient's sister Prior medical records reviewed regarding his outpatient imaging Vital Signs: reviewed and remarkable for no significant abnormalities Differential diagnosis: Cellulitis, osteomyelitis, abscess, MRSA infection, DVT, necrotizing fasciitis, dermatitis, drug eruption, allergic reaction, as well as other pathologies. Diagnostics interpreted by me: Imaging studies: 3 imaging of the left foot performed on 07/28 was viewed. There is destruction of the bony cortex noted distally with overlying soft tissue thickening. Concerning for osteomyelitis. [facility] HPI: The patient is a 65 year old male who presents to the Emergency Room with complaints of left foot infection. This started months ago with an ulcer and it has progressed to significant pain and redness over the last week or so. The patient was referred to the ER by the wound center. Outpatient x-ray revealed osteomyelitis of the fifth metatarsal. The patient also notes the following associated symptoms, difficulty walking secondary to the pain. The patient has found no relieving factors. Current pain is rated as 8/10. Patient is diabetic. He has felt well otherwise. Pt denies LOC, headache, fevers, chills, diaphoresis, visual changes, neck pain, chest pain, breathing difficulties, nausea, vomiting, abdominal pain, back pain, melena, hematochezia, urinary symptoms, numbness, weakness, lymphadenopathy, rash, or other complaints. ROS: See above HPI for pertinent positives & negatives. A total of 10 systems reviewed and were otherwise negative. 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 Oropharynx unremarkable. EYES: Normal conjunctiva. Sclera non-icteric. NECK: Inspection normal. Non-tender. Supple. No nuchal rigidity. FROM. No mass es. RESPIRATORY: Clear to auscultation. No wheezes. No rales. Normal respiratory effort. CARDIAC: Normal rate. Normal rhythm. No murmurs. No rubs. Extremities warm and well perfused. Pulses equal. No JVD. GI: Soft, non-distended. No tenderness to palpation. No rebound or guarding. No masses. RECTAL: Deferred. MUSCULOSKELETAL: Atraumatic. Chest examination reveals no tenderness. The back is symmetrical on inspection without obvious abnormality. There is no CVA tenderness to palpation. No joint edema. LOWER EXTREMITIES: Calves are equal size bilaterally and non-tender. There is mild edema of the left lateral foot with associated erythema and significant tenderness to palpation. There is ulceration noted on the lateral aspect over the fifth metatarsal most notably under distal metatarsal on the plantar surface. Concerning for cellulitis. NEURO: Normal sensorium. No sensory or motor deficits noted. SKIN: No rash or jaundice noted. 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 Peripheral neuropathy Surgical History H/O gastric bypass S/P appendectomy S/P cardiac catheterization S/P cholecystectomy Status post biventricular pacemaker Family History Father , 51 Coronary heart disease Myocardial infarction Brother Coronary heart disease Brother Coronary heart disease Other Diabetes Social History Smoking Status: Former smoker packs per day: 2; Hx Alcohol Use: No Hx Substance Use: No Preferred Language: Hebrew Communication Ability: Effective Overnight Caregiver Required: No Beliefs That Will Affect Care: Yazidism Yazidism Beliefs: christain marital status: Single marital status details: 01/2020 Current Living Situation: Alone current occupational status: employed current occupation: [employer] How many Children do You have: 1 How many Children do You have Comment: son Feels Safe at Home: Yes Assistive Devices: Walker Allergies Allergies Allergy/AdvReac Type Severity Reaction Status Date / Time Penicillins Allergy Unknown Unknown Verified 07/30/20 14:13 Sulfa (Sulfonamide Allergy Unknown Unknown Verified 07/30/20 14:13 Antibiotics) oxycodone AdvReac Mild Nausea/Vomi Verified 07/30/20 14:13 ting simvastatin AdvReac Unknown muscle pain Verified 07/30/20 14:13 Home Meds Home Medications Medication Instructions Recorded Confirmed clonazepam 0.5 mg PO HS 02/09/19 07/30/20 clopidogrel 75 mg PO QAM 02/09/19 07/30/20 cyanocobalamin (vitamin B-12) 1,000 mcg IM MONTHLY 02/09/19 07/30/20 furosemide 40 mg PO 5XWK 02/09/19 07/30/20 pregabalin [Lyrica] 75 mg PO HS 04/26/19 07/30/20 atorvastatin 40 mg PO HS 07/10/19 07/30/20 nitroglycerin 0.4 mg SUBLINGUAL DIRECTED PRN 07/10/19 07/30/20 Entresto 1 tab PO BID 06/12/20 07/30/20 spironolactone 12.5 mg PO QAM 07/30/20 07/30/20 Previous Rx's Medication Instructions Recorded metformin [Glucophage] 500 mg PO BID #0 tab 06/14/20 metoprolol succinate 12.5 mg PO BID #0 tab 06/14/20 Results & Data (ED) Vital Signs Vital Signs - 24 hr 07/30/20 12:12 07/30/20 14:09 07/30/20 14:30 Temperature 36.8 C Temperature Source Oral Pulse Rate 76 74 76 Pulse Rate from SpO2 Sensor 73 77 Pulse Rhythm Regular Respiratory Rate 18 18 Respiratory Effort / Characteristics Non-Labored Spontaneous Respiratory Depth Normal Respiratory Pattern Regular Blood Pressure 104/53 L Blood Pressure [Right Arm] Blood Pressure Mean 70 Blood Pressure Mean [Right Arm] Pulse Oximetry 98 96 97 Oxygen Delivery Method Room Air Sepsis Recent Fever Within 48 Hours No Sepsis New/Unexplained Change in Mental Status No Sepsis Action Taken by Nursing No Action Required 07/30/20 15:00 07/30/20 15:20 Temperature Temperature Source Pulse Rate 71 Pulse Rate from SpO2 Sensor 71 Pulse Rhythm Respiratory Rate 17 Respiratory Effort / Characteristics Respiratory Depth Respiratory Pattern Blood Pressure Blood Pressure [Right Arm] 128/56 L Blood Pressure Mean Blood Pressure Mean [Right Arm] 80 Pulse Oximetry 96 Oxygen Delivery Method Sepsis Recent Fever Within 48 Hours Sepsis New/Unexplained Change in Mental Status Sepsis Action Taken by Nursing Laboratory Data Result diagrams: 07/30/20 13:27 07/30/20 13:27 Lab Results 07/30/20 07/30/20 07/30/20 Range/Units 13:27 13:27 13:27 WBC 8.68 (4.8-10.8) K/uL RBC 4.18 L (4.7-6.1) M/uL Hgb 13.0 L (14.0-18.0) g/dL Hct 39.3 L (42-52) % MCV 94.0 (80-100) fL MCH 31.1 (25-34) pg MCHC 33.1 (32-36) g/dL RDW Std Deviation 47.4 H (36.4-46.3) fL RDW Coeff of Neyda 13.8 (11.5-14.5) % Plt Count 175 (130-400) K/uL MPV 10.4 (7.4-10.4) fL Immature Gran % (Auto) 0.2 % Neut % (Auto) 77.0 % Lymph % (Auto) 11.5 % Cataño % (Auto) 8.1 % Eos % (Auto) 3.0 % Baso % (Auto) 0.2 % Neut # (Auto) 6.68 H (1.4-6.5) K/uL Lymph # (Auto) 1.00 L (1.2-3.4) K/uL Cataño # (Auto) 0.70 H (0.11-0.59) K/uL Eos # (Auto) 0.26 (0-0.5) K/uL Baso # (Auto) 0.02 (0-0.2) K/uL Immature Gran # (Auto) 0.02 (0.00-0.02) K/uL ESR 20 H (0-14) mm/hr Sodium 141 (136-145) mmol/L Potassium 4.3 (3.5-5.1) mmol/L Chloride 110 H (98-107) mmol/L Carbon Dioxide 25 (21-32) mmol/L Anion Gap 6.0 (3-11) BUN 23 H (7-18) mg/dl Creatinine 0.82 (0.6-1.4) mg/dl Est Cr Clr Drug Dosing 106.8 ml/min Est GFR ( Amer) 106.1 Est GFR (Non-Af Amer) 91.5 BUN/Creatinine Ratio 28.4 H (10-20) Glucose 154 H (70-99) mg/dl Calcium 9.1 (8.5-10.1) mg/dl Total Bilirubin 0.6 (0.2-1) mg/dl AST 16 (15-37) U/L ALT 20 (12-78) U/L Alkaline Phosphatase 113 (45-117) U/L C-Reactive Protein 0.47 H (0-0.29) mg/dl Total Protein 6.9 (6.4-8.2) gm/dl Albumin 3.4 (3.4-5.0) gm/dl Globulin 3.5 (2.5-4.0) gm/dl Albumin/Globulin Ratio 1.0 (0.9-2) Administered Medications Hydromorphone HCl (Hydromorphone Inj 0.5 Mg/0.5 Ml Syr) 0.5 mg IV Q15M PRN PRN Reason: Pain Stop: 08/13/20 13:26 Last Admin: 07/30/20 15:18 Dose: 0.5 mg Documented by: [id number] Admin: 07/30/20 14:06 Dose: 0.5 mg Documented by: [id number] Discontinued Medications Cefepime HCl (Maxipime) 20 mls @ 5 mls/min IV NOW STA Stop: 07/30/20 13:34 Last Admin: 07/30/20 14:06 Dose: 5 mls/min Documented by: [id number] Daptomycin 500 mg/ Syringe 10 mls @ 5 mls/min IV NOW STA; Protocol Stop: 07/30/20 13:33 Last Admin: 07/30/20 14:35 Dose: 5 mls/min Documented by: [id number] Ondansetron HCl (Ondansetron Inj 2 Mg/Ml 2 Ml Vial) 4 mg IV NOW STA Stop: 07/30/20 13:28 Last Admin: 07/30/20 14:06 Dose: 4 mg Documented by: [id number] Discharge Plan Visit Data Chief Complaint: Foot Injury/Pain Stated Complaint: LEFT FOOT PAIN ED Provider: Johnny Astudillo Discharge Problem: Osteomyelitis, Diabetic ulcer of left foot associated with type 2 diabetes mellitus, with fat layer exposed Discharge Instructions Interventions: ED Discharge Assessment Last Done: 07/30/20 15:43 Forms Stand Alone Forms: My [facility] Prescriptions Prescriptions: No Action pregabalin [Lyrica] 75 mg capsule 75 mg PO HS RF: 0 Entresto 24-26 mg tablet 1 tab PO BID RF: 0 metformin [Glucophage] 1,000 mg Tablet 500 mg PO BID Qty: 0 RF: 0 metoprolol succinate 25 mg tablet extended release 24 hr 12.5 mg PO BID Qty: 0 RF: 0 furosemide 40 mg Tablet 40 mg PO 5XWK RF: 0 clonazepam 0.5 mg Tablet 0.5 mg PO HS RF: 0 clopidogrel 75 mg Tablet 75 mg PO QAM RF: 0 cyanocobalamin (vitamin B-12) 1,000 mcg/mL Solution 1,000 mcg IM MONTHLY RF: 0 atorvastatin 40 mg tablet 40 mg PO HS RF: 0 nitroglycerin 0.4 mg tablet, sublingual 0.4 mg sublingual DIRECTED PRN (Reason: Chest Pain) RF: 0 spironolactone 25 mg tablet 12.5 mg PO QAM RF: 0 Referrals Referrals: Zac Torres MD [Primary Care Provider] -
[2020-07-30] MEDS: HYDROmorphone INJ 0.5 MG/0.5 ML SYR IV PRN ×6 (14:06→23:43)
[2020-07-30 14:10] LABS: Basophils # (auto) 0.02 K/uL (0-0.2); Basophils % (auto) 0.2 %; Eosinophils # (auto) 0.26 K/uL (0-0.5); Hematocrit (blood only) 39.3 % (42-52); Immature Granulocytes # (auto) 0.02 K/uL (0.00-0.02); Immature Granulocytes % (auto) 0.2 %; Lymphocytes % (auto) 11.5 %; Mean Corpuscular Hemoglobin 31.1 pg (25-34); Mean Corpuscular Hgb Conc 33.1 g/dL (32-36); Mean Platelet Volume 10.4 fL (7.4-10.4); Monocytes % (auto) 8.1 %; Neutrophils # (auto) 6.68 K/uL (1.4-6.5); Platelet Count 175 K/uL (130-400); RDW Coefficient of Variation 13.8 % (11.5-14.5); RDW Standard Deviation 47.4 fL (36.4-46.3); Red Blood Count 4.18 M/uL (4.7-6.1); White Blood Count 8.68 K/uL (4.8-10.8)
[2020-07-30 14:34] LABS: Albumin Level 3.4 gm/dl (3.4-5.0); BUN Creatinine Ratio 28.4 (10-20); Calcium 9.1 mg/dl (8.5-10.1); Creatinine Clr Calc Pharmacy 106.8 ml/min; Est GFR (African American) 106.1; Est GFR (Non-African American) 91.5; Potassium 4.3 mmol/L (3.5-5.1)
[2020-07-30 14:37] LABS: Bilirubin,Total 0.6 mg/dl (0.2-1); C Reactive Protein 0.47 mg/dl (0-0.29); Globulin 3.5 gm/dl (2.5-4.0); Total Protein 6.9 gm/dl (6.4-8.2)
--- NOTE | 2020-07-30 14:51 | History & Physical Report ---
Date of Service July 30, 2020 Assessment & Plan (1) Osteomyelitis: Daptomycin 475 mg IV daily and cefepime 2 g every 8 hourly IV - renal adjustments per pharmacy Follow-up blood cultures Ultrasound arterial Doppler left extremity to assess for peripheral artery disease. Noncompressible peripheral arteries. N.p.o. after midnight Consult [facility] orthopedics - patient was to follow-up on Sunday (2) Diabetic ulcer of left foot associated with type 2 diabetes mellitus, with fat layer exposed: Consult wound care nurse. Will need orthotics for offloading prior to discharge. (3) Chronic systolic (congestive) heart failure: No acute exacerbation Continue Lasix 40 mg p.o. 5 times a week, spironolactone 12.5 mg p.o. every morning (4) H/O gastric bypass: Notable history of this, B12 injections monthly. (5) Ischemic cardiomyopathy: LVEF 25 to 30% Continue metoprolol succinate 12.5 mg p.o. twice daily, Entresto 24/26 mg 1 tab twice daily (6) CAD (coronary artery disease): Continue clopidogrel, metoprolol succinate, Entresto, atorvastatin. 2 recent drug-eluting stents placed in proximal LAD and distal circumflex [12/06], therefore I am unclear why he is not still taking aspirin (will defer this to his primary high voltage electrician). Given recent cardiac stents will need cardiac clearance prior to any procedure, therefore will consult his usual high voltage electrician Dr. Gaytan (7) DVT prophylaxis: SCDs contraindicated given peripheral artery disease and current ulcer on left side. Of dubious benefit. Chemical prophylaxis deferred pending surgical decision. History of Present Illness Chief Complaint: Left foot pain Primary Care Provider: Zac Torres MD Chandu Mcdowell is a 65-year-old male with diabetes who presents to the ER with worsening diabetic foot ulcer with surrounding cellulitis. He has had this ulcer for the last 6 months following with podiatry and wound clinic in [place]. He followed up with wound clinic on Sunday here for a second opinion and wound was debrided in the office with cultures taken. Since that was performed he reports sudden worsening of his pain with swelling and spreading erythema. He was unable to get much sleep last night due to the severity of the pain. He is currently not taking any antibiotics. Pain on arrival to the ER was 8/10, currently 6/10 but he reports it is starting to come back. Recent wound culture performed on July 20, 2020 grew out Actinomyces odontolyticus, prior to this wound cultures grew MSSA and Pseudomonas. He was started on cefepime and daptomycin in the ER. Of note he has a recent history of x2 cardiac AIDEE placed in May. He was discharged on aspirin and clopidogrel from that admission but he tells me that his high voltage electrician Dr Gaytan told him he doesn't need to take the aspirin in a follow up appointment. Allergies Allergy/AdvReac Type Severity Reaction Status Date / Time Penicillins Allergy Unknown Unknown Verified 07/30/20 14:13 Sulfa (Sulfonamide Allergy Unknown Unknown Verified 07/30/20 14:13 Antibiotics) oxycodone AdvReac Mild Nausea/Vomi Verified 07/30/20 14:13 ting simvastatin AdvReac Unknown muscle pain Verified 07/30/20 14:13 Home Medications Home Medications Medication Instructions Recorded Confirmed Type clonazepam 0.5 mg PO HS 02/09/19 07/30/20 History clopidogrel 75 mg PO QAM 02/09/19 07/30/20 History cyanocobalamin (vitamin B-12) 1,000 mcg IM MONTHLY 02/09/19 07/30/20 History furosemide 40 mg PO 5XWK 02/09/19 07/30/20 History pregabalin [Lyrica] 75 mg PO HS 04/26/19 07/30/20 History atorvastatin 40 mg PO HS 07/10/19 07/30/20 History nitroglycerin 0.4 mg SUBLINGUAL DIRECTED PRN 07/10/19 07/30/20 History Entresto 1 tab PO BID 06/12/20 07/30/20 History metformin [Glucophage] 500 mg PO BID #0 tab 06/14/20 07/30/20 Rx metoprolol succinate 12.5 mg PO BID #0 tab 06/14/20 07/30/20 Rx spironolactone 12.5 mg PO QAM 07/30/20 07/30/20 History Past Med/Surg History Medical History ACS (acute coronary syndrome) Atypical chest pain 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) [facility] CAD (coronary artery disease) Chest pain Chronic systolic (congestive) heart failure Diabetes Diabetic foot ulcer Hyperlipidemia [place] (myocardial infarction) x 8 events; 10 stents in total Peripheral neuropathy Surgical History H/O gastric bypass S/P appendectomy S/P cardiac catheterization S/P cholecystectomy Status post biventricular pacemaker Family History Father , 51 Coronary heart disease Myocardial infarction Brother Coronary heart disease Brother Coronary heart disease Other Diabetes Social History Smoking Status: Former smoker packs per day: 2; Hx Alcohol Use: No Hx Substance Use: No Preferred Language: Belgian Communication Ability: Effective Seismometer Operator Required: No Beliefs That Will Affect Care: None marital status: Single marital status details: 01/2020 Current Living Situation: Alone current occupational status: employed 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 - [employer] How many Children do You have: 1 How many Children do You have Comment: son Other Information That Helps Us Care for You: No Feels Safe at Home: Yes Safety Concerns: Feels Safe At This Time Assistive Devices: Walker Review of Systems Review of Systems: All systems reviewed & are unremarkable except as noted in HPI & below Physical Exam Constitutional: well developed; + not well nourished and no acute distress Eyes: + anicteric sclerae; normal pupil size ENMT: external ear and nose normal, oropharynx normal Neck: trachea midline, no thyromegaly Respiratory: normal respiratory effort, lungs clear to auscultation Cardiovascular: Rate/Rhythm: regular rate and regular rhythm Heart Sounds: no murmur Vessels: posterior tibial pulses present (left) and dorsalis pedis pulses present (left) Extremities: normal capillary refill; no pedal edema Gastrointestinal (Abdomen): normal bowel sounds, soft, nontender, no hepatosplenomegaly Skin: Wound of the left lateral foot. Surrounding erythema and swelling present around wound but does not spread beyond ankle. No odor present. No chichi inage present extinguished but pus present on dressing. Neurologic: moves all extremities and awake; not confused Motor/Sensory: no sensory deficit Psychiatric: A+Ox3, euthymic affect Results & Data Results & Data ([facility]) Vital Signs (Past 12 Hours) Vital Signs Temp Pulse Resp BP Pulse Ox 07/30/20 12:12 36.8 C 76 18 104/53 L 98 Diagnostic Findings LEFT FOOT 3 VIEWS IMPRESSION: Skin ulceration lateral to the fifth MTP joint with underlying bony destruction as described above consistent with osteomyelitis. Code Status & VTE Plan Code Status Full VTE Prophylaxis Plan VTE Prophylaxis will be ordered: Yes PG Care Time/CCT Total # of Minutes Spent Total Time Spent with Patient: Total time spent is greater than 50% in coordination of care (as documented) at patient's floor/unit and/or counseling patient: Coding Level of Care Code 01176 Initial Inpt Care Lvl 3 Diagnoses Osteomyelitis M86.9 Diabetic ulcer of left foot associated with type 2 diabetes mellitus, with fat layer exposed E11.621; L97.522 Chronic systolic (congestive) heart failure I50.22 H/O gastric bypass Z98.84 Ischemic cardiomyopathy I25.5 CAD (coronary artery disease) I25.10 Associated angina: angina presence unspecified Coronary Disease-Associated Artery/Lesion type: [place] artery [place] vs. transplanted heart: [place] heart DVT prophylaxis Z29.9 (1) CAD (coronary artery disease) Associated angina: angina presence unspecified Coronary Disease-Associated Artery/Lesion type: [place] artery [place] vs. transplanted heart: [place] heart Qualified Code(s): I25.10 - Atherosclerotic heart disease of [place] coronary artery without angina pectoris
[2020-07-30] MEDS ORDERED: DEXTROSE 50% 50 ML SYRINGE IV PRN (17:10)
[2020-07-30] MEDS ORDERED: CARBOHYDRATES FOR HYPOGLYCEMIA PO PRN (17:10)
[2020-07-30] MEDS ORDERED: CEFEPIME CONSULT ACTIVE PRN (17:10)
[2020-07-30] MEDS ORDERED: GLUCOSE 10 TABS/TUBE PO PRN (17:10)
[2020-07-30] MEDS ORDERED: GLUCOSE 40% GEL 15 GM TUBE PO PRN (17:10)
[2020-07-30] MEDS ORDERED: GLUCAGON FOR INJ 1 MG VIAL SQ PRN (17:10)
[2020-07-30] MEDS: INSULIN ASPART 100 UNITS/ML 3 ML PEN SC SCH ×2 (17:52→22:44)
--- NOTE | 2020-07-30 19:19 | Ultrasound Report ---
US arterial duplex LE LT CLINICAL HISTORY: Nonhealing ulcers, non-compressible ABIs ?PAD COMPARISON STUDY: No previous studies for comparison. FINDINGS: Ankle brachial indices could not be performed as neither the posterior tibial or dorsalis pedis arter ies were compressible. Toe pressures could not be obtained due to wounds on the left foot. There is triphasic flow within the common femoral artery, and biphasic flow within the superficial fe moral artery. There was triphasic flow within the left popliteal artery. There was triphasic flow wit hin the left anterior tibial artery. There is mixed monophasic and biphasic flow within the left josemanuel eduar. There is monophasic flow within the left posterior tibial artery. There is an area of mild [place] elevation within the left anterior tibial artery consistent with a mild narrowing. IMPRESSION: 1. Scattered plaque throughout the left lower extremity 2. No evidence of [id number] major arterial stenosis. 3. Focal elevation in velocities within the left anterior tibial artery suggestive of a mild narrowin g ACT 112: Negative or not required by law. Electronically signed by: Rainer Kay M.D. 07/30/2020 7:18 PM
[2020-07-30] MEDS: PREGABALIN 75 MG CAP PO SCH (20:36)
[2020-07-30] MEDS: SACUBITRIL-VALSARTAN 24-26 MG TAB PO SCH (20:36)
[2020-07-30] MEDS: clonazePAM 0.5 MG TAB PO SCH (20:36)
[2020-07-30] MEDS: METOPROLOL SUCC 25MG EXT REL TAB PO SCH (20:37)
[2020-07-30] MEDS: ATORVASTATIN 40 MG TAB PO SCH (20:38)
[2020-07-30] MEDS ORDERED: Nursing to Pharmacy Communication SCH (21:15)
[2020-07-30] MEDS: CEFEPIME 2,000 MG in SYRINGE 0 ML IV SCH (22:01)
[2020-07-30] MEDS: POLYETHYLENE (MIRALAX) 17 GM PACK PO SCH (23:36)
[2020-07-31] MEDS: HYDROmorphone INJ 0.5 MG/0.5 ML SYR IV PRN ×9 (01:21→22:43)
[2020-07-31] MEDS ORDERED: Nursing to Pharmacy Communication SCH ×2 (04:15→15:00)
[2020-07-31 06:00] LABS: Basophils # (auto) 0.03 K/uL (0-0.2); Basophils % (auto) 0.5 %; Eosinophils # (auto) 0.32 K/uL (0-0.5); Eosinophils % (auto) 4.8 %; Hematocrit (blood only) 39.9 % (42-52); Hemoglobin 12.7 g/dL (14.0-18.0); Immature Granulocytes # (auto) 0.01 K/uL (0.00-0.02); Immature Granulocytes % (auto) 0.2 %; Lymphocytes # (auto) 1.25 K/uL (1.2-3.4); Lymphocytes % (auto) 18.9 %; Mean Corpuscular Hemoglobin 30.4 pg (25-34); Mean Corpuscular Hgb Conc 31.8 g/dL (32-36); Mean Corpuscular Volume 95.5 fL (80-100); Mean Platelet Volume 10.6 fL (7.4-10.4); Monocytes # (auto) 0.64 K/uL (0.11-0.59); Monocytes % (auto) 9.7 %; Neutrophils # (auto) 4.37 K/uL (1.4-6.5); Neutrophils % (auto) 65.9 %; Platelet Count 165 K/uL (130-400); RDW Coefficient of Variation 13.9 % (11.5-14.5); RDW Standard Deviation 48.5 fL (36.4-46.3); Red Blood Count 4.18 M/uL (4.7-6.1); White Blood Count 6.62 K/uL (4.8-10.8)
[2020-07-31] MEDS: CEFEPIME 2,000 MG in SYRINGE 0 ML IV SCH ×3 (06:00→21:01)
[2020-07-31] MEDS: INSULIN ASPART 100 UNITS/ML 3 ML PEN SC SCH ×4 (06:06→20:28)
[2020-07-31 06:30] LABS: BUN Creatinine Ratio 20.3 (10-20); Calcium 8.5 mg/dl (8.5-10.1); Creatinine Clr Calc Pharmacy 94.2 ml/min; Est GFR (Non-African American) 89.7; Potassium 4.4 mmol/L (3.5-5.1)
[2020-07-31] MEDS: ONDANSETRON INJ 2 MG/ML 2 ML VIAL IV PRN ×2 (06:30→15:19)
[2020-07-31 06:54] LABS: Estimated Average Glucose 143 mg/dl; Hemoglobin A1C 6.6 % (4.5-5.6)
--- NOTE | 2020-07-31 08:52 | Cardiology Consultation ---
Date of Consultation July 31, 2020 Assessment & Plan (1) Diabetic ulcer of left foot associated with type 2 diabetes mellitus, with fat layer exposed: (2) Osteomyelitis: (3) Chronic systolic (congestive) heart failure: (4) Status post biventricular pacemaker: (5) Ischemic cardiomyopathy: (6) H/O gastric bypass: This patient has a complex cardiac history with previous multiple coronary interventions and ischemic cardiomyopathy. The geriatric surgical risk assessment tool would place him at a 2.4% risk for the surgical debridement of his diabetic foot ulcer and osteomyelitis, however the patient did have multiple drug-eluting stents placed in May for acute coronary syndrome including 1 placed in the proximal LAD. The patient is at increased risk for acute stent thrombosis this early after placement and certainly increases his risk for any surgical procedures. If he requires surgery to save the limb or his life then it should be completed with the patient remaining on dual antiplatelet therapy (Plavix and aspirin). No additional cardiac testing will change this risk assessment. Currently he is stable on his current medications. History of Present Illness Attending Physician: Sahw Powell MD History of Present Illness This is a 65-year-old male patient with with a complex cardiac history as outlined below. he presented with acute coronary syndrome and received In May drug-eluting stents within the proximal LAD and distal left circumflex arteries. Although the patient is clinically stable from a cardiac standpoint, he now presents with a nonhealing ulcer of his foot and may require debridement for osteomyelitis. He has no ongoing cardiac complaints. He denies chest pain or shortness of breath. He has had no orthopnea, tachycardia or palpitations. No lower extremity edema. No dizziness or lightheadedness. Past medical history: 1. Atherosclerotic coronary disease, diffuse, with multiple coronaryinterventions including 2-vessel angioplasty in 1998 of circumflex and rightcoronary artery; left anterior descending in 2000; stenting of the leftanterior descending in 2007, stenting of the obtuse marginal in JanuaryNovember 2012. 2. Thrombotic occlusion with closure of the stented obtuse tdgceafn02/20/2013 with lateral apical infarct. 3. Class II angina pectoris. 4. Low HDL dyslipidemia. 5. Diabetes mellitus. 6. Non ST segment elevation myocardial infarction February 09, 2019 setting of increased demand acute sinusitis. Coronary intervention drug-eluting stent to 99% AV groove circumflex, dominant vessel 7. Acute coronary syndrome in the setting of acute emotional stress June 12, 2020 undergoing cardiac catheterization and drug-eluting stent implantation proximal left anterior descending, very distal dominant left circumflex 7. Ischemic cardiomyopathy , EF 25 to 30% reconfirmed by study of May 28, 2019 8. Possible TIA /stroke post coronary intervention January 2019 9. Biventricular pacer defibrillator implantation July 30, 2019 :MedtronicModel:Karlene MRI CRTD [id number] Allergies Allergy/AdvReac Type Severity Reaction Status Date / Time Penicillins Allergy Unknown Unknown Verified 07/30/20 14:13 Sulfa (Sulfonamide Allergy Unknown Unknown Verified 07/30/20 14:13 Antibiotics) oxycodone AdvReac Mild Nausea/Vomi Verified 07/30/20 14:13 ting simvastatin AdvReac Unknown muscle pain Verified 07/30/20 14:13 Home Medications Home Medications Medication Instructions Recorded Confirmed Type clonazepam 0.5 mg PO HS 02/09/19 07/30/20 History clopidogrel 75 mg PO QAM 02/09/19 07/30/20 History cyanocobalamin (vitamin B-12) 1,000 mcg IM MONTHLY 02/09/19 07/30/20 History furosemide 40 mg PO 5XWK 02/09/19 07/30/20 History pregabalin [Lyrica] 75 mg PO HS 04/26/19 07/30/20 History atorvastatin 40 mg PO HS 07/10/19 07/30/20 History nitroglycerin 0.4 mg SUBLINGUAL DIRECTED PRN 07/10/19 07/30/20 History Entresto 1 tab PO BID 06/12/20 07/30/20 History metformin [Glucophage] 500 mg PO BID #0 tab 06/14/20 07/30/20 Rx metoprolol succinate 12.5 mg PO BID #0 tab 06/14/20 07/30/20 Rx spironolactone 12.5 mg PO QAM 07/30/20 07/30/20 History Patient History Medical History ACS (acute coronary syndrome) Atypical chest pain 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) [facility] CAD (coronary artery disease) Chest pain Chronic systolic (congestive) heart failure Diabetes Diabetic foot ulcer Hyperlipidemia [place] (myocardial infarction) x 8 events; 10 stents in total Peripheral neuropathy Surgical History H/O gastric bypass S/P appendectomy S/P cardiac catheterization S/P cholecystectomy Status post biventricular pacemaker Family History Father , 51 Coronary heart disease Myocardial infarction Brother Coronary heart disease Brother Coronary heart disease Other Diabetes Social History Smoking Status: Former smoker packs per day: 2; Hx Alcohol Use: No Hx Substance Use: No Preferred Language: Maori Communication Ability: Effective Formula Weigher Required: No Beliefs That Will Affect Care: None marital status: Single marital status details: 01/2020 Current Living Situation: Alone current occupational status: employed 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 Physical Exam Physical Exam: General: no acute distress and stated age Head: normocephalic, no masses, lesions, tenderness or abnormalities Eyes: conjunctiva are pink and non-injected, sclera clear Neck: supple, no adenopathy, no bruits, normal jugular venous pulse, no hepatojugular reflux Chest: normal shape and normal respiratory effort Lungs: clear to auscultation and percussion Cardiac Exam: - regular rate & rhythm, no murmurs gallops or rubs - normal S1, normal S2 Pulses: 2(+) throughout Abdomen: abdomen soft, non-tender, no abnormal masses and no hepatosplenomegaly Musculoskeletal: no gait disturbance, no joint inflammation, no deforming arthritis Extremities: The left foot is bandaged. Neuro: grossly normal exam Results & Data ([facility]) Vital Signs (Past 12 Hours) Vital Signs Temp Pulse Pulse Resp BP BP Pulse Ox 07/31/20 08:04 36.6 C 64 18 106/61 95 07/31/20 07:12 63 07/31/20 04:00 36.4 C L 61 18 95/55 L 94 07/31/20 01:24 65 07/30/20 23:20 36.6 C 65 18 103/61 95 07/30/20 21:30 66 Laboratory Results Laboratory Results - last 24 hr 07/30/20 07/30/20 07/30/20 13:27 13:27 13:27 WBC 8.68 RBC 4.18 L Hgb 13.0 L Hct 39.3 L MCV 94.0 MCH 31.1 MCHC 33.1 RDW Std Deviation 47.4 H RDW Coeff of Neyda 13.8 Plt Count 175 MPV 10.4 Immature Gran % (Auto) 0.2 Neut % (Auto) 77.0 Lymph % (Auto) 11.5 Caroline % (Auto) 8.1 Eos % (Auto) 3.0 Baso % (Auto) 0.2 Neut # (Auto) 6.68 H Lymph # (Auto) 1.00 L Caroline # (Auto) 0.70 H Eos # (Auto) 0.26 Baso # (Auto) 0.02 Immature Gran # (Auto) 0.02 ESR 20 H Sodium 141 Potassium 4.3 Chloride 110 H Carbon Dioxide 25 Anion Gap 6.0 BUN 23 H Creatinine 0.82 Est Cr Clr Drug Dosing 106.8 Est GFR ( Amer) 106.1 Est GFR (Non-Af Amer) 91.5 BUN/Creatinine Ratio 28.4 H Glucose 154 H POC Glucose Estimat Average Glucose Hemoglobin A1c Calcium 9.1 Total Bilirubin 0.6 AST 16 ALT 20 Alkaline Phosphatase 113 C-Reactive Protein 0.47 H Total Protein 6.9 Albumin 3.4 Globulin 3.5 Albumin/Globulin Ratio 1.0 07/30/20 07/30/20 07/31/20 16:51 20:56 05:46 WBC 6.62 RBC 4.18 L Hgb 12.7 L Hct 39.9 L MCV 95.5 MCH 30.4 MCHC 31.8 L RDW Std Deviation 48.5 H RDW Coeff of Neyda 13.9 Plt Count 165 MPV 10.6 H Immature Gran % (Auto) 0.2 Neut % (Auto) 65.9 Lymph % (Auto) 18.9 Caroline % (Auto) 9.7 Eos % (Auto) 4.8 Baso % (Auto) 0.5 Neut # (Auto) 4.37 Lymph # (Auto) 1.25 Caroline # (Auto) 0.64 H Eos # (Auto) 0.32 Baso # (Auto) 0.03 Immature Gran # (Auto) 0.01 ESR Sodium Potassium Chloride Carbon Dioxide Anion Gap BUN Creatinine Est Cr Clr Drug Dosing Est GFR ( Amer) Est GFR (Non-Af Amer) BUN/Creatinine Ratio Glucose POC Glucose 147 H 133 H Estimat Average Glucose Hemoglobin A1c Calcium Total Bilirubin AST ALT Alkaline Phosphatase C-Reactive Protein Total Protein Albumin Globulin Albumin/Globulin Ratio 07/31/20 07/31/20 07/31/20 05:46 05:46 05:59 WBC RBC Hgb Hct MCV MCH MCHC RDW Std Deviation RDW Coeff of Neyda Plt Count MPV Immature Gran % (Auto) Neut % (Auto) Lymph % (Auto) Caroline % (Auto) Eos % (Auto) Baso % (Auto) Neut # (Auto) Lymph # (Auto) Caroline # (Auto) Eos # (Auto) Baso # (Auto) Immature Gran # (Auto) ESR Sodium 140 Potassium 4.4 Chloride 108 H Carbon Dioxide 28 Anion Gap 4.0 BUN 17 Creatinine 0.86 Est Cr Clr Drug Dosing 94.2 Est GFR ( Amer) 104.0 Est GFR (Non-Af Amer) 89.7 BUN/Creatinine Ratio 20.3 H Glucose 134 H POC Glucose 123 H Estimat Average Glucose 143 Hemoglobin A1c 6.6 H Calcium 8.5 Total Bilirubin AST ALT Alkaline Phosphatase C-Reactive Protein Total Protein Albumin Globulin Albumin/Globulin Ratio 07/31/20 11:42 WBC RBC Hgb Hct MCV MCH MCHC RDW Std Deviation RDW Coeff of Neyda Plt Count MPV Immature Gran % (Auto) Neut % (Auto) Lymph % (Auto) Caroline % (Auto) Eos % (Auto) Baso % (Auto) Neut # (Auto) Lymph # (Auto) Caroline # (Auto) Eos # (Auto) Baso # (Auto) Immature Gran # (Auto) ESR Sodium Potassium Chloride Carbon Dioxide Anion Gap BUN Creatinine Est Cr Clr Drug Dosing Est GFR ( Amer) Est GFR (Non-Af Amer) BUN/Creatinine Ratio Glucose POC Glucose 138 H Estimat Average Glucose Hemoglobin A1c Calcium Total Bilirubin AST ALT Alkaline Phosphatase C-Reactive Protein Total Protein Albumin Globulin Albumin/Globulin Ratio Medications Administered Current Inpatient Medications Acetaminophen (Acetaminophen 325 Mg Tab) 650 mg PO Q4H PRN PRN Reason: Pain or Fever Stop: 08/29/20 17:09 Atorvastatin Calcium (Atorvastatin 40 Mg Tab) 40 mg PO HS [facility] Stop: 08/29/20 20:59 Last Admin: 07/30/20 20:38 Dose: 40 mg Documented by: Clonazepam (Clonazepam 0.5 Mg Tab) 0.5 mg PO HS [facility] Stop: 08/29/20 20:59 Last Admin: 07/30/20 20:36 Dose: 0.5 mg Documented by: Clopidogrel Bisulfate (Clopidogrel Bisulfate 75 Mg Tab) 75 mg PO QAM [facility] Stop: 08/30/20 08:59 Last Admin: 07/31/20 08:54 Dose: 75 mg Documented by: Dextrose (Dextrose 50% 50 Ml Syringe) 25 - 50 ml IV UD PRN; Protocol PRN Reason: Hypoglycemia Protocol Stop: 08/29/20 17:09 Furosemide (Furosemide 40 Mg Tab) 40 mg PO [id number] [facility] Stop: 08/30/20 08:59 Last Admin: 07/31/20 08:53 Dose: 40 mg Documented by: Glucagon (Glucagon For Inj 1 Mg Vial) 1 mg SQ UD PRN; Protocol PRN Reason: Hypoglycemia Protocol Stop: 08/29/20 17:09 Glucose (Glucose 10 Tabs/Tube) 4 - 8 tabs PO UD PRN; Protocol PRN Reason: Hypoglycemia Protocol Stop: 08/29/20 17:09 Glucose (Glucose 40% Gel 15 Gm Tube) 15 - 30 gm PO UD PRN; Protocol PRN Reason: Hypoglycemia Protocol Stop: 08/29/20 17:09 Hydromorphone HCl (Hydromorphone Inj 0.5 Mg/0.5 Ml Syr) 0.5 mg IV Q1H PRN PRN Reason: Pain Stop: 08/13/20 13:26 Last Admin: 07/31/20 10:43 Dose: 0.5 mg Documented by: Cefepime HCl 2,000 mg/ Syringe 20 mls @ 5 mls/min IV Q8H SHANE; Protocol Stop: 08/06/20 21:59 Last Admin: 07/31/20 06:00 Dose: 5 mls/min Documented by: Daptomycin 500 mg/ Syringe 10 mls @ 5 mls/min IV Q24H [facility]; Protocol Stop: 09/11/20 13:59 Insulin Aspart (Insulin Aspart 100 Units/Ml 3 Ml Pen) 0 units SC Q6 SHANE Stop: 08/30/20 05:59 Last Admin: 07/31/20 06:06 Dose: Not Given Documented by: Metoprolol Succinate (Metoprolol Succ 25mg Ext Rel Tab) 12.5 mg PO BID SHANE Stop: 08/29/20 20:59 Last Admin: 07/31/20 08:55 Dose: 12.5 mg Documented by: Miscellaneous (Carbohydrates For Hypoglycemia ) 15 - 30 gm PO UD PRN PRN Reason: Hypoglycemia Protocol Stop: 08/29/20 17:09 Miscellaneous Information (Cefepime Consult Active) 1 ea N/A UD PRN PRN Reason: Consult Stop: 08/29/20 17:09 Miscellaneous Information (Daptomycin Consult Active) 1 ea N/A UD PRN PRN Reason: Consult Stop: 08/29/20 17:22 Ondansetron HCl (Ondansetron Inj 2 Mg/Ml 2 Ml Vial) 4 mg IV Q6H PRN PRN Reason: Nausea Stop: 08/29/20 17:09 Last Admin: 07/31/20 06:30 Dose: 4 mg Documented by: Polyethylene Glycol (Polyethylene (Miralax) 17 Gm Pack) 17 gm PO DAILY SHANE Stop: 08/29/20 22:59 Last Admin: 07/31/20 09:12 Dose: Not Given Documented by: Pregabalin (Pregabalin 75 Mg Cap) 75 mg PO HS [facility] Stop: 08/29/20 20:59 Last Admin: 07/30/20 20:36 Dose: 75 mg Documented by: Sacubitril/Valsartan (Sacubitril-Valsartan 24-26 Mg Tab) 1 tab PO BID SHANE Stop: 08/29/20 20:59 Last Admin: 07/31/20 08:54 Dose: 1 tab Documented by: Spironolactone (Spironolactone 12.5 Mg Tab) 12.5 mg PO QAM SHANE Stop: 08/30/20 08:59 Last Admin: 07/31/20 08:54 Dose: 12.5 mg Documented by:
[2020-07-31] MEDS: FUROSEMIDE 40 MG TAB PO SCH (08:53)
[2020-07-31] MEDS: SPIRONOLACTONE 12.5 MG TAB PO SCH (08:54)
[2020-07-31] MEDS: CLOPIDOGREL BISULFATE 75 MG TAB PO SCH (08:54)
[2020-07-31] MEDS: SACUBITRIL-VALSARTAN 24-26 MG TAB PO SCH ×2 (08:54→20:21)
[2020-07-31] MEDS: METOPROLOL SUCC 25MG EXT REL TAB PO SCH ×2 (08:55→20:18)
[2020-07-31] MEDS: POLYETHYLENE (MIRALAX) 17 GM PACK PO SCH (09:12)
--- NOTE | 2020-07-31 10:55 | CT Scan Report ---
LEFT FOOT CT CT DOSE: 153.63 mGy.cm HISTORY: Abnormal left foot x-ray. osteomyelitis left foot TECHNIQUE: Multiaxial CT images of the left foot were performed and reformatted in the sagittal and c oronal plane without the use of contrast. A dose lowering technique was utilized adhering to the андрей Denney. COMPARISON: Left foot 07/28/2020. FINDINGS: Focal skin ulceration along the lateral aspect of the fifth MTP joint. There is extensive e rosive change at the head of the fifth metatarsal and base of the fifth proximal phalanx consistent w ith osteomyelitis. No additional areas of destructive change within the left foot. There is moderate osteoarthritis at the first MTP joint. No acute fracture or dislocation within the left foot. Vascula r calcifications are noted. Soft tissue swelling at the fifth MCP joint. IMPRESSION: Redemonstration of the osteomyelitis at the head of the fifth metatarsal and base of the fifth proxim al phalanx. The erosive changes extend into the articular surface and raises the possibility of a sep tic arthritis. ACT 112: Negative or not required by law. Electronically signed by: Ben Davila M.D. 07/31/2020 10:54 AM
--- NOTE | 2020-07-31 13:11 | Consultation Report ---
DATE OF CONSULTATION: 07/31/2020 ORTHOPEDIC CONSULTATION CHIEF COMPLAINT: Left foot diabetic ulcer/osteomyelitis. HISTORY OF PRESENT ILLNESS: A 65-year-old male was admitted from the Emergency Room last evening due to possible left foot infection. This gentleman has a history of type 2 diabetes. He states that he has been "dealing with a left foot ulcer for the past 6 months." He has seen a few different medical providers for this. Most recently, he was referred to the wound clinic here in [place] where he did have a debridement on 07/28/2020. Xrays were also done and a referral was placed to our office and patient is scheduled to see Dr Hunt this Sunday. The patient states over the last week, he has developed increased pain to his left lower extremity and foot. He contacted the wound care clinic yesterday. They recommended that he go to the Emergency Room. The patient states his pain was a 10/10, red, warm, swollen with difficulty bearing weight. The wound care clinic per patient did get an x-ray of his foot and felt that he had concerns for osteomyelitis. The patient states that since he was admitted and started on IV antibiotics that his pain has improved from a 10/10 to a 6/10. He also states that the redness and swelling in his leg he feels has improved. Currently, the patient denies any fevers, chills, diaphoresis, visual changes, neck pain, chest pain, shortness of breath, nausea, vomiting, abdominal pain, recent injury or illness. He does have underlying cardiac issues with a pacemaker and a defibrillator. PAST MEDICAL HISTORY: Significant for acute coronary syndrome, atypical chest pain, gastric bypass, coronary artery disease, chest pain, congestive heart failure -- chronic systolic, diabetes, diabetic foot ulcer, hyperlipidemia, myocardial infarction x8 events with 10 stents in total, peripheral neuropathy. PAST SURGICAL HISTORY: Includes gastric bypass, appendectomy, cardiac catheterization, cholecystectomy, biventricular pacemaker and defibrillator. SOCIAL HISTORY: Former smoker, 2 packs per day. Does not drink, does not use any recreational substances. He lives with his fiancee. FAMILY HISTORY: Father at 51 from coronary artery disease and myocardial infarction. Brother with history of coronary artery disease. Second brother with history of coronary artery disease. Other family medical history is significant for diabetes. ALLERGIES: PENICILLIN, SULFA, OXYCODONE, SIMVASTATIN. HOME MEDICATIONS: Clonazepam, clopidogrel, vitamin B, furosemide, Lyrica, atorvastatin, nitroglycerin, Entresto, spironolactone. Current IV antibiotics include daptomycin 475 mg IV daily and cefepime 2 grams every 8 hours with renal adjustments per pharmacy. REVIEW OF SYSTEMS: As noted above, the patient admits to left foot pain, which has improved since starting IV antibiotics. He does have chronic neuropathy to his lower extremities. He denies chills or sweats. He denies any recent illness or injury. He denies current chest pain at rest, shortness of breath at rest, nausea, vomiting, lightheadedness, or dizziness. PHYSICAL EXAMINATION: A 65-year-old male in no acute distress, alert and oriented x3 with normal mood and affect. VS stable.. Afebrile. The patient was ambulating within his room with dressings to his left foot. The patient was able to independently transfer himself onto the bed. Upon removal of dressings, left foot was evaluated. The wounds of the left lateral foot reveal that there are no open areas. There is no active drainage. There is slight erythema to the area of the ulcer, but it does not travel up the foot proximally or into the magdaleno or calf. There is no odor present. There is what appears to be scabbing over the wound of the left lateral foot of approximately nickel size. There is also a wound more plantaer lateral, which is intact and callus is noted. Per records, the left lateral foot wound previously had undermining and tunneling with slough noted and a small amount of serosanguineous drainage from the wound care note on 07/28/2020, which is currently not noted. Could not palpate any significant fluctuance. The patient is tender to the area. The patient did have a 1+ palpablepulses to his left lower extremity, tibialis anterior and posterior tib. Sensation was intact, but diminished -- per patient chronic. Calf was soft. Negative Jenny. Able to wiggle toes and ankle without issue. 5/5 EHL, tibialis anterior and gastroc strength. Capillary refill 2+. The patient had mild swelling to the area of the more distal foot. DIAGNOSTIC STUDIES: X-rays of left foot 07/28/2020, reviewed by radiologist show no fracture or dislocation. Small plantar and posterior calcaneal spurs, vascular calcification is noted. Mild osteoarthritis within the left foot. Skin ulceration lateral to the fifth MTP joint, areas of cortical erosion seen within the lateral head and neck of the fifth metatarsal and lateral base of the fifth proximal phalanx consistent with osteomyelitis. No radiopaque foreign bodies. A duplex scan of lower extremity arterial from 07/30/2020, also reviewed by radiologist shows scattered plaque throughout the left lower extremity. No evidence of above the knee major arterial stenosis, focal elevation in velocities within the left anterior tibial artery suggestive of mild narrowing. Blood cultures pending. Foot cultures from 07/20/2020 positive for Actinomyces odontolyticus. Foot cultures from 05/18/2020 shows Staphylococcal aureus and Pseudomonas aeruginosa. Current hemoglobin is 12.7, glucose 134. Hemoglobin A1c 6.6. C-reactive protein 0.47, ESR 20. IMPRESSION: Left diabetic foot ulcer/probable osteomyelitis. PLAN: I spoke to Dr. Newton today as well as the patient and his fiancee over the phone. We feel that a CT scan of his left foot is warranted for further evaluation for possible osteomyelitis. The patient is unable to have an MRI due to defibrillator and pacemaker. We will order that CT scan to be performed today. In the meantime, we will recommend a diabetic diet for the patient and n.p.o. for this evening at midnight. Dr. Newton will review the CT scan and decide after reviewing that and discussing with the patient, if the patient will require surgery tomorrow. The patient will continue with IV antibiotics. We will await on blood cultures. The patient has a consult for cardiology and we are asking for cardiology input for clearance for possible surgery. The patient's wound was redressed with dry dressings. He will continue ambulating as tolerated, recommending through the heel. The patient and his fiancee were understanding of the above and appreciative of the time. Attending statement: I saw and examined the patient and agree with above note. I reviewed his CT scan and x-rays and agree with radiologist that he has osteomyelitis of distal fifth metatarsal and proximal phalanx of fifth toe. Recommend IV antibiotics per internal medicine service. Patient is likely going to need surgery, which will likely be a ray resection, but surgery does not need to be done urgently since he is not septic. However, surgery is high risk due to his recent NH and stenting procedure, as well as need for him to be on dual antiplatelet agents and subsequent risk for bleeding. I will talk to Dr. Mery Monet, our janitorial maintenance worker, or Dr. Hunt, whom he is scheduled to see in clinic this Sunday about doing this surgery for him since they have more experience than I in taking care of these types of patients. Recommend dressing changes and WBAT in diabetic shoes or slippers. MTDD
[2020-07-31] MEDS: ASPIRIN 81 MG ECTAB PO SCH (13:48)
[2020-07-31] MEDS ORDERED: DAPTOmycin 475 MG in SYRINGE 0 ML IV SCH (14:00)
[2020-07-31] MEDS: DAPTOmycin 500 MG in SYRINGE 0 ML IV SCH (14:39)
--- NOTE | 2020-07-31 15:27 | Hospitalist Progress Note ---
Date of Service July 31, 2020 Assessment & Plan (1) Osteomyelitis: Daptomycin 475 mg IV daily and cefepime 2 g every 8 hourly IV - renal adjustments per pharmacy Blood culture - negative to date Ultrasound arterial Doppler left extremity - scattered plaquq but nothing requiring intervention. N.p.o. after midnight Consult [facility] orthopedics - possibly planning on intervention tomorrow pending CT (2) Diabetic ulcer of left foot associated with type 2 diabetes mellitus, with fat layer exposed: Consult wound care nurse. Will need orthotics for offloading prior to discharge. (3) Chronic systolic (congestive) heart failure: No acute exacerbation Continue Lasix 40 mg p.o. 5 times a week, spironolactone 12.5 mg p.o. every morning (4) H/O gastric bypass: Notable history of this, B12 injections monthly. (5) Ischemic cardiomyopathy: LVEF 25 to 30% Continue metoprolol succinate 12.5 mg p.o. twice daily, Entresto 24/26 mg 1 tab twice daily (6) CAD (coronary artery disease): Continue aspirin, clopidogrel, metoprolol succinate, Entresto, atorvastatin. Discussed with Dr Mead and no outpatient note or explanation why he would not be taking aspirin therefore will start on this. (7) DVT prophylaxis: SCDs contraindicated given peripheral artery disease and current ulcer on left side. Of dubious benefit. Chemical prophylaxis deferred pending surgical decision. Admission and Anticipated Discharge Date Admission Date: July 30, 2020 Subjective Patient appears to be doing well. He is surprised how quickly his pain has improved with reduction in swelling due to antibiotic treatment for the cellulitis. He denies any chest pain or shortness of breath. Low blood pressure noted however the patient notes that he usually runs with a systolic in the 90s. No dizziness or lightheadedness associated with this. Discussed care with Chandu Mobley and his fiance as appears to have been a mixup with his medication. I believe he was probably told by Dr. Gaytan prior to his recent drug-eluting stent to stop his aspirin rather than afterwards. No clear indication medically or from [facility] notes that he was supposed to stop his aspirin. Patient in agreement to restart his aspirin for dual antiplatelets post drug-eluting stent, he wishes to confirm this with Dr. Gaytan (if available) on Sunday. Review of Systems Review of Systems: All systems reviewed & are unremarkable except as noted in HPI & below Physical Exam Constitutional: well developed; + not well nourished and no acute distress Eyes: + anicteric sclerae; normal pupil size ENMT: external ear and nose normal, oropharynx normal Neck: trachea midline, no thyromegaly Respiratory: normal respiratory effort, lungs clear to auscultation Cardiovascular: Rate/Rhythm: regular rate and regular rhythm Heart Sounds: no murmur Vessels: posterior tibial pulses present (left) and dorsalis pedis pulses present (left) Extremities: normal capillary refill; no pedal edema Gastrointestinal (Abdomen): normal bowel sounds, soft, nontender, no hepatospl enomegaly Neurologic: moves all extremities and awake; not confused Motor/Sensory: no sensory deficit Psychiatric: A+Ox3, euthymic affect Results & Data Results & Data ([facility]) Vital Signs (Past 12 Hours) Vital Signs Temp Pulse Pulse Resp BP Pulse Ox 07/31/20 12:00 36.6 C 64 18 93/52 L 96 07/31/20 08:04 36.6 C 64 18 106/61 95 07/31/20 07:12 63 07/31/20 04:00 36.4 C L 61 18 95/55 L 94 PG Care Time/CCT Total # of Minutes Spent Total Time Spent with Patient: Total time spent is greater than 50% in coordination of care (as documented) at patient's floor/unit and/or counseling patient: Coding Level of Care Code 48303 Subseq Hosp Care Lvl 2 Diagnoses Osteomyelitis M86.9 Diabetic ulcer of left foot associated with type 2 diabetes mellitus, with fat l bessie exposed E11.621; L97.522 Chronic systolic (congestive) heart failure I50.22 H/O gastric bypass Z98.84 Ischemic cardiomyopathy I25.5 CAD (coronary artery disease) I25.10 Coronary Disease-Associated Artery/Lesion type: [place] artery [place] vs. transplanted heart: [place] heart Associated angina: angina presence unspecified DVT prophylaxis Z29.9 (1) CAD (coronary artery disease) Coronary Disease-Associated Artery/Lesion type: [place] artery [place] vs. transplanted heart: [place] heart Associated angina: angina presence unspecified Qualified Code(s): I25.10 - Atherosclerotic heart disease of [place] coronary artery without angina pectoris
[2020-07-31] MEDS: clonazePAM 0.5 MG TAB PO SCH (20:17)
[2020-07-31] MEDS: PREGABALIN 75 MG CAP PO SCH (20:17)
[2020-07-31] MEDS: ATORVASTATIN 40 MG TAB PO SCH (20:21)
[2020-08-01] MEDS ORDERED: Nursing to Pharmacy Communication SCH (01:00)
[2020-08-01] MEDS: HYDROmorphone INJ 0.5 MG/0.5 ML SYR IV PRN ×11 (02:30→19:47)
[2020-08-01] MEDS: ONDANSETRON INJ 2 MG/ML 2 ML VIAL IV PRN (05:47)
[2020-08-01] MEDS: CEFEPIME 2,000 MG in SYRINGE 0 ML IV SCH ×3 (05:47→22:12)
[2020-08-01] MEDS: INSULIN ASPART 100 UNITS/ML 3 ML PEN SC SCH ×4 (06:15→21:33)
[2020-08-01] MEDS: ASPIRIN 81 MG ECTAB PO SCH (08:24)
[2020-08-01] MEDS: SACUBITRIL-VALSARTAN 24-26 MG TAB PO SCH ×2 (08:24→21:38)
[2020-08-01] MEDS: CLOPIDOGREL BISULFATE 75 MG TAB PO SCH (08:24)
[2020-08-01] MEDS: METOPROLOL SUCC 25MG EXT REL TAB PO SCH ×2 (08:25→21:38)
[2020-08-01] MEDS: FUROSEMIDE 40 MG TAB PO SCH (08:26)
[2020-08-01] MEDS: SPIRONOLACTONE 12.5 MG TAB PO SCH (08:27)
[2020-08-01] MEDS: POLYETHYLENE (MIRALAX) 17 GM PACK PO SCH (08:35)
--- NOTE | 2020-08-01 10:12 | Orthopedic Progress Note ---
Date of Service August 01, 2020 Assessment & Plan (1) Osteomyelitis: Dr Newton wanted me to relay to patient that he spoke to Dr Mery Monet. She plans on seeing patient on Sunday around lunch time to discuss patient's options. A formal consult will be placed. I spoke to patient and his fiancee. I did briefly discuss the reason for surgery/amputation. However definitive care to be discussed to patient and fiancee with Dr Haney. Continue IV ABX. Continue diet. WBAT recommended through heel. Present on Admission?: Yes Admission and Anticipated Discharge Date Admission Date: July 30, 2020 Subjective Patient in bed. Reading. Says he feels improved with continued IV abx regarding left foot pain, redness, and swelling. However, does continue to have pain. He admits he is nervous about the mention of amputation. Denies f/c/s. Denies s/s of DVT. He says he is ambulating within his room. Physical Exam Physical Exam: Appearance of left foot ulcer unchanged this am. Continues with redness. Minimal fluctuance. No open areas. No foul odor. No active drainage. NV exam unchanged. Intact but decreased sensation to B LE. Palpable pulses. Calves are soft. Able to wiggle foot, toes, and ankle. No pain with motion of 5th toe. Results & Data ([facility]) Vital Signs (Past 12 Hours) Vital Signs Temp Pulse Pulse Resp BP BP Pulse Ox 08/01/20 07:07 73 08/01/20 06:50 36.8 C 78 20 92/54 L 93 08/01/20 03:00 36.9 C 71 18 96/60 L 95 08/01/20 00:58 80 Laboratory Results 08/01/20 07/31/20 07/31/20 Range/Units 05:47 20:14 16:47 POC Glucose 119 H 201 H 130 H (70-99) mg/dl 07/31/20 Range/Units 11:42 POC Glucose 138 H (70-99) mg/dl Diagnostic Findings [facility], [place] [phone] CT Scan Report Patient: GRACE LAUREN Date: 07/30/20 MR#: [id number]: [address] Acct ID:[id number]: [address] [facility] Zip: [place] [address] Age: 65Location: 2N Sex: MRoom/Bed: N2-1 Att Phy: Shaw Powell MDDiagnosis: DIABETIC ULCER WITH SURROUNDING CELLULITIS Rina Phy: Zac Puga M.D.Service Date: 07/31/20 Fam Phy:Interpreting Phy: Ben Davila MD Admit Phy: Shaw Powell MD Ordering Phy: Marylin Pimentel P.A.-C. cc: ~ LEFT FOOT CT CT DOSE: 153.63 mGy.cm HISTORY: Abnormal left foot x-ray. osteomyelitis left foot TECHNIQUE: Multiaxial CT images of the left foot were performed and reformatted in the sagittal and coronal plane without the use of contrast. A dose lowering technique was utilized adhering to the principles of ALARA. COMPARISON: Left foot 07/28/2020. FINDINGS: Focal skin ulceration along the lateral aspect of the fifth MTP joint. There is extensive erosive change at the head of the fifth metatarsal and base of the fifth proximal phalanx consistent with osteomyelitis. No additional areas of destructive change within the left foot. There is moderate osteoarthritis at the first MTP joint. No acute fracture or dislocation within the left foot. Vascular calcifications are noted. Soft tissue swelling at the fifth MCP joint. IMPRESSION: Redemonstration of the osteomyelitis at the head of the fifth metatarsal and base of the fifth proximal phalanx. The erosive changes extend into the articular surface and raises the possibility of a septic arthritis. ACT 112: Negative or not required by law. Electronically signed by: Ben Davila M.D. 07/31/2020 10:54 AM Dictated: 07/31/20 105 Transcribed: 07/31/20 105 (1) Osteomyelitis Osteomyelitis type: subacute Osteomyelitis location: foot Laterality: left Qualified Code(s): M86.272 - Subacute osteomyelitis, left ankle and foot
--- NOTE | 2020-08-01 12:27 | Cardiology Progress Note ---
Date of Service August 01, 2020 Assessment & Plan (1) Diabetic ulcer of left foot associated with type 2 diabetes mellitus, with fat layer exposed: (2) Osteomyelitis: (3) Chronic systolic (congestive) heart failure: (4) Status post biventricular pacemaker: (5) Ischemic cardiomyopathy: (6) H/O gastric bypass: The patient is awaiting to speak further with the surgeon however, he is excepting the possibility of amputation. I would continue his current medications. As mentioned previously he has to remain on dual antiplatelet therapy through surgery and thereafter. Admission and Anticipated Discharge Date Admission Date: July 30, 2020 Subjective The patient had an uneventful night. No new cardiac complaints today. Review of Systems Review of Systems: All systems reviewed & are unremarkable except as noted in HPI & below Nothing additional to add. Physical Exam Physical Exam: General: no acute distress and stated age Head: normocephalic, no masses, lesions, tenderness or abnormalities Eyes: conjunctiva are pink and non-injected, sclera clear Neck: supple, no adenopathy, no bruits, normal jugular venous pulse, no hepatojugular reflux Chest: normal shape and normal respiratory effort Lungs: clear to auscultation and percussion Cardiac Exam: - regular rate & rhythm, no murmurs gallops or rubs - normal S1, normal S2 Pulses: 2(+) throughout Abdomen: abdomen soft, non-tender, no abnormal masses and no hepatosplenomegaly Musculoskeletal: no gait disturbance, no joint inflammation, no deforming arthritis Extremities: Left foot is bandaged Neuro: grossly normal exam Results & Data ([facility]) Vital Signs (Past 12 Hours) Vital Signs Temp Pulse Pulse Resp BP BP Pulse Ox 08/01/20 11:30 36.8 C 67 18 109/55 L 95 08/01/20 07:07 73 08/01/20 06:50 36.8 C 78 20 92/54 L 93 08/01/20 03:00 36.9 C 71 18 96/60 L 95 08/01/20 00:58 80 Laboratory Results Laboratory Results - last 24 hr 07/31/20 07/31/20 08/01/20 16:47 20:14 05:47 POC Glucose 130 H 201 H 119 H 08/01/20 12:13 POC Glucose 207 H Medications Administered Current Inpatient Medications Acetaminophen (Acetaminophen 325 Mg Tab) 650 mg PO Q4H PRN PRN Reason: Pain or Fever Stop: 11/01/20 17:09 Aspirin (Aspirin 81 Mg Ectab) 81 [facility] Stop: 08/30/20 12:44 Last Admin: 08/01/20 08:24 Dose: 81 mg Documented by: Atorvastatin Calcium (Atorvastatin 40 Mg Tab) 40 mg PO [facility] Stop: 08/29/20 20:59 Last Admin: 07/31/20 20:21 Dose: 40 mg Documented by: Clonazepam (Clonazepam 0.5 Mg Tab) 0.5 mg PO [facility] Stop: 08/29/20 20:59 Last Admin: 07/31/20 20:17 Dose: 0.5 mg Documented by: Clopidogrel Bisulfate (Clopidogrel Bisulfate 75 Mg Tab) 75 mg PO [facility] Stop: 08/30/20 08:59 Last Admin: 08/01/20 08:24 Dose: 75 mg Documented by: Dextrose (Dextrose 50% 50 Ml Syringe) 25 - 50 ml IV UD PRN; Protocol PRN Reason: Hypoglycemia Protocol Stop: 08/29/20 17:09 Furosemide (Furosemide 40 Mg Tab) 40 mg PO [id number]@0900 [facility] Stop: 08/30/20 08:59 Last Admin: 08/01/20 08:26 Dose: 40 mg Documented by: Glucagon (Glucagon For Inj 1 Mg Vial) 1 mg SQ UD PRN; Protocol PRN Reason: Hypoglycemia Protocol Stop: 08/29/20 17:09 Glucose (Glucose 10 Tabs/Tube) 4 - 8 tabs PO UD PRN; Protocol PRN Reason: Hypoglycemia Protocol Stop: 08/29/20 17:09 Glucose (Glucose 40% Gel 15 Gm Tube) 15 - 30 gm PO UD PRN; Protocol PRN Reason: Hypoglycemia Protocol Stop: 08/29/20 17:09 Hydromorphone HCl (Hydromorphone Inj 0.5 Mg/0.5 Ml Syr) 0.5 mg IV Q1H PRN PRN Reason: Pain Stop: 08/13/20 13:26 Last Admin: 08/01/20 11:21 Dose: 0.5 mg Documented by: Cefepime HCl 2,000 mg/ Syringe 20 mls @ 5 mls/min IV Q8H [facility]; Protocol Stop: 08/06/20 21:59 Last Admin: 08/01/20 05:47 Dose: 5 mls/min Documented by: Daptomycin 500 mg/ Syringe 10 mls @ 5 mls/min IV Q24H [facility]; Protocol Stop: 09/11/20 13:59 Last Admin: 07/31/20 14:39 Dose: 5 mls/min Documented by: Insulin Aspart (Insulin Aspart 100 Units/Ml 3 Ml Pen) 0 units SC Q6 [facility] Stop: 08/31/20 05:59 Last Admin: 08/01/20 06:15 Dose: Not Given Documented by: Metoprolol Succinate (Metoprolol Succ 25mg Ext Rel Tab) 12.5 mg PO BID [facility] Stop: 08/29/20 20:59 Last Admin: 08/01/20 08:25 Dose: 12.5 mg Documented by: Miscellaneous (Carbohydrates For Hypoglycemia ) 15 - 30 gm PO UD PRN PRN Reason: Hypoglycemia Protocol Stop: 08/29/20 17:09 Miscellaneous Information (Cefepime Consult Active) 1 ea N/A UD PRN PRN Reason: Consult Stop: 08/29/20 17:09 Miscellaneous Information (Daptomycin Consult Active) 1 ea N/A UD PRN PRN Reason: Consult Stop: 08/29/20 17:22 Ondansetron HCl (Ondansetron Inj 2 Mg/Ml 2 Ml Vial) 4 mg IV Q6H PRN PRN Reason: Nausea Stop: 08/29/20 17:09 Last Admin: 08/01/20 05:47 Dose: 4 mg Documented by: Polyethylene Glycol (Polyethylene (Miralax) 17 Gm Pack) 17 gm PO DAILY [facility] Stop: 08/29/20 22:59 Last Admin: 08/01/20 08:35 Dose: 17 gm Documented by: Pregabalin (Pregabalin 75 Mg Cap) 75 mg PO HS [facility] Stop: 08/29/20 20:59 Last Admin: 07/31/20 20:17 Dose: 75 mg Documented by: Sacubitril/Valsartan (Sacubitril-Valsartan 24-26 Mg Tab) 1 tab PO BID [facility] Stop: 08/29/20 20:59 Last Admin: 08/01/20 08:24 Dose: 1 tab Documented by: Spironolactone (Spironolactone 12.5 Mg Tab) 12.5 mg PO QAM [facility] Stop: 08/30/20 08:59 Last Admin: 08/01/20 08:27 Dose: 12.5 mg Documented by:
--- NOTE | 2020-08-01 13:31 | Hospitalist Progress Note ---
Date of Service August 01, 2020 Assessment & Plan (1) Osteomyelitis: Osteomyelitis at the head of the fifth metatarsal and base of the fifth proximal phalanx seen on CT foot on 07/31. - Continue daptomycin 475 & cefepime - Blood culture - negative to date - Will be seen by Dr. Haney tomorrow; decision on surgery at that time. (2) Diabetic ulcer of left foot associated with type 2 diabetes mellitus, with fat layer exposed: - Consulted wound care nurse. - Will need orthotics for offloading prior to discharge. (3) Chronic systolic (congestive) heart failure: EF was 25-30% on echo in 05/2020. - No acute exacerbation; appears euvolemic. - Continue Lasix 40 mg p.o. 5 times a week & spironolactone every morning - Continue ASA, Plavix, beta-mack, statin, Entresto - Appreciate cardiology consultation (4) Ischemic cardiomyopathy: EF 25 to 30% as above. - Continue cardiac meds as above (5) H/O gastric bypass: Notable history of this, B12 injections monthly. (6) CAD (coronary artery disease): No chest pain to indicate ischemia. - Continue above cardiac meds - Appreciate cardiology consultation (7) DVT prophylaxis: - Chemical prophylaxis deferred pending surgical decision. - SCDs contraindicated given peripheral artery disease and current ulcer on left side. Admission and Anticipated Discharge Date Admission Date: July 30, 2020 Subjective No major concerns today from a health standpoint. He is very dismayed about the possible amputation. Reports no fevers/chills, chest pain, shortness of breath, abdominal pain, nausea, or vomiting. Physical Exam Constitutional: WD/WN, vitals as above Eyes: EOM intact bilaterally; no conjunctival abnormality ENMT: external ear and nose normal, oropharynx normal Neck: trachea midline, no thyromegaly normal visual inspection Respiratory: normal respiratory effort, lungs clear to auscultation no respiratory distress Cardiovascular: RRR, no murmur, no edema Gastrointestinal (Abdomen): Inspection/Auscultation: abdomen normal to inspection; abdomen not distended Musculoskeletal: no cyanosis or clubbing, extremities motor strength 5/5 Skin: no rashes, warm and dry Neurologic: moves all extremities and awake Psychiatric: Orientation: alert, oriented to person and cooperative Results & Data Results & Data ([facility]) Vital Signs (Past 12 Hours) Vital Signs Temp Pulse Pulse Resp BP BP Pulse Ox 08/01/20 11:30 36.8 C 67 18 109/55 L 95 08/01/20 07:07 73 08/01/20 06:50 36.8 C 78 20 92/54 L 93 08/01/20 03:00 36.9 C 71 18 96/60 L 95 PG Care Time/CCT Total # of Minutes Spent Total Time Spent with Patient: Total time spent is greater than 50% in coordination of care (as documented) at patient's floor/unit and/or counseling patient: Coding Level of Care Code 41039 Subseq Hosp Care Lvl 3 Diagnoses Osteomyelitis M86.9 Diabetic ulcer of left foot associated with type 2 diabetes mellitus, with fat layer exposed E11.621; L97.522 Chronic systolic (congestive) heart failure I50.22 Ischemic cardiomyopathy I25.5 H/O gastric bypass Z98.84 CAD (coronary artery disease) I25.10 Coronary Disease-Associated Artery/Lesion type: [place] artery [place] vs. transplanted heart: [place] heart Associated angina: angina presence unspecified DVT prophylaxis Z29.9 (1) CAD (coronary artery disease) Coronary Disease-Associated Artery/Lesion type: [place] artery [place] vs. transplanted heart: [place] heart Associated angina: angina presence unspecified Qualified Code(s): I25.10 - Atherosclerotic heart disease of [place] coronary artery without angina pectoris
[2020-08-01] MEDS: DAPTOmycin 500 MG in SYRINGE 0 ML IV SCH (14:28)
[2020-08-01] MEDS ORDERED: HYDROmorphone INJ 1 MG/ML SYRINGE ONE (21:29)
[2020-08-01] MEDS: HYDROmorphone INJ 1 MG/ML SYRINGE IV PRN ×2 (21:30→23:43)
[2020-08-01] MEDS: clonazePAM 0.5 MG TAB PO SCH (21:37)
[2020-08-01] MEDS: ATORVASTATIN 40 MG TAB PO SCH (21:37)
[2020-08-01] MEDS: PREGABALIN 75 MG CAP PO SCH (21:38)
[2020-08-01] MEDS: ACETAMINOPHEN 325 MG TAB PO PRN (23:43)
[2020-08-02] MEDS: HYDROmorphone INJ 1 MG/ML SYRINGE IV PRN ×5 (03:04→13:14)
[2020-08-02] MEDS: ACETAMINOPHEN 325 MG TAB PO PRN (06:04)
[2020-08-02] MEDS: CEFEPIME 2,000 MG in SYRINGE 0 ML IV SCH ×3 (06:05→21:24)
[2020-08-02 07:16] LABS: Hematocrit (blood only) 41.3 % (42-52); Hemoglobin 13.6 g/dL (14.0-18.0); Mean Corpuscular Hemoglobin 31.2 pg (25-34); Mean Corpuscular Hgb Conc 32.9 g/dL (32-36); Mean Corpuscular Volume 94.7 fL (80-100); Mean Platelet Volume 10.8 fL (7.4-10.4); Platelet Count 205 K/uL (130-400); RDW Coefficient of Variation 13.7 % (11.5-14.5); RDW Standard Deviation 47.7 fL (36.4-46.3); Red Blood Count 4.36 M/uL (4.7-6.1); White Blood Count 7.44 K/uL (4.8-10.8)
[2020-08-02 07:49] LABS: BUN Creatinine Ratio 22.1 (10-20); Calcium 9.2 mg/dl (8.5-10.1); Est GFR (African American) 100.7; Est GFR (Non-African American) 86.9; Magnesium 2.1 mg/dl (1.8-2.4); Potassium 4.5 mmol/L (3.5-5.1)
[2020-08-02] MEDS: METOPROLOL SUCC 25MG EXT REL TAB PO SCH ×2 (08:10→20:14)
[2020-08-02] MEDS: POLYETHYLENE (MIRALAX) 17 GM PACK PO SCH (08:11)
[2020-08-02] MEDS: FUROSEMIDE 40 MG TAB PO SCH (08:11)
[2020-08-02] MEDS: ASPIRIN 81 MG ECTAB PO SCH (08:11)
[2020-08-02] MEDS: SPIRONOLACTONE 12.5 MG TAB PO SCH (08:11)
[2020-08-02] MEDS: CLOPIDOGREL BISULFATE 75 MG TAB PO SCH (08:11)
[2020-08-02] MEDS: SACUBITRIL-VALSARTAN 24-26 MG TAB PO SCH ×2 (08:11→20:14)
[2020-08-02] MEDS: INSULIN ASPART 100 UNITS/ML 3 ML PEN SC SCH ×4 (08:15→20:15)
--- NOTE | 2020-08-02 11:39 | Cardiology Progress Note ---
Date of Service August 02, 2020 Assessment & Plan (1) Diabetic ulcer of left foot associated with type 2 diabetes mellitus, with fat layer exposed: (2) Osteomyelitis: (3) Chronic systolic (congestive) heart failure: (4) Status post biventricular pacemaker: (5) Ischemic cardiomyopathy: (6) H/O gastric bypass: Waiting for final decision regarding surgery otherwise the patient is stable. Admission and Anticipated Discharge Date Admission Date: July 30, 2020 Subjective The patient is in good spirits. He is clinically stable and waiting for the decision regarding surgery. Review of Systems Review of Systems: All systems reviewed & are unremarkable except as noted in Subjective Physical Exam Physical Exam: General: no acute distress and stated age Head: normocephalic, no masses, lesions, tenderness or abnormalities Eyes: conjunctiva are pink and non-injected, sclera clear Neck: supple, no adenopathy, no bruits, normal jugular venous pulse, no hepatojugular reflux Chest: normal shape and normal respiratory effort Lungs: clear to auscultation and percussion Cardiac Exam: - regular rate & rhythm, no murmurs gallops or rubs - normal S1, normal S2 Pulses: 2(+) throughout Abdomen: abdomen soft, non-tender, no abnormal masses and no hepatosplenomegaly Musculoskeletal: no gait disturbance, no joint inflammation, no deforming arthritis Extremities: Bandaged left foot Neuro: grossly normal exam Results & Data ([facility]) Vital Signs (Past 12 Hours) Vital Signs Temp Pulse Resp BP Pulse Ox 08/02/20 11:36 37.0 C 72 18 108/62 95 08/02/20 07:14 37.0 C 79 18 103/63 96 08/02/20 03:15 37.1 C 68 16 87/56 L 93 Laboratory Results Laboratory Results - last 24 hr 08/01/20 08/01/20 08/01/20 12:13 16:41 20:07 WBC RBC Hgb Hct MCV MCH MCHC RDW Std Deviation RDW Coeff of Neyda Plt Count MPV Sodium Potassium Chloride Carbon Dioxide Anion Gap BUN Creatinine Est Cr Clr Drug Dosing Est GFR ( Amer) Est GFR (Non-Af Amer) BUN/Creatinine Ratio Glucose POC Glucose 207 H 156 H 148 H Calcium Magnesium 08/02/20 08/02/20 08/02/20 06:45 06:45 07:23 WBC 7.44 RBC 4.36 L Hgb 13.6 L Hct 41.3 L MCV 94.7 MCH 31.2 MCHC 32.9 RDW Std Deviation 47.7 H RDW Coeff of Neyda 13.7 Plt Count 205 MPV 10.8 H Sodium 138 Potassium 4.5 Chloride 107 Carbon Dioxide 28 Anion Gap 3.0 BUN 20 H Creatinine 0.91 Est Cr Clr Drug Dosing 89.0 Est GFR ( Amer) 100.7 Est GFR (Non-Af Amer) 86.9 BUN/Creatinine Ratio 22.1 H Glucose 135 H POC Glucose 161 H Calcium 9.2 Magnesium 2.1 08/02/20 11:20 WBC RBC Hgb Hct MCV MCH MCHC RDW Std Deviation RDW Coeff of Neyda Plt Count MPV Sodium Potassium Chloride Carbon Dioxide Anion Gap BUN Creatinine Est Cr Clr Drug Dosing Est GFR ( Amer) Est GFR (Non-Af Amer) BUN/Creatinine Ratio Glucose POC Glucose 199 H Calcium Magnesium Medications Administered Current Inpatient Medications Acetaminophen (Acetaminophen 325 Mg Tab) 650 mg PO Q4H PRN PRN Reason: Pain or Fever Stop: 08/29/20 17:09 Last Admin: 08/02/20 06:04 Dose: 650 mg Documented by: Aspirin (Aspirin 81 Mg Ectab) 81 mg PO [facility] Stop: 08/30/20 12:44 Last Admin: 08/02/20 08:11 Dose: 81 mg Documented by: Atorvastatin Calcium (Atorvastatin 40 Mg Tab) 40 mg PO [facility] Stop: 08/29/20 20:59 Last Admin: 08/01/20 21:37 Dose: 40 mg Documented by: Clonazepam (Clonazepam 0.5 Mg Tab) 0.5 mg PO [facility] Stop: 08/29/20 20:59 Last Admin: 08/01/20 21:37 Dose: 0.5 mg Documented by: Clopidogrel Bisulfate (Clopidogrel Bisulfate 75 Mg Tab) 75 mg PO [facility] Stop: 08/30/20 08:59 Last Admin: 08/02/20 08:11 Dose: 75 mg Documented by: Dextrose (Dextrose 50% 50 Ml Syringe) 25 - 50 ml IV UD PRN; Protocol PRN Reason: Hypoglycemia Protocol Stop: 08/29/20 17:09 Furosemide (Furosemide 40 Mg Tab) 40 mg PO [id number] [facility] Stop: 08/30/20 08:59 Last Admin: 08/02/20 08:11 Dose: 40 mg Documented by: Glucagon (Glucagon For Inj 1 Mg Vial) 1 mg SQ UD PRN; Protocol PRN Reason: Hypoglycemia Protocol Stop: 08/29/20 17:09 Glucose (Glucose 10 Tabs/Tube) 4 - 8 tabs PO UD PRN; Protocol PRN Reason: Hypoglycemia Protocol Stop: 08/29/20 17:09 Glucose (Glucose 40% Gel 15 Gm Tube) 15 - 30 gm PO UD PRN; Protocol PRN Reason: Hypoglycemia Protocol Stop: 08/29/20 17:09 Hydromorphone HCl (Hydromorphone Inj 1 Mg/Ml Syringe) 1 mg IV Q1H PRN PRN Reason: Pain Stop: 08/15/20 21:28 Last Admin: 08/02/20 10:59 Dose: 1 mg Documented by: Cefepime HCl 2,000 mg/ Syringe 20 mls @ 5 mls/min IV Q8H SHANE; Protocol Stop: 08/06/20 21:59 Last Admin: 08/02/20 06:05 Dose: 5 mls/min Documented by: Daptomycin 500 mg/ Syringe 10 mls @ 5 mls/min IV Q24H SHANE; Protocol Stop: 09/11/20 13:59 Last Admin: 08/01/20 14:28 Dose: 5 mls/min Documented by: Insulin Aspart (Insulin Aspart 100 Units/Ml 3 Ml Pen) 0 units SC ACHS SHANE; Protocol Stop: 08/31/20 16:29 Last Admin: 08/02/20 08:15 Dose: 1 units Documented by: Metoprolol Succinate (Metoprolol Succ 25mg Ext Rel Tab) 12.5 mg PO BID SHANE Stop: 08/29/20 20:59 Last Admin: 08/02/20 08:10 Dose: 12.5 mg Documented by: Miscellaneous (Carbohydrates For Hypoglycemia ) 15 - 30 gm PO UD PRN PRN Reason: Hypoglycemia Protocol Stop: 08/29/20 17:09 Miscellaneous Information (Cefepime Consult Active) 1 ea N/A UD PRN PRN Reason: Consult Stop: 08/29/20 17:09 Miscellaneous Information (Daptomycin Consult Active) 1 ea N/A UD PRN PRN Reason: Consult Stop: 08/29/20 17:22 Ondansetron HCl (Ondansetron Inj 2 Mg/Ml 2 Ml Vial) 4 mg IV Q6H PRN PRN Reason: Nausea Stop: 08/29/20 17:09 Last Admin: 08/01/20 05:47 Dose: 4 mg Documented by: Polyethylene Glycol (Polyethylene (Miralax) 17 Gm Pack) 17 gm PO DAILY SHANE Stop: 08/29/20 22:59 Last Admin: 08/02/20 08:11 Dose: 17 gm Documented by: Pregabalin (Pregabalin 75 Mg Cap) 75 mg PO HS [facility] Stop: 08/29/20 20:59 Last Admin: 08/01/20 21:38 Dose: 75 mg Documented by: Sacubitril/Valsartan (Sacubitril-Valsartan 24-26 Mg Tab) 1 tab PO BID SHANE Stop: 08/29/20 20:59 Last Admin: 08/02/20 08:11 Dose: 1 tab Documented by: Spironolactone (Spironolactone 12.5 Mg Tab) 12.5 mg PO QAM [facility] Stop: 08/30/20 08:59 Last Admin: 08/02/20 08:11 Dose: 12.5 mg Documented by:
--- NOTE | 2020-08-02 12:45 | Hospitalist Progress Note ---
Date of Service August 02, 2020 Assessment & Plan (1) Osteomyelitis: Osteomyelitis at the head of the fifth metatarsal and base of the fifth proximal phalanx seen on CT foot on 07/31. - Continue daptomycin & cefepime - Blood culture - negative to date - Will be seen by Dr. Haney today; decision on surgery at that time. (2) Diabetic ulcer of left foot associated with type 2 diabetes mellitus, with fat layer exposed: - Consulted wound care nurse. - Will need orthotics for offloading prior to discharge. (3) Chronic systolic (congestive) heart failure: EF was 25-30% on echo in 05/2020. - No acute exacerbation; appears euvolemic. - Continue Lasix 40 mg p.o. 5 times a week & spironolactone every morning - Continue ASA, Plavix, beta-mack, statin, Entresto - Appreciate cardiology consultation -> Must stay on DAPT in denita-operative period. (4) Ischemic cardiomyopathy: EF 25 to 30% as above. - Continue cardiac meds as above (5) H/O gastric bypass: Notable history of this, B12 injections monthly. (6) CAD (coronary artery disease): No chest pain to indicate ischemia. - Continue above cardiac meds - Appreciate cardiology consultation (7) DVT prophylaxis: - Chemical prophylaxis deferred pending surgical decision. - SCDs contraindicated given peripheral artery disease and current ulcer on left side. Admission and Anticipated Discharge Date Admission Date: July 30, 2020 Subjective In good spirits today. Some pain in the foot. He is willing to have the amputation if he needs it. Reports no fevers/chills, chest pain, shortness of breath, abdominal pain, nausea, or vomiting. Physical Exam Constitutional: WD/WN, vitals as above Eyes: EOM intact bilaterally; no conjunctival abnormality ENMT: external ear and nose normal, oropharynx normal Neck: trachea midline, no thyromegaly normal visual inspection Respiratory: normal respiratory effort, lungs clear to auscultation no respiratory distress Cardiovascular: RRR, no murmur, no edema Gastrointestinal (Abdomen): Inspection/Auscultation: abdomen normal to inspection; abdomen not distended Musculoskeletal: no cyanosis or clubbing, extremities motor strength 5/5 Skin: no rashes, warm and dry Neurologic: moves all extremities and awake Psychiatric: Orientation: alert, oriented to person and cooperative Results & Data Results & Data ([facility]) Vital Signs (Past 12 Hours) Vital Signs Temp Pulse Resp BP Pulse Ox 08/02/20 11:36 37.0 C 72 18 108/62 95 08/02/20 07:14 37.0 C 79 18 103/63 96 08/02/20 03:15 37.1 C 68 16 87/56 L 93 PG Care Time/CCT Total # of Minutes Spent Total Time Spent with Patient: Total time spent is greater than 50% in coordination of care (as documented) at patient's floor/unit and/or counseling patient: Coding Level of Care Code 38555 Subseq Hosp Care Lvl 2 Diagnoses Osteomyelitis M86.9 Diabetic ulcer of left foot associated with type 2 diabetes mellitus, with fat layer exposed E11.621; L97.522 Chronic systolic (congestive) heart failure I50.22 Ischemic cardiomyopathy I25.5 H/O gastric bypass Z98.84 CAD (coronary artery disease) I25.10 Coronary Disease-Associated Artery/Lesion type: [place] artery [place] vs. transplanted heart: [place] heart Associated angina: angina presence unspecified DVT prophylaxis Z29.9 (1) CAD (coronary artery disease) Coronary Disease-Associated Artery/Lesion type: [place] artery [place] vs. transplanted heart: [place] heart Associated angina: angina presence unspecified Qualified Code(s): I25.10 - Atherosclerotic heart disease of [place] coronary artery without angina pectoris
[2020-08-02] MEDS: DAPTOmycin 500 MG in SYRINGE 0 ML IV SCH (13:41)
--- NOTE | 2020-08-02 13:52 | Podiatry Consultation ---
Date of Consultation August 02, 2020 Assessment & Plan (1) Osteomyelitis: Laterality: left Osteomyelitis location: foot Osteomyelitis type: subacute Qualified Code(s): M86.272 - Subacute osteomyelitis, left ankle and foot (2) Diabetic ulcer of left foot associated with type 2 diabetes mellitus, with fat layer exposed: History of Present Illness Attending Physician: Dandy Fernandez MD Patient seen and evaluated at bedside today. History ulcer to the left foot 5th metatarsal head, and has pustule present dorsally as well related to the severity of the infection. Osteomyelitis seen on MRI of the 5th metatarsal head as well as the base of the digit. Patient also has non palpable DT/PT, had arterial Doppler while in house that showed monophasic circulation - he will need to be cleared from vascular surgery prior to any amputations of the left foot due to his arterial disease. Patient's fiance was also not entirely opposed to the idea of surgery, but additionally not all for it either, she was asking for a repeat CT scan prior to any surgery to see if the infection resolved. I discussed with patient and hospitalist the earliest for this procedure to be done would be next SundayAugust 18. This can be done outpatient as well if cleared from a vascular perspective. Allergies Allergy/AdvReac Type Severity Reaction Status Date / Time Penicillins Allergy Unknown Unknown Verified 07/30/20 14:13 Sulfa (Sulfonamide Allergy Unknown Unknown Verified 07/30/20 14:13 Antibiotics) oxycodone AdvReac Mild Nausea/Vomi Verified 07/30/20 14:13 ting simvastatin AdvReac Unknown muscle pain Verified 07/30/20 14:13 Home Medications Home Medications Medication Instructions Recorded Confirmed Type clonazepam 0.5 mg PO HS 02/09/19 07/30/20 History clopidogrel 75 mg PO QAM 02/09/19 07/30/20 History cyanocobalamin (vitamin B-12) 1,000 mcg IM MONTHLY 02/09/19 07/30/20 History furosemide 40 mg PO 5XWK 02/09/19 07/30/20 History pregabalin [Lyrica] 75 mg PO HS 04/26/19 07/30/20 History atorvastatin 40 mg PO HS 07/10/19 07/30/20 History nitroglycerin 0.4 mg SUBLINGUAL DIRECTED PRN 07/10/19 07/30/20 History Entresto 1 tab PO BID 06/12/20 07/30/20 History metformin [Glucophage] 500 mg PO BID #0 tab 06/14/20 07/30/20 Rx metoprolol succinate 12.5 mg PO BID #0 tab 06/14/20 07/30/20 Rx spironolactone 12.5 mg PO QAM 07/30/20 07/30/20 History Patient History Medical History ACS (acute coronary syndrome) Atypical chest pain 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) [facility] CAD (coronary artery disease) Chest pain Chronic systolic (congestive) heart failure Diabetes Diabetic foot ulcer Hyperlipidemia [place] (myocardial infarction) x 8 events; 10 stents in total Peripheral neuropathy Surgical History H/O gastric bypass S/P appendectomy S/P cardiac catheterization S/P cholecystectomy Status post biventricular pacemaker Family History Father , 51 Coronary heart disease Myocardial infarction Brother Coronary heart disease Brother Coronary heart disease Other Diabetes Social History Smoking Status: Former smoker packs per day: 2; Hx Alcohol Use: No Hx Substance Use: No Preferred Language: Welsh Communication Ability: Effective Racehorse Trainer Required: No Beliefs That Will Affect Care: None marital status: Single marital status details: 01/2020 Current Living Situation: Alone current occupational status: employed 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 Results & Data ([facility]) Vital Signs (Past 12 Hours) Vital Signs Temp Pulse Resp BP Pulse Ox 08/02/20 11:36 37.0 C 72 18 108/62 95 08/02/20 07:14 37.0 C 79 18 103/63 96 08/02/20 03:15 37.1 C 68 16 87/56 L 93
[2020-08-02] MEDS: MoRPHine SULFATE 4 MG/ML 1 ML CARP\\VIAL IV PRN ×3 (14:41→23:51)
[2020-08-02] MEDS: HYDROCODONE/ACETAMOPHEN 5/325MG TAB PO PRN ×2 (16:56→21:30)
[2020-08-02] MEDS: PREGABALIN 75 MG CAP PO SCH (20:14)
[2020-08-02] MEDS: clonazePAM 0.5 MG TAB PO SCH (20:14)
[2020-08-03] MEDS: HYDROCODONE/ACETAMOPHEN 5/325MG TAB PO PRN (01:53)
[2020-08-03] MEDS ORDERED: SODIUM CHLORIDE 0.9% 1000ML 250 ML IV ONE (03:08)
[2020-08-03] MEDS: CEFEPIME 2,000 MG in SYRINGE 0 ML IV SCH (06:14)
[2020-08-03 07:14] LABS: Hematocrit (blood only) 38.7 % (42-52); Hemoglobin 12.9 g/dL (14.0-18.0); Mean Corpuscular Hemoglobin 31.2 pg (25-34); Mean Corpuscular Hgb Conc 33.3 g/dL (32-36); Mean Corpuscular Volume 93.7 fL (80-100); Mean Platelet Volume 10.6 fL (7.4-10.4); Platelet Count 172 K/uL (130-400); RDW Coefficient of Variation 13.6 % (11.5-14.5); RDW Standard Deviation 46.4 fL (36.4-46.3); Red Blood Count 4.13 M/uL (4.7-6.1); White Blood Count 6.26 K/uL (4.8-10.8)
[2020-08-03 07:46] LABS: BUN Creatinine Ratio 20.6 (10-20); Creatinine Clr Calc Pharmacy 93.1 ml/min; Est GFR (African American) 103.5; Est GFR (Non-African American) 89.3; Magnesium 2.1 mg/dl (1.8-2.4); Potassium 4.4 mmol/L (3.5-5.1)
[2020-08-03] MEDS: MoRPHine SULFATE 4 MG/ML 1 ML CARP\\VIAL IV PRN ×4 (08:21→22:10)
[2020-08-03] MEDS: ASPIRIN 81 MG ECTAB PO SCH (08:22)
[2020-08-03] MEDS: SACUBITRIL-VALSARTAN 24-26 MG TAB PO SCH ×2 (08:22→21:01)
[2020-08-03] MEDS: METOPROLOL SUCC 25MG EXT REL TAB PO SCH ×2 (08:22→21:01)
[2020-08-03] MEDS: POLYETHYLENE (MIRALAX) 17 GM PACK PO SCH (08:22)
[2020-08-03] MEDS: CLOPIDOGREL BISULFATE 75 MG TAB PO SCH (08:22)
[2020-08-03] MEDS: INSULIN ASPART 100 UNITS/ML 3 ML PEN SC SCH ×4 (08:48→21:01)
--- NOTE | 2020-08-03 10:12 | Consultation ---
Date of Consultation August 03, 2020 Assessment & Plan (1) Peripheral arterial disease: LLE US demonstrates PAD and pt with osteomyelitis of l foot wound. Pt discussed with Dr Hicks, recommends pt undergo LLE angio in OR tomorrow. Pt agreeable. Pt had fiancee on speakerphone during visit. History of Present Illness Reason for Consultation: PAD, LLE osteomyelitis Attending Physician: Dandy Fernandez MD History of Present Illness 65 yo m with hx of CAD, cardiomyopathy with EF of 25%, DMII, CHF, pacemaker, DC, hyperlipidemia, admitted with infection in L foot ulcer, seen in consutlation today for PAD noted in LLE arterial US. Pt with osteomyelitis of L 5th MT. Pt denies RO, fever, chills, chest pain, SOB, abd pain, N/V, rest pain, claudication, other complaints. Pt was seen by podiatry who is planning on surgery to L foot in 1-2 weeks, but wanted vascular eval prior to surgery. LLE arterial US demonstrates moderate PAD, with possible distal pop or infrapop stenosis. Allergies Allergy/AdvReac Type Severity Reaction Status Date / Time Penicillins Allergy Unknown Unknown Verified 07/30/20 14:13 Sulfa (Sulfonamide Allergy Unknown Unknown Verified 07/30/20 14:13 Antibiotics) oxycodone AdvReac Mild Nausea/Vomi Verified 07/30/20 14:13 ting simvastatin AdvReac Unknown muscle pain Verified 07/30/20 14:13 Home Medications Home Medications Medication Instructions Recorded Confirmed Type clonazepam 0.5 mg PO HS 02/09/19 07/30/20 History clopidogrel 75 mg PO QAM 02/09/19 07/30/20 History cyanocobalamin (vitamin B-12) 1,000 mcg IM MONTHLY 02/09/19 07/30/20 History furosemide 40 mg PO 5XWK 02/09/19 07/30/20 History pregabalin [Lyrica] 75 mg PO HS 04/26/19 07/30/20 History atorvastatin 40 mg PO HS 07/10/19 07/30/20 History nitroglycerin 0.4 mg SUBLINGUAL DIRECTED PRN 07/10/19 07/30/20 History Entresto 1 tab PO BID 06/12/20 07/30/20 History metformin [Glucophage] 500 mg PO BID #0 tab 06/14/20 07/30/20 Rx metoprolol succinate 12.5 mg PO BID #0 tab 06/14/20 07/30/20 Rx spironolactone 12.5 mg PO QAM 07/30/20 07/30/20 History Patient History Medical History ACS (acute coronary syndrome) Atypical chest pain 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) [facility] CAD (coronary artery disease) Chest pain Chronic systolic (congestive) heart failure Diabetes Diabetic foot ulcer Hyperlipidemia [place] (myocardial infarction) x 8 events; 10 stents in total Peripheral arterial disease Peripheral neuropathy Surgical History H/O gastric bypass S/P appendectomy S/P cardiac catheterization S/P cholecystectomy Status post biventricular pacemaker Family History Father , 51 Coronary heart disease Myocardial infarction Brother Coronary heart disease Brother Coronary heart disease Other Diabetes Social History Smoking Status: Former smoker packs per day: 2; Hx Alcohol Use: No Hx Substance Use: No Preferred Language: Welsh Communication Ability: Effective Pricing Specialist Required: No Beliefs That Will Affect Care: None marital status: Single marital status details: 01/2020 Current Living Situation: Alone current occupational status: employed 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 - [employer] How many Children do You have: 1 How many Children do You have Comment: son Feels Safe at Home: Yes Assistive Devices: None Review of Systems Review of Systems: All systems reviewed & are unremarkable except as noted in HPI & below Physical Exam Constitutional: WD/WN, vitals as above healthy appearing and cooperative Eyes: PERRL, conjunctivae normal, anicteric sclerae ENMT: Ears: + hearing impairment Neck: normal visual inspection Respiratory: normal respiratory effort, lungs clear to auscultation Auscultation: + diminished lung sounds Cardiovascular: Rate/Rhythm: regular rate and regular rhythm Vessels: femoral pulses present, posterior tibial pulses present (with doppler), dorsalis pedis pulses present (wiith doppler), brachial pulses present and radial pulses present; + abnormal peripheral pulses Extremities: normal capillary refill; no edema Gastrointestinal (Abdomen): normal bowel sounds, soft, nontender, no hepatosplenomegaly Musculoskeletal: no cyanosis or clubbing, extremities motor strength 5/5 Skin: + wound (L lateral foot, optifoam in place) Neurologic: moves all extremities; no focal motor deficits and not confused Psychiatric: A+Ox3, euthymic affect Results & Data ([facility]) Vital Signs (Past 12 Hours) Vital Signs Temp Pulse Pulse Resp BP BP Pulse Ox 08/03/20 07:30 36.8 C 70 17 93/56 L 95 08/03/20 03:42 78 98/59 L 08/03/20 03:05 37.2 C 75 18 79/53 L 97 08/03/20 00:01 78 08/02/20 23:35 37.0 C 84 20 104/62 94
[2020-08-03] MEDS: SPIRONOLACTONE 12.5 MG TAB PO SCH (10:52)
[2020-08-03] MEDS: FUROSEMIDE 40 MG TAB PO SCH (10:52)
--- NOTE | 2020-08-03 11:42 | Podiatry Consultation ---
Date of Consultation August 03, 2020 Assessment & Plan (1) Peripheral arterial disease: (2) Osteomyelitis: Laterality: left Osteomyelitis location: foot Osteomyelitis type: subacute Qualified Code(s): M86.272 - Subacute osteomyelitis, left ankle and foot (3) Diabetic ulcer of left foot associated with type 2 diabetes mellitus, with fat layer exposed: History of Present Illness Attending Physician: Dandy Fernandez MD Patient seen at bedside this morning, dressing removed and foot evaluated, still has ulceration plantar aspect of the left foot. However the dorsal area of fluctuance has improved somewhat. Patient's fiance/friend on the phone during visit and asked if the surgery could be done sooner than next Sunday, I explained patient is still not cleared from a vascular perspective, patient was seen today by vascular and they plan to do an angioplasty on patient tomorrow in the OR. Will touch base with them after. Additionally, patient's friend/fiance asked if could see patient for another opinion about surgery, they were originally scheduled with him in our office for today, but that was cancelled due to this hospital admission. I spoke with and he will be over to see patient as well. Allergies Allergy/AdvReac Type Severity Reaction Status Date / Time Penicillins Allergy Unknown Unknown Verified 07/30/20 14:13 Sulfa (Sulfonamide Allergy Unknown Unknown Verified 07/30/20 14:13 Antibiotics) oxycodone AdvReac Mild Nausea/Vomi Verified 07/30/20 14:13 ting simvastatin AdvReac Unknown muscle pain Verified 07/30/20 14:13 Home Medications Home Medications Medication Instructions Recorded Confirmed Type clonazepam 0.5 mg PO HS 02/09/19 07/30/20 History clopidogrel 75 mg PO QAM 02/09/19 07/30/20 History cyanocobalamin (vitamin B-12) 1,000 mcg IM MONTHLY 02/09/19 07/30/20 History furosemide 40 mg PO 5XWK 02/09/19 07/30/20 History pregabalin [Lyrica] 75 mg PO HS 04/26/19 07/30/20 History atorvastatin 40 mg PO HS 07/10/19 07/30/20 History nitroglycerin 0.4 mg SUBLINGUAL DIRECTED PRN 07/10/19 07/30/20 History Entresto 1 tab PO BID 06/12/20 07/30/20 History metformin [Glucophage] 500 mg PO BID #0 tab 06/14/20 07/30/20 Rx metoprolol succinate 12.5 mg PO BID #0 tab 06/14/20 07/30/20 Rx spironolactone 12.5 mg PO QAM 07/30/20 07/30/20 History Patient History Medical History ACS (acute coronary syndrome) Atypical chest pain 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) [facility] CAD (coronary artery disease) Chest pain Chronic systolic (congestive) heart failure Diabetes Diabetic foot ulcer Hyperlipidemia SD (myocardial infarction) 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 events; 10 stents in total Peripheral arterial disease Peripheral neuropathy Surgical History H/O gastric bypass S/P appendectomy S/P cardiac catheterization S/P cholecystectomy Status post biventricular pacemaker Family History Father , 51 Coronary heart disease Myocardial infarction Brother Coronary heart disease Brother Coronary heart disease Other Diabetes Social History Smoking Status: Former smoker packs per day: 2; Hx Alcohol Use: No Hx Substance Use: No Preferred Language: Maori Communication Ability: Effective Sheet Heater Helper Required: No Beliefs That Will Affect Care: None marital status: Single marital status details: 01/2020 Current Living Situation: Alone current occupational status: employed 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 Results & Data ([facility]) Vital Signs (Past 12 Hours) Vital Signs Temp Pulse Pulse Resp BP Pulse Ox 08/03/20 07:30 36.8 C 70 17 93/56 L 95 08/03/20 03:42 78 98/59 L 08/03/20 03:05 37.2 C 75 18 79/53 L 97 10/06/20 00:01 78
--- NOTE | 2020-08-03 11:56 | Hospitalist Progress Note ---
Date of Service August 03, 2020 Assessment & Plan (1) Osteomyelitis: Osteomyelitis at the head of the fifth metatarsal and base of the fifth proximal phalanx seen on CT foot on 07/31. - Prior wound cultures grew MSSA & quinn-sensitive Pseudomonas in 04/2020. Culture in 06/2020 grew Actinomyces. Most recent culture with multiple patrick. - Started on daptomycin & cefepime - Switched to ceftriaxone & levofloxacin on 08/03 -> Spent some time looking through cultures. This will cover all his 3 prior bugs with the ceftriaxone being a better choice than cefepime at covering his Actinomyces. - Blood cultures from 07/30 - negative to date - Seen by Dr. Haney yesterday - recommended surgery. Will be seen by Dr. Hunt today for second opinion. - Seen by vascular surgery today to consider angioplasty or stent given poor blood flow to the left leg. (2) Diabetic ulcer of left foot associated with type 2 diabetes mellitus, with fat layer exposed: - Consulted wound care nurse. - Will need orthotics for offloading prior to discharge. (3) Chronic systolic (congestive) heart failure: EF was 25-30% on echo in 05/2020. - No acute exacerbation; appears euvolemic today still. - Continue Lasix 40 mg p.o. 5 times a week & spironolactone every morning - Continue ASA, Plavix, beta-mack, statin, Entresto - Appreciate cardiology consultation -> Must stay on DAPT in denita-operative period. (4) Ischemic cardiomyopathy: EF 25 to 30% as above. - Continue cardiac meds as above (5) H/O gastric bypass: Notable history of this, B12 injections monthly. (6) CAD (coronary artery disease): No chest pain to indicate ischemia. - Continue above cardiac meds - Appreciate cardiology consultation (7) DVT prophylaxis: - Chemical prophylaxis deferred pending surgical decision. - SCDs contraindicated given peripheral artery disease and current ulcer on left side. Admission and Anticipated Discharge Date Admission Date: July 30, 2020 Subjective Mr. Mcdowell is feeling somewhat frustrated today. He reports that he feels like too many things are happening too quickly. He reports continued pain in the left foot. Reports no fevers/chills, chest pain, shortness of breath, abdominal pain, nausea, or vomiting. Physical Exam Constitutional: WD/WN, vitals as above Eyes: EOM intact bilaterally; no conjunctival abnormality ENMT: external ear and nose normal, oropharynx normal Neck: trachea midline, no thyromegaly normal visual inspection Respiratory: normal respiratory effort, lungs clear to auscultation no respiratory distress Cardiovascular: RRR, no murmur, no edema Gastrointestinal (Abdomen): Inspection/Auscultation: abdomen normal to ins pection; abdomen not distended Musculoskeletal: no cyanosis or clubbing, extremities motor strength 5/5 Skin: + ulcer (Left foot) Neurologic: moves all extremities and awake Psychiatric: Orientation: alert, oriented to person and cooperative Results & Data Results & Data ([facility]) Vital Signs (Past 12 Hours) Vital Signs Temp Pulse Pulse Resp BP Pulse Ox 08/03/20 07:30 36.8 C 70 17 93/56 L 95 08/03/20 03:42 78 98/59 L 08/03/20 03:05 37.2 C 75 18 79/53 L 97 08/03/20 00:01 78 PG Care Time/CCT Total # of Minutes Spent Total Time Spent with Patient: Total time spent is greater than 50% in coordination of care (as documented) at patient's floor/unit and/or counseling patient: Coding Level of Care Code 11060 Subseq Hosp Care Lvl 2 Diagnoses Osteomyelitis M86.9 Diabetic ulcer of left foot associated with type 2 diabetes mellitus, with fat layer exposed E11.621; L97.522 Chronic systolic (congestive) heart failure I50.22 Ischemic cardiomyopathy I25.5 H/O gastric bypass Z98.84 CAD (coronary artery disease) I25.10 Coronary Disease-Associated Artery/Lesion type: [place] artery [place] vs. transplanted heart: [place] heart Associated angina: angina presence unspecified DVT prophylaxis Z29.9 (1) CAD (coronary artery disease) Coronary Disease-Associated Artery/Lesion type: [place] artery [place] vs. transplanted heart: [place] heart Associated angina: angina presence unspecified Qualified Code(s): I25.10 - Atherosclerotic heart disease of [place] coronary artery without angina pectoris
--- NOTE | 2020-08-03 12:21 | Billing Data ---
Date of Service August 03, 2020 Coding Level of Care Code 56946 Prolonged Care (int'l) Comment In the room with patient from 10:40am - 11:15am.
[2020-08-03] MEDS: cefTRIAXone SODIUM 2,000 MG in DEXTROSE 5% 50 ML IV SCH (13:05)
[2020-08-03] MEDS: levoFLOXacin/D5W 750 MG/150 ML BAG IV SCH (14:05)
[2020-08-03] MEDS: DOCUSATE SODIUM/SENNA 50/8.6MG TAB PO SCH (14:06)
[2020-08-03] MEDS: SACCHAROMYCES BOULARDII 250 MG CAP PO SCH (14:08)
--- NOTE | 2020-08-03 17:29 | Electrocardiogram Report ---
Test Reason : Blood Pressure : / mmHG Vent. Rate : 087 BPM Atrial Rate : 087 BPM P-R Int : 172 ms QRS Dur : 114 ms QT Int : 378 ms P-R-T Axes : 256 017 232 degrees QTc Int : 454 ms Atrial-sensed ventricular-paced rhythm ectopic atrial rhythm Abnormal ECG Confirmed by Iker Myrick ([id number]) on 08/03/2020 5:29:10 PM Referred By: Zac Torres Confirmed By:Alverto Myrick
--- NOTE | 2020-08-03 17:52 | Consultation Report ---
DATE OF CONSULTATION: 08/03/2020 I was consulted to see the patient regarding a third opinion on his left foot. I have reviewed his chart, I have noted his allergies, his medical history as well as his medical problems. He has had a wound on his left foot for the past 6 months and has been treated in wound care. He was admitted to the hospital recently to address this. He has been seen by vascular surgery and they are planning on doing an angiogram tomorrow. Silverskiold test is negative. He has swelling of the left fifth metatarsophalangeal joint with a dorsal and plantar areas of drainage. Dorsalis pedis nonpalpable, posterior tibial is 1+. He has 5/5 ankle and toe plantar flexion, dorsiflexion strength, although there is some stiffness about the ankle and foot. X-rays and CT scan are reviewed and these demonstrate that there are bony destructive changes of the proximal phalanx and fifth metatarsal head of the fifth ray consistent with osteomyelitis. I discussed my findings with the patient and his fiancee. They are educated about what is going on. I would recommend that vascular surgery evaluate him and intervene as planned. Subsequent to that, I would recommend that he consider a partial fifth ray resection. If his Achilles is proved to be tight, then doing a Oleg procedure or tendo-Achilles lengthening percutaneously could be added. Use of Stimulan beads might be necessary as well as application of a wound VAC. We discussed that with the bone infection present, this is not going to heal on its own. The infection could get worse. He could develop sepsis and if left untreated, could spread and result in a more invasive surgery. We talked about the treatment options, risks, benefits, rehab and recovery, and he agreed to proceed. He is tentatively scheduled for surgery on . He has a known history of cardiac problems, diabetes, peripheral vascular disease.
[2020-08-03] MEDS: clonazePAM 0.5 MG TAB PO SCH (21:01)
[2020-08-03] MEDS: PREGABALIN 75 MG CAP PO SCH (21:01)
[2020-08-04] MEDS: HYDROCODONE/ACETAMOPHEN 5/325MG TAB PO PRN ×3 (06:19→18:53)
[2020-08-04 07:12] LABS: Hematocrit (blood only) 39.7 % (42-52); Hemoglobin 13.3 g/dL (14.0-18.0); Mean Corpuscular Hemoglobin 31.3 pg (25-34); Mean Corpuscular Hgb Conc 33.5 g/dL (32-36); Mean Corpuscular Volume 93.4 fL (80-100); Mean Platelet Volume 10.5 fL (7.4-10.4); Platelet Count 156 K/uL (130-400); RDW Coefficient of Variation 13.6 % (11.5-14.5); RDW Standard Deviation 46.6 fL (36.4-46.3); Red Blood Count 4.25 M/uL (4.7-6.1); White Blood Count 6.98 K/uL (4.8-10.8)
[2020-08-04 07:50] LABS: BUN Creatinine Ratio 20.7 (10-20); Calcium 9.1 mg/dl (8.5-10.1); Creatinine Clr Calc Pharmacy 92.1 ml/min; Est GFR (Non-African American) 88.9; Potassium 4.4 mmol/L (3.5-5.1)
--- NOTE | 2020-08-04 07:50 | History & Physical Bridge Note ---
Date of Service August 04, 2020 History & Physical Bridge Note Patient for left leg angio today with possible intervention. I have discussed the risks options and benefits of the procedure with the patient. The patient understands the risks options and benefits and agrees to the procedure. I have examined the patient, reviewed the History & Physical and in the interval since the performance of the History & Physical I have noted the following changes of clinical significance: no changes noted
[2020-08-04] MEDS: INSULIN ASPART 100 UNITS/ML 3 ML PEN SC SCH ×4 (08:18→21:08)
[2020-08-04] MEDS: CLOPIDOGREL BISULFATE 75 MG TAB PO SCH (08:19)
[2020-08-04] MEDS: SACCHAROMYCES BOULARDII 250 MG CAP PO SCH (08:19)
[2020-08-04] MEDS: ASPIRIN 81 MG ECTAB PO SCH (08:19)
[2020-08-04] MEDS: FUROSEMIDE 40 MG TAB PO SCH (08:19)
[2020-08-04] MEDS: SPIRONOLACTONE 12.5 MG TAB PO SCH (08:19)
[2020-08-04] MEDS: METOPROLOL SUCC 25MG EXT REL TAB PO SCH ×2 (08:19→20:05)
[2020-08-04] MEDS: SACUBITRIL-VALSARTAN 24-26 MG TAB PO SCH ×2 (08:19→20:05)
[2020-08-04] MEDS: DOCUSATE SODIUM/SENNA 50/8.6MG TAB PO SCH (08:19)
[2020-08-04] MEDS: POLYETHYLENE (MIRALAX) 17 GM PACK PO SCH (08:19)
[2020-08-04] MEDS: MoRPHine SULFATE 4 MG/ML 1 ML CARP\\VIAL IV PRN ×3 (10:22→20:02)
--- NOTE | 2020-08-04 11:18 | Pre Anesthesia Assessment ---
Date of Service August 04, 2020 Pre Sedation Assessment Vital Signs Temp Pulse Resp BP Pulse Ox 08/04/20 10:51 36.6 C 85 18 105/60 94 08/04/20 07:44 36.7 C 63 17 98/56 L 95 08/04/20 03:31 36.7 C 77 14 101/63 95 08/03/20 23:29 37.0 C 65 14 88/53 L 94 08/03/20 19:30 37 C 76 16 108/58 L 95 08/03/20 15:20 36.8 C 85 16 101/63 95 Cardiovascular RRR, no murmur, no edema Respiratory normal respiratory effort, lungs clear to auscultation Pre-Sedation Airway Assessment Smoking Status: Former smoker Hx Sleep Apnea: No Hx Difficult Intubation: No Short, Thick Neck: No Thyromental Distance: > or= 3.5 Finger Breadths Oral Cavity: + WNL Mallampati Class: III ASA: ASA3 NPO Status Date of Last Intake of Fluids: 08/03/20 Time of Last Intake of Fluids: 22:00 Date of Last Intake of Solid Food: 08/03/20 Time of Last Intake of Solid Foods: 22:00 Procedure Planning Contraindications for Sedation: none Current Medications Reviewed: Yes Notes The planned sedation has been discussed with the patient. Informed Consent was obtained. I have identified the patient, determined the appropriateness of sedation and have assessed the patient immediately prior to the procedure. All medicine(s) and interventions are by my order.
[2020-08-04] MEDS ORDERED: LIDOCAINE HCL 1% 20 ML VIAL ONE (11:42)
[2020-08-04] MEDS ORDERED: MIDAZOLAM HCL 1 MG/ML 2ML VIAL ONE (11:57)
[2020-08-04] MEDS ORDERED: fentaNYL citrate 100 MCG/2 ML VIAL ONE (11:57)
[2020-08-04] MEDS ORDERED: HEPARIN SOD (PORCINE) 1000 UNIT/ML 10 ML VIAL ONE (11:57)
[2020-08-04] MEDS ORDERED: VISIPAQUE IV PRN (12:31)
--- NOTE | 2020-08-04 12:35 | Post Operative Brief Note ---
Immediate Post Op Note v1 Date of Surgery August 04, 2020 Pre & Post Diagnosis Operation Date: 08/04/20 11:10 Pre-Op Diagnosis: Non healing ulcer left foot Post-Op Diagnosis: Non healing ulcer left foot Operation Date: 08/05/20 11:40 <No data on this case meets the specified criteria> I identified the patient and participated in the time-out.: Yes Procedure Operation Date: 08/04/20 11:10 Actual Procedures p Left Lower Extremity Arteriogram, Ultrasound Localization Of Right Common Femoral Artery, Mechanical Closure Of Right Femoral Artery, Moderate Concious Sedation 1208 to 1236(Right) - Ruddy Hicks MD Operation Date: 08/05/20 11:40 <No data on this case meets the specified criteria> Surgeon Ruddy Hicks MD Door Opener MD Ann Estimated Blood Loss 5 Findings Consistent with Post-Op Diagnosis Anesthesia Type RN Sedation Complications none Disposition Accompanied Patient To Recovery: No Disposition: Recovery Room
--- NOTE | 2020-08-04 12:35 | Post Anesthesia Assessment ---
Date of Service August 04, 2020 Post Sedation Assessment Vital Signs Temp Pulse Pulse Resp BP Pulse Ox 08/04/20 12:31 83 15 108/63 94 08/04/20 12:28 83 15 108/63 94 08/04/20 12:23 79 15 109/63 95 08/04/20 12:18 83 15 103/59 L 95 08/04/20 12:13 78 21 104/59 L 96 08/04/20 12:08 83 19 118/64 97 08/04/20 12:02 79 19 116/65 97 08/04/20 10:51 36.6 C 85 18 105/60 94 08/04/20 07:44 36.7 C 63 17 98/56 L 95 08/04/20 03:31 36.7 C 77 14 101/63 95 08/03/20 23:29 37.0 C 65 14 88/53 L 94 08/03/20 19:30 37 C 76 16 108/58 L 95 08/03/20 15:20 36.8 C 85 16 101/63 95 Recovery Score Activity: Moves 4 extremities Respiration: Deep Breath/Cough Circulation: +/-20% PreAnes Value Consciousness: Fully Awake Oxygen Saturation: > 92% On Room Air Post Anesthesia Score: 10 Discharge Sedation Level of Care: Fast Track Phase II Post Sedation Plan On clinical assessment, the patient appears to have tolerated the sedation without complications. Patient is recovering as anticipated. Patient will continue to be monitored by nursing and may be discharged when sedation discharge criteria are met per below protocol. Upon Completions of procedure up to 15 minutes continue every 5 minute vital signs and the P.A.R. score; then discharge to a Phase I or Fast Track to Phase II per the following guidelines: * Discharge Patient to appropriate Phase II area if PAR is 8 or greater or return to pre- procedure baseline. The post - procedure orders will be as directed. * If PAR score is less than 8 or not return to pre-procedure baseline then patient will follow Phase I monitoring till PAR is reached for Phase II. The Phase I may be done in procedure room or may call to secure a Phase I area. * If naloxone or flumazenil are used for reversal, hold in Phase I for continued monitoring from when last reversal dose was given for a minimum of 60 minutes or longer pending the nurse and/or physician discretion of patient condition before discharge to Phase II. Please call the Sedation Physician to re-evaluate and complete post-note for discharge to Phase II area. Do NOT discharge from procedure sedation or Phase 1 until post- sedation evaluation note is complete by procedure /sedation MD Sedation Discharge Instructions to be given to the patient at discharge to home.
--- NOTE | 2020-08-04 12:38 | Hospitalist Progress Note ---
Date of Service August 04, 2020 Assessment & Plan (1) Osteomyelitis: Osteomyelitis at the head of the fifth metatarsal and base of the fifth proximal phalanx seen on CT foot on 07/31. - Prior wound cultures grew MSSA & quinn-sensitive Pseudomonas in 04/2020. Culture in 06/2020 grew Actinomyces. Most recent culture with multiple patrick. - Started on daptomycin & cefepime - Switched to ceftriaxone & levofloxacin on 08/03 -> Spent some time looking through cultures. This will cover all his 3 prior bugs with the ceftriaxone being a better choice than cefepime at covering his Actinomyces. - ID consulted on 08/03 - Pending - Blood cultures from 07/30 - negative to date - Angiogram on 08/04 showed no lesions. No intervention. - Plan for surgery tomorrow with Dr. Hunt. (2) Diabetic ulcer of left foot associated with type 2 diabetes mellitus, with fat layer exposed: - Consulted wound care nurse. - Will need orthotics for offloading prior to discharge. (3) Chronic systolic (congestive) heart failure: EF was 25-30% on echo in 05/2020. - No acute exacerbation; appears euvolemic today still. - Continue Lasix 40 mg p.o. 5 times a week & spironolactone every morning - Continue ASA, Plavix, beta-mack, statin, Entresto - Appreciate cardiology consultation -> Must stay on DAPT in denita-operative period. (4) Ischemic cardiomyopathy: EF 25 to 30% as above. - Continue cardiac meds as above (5) H/O gastric bypass: Notable history of this, B12 injections monthly. (6) CAD (coronary artery disease): No chest pain to indicate ischemia. - Continue above cardiac meds - Appreciate cardiology consultation (7) DVT prophylaxis: - Chemical prophylaxis deferred pending surgical decision. - SCDs contraindicated given peripheral artery disease and current ulcer on left side. Admission and Anticipated Discharge Date Admission Date: July 30, 2020 Subjective Having some pain today, but otherwise doing well. Otherwise, no concerns. Reports no fevers/chills, chest pain, shortness of breath, abdominal pain, nausea, or vomiting. Physical Exam Constitutional: WD/WN, vitals as above Eyes: EOM intact bilaterally; no conjunctival abnormality ENMT: external ear and nose normal, oropharynx normal Neck: trachea midline, no thyromegaly normal visual inspection Respiratory: normal respiratory effort, lungs clear to auscultation no respiratory distress Cardiovascular: RRR, no murmur, no edema Gastrointestinal (Abdomen): Inspection/Auscultation: abdomen normal to inspection; abdomen not distended Musculoskeletal: no cyanosis or clubbing, extremities motor strength 5/5 Skin: no rashes, warm and dry + ulcer (Left foot) Neurologic: moves all extremities and awake Psychiatric: Orientation: alert, oriented to person and cooperative Results & Data Results & Data ([facility]) Vital Signs (Past 12 Hours) Vital Signs Temp Pulse Pulse Resp BP Pulse Ox 08/04/20 12:31 83 15 108/63 94 08/04/20 12:28 83 15 108/63 94 08/04/20 12:23 79 15 109/63 95 08/04/20 12:18 83 15 103/59 L 95 08/04/20 12:13 78 21 104/59 L 96 08/04/20 12:08 83 19 118/64 97 08/04/20 12:02 79 19 116/65 97 08/04/20 10:51 36.6 C 85 18 105/60 94 08/04/20 07:44 36.7 C 63 17 98/56 L 95 08/04/20 03:31 36.7 C 77 14 101/63 95 PG Care Time/CCT Total # of Minutes Spent Total Time Spent with Patient: Total time spent is greater than 50% in coordination of care (as documented) at patient's floor/unit and/or counseling patient: Coding Level of Care Code 29508 Subseq Hosp Care Lvl 2 Diagnoses Osteomyelitis M86.9 Diabetic ulcer of left foot associated with type 2 diabetes mellitus, with fat layer exposed E11.621; L97.522 Chronic systolic (congestive) heart failure I50.22 Ischemic cardiomyopathy I25.5 H/O gastric bypass Z98.84 CAD (coronary artery disease) I25.10 Coronary Disease-Associated Artery/Lesion type: [place] artery [place] vs. transplanted heart: [place] heart Associated angina: angina presence unspecified DVT prophylaxis Z29.9 (1) CAD (coronary artery disease) Coronary Disease-Associated Artery/Lesion type: [place] artery [place] vs. transplanted heart: [place] heart Associated angina: angina presence unspecified Qualified Code(s): I25.10 - Atherosclerotic heart disease of [place] coronary artery without angina pectoris
--- NOTE | 2020-08-04 12:47 | Operative Report ---
Post Operative Report Pre & Post Diagnosis Operation Date: 08/04/20 11:10 Pre-Op Diagnosis: non healing left foot ulcer Post-Op Diagnosis: non healing left foot ulcer Operation Date: 08/05/20 11:40 <No data on this case meets the specified criteria> I identified the patient and participated in the time-out.: Yes Procedure Operation Date: 08/04/20 11:10 Actual Procedures p Left Lower Extremity Arteriogram, Ultrasound Localization Of Right Common Femoral Artery, Mechanical Closure Of Right Femoral Artery, Moderate Concious Sedation 1208 to 1236(Right) - Ruddy Hicks MD Operation Date: 08/05/20 11:40 <No data on this case meets the specified criteria> Surgeon Dr. Hicks Stave Saw Operator MD Ann Estimated Blood Loss 5 Findings Consistent with Post-Op Diagnosis Specimens none Complications none Description of Procedure The patient was brought to the angio suite and placed in a supine position. After surgical time out was performed, the patient was prepped and draped in a sterile fashion. The patient was identified and a timeout was performed. The right common femoral artery was identified with ultrasound guidance. It was found to be patent and punctured with an 18 gauge needle. A J wire was inserted and advanced without incident. A 5Fr sheath was then inserted. A glide wire was then advanced into the infrarenal aorta under fluoroscopy. A rim catheter was then advanced over the aortic bifurcation and into the left external iliac artery. Hand injections of contrast of the left femoral, popliteal, and tibial arteries showed no flow limiting stenosis, other than slight stenosis at the anterior tibial artery takeoff. Given his robust flow through the posterior tibial artery and adequate flow through both AT and peroneal, the decision was made to not intervene. After withdrawal of the rim catheter, a hand injection was performed showing no stenosis of the right external iliac, common femoral, SFA or profunda. A star close was then deployed without incident. The patient tolerated the procedure well. Dr. Hicks was present and scrubbed for the entire procedure. I attest to the content of the Intraoperative Record and any orders documented therein. Any exceptions are noted below.
[2020-08-04] MEDS ORDERED: SODIUM CHLORIDE 0.9% 500 ML IV SCH (13:13)
[2020-08-04] MEDS: levoFLOXacin/D5W 750 MG/150 ML BAG IV SCH (13:21)
[2020-08-04] MEDS: cefTRIAXone SODIUM 2,000 MG in DEXTROSE 5% 50 ML IV SCH (13:22)
--- NOTE | 2020-08-04 15:38 | Orthopedic Progress Note ---
Date of Service August 04, 2020 Assessment & Plan (1) Osteomyelitis: Diagnosis: Left 5th toe osteomyelitis; Diabetic foot ulcer Patient is scheduled for surgery tomorrow am with Dr Hunt consisting of Left 5th Ray Resection, Possible Achilles Tendon Lengthening, Possible Stimulant Beads. I spoke to patient and his fiance on the phone. Consent was previously signed. Dr Hunt discussed potential risks, complications, and outcomes. Patient will be NPO after midnight. Pre-op abx ordered. Patient and voiced understanding. Patient was cleared my medicine and vascular. Present on Admission?: Yes Admission and Anticipated Discharge Date Admission Date: July 30, 2020 Subjective Patient in bed. In good spirits. Just got back from procedure s/p Left Lower Extremity Arteriogram, Ultrasound Localization Of Right Common Femoral Artery, Mechanical Closure Of Right Femoral Artery under moderate concious sedation by Ruddy Hicks MD. Per his Op Note "Hand injections of contrast of the left femoral, popliteal, and tibial arteries showed no flow limiting stenosis, other than slight stenosis at the anterior tibial artery takeoff. Given his robust flow through the posterior tibial artery and adequate flow through both AT and peroneal, the decision was made to not intervene". Patient was aware of these findings. He is aware Dr Hunt is prepared to operate in the AM. The consent was previously signed by the patient and Dr Hunt. Surgery consists of Left 5th Ray Resection, Possible Achilles Tendon Lengthening, Possible Stimulant Beads. Physical Exam Physical Exam: No change. Patient in bed. Comfortable. A & O x 3. Left foot bandage, C/D/I. No change of NV status. B calves are soft. Neg homans. Results & Data ([facility]) Vital Signs (Past 12 Hours) Vital Signs Temp Pulse Pulse Resp BP Pulse Ox 08/04/20 14:09 36.9 C 80 20 110/61 93 08/04/20 13:54 83 08/04/20 13:00 36.7 C 78 16 104/64 93 08/04/20 12:36 76 15 116/66 95 08/04/20 12:31 83 15 108/63 94 08/04/20 12:28 83 15 108/63 94 08/04/20 12:23 79 15 109/63 95 08/04/20 12:18 83 15 103/59 L 95 08/04/20 12:13 78 21 104/59 L 96 08/04/20 12:08 83 19 118/64 97 08/04/20 12:02 79 19 116/65 97 08/04/20 10:51 36.6 C 85 18 105/60 94 08/04/20 07:44 36.7 C 63 17 98/56 L 95 (1) Osteomyelitis Laterality: left Osteomyelitis location: foot Osteomyelitis type: subacute Qualified Code(s): M86.272 - Subacute osteomyelitis, left ankle and foot
--- NOTE | 2020-08-04 15:52 | XRay Report ---
XR foot LT min 3V routine HISTORY: 65 years-old Male Osteomyelitis patient presents with acute lateral left foot pain with ost eomyelitis COMPARISON: CT left foot 07/31/2020, left foot radiographs 07/28/2020 TECHNIQUE: 3 views of the left foot FINDINGS: Osteomyelitis involving the head of the fifth metatarsal and base of the fifth proximal phalanx redem onstrated. There is adjacent bony fragmentation with persistent soft tissue swelling and lateral skin ulcer. Multifocal osteoarthritis, moderate within the first MTP joint. No new osseous erosions ident ified. Marginal spurring of the calcaneus. Arterial calcifications. IMPRESSION: Osteomyelitis involving the head of the fifth metatarsal and base of the fifth proximal p halanx redemonstrated. Skin ulcer lateral to the fifth MTP joint with persistent soft tissue swelling . ACT 112: Negative or not required by law. The above report was generated using voice recognition software. It may contain grammatical, syntax o r spelling errors. Electronically signed by: Vik Orellana M.D. 08/04/2020 3:50 PM
--- NOTE | 2020-08-04 17:01 | Anesthesiology Consultation ---
Date of Service August 04, 2020 Assessment & Plan (1) Encounter for pre-operative examination: Chart Review Chart Review: Acceptable Risk for Surgery and Patient NOT seen in Pre Admission Testing Consults Requested none Additional Notes Negative COVID 08/03/2020 History Surgery Operation Date: 08/04/20 11:10 Proposed Procedures p Left Leg Angiogram with Intervention - Ruddy Hicks MD Operation Date: 08/05/20 11:40 Proposed Procedures p Left 5th Ray Resection, - Ben Hunt MD s Possible Achilles Tendon Lengthening, Possible Stimulan Beads - Ben Hunt MD Height/Weight Height: 6 ft 1 in Weight: 94.1 kg Allergies Allergy/AdvReac Type Severity Reaction Status Date / Time Penicillins Allergy Unknown Unknown Verified 07/30/20 14:13 Sulfa (Sulfonamide Allergy Unknown Unknown Verified 07/30/20 14:13 Antibiotics) oxycodone AdvReac Mild Nausea/Vomi Verified 07/30/20 14:13 ting simvastatin AdvReac Unknown muscle pain Verified 07/30/20 14:13 Medications Home Medications Medication Instructions Recorded Confirmed Last Taken clonazepam 0.5 mg PO HS 02/09/19 07/30/20 07/29/20 clopidogrel 75 mg PO QAM 02/09/19 07/30/20 07/29/20 cyanocobalamin (vitamin B-12) 1,000 mcg IM MONTHLY 02/09/19 07/30/20 07/18/20 furosemide 40 mg PO 5XWK 02/09/19 07/30/20 07/29/20 pregabalin [Lyrica] 75 mg PO HS 04/26/19 07/30/20 07/29/20 atorvastatin 40 mg PO HS 07/10/19 07/30/20 07/29/20 nitroglycerin 0.4 mg SUBLINGUAL DIRECTED PRN 07/10/19 07/30/20 06/12/20 16:20 Entresto 1 tab PO BID 06/12/20 07/30/20 07/29/20 metformin [Glucophage] 500 mg PO BID #0 tab 06/14/20 07/30/20 07/29/20 metoprolol succinate 12.5 mg PO BID #0 tab 06/14/20 07/30/20 07/29/20 spironolactone 12.5 mg PO QAM 10/12/1807/30/20 07/29/20 Active Medications Generic Name Dose Route Start Last Admin Trade Name Freq PRN Reason Stop Dose Admin Acetaminophen 650 mg 07/30/20 17:10 08/02/20 06:04 Acetaminophen 325 Mg Tab PO 08/29/20 17:09 650 mg Q4H PRN Administration Pain or Fever Hydrocodone Bitart/Acetaminophen 1 tab 08/02/20 14:30 08/04/20 13:20 Hydrocodone/Acetamophen 5/325mg Tab PO 08/16/20 14:29 1 tab Q4H PRN Administration Pain Aspirin 81 mg 07/31/20 12:45 08/04/20 08:19 Aspirin 81 Mg Ectab PO 08/30/20 12:44 Not Given QAM SHANE Atorvastatin Calcium 40 mg 07/30/20 21:00 08/01/20 21:37 Atorvastatin 40 Mg Tab PO 08/29/20 20:59 40 mg HS SHANE Administration Clonazepam 0.5 mg 07/30/20 21:00 08/03/20 21:01 Clonazepam 0.5 Mg Tab PO 08/29/20 20:59 0.5 mg HS SHANE Administration Clopidogrel Bisulfate 75 mg 07/31/20 09:00 08/04/20 08:19 Clopidogrel Bisulfate 75 Mg Tab PO 08/30/20 08:59 Not Given QAM SHANE Furosemide 40 mg 07/31/20 09:00 08/04/20 08:19 Furosemide 40 Mg Tab PO 08/30/20 08:59 Not Given [email or web address] SHANE Ceftriaxone Sodium 2,000 mg/ 70 mls @ 140 mls/hr 08/03/20 14:00 08/04/20 14:04 Dextrose IV 09/14/20 13:59 Infused Q24H SHANE Infusion Protocol Levofloxacin/Dextrose 750 mg in 150 mls @ 100 mls/hr 08/03/20 14:00 08/04/20 15:10 Levaquin/D5w IV 08/10/20 12:29 Infused Q24H SHANE Infusion Insulin Aspart 0 units 08/01/20 16:30 08/04/20 13:49 Insulin Aspart 100 Units/Ml 3 Ml Pen SC 08/31/20 16:29 Not Given ACHS SHANE Protocol Iodixanol 35 ml 08/04/20 12:31 08/04/20 12:09 Visipaque IV 08/08/20 12:30 35 ml UD PRN Administration Radiology Use Metoprolol Succinate 12.5 mg 07/30/20 21:00 08/04/20 08:19 Metoprolol Succ 25mg Ext Rel Tab PO 08/29/20 20:59 Not Given BID SHANE Morphine Sulfate 4 mg 08/03/20 12:22 08/04/20 15:24 Morphine Sulfate 4 Mg/Ml 1 Ml Carp\Vial IV 08/16/20 14:29 4 mg Q4H PRN Administration Pain Ondansetron HCl 4 mg 07/30/20 17:10 08/01/20 05:47 Ondansetron Inj 2 Mg/Ml 2 Ml Vial IV 08/29/20 17:09 4 mg Q6H PRN Administration Nausea Polyethylene Glycol 17 gm 07/30/20 23:00 08/04/20 08:19 Polyethylene (Miralax) 17 Gm Pack PO 08/29/20 22:59 Not Given DAILY SHANE Pregabalin 75 mg 07/30/20 21:00 08/03/20 21:01 Pregabalin 75 Mg Cap PO 08/29/20 20:59 75 mg HS SHANE Administration Saccharomyces Boulardii 250 mg 08/03/20 14:00 08/04/20 08:19 Saccharomyces Boulardii 250 Mg Cap PO 09/02/20 13:59 Not Given DAILY SHANE Sacubitril/Valsartan 1 tab 07/30/20 21:00 08/04/20 08:19 Sacubitril-Valsartan 24-26 Mg Tab PO 08/29/20 20:59 Not Given BID SHANE Senna/Docusate Sodium 1 tab 08/03/20 14:00 08/04/20 08:19 Docusate Sodium/Senna 50/8.6mg Tab PO 09/02/20 13:59 Not Given QAM SHANE Spironolactone 12.5 mg 07/31/20 09:00 08/04/20 08:19 Spironolactone 12.5 Mg Tab PO 08/30/20 08:59 Not Given QAM SHANE NPO Date Last Intake of Fluids: 08/03/20 Time Last Intake of Fluids: 22:00 Date Last Intake of Solids: 08/03/20 Time Last Intake of Solids: 22:00 Past Medical History Medical History ACS (acute coronary syndrome) Atypical chest pain 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) [facility] CAD (coronary artery disease) Chest pain Chronic systolic (congestive) heart failure Diabetes Diabetic foot ulcer Hyperlipidemia [place] (myocardial infarction) x 8 events; 10 stents in total Peripheral arterial disease Peripheral neuropathy Past Family History Family History Father , 51 Coronary heart disease Myocardial infarction Brother Coronary heart disease Brother Coronary heart disease Other Diabetes Past Surgical History Surgical History H/O gastric bypass S/P appendectomy S/P cardiac catheterization S/P cholecystectomy Status post biventricular pacemaker Social History Smoking Status: Former smoker tobacco type: smokeless tobacco Hx Alcohol Use: No Hx Substance Use: No substance use type: does not use Physical Exam Vital Signs Last Vital Signs Temp 37.0 C 08/04/20 15:49 Pulse 87 08/04/20 15:49 Resp 17 08/04/20 15:49 BP 128/62 08/04/20 15:49 Pulse Ox 95 08/04/20 15:49 Testing Laboratory Results 08/04/20 06:56 08/04/20 06:56 Hemoglobin A1c 6.6 % (4.5-5.6) H 07/31/20 05:46 07/30/20 13:27 Aerobic Blood Culture - Final Blood No growth in Aerobic bottle after 5 days. Anaerobic Blood Culture - Final No growth in Anaerobic bottle after 5 days. 07/30/20 13:27 Aerobic Blood Culture - Final Blood No growth in Aerobic bottle after 5 days. Anaerobic Blood Culture - Final No growth in Anaerobic bottle after 5 days. 08/04/20 08/04/20 08/04/20 16:45 13:47 07:22 POC Glucose 129 H 133 H 158 H Electrocardiogram Date: 08/03/20 Atrial-sensed ventricular-paced rhythm rate 87 ectopic atrial rhythm Echocardiogram Date: 06/13/20 EF: 24-30% Left ventricle is borderline dilated, normal left ventricular wall thickness, the inferior and posterior justin are akinetic and thinned at the base and all other wall segments are mildly hypokinetic, grade 1 DD, no significant valve disease, left atrium is mildly dilated
[2020-08-04] MEDS: PREGABALIN 75 MG CAP PO SCH (20:07)
[2020-08-04] MEDS: clonazePAM 0.5 MG TAB PO SCH (20:07)
[2020-08-05] MEDS ORDERED: ceFAZolin 2000MG 2,000 MG/15 ML SYR IV SCH (06:00)
[2020-08-05 07:53] LABS: Hematocrit (blood only) 43.3 % (42-52); Mean Corpuscular Hemoglobin 30.5 pg (25-34); Mean Corpuscular Hgb Conc 32.3 g/dL (32-36); Mean Corpuscular Volume 94.3 fL (80-100); Mean Platelet Volume 10.7 fL (7.4-10.4); Platelet Count 173 K/uL (130-400); RDW Coefficient of Variation 13.9 % (11.5-14.5); RDW Standard Deviation 47.7 fL (36.4-46.3); Red Blood Count 4.59 M/uL (4.7-6.1); White Blood Count 6.62 K/uL (4.8-10.8)
[2020-08-05 08:26] LABS: BUN Creatinine Ratio 22.9 (10-20); Calcium 9.6 mg/dl (8.5-10.1); Creatinine Clr Calc Pharmacy 88.1 ml/min; Est GFR (African American) 99.4; Est GFR (Non-African American) 85.8
[2020-08-05] MEDS: DOCUSATE SODIUM/SENNA 50/8.6MG TAB PO SCH (08:27)
[2020-08-05] MEDS: SACCHAROMYCES BOULARDII 250 MG CAP PO SCH (08:27)
[2020-08-05] MEDS: POLYETHYLENE (MIRALAX) 17 GM PACK PO SCH (08:27)
[2020-08-05] MEDS: MoRPHine SULFATE 4 MG/ML 1 ML CARP\\VIAL IV PRN ×2 (08:28→15:11)
[2020-08-05] MEDS: SACUBITRIL-VALSARTAN 24-26 MG TAB PO SCH ×2 (08:28→20:29)
[2020-08-05] MEDS: INSULIN ASPART 100 UNITS/ML 3 ML PEN SC SCH ×4 (08:33→20:40)
[2020-08-05] MEDS: METOPROLOL SUCC 25MG EXT REL TAB PO SCH ×2 (08:37→20:29)
[2020-08-05] MEDS: SPIRONOLACTONE 12.5 MG TAB PO SCH (08:38)
[2020-08-05] MEDS: ASPIRIN 81 MG ECTAB PO SCH (08:38)
[2020-08-05] MEDS: CLOPIDOGREL BISULFATE 75 MG TAB PO SCH (08:38)
[2020-08-05 09:12] LABS: Potassium 4.5 mmol/L (3.5-5.1)
[2020-08-05 09:13] LABS: Magnesium 2.1 mg/dl (1.8-2.4)
[2020-08-05] MEDS ORDERED: fentaNYL citrate 100 MCG/2 ML VIAL ONE (11:11)
[2020-08-05] MEDS ORDERED: MIDAZOLAM HCL 1 MG/ML 2ML VIAL ONE (11:11)
--- NOTE | 2020-08-05 11:38 | Anesthesiology Consultation ---
Date of Service August 05, 2020 Assessment & Plan Chart Review Chart Review: Acceptable Risk for Surgery Consults Requested none History Surgery Operation Date: 08/04/20 11:10 Proposed Procedures p Left Leg Angiogram with Intervention - Ruddy Hicks MD Operation Date: 08/05/20 11:40 Proposed Procedures p Left 5th Ray Resection, - Ben Hunt MD s Possible Achilles Tendon Lengthening, Possible Stimulan Beads - Ben Hunt MD Height/Weight Height: 6 ft 1 in Weight: 94.4 kg Allergies Allergy/AdvReac Type Severity Reaction Status Date / Time Penicillins Allergy Unknown Unknown Verified 07/30/20 14:13 Sulfa (Sulfonamide Allergy Unknown Unknown Verified 07/30/20 14:13 Antibiotics) oxycodone AdvReac Mild Nausea/Vomi Verified 07/30/20 14:13 ting simvastatin AdvReac Unknown muscle pain Verified 07/30/20 14:13 Medications Home Medications Medication Instructions Recorded Confirmed Last Taken clonazepam 0.5 mg PO HS 02/09/19 07/30/20 07/29/20 clopidogrel 75 mg PO QAM 02/09/19 07/30/20 07/29/20 cyanocobalamin (vitamin B-12) 1,000 mcg IM MONTHLY 02/09/19 07/30/20 07/18/20 furosemide 40 mg PO 5XWK 02/09/19 07/30/20 07/29/20 pregabalin [Lyrica] 75 mg PO HS 04/26/19 07/30/20 07/29/20 atorvastatin 40 mg PO HS 07/10/19 07/30/20 07/29/20 nitroglycerin 0.4 mg SUBLINGUAL DIRECTED PRN 07/10/19 07/30/20 06/12/20 16:20 Entresto 1 tab PO BID 06/12/20 07/30/20 07/29/20 metformin [Glucophage] 500 mg PO BID #0 tab 06/14/20 07/30/20 07/29/20 metoprolol succinate 12.5 mg PO BID #0 tab 06/14/20 07/30/20 07/29/20 spironolactone 12.5 mg PO QAM 07/30/20 07/30/20 07/29/20 Active Medications Generic Name Dose Route Start Last Admin Trade Name Freq PRN Reason Stop Dose Admin Acetaminophen 650 mg 07/30/20 17:10 08/02/20 06:04 Acetaminophen 325 Mg Tab PO 08/29/20 17:09 650 mg Q4H PRN Administration Pain or Fever Hydrocodone Bitart/Acetaminophen 1 tab 08/02/20 14:30 08/04/20 18:53 Hydrocodone/Acetamophen 5/325mg Tab PO 08/16/20 14:29 1 tab Q4H PRN Administration Pain Aspirin 81 mg 07/31/20 12:45 08/05/20 08:38 Aspirin 81 Mg Ectab PO 08/30/20 12:44 81 mg QAM SHANE Administration Atorvastatin Calcium 40 mg 07/30/20 21:00 08/01/20 21:37 Atorvastatin 40 Mg Tab PO 08/29/20 20:59 40 mg HS SHANE Administration Clonazepam 0.5 mg 07/30/20 21:00 08/04/20 20:07 Clonazepam 0.5 Mg Tab PO 08/29/20 20:59 0.5 mg HS SHANE Administration Clopidogrel Bisulfate 75 mg 07/31/20 09:00 08/05/20 08:38 Clopidogrel Bisulfate 75 Mg Tab PO 08/30/20 08:59 75 mg QAM SHANE Administration Furosemide 40 mg 07/31/20 09:00 08/04/20 08:19 Furosemide 40 Mg Tab PO 08/30/20 08:59 Not Given [email or web address] SHANE Ceftriaxone Sodium 2,000 mg/ 70 mls @ 140 mls/hr 08/03/20 14:00 08/04/20 14:04 Dextrose IV 09/14/20 13:59 Infused Q24H SHANE Infusion Protocol Levofloxacin/Dextrose 750 mg in 150 mls @ 100 mls/hr 08/03/20 14:00 08/04/20 15:10 Levaquin/D5w IV 08/10/20 12:29 Infused Q24H SHANE Infusion Insulin Aspart 0 units 08/01/20 16:30 08/05/20 08:33 Insulin Aspart 100 Units/Ml 3 Ml Pen SC 08/31/20 16:29 Not Given ACHS SHANE Protocol Iodixanol 35 ml 08/04/20 12:31 08/04/20 12:09 Visipaque IV 08/08/20 12:30 35 ml UD PRN Administration Radiology Use Metoprolol Succinate 12.5 mg 07/30/20 21:00 08/05/20 08:37 Metoprolol Succ 25mg Ext Rel Tab PO 08/29/20 20:59 12.5 mg BID SHANE Administration Morphine Sulfate 4 mg 08/03/20 12:22 08/05/20 08:28 Morphine Sulfate 4 Mg/Ml 1 Ml Carp\Vial IV 08/16/20 14:29 4 mg Q4H PRN Administration Pain Ondansetron HCl 4 mg 07/30/20 17:10 08/01/20 05:47 Ondansetron Inj 2 Mg/Ml 2 Ml Vial IV 08/29/20 17:09 4 mg Q6H PRN Administration Nausea Polyethylene Glycol 17 gm 07/30/20 23:00 08/05/20 08:27 Polyethylene (Miralax) 17 Gm Pack PO 08/29/20 22:59 17 gm DAILY SHANE Administration Pregabalin 75 mg 07/30/20 21:00 08/04/20 20:07 Pregabalin 75 Mg Cap PO 08/29/20 20:59 75 mg HS SHANE Administration Saccharomyces Boulardii 250 mg 08/03/20 14:00 08/05/20 08:27 Saccharomyces Boulardii 250 Mg Cap PO 09/02/20 13:59 250 mg DAILY SHANE Administration Sacubitril/Valsartan 1 tab 07/30/20 21:00 08/05/20 08:28 Sacubitril-Valsartan 24-26 Mg Tab PO 08/29/20 20:59 1 tab BID SHANE Administration Senna/Docusate Sodium 1 tab 08/03/20 14:00 08/05/20 08:27 Docusate Sodium/Senna 50/8.6mg Tab PO 09/02/20 13:59 1 tab QAM SHANE Administration Spironolactone 12.5 mg 07/31/20 09:00 08/05/20 08:38 Spironolactone 12.5 Mg Tab PO 08/30/20 08:59 Not Given QAM SHANE NPO Date Last Intake of Fluids: 08/05/20 Time Last Intake of Fluids: 08:00 Last Intake of Fluids Comment: with meds Date Last Intake of Solids: 08/04/20 Time Last Intake of Solids: 22:00 Past Medical History Medical History ACS (acute coronary syndrome) Atypical chest pain 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) [facility] CAD (coronary artery disease) Chest pain Chronic systolic (congestive) heart failure Diabetes Diabetic foot ulcer Hyperlipidemia [place] (myocardial infarction) 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 events; 10 stents in total Peripheral arterial disease Peripheral neuropathy Past Family History Family History Father , 51 Coronary heart disease Myocardial infarction Brother Coronary heart disease Brother Coronary heart disease Other Diabetes Past Surgical History Surgical History H/O gastric bypass S/P appendectomy S/P cardiac catheterization S/P cholecystectomy Status post biventricular pacemaker Social History Smoking Status: Former smoker tobacco type: smokeless tobacco Hx Alcohol Use: No Hx Substance Use: No substance use type: does not use Physical Exam Vital Signs Last Vital Signs Temp 36.6 C 08/05/20 11:20 Pulse 79 08/05/20 11:20 Resp 17 08/05/20 11:20 BP 122/70 08/05/20 11:20 Pulse Ox 93 08/05/20 11:20 Testing Laboratory Results 08/05/20 07:37 08/05/20 08:44 Hemoglobin A1c 6.6 % (4.5-5.6) H 07/31/20 05:46 07/30/20 13:27 Aerobic Blood Culture - Final Blood No growth in Aerobic bottle after 5 days. Anaerobic Blood Culture - Final No growth in Anaerobic bottle after 5 days. 07/30/20 13:27 Aerobic Blood Culture - Final Blood No growth in Aerobic bottle after 5 days. Anaerobic Blood Culture - Final No growth in Anaerobic bottle after 5 days. 08/05/20 08:04 POC Glucose 132 H
[2020-08-05] MEDS ORDERED: ONDANSETRON INJ 2 MG/ML 2 ML VIAL IV PRN (11:39)
[2020-08-05] MEDS ORDERED: ATROPINE SULFATE 0.1 MG/ML 10ML SYR IV PRN (11:39)
[2020-08-05] MEDS ORDERED: METOCLOPRAMIDE HCL INJ 5 MG/ML 2 ML VIAL IV PRN (11:39)
[2020-08-05] MEDS ORDERED: HYDROmorphone INJ 2 MG/ML SYR/VIAL IV PRN (11:39)
[2020-08-05] MEDS ORDERED: ePHEDrine sulfate 50 MG/ML AMP IV PRN (11:39)
[2020-08-05] MEDS ORDERED: PROMETHAZINE HCL 12.5 MG in SODIUM CHLORIDE 0.9% 50 ML IV PRN (11:39)
[2020-08-05] MEDS ORDERED: BUPIVACAINE 0.5 % 5 MG/1 ML MPF 30ML VIAL ONE ×2 (11:44→13:20)
[2020-08-05] MEDS ORDERED: BACITRACIN INJ 50,000 UNIT VIAL ONE (11:44)
--- NOTE | 2020-08-05 11:50 | History & Physical Bridge Note ---
Date of Service August 05, 2020 History & Physical Bridge Note I have examined the patient, reviewed the History & Physical and in the interval since the performance of the History & Physical I have noted the following changes of clinical significance: no changes noted
--- NOTE | 2020-08-05 12:04 | Hospitalist Progress Note ---
Date of Service August 05, 2020 Assessment & Plan (1) Osteomyelitis: Osteomyelitis at the head of the fifth metatarsal and base of the fifth proximal phalanx seen on CT foot on 07/31. - Prior wound cultures grew MSSA & quinn-sensitive Pseudomonas in 04/2020. Culture in 06/2020 grew Actinomyces. Most recent culture with multiple patrick. - Started on daptomycin & cefepime - Switched to ceftriaxone & levofloxacin on 08/03 -> ID recommended cefazolin instead of ceftriaxone, but agreed with levofloxacin. Will switch today after discussing with pharmacy. - Blood cultures from 07/30 - negative to date - Angiogram on 08/04 showed no lesions. No intervention. - Plan for surgery today with Dr. Hunt. Will get bone cultures. - If Dr. Hunt feels entire osteomyelitis was removed, ID threw out the possibility of a shorter course of antibiotics. May need to reach out to them after surgery to see what their updated thoughts are. (2) Diabetic ulcer of left foot associated with type 2 diabetes mellitus, with fat layer exposed: - Consulted wound care nurse. - Will need orthotics for offloading prior to discharge. (3) Chronic systolic (congestive) heart failure: EF was 25-30% on echo in 05/2020. - No acute exacerbation; appears euvolemic today still. - Continue Lasix 40 mg p.o. 5 times a week & spironolactone every morning - Continue ASA, Plavix, beta-mack, statin, Entresto - Appreciate cardiology consultation -> Must stay on DAPT in denita-operative period. (4) Ischemic cardiomyopathy: EF 25 to 30% as above. - Continue cardiac meds as above (5) H/O gastric bypass: Notable history of this, B12 injections monthly. (6) CAD (coronary artery disease): No chest pain to indicate ischemia. - Continue above cardiac meds - Appreciate cardiology consultation (7) DVT prophylaxis: - Chemical prophylaxis deferred pending surgical decision. - SCDs contraindicated given peripheral artery disease and current ulcer on left side. Admission and Anticipated Discharge Date Admission Date: July 30, 2020 Subjective No major issues overnight. Plan for surgery today. Reports no fevers/chills, chest pain, shortness of breath, abdominal pain, nausea, or vomiting. Physical Exam Constitutional: WD/WN, vitals as above Eyes: EOM intact bilaterally; no conjunctival abnormality ENMT: external ear and nose normal, oropharynx normal Neck: trachea midline, no thyromegaly normal visual inspection Respiratory: normal respiratory effort, lungs clear to auscultation no respiratory distress Cardiovascular: RRR, no murmur, no edema Gastrointestinal (Abdomen): Inspection/Auscultation: abdomen normal to inspection; abdomen not distended Musculoskeletal: no cyanosis or clubbing, extremities motor strength 5/5 Skin: no rashes, warm and dry + ulcer (Left foot) Neurologic: moves all extremities and awake Psychiatric: Orientation: alert, oriented to person and cooperative Results & Data Results & Data ([facility]) Vital Signs (Past 12 Hours) Vital Signs Temp Pulse Resp BP Pulse Ox 08/05/20 11:50 36.7 C 73 20 115/57 L 94 08/05/20 11:20 36.6 C 79 17 122/70 93 08/05/20 08:25 112/74 08/05/20 07:56 36.8 C 81 17 97/56 L 94 08/05/20 02:47 36.7 C 71 18 114/63 94 PG Care Time/CCT Total # of Minutes Spent Total Time Spent with Patient: Total time spent is greater than 50% in coordination of care (as documented) at patient's floor/unit and/or counseling patient: Coding Level of Care Code 85531 Subseq Hosp Care Lvl 2 Diagnoses Osteomyelitis M86.9 Diabetic ulcer of left foot associated with type 2 diabetes mellitus, with fat layer exposed E11.621; L97.522 Chronic systolic (congestive) heart failure I50.22 Ischemic cardiomyopathy I25.5 H/O gastric bypass Z98.84 CAD (coronary artery disease) I25.10 Associated angina: angina presence unspecified Coronary Disease-Associated Artery/Lesion type: [place] artery [place] vs. transplanted heart: [place] heart DVT prophylaxis Z29.9 (1) CAD (coronary artery disease) Associated angina: angina presence unspecified Coronary Disease-Associated Artery/Lesion type: [place] artery [place] vs. transplanted heart: [place] heart Qualified Code(s): I25.10 - Atherosclerotic heart disease of [place] coronary artery without angina pectoris
[2020-08-05] MEDS ORDERED: DEXAMETHASONE SOD INJ 4 MG/ML VIAL ONE (12:30)
[2020-08-05] MEDS ORDERED: ePHEDrine sulfate 50 MG/ML SYR ONE (12:30)
[2020-08-05] MEDS ORDERED: PROPOFOL IV EMULSION 10 MG/ML 20 ML VIAL IV ONE (12:30)
[2020-08-05] MEDS ORDERED: LIDOCAINE HCL 2% 2 ML VIAL/AMP(20MG/ML) INFIL ONE (12:30)
[2020-08-05] MEDS ORDERED: ONDANSETRON INJ 2 MG/ML 2 ML VIAL ONE (12:30)
--- NOTE | 2020-08-05 13:41 | Operative Report ---
Post Operative Report Pre & Post Diagnosis Operation Date: 08/04/20 11:10 Pre-Op Diagnosis: non healing left foot ulcer Post-Op Diagnosis: non healing left foot ulcer Operation Date: 08/05/20 11:40 Pre-Op Diagnosis: Left 5th Toe Osteomyelitis Post-Op Diagnosis: Left 5th Toe Osteomyelitis I identified the patient and participated in the time-out.: Yes Procedure Operation Date: 08/04/20 11:10 Actual Procedures p Left Lower Extremity Arteriogram, Ultrasound Localization Of Right Common Femoral Artery, Mechanical Closure Of Right Femoral Artery, Moderate Concious Sedation 1208 to 1236(Right) - Ruddy Hicks MD Operation Date: 08/05/20 11:40 Actual Procedures p Left 5th Ray Resection(Left) - Ben Hunt MD Surgeon Ben Hunt M.D. Hitch Technician Claribel Ram PA-C, no fellow or resident available Estimated Blood Loss 30 Findings Consistent with Post-Op Diagnosis Specimens Left 5th toe Drains None Anesthesia Type General Complications none Description of Procedure Patient was taken to the operating room, placed under general anesthesia. Time out performed, prepped and draped in routine sterile fashion. I was present during the entire case and assisted with positioning, tissue retraction, removal of bone, hemostasis, closure and dressings. Please see Dr. Hunt's operative report for further detail. Patient was awakened and taken to the recovery room in stable condition. I attest to the content of the Intraoperative Record and any orders documented therein. Any exceptions are noted below.
--- NOTE | 2020-08-05 13:53 | Operative Report ---
Post Operative Report Pre & Post Diagnosis Operation Date: 08/05/20 11:40 Pre-Op Diagnosis: Left 5th Toe Osteomyelitis Post-Op Diagnosis: Left 5th Toe Osteomyelitis I identified the patient and participated in the time-out.: Yes Procedure Operation Date: 08/05/20 11:40 Actual Procedures p Left 5th Ray partial resection(Left) - Ben Hunt MD Surgeon Ben Hunt MD [employer] Claribel Ram PA-C, no fellow or resident available Estimated Blood Loss 30 Findings Consistent with Post-Op Diagnosis Specimens Culture x1 and resected digit sent for specimen Drains None Anesthesia Type General Complications none Disposition Accompanied Patient To Recovery: No Disposition: Recovery Room Indications Jesus is 65. He has had open draining wound left foot fifth metatarsal phalangeal joint for several months. Radiographs and CT scan are consistent with osteomyelitis. He is a diabetic. Surgical resection has been recommended. Description of Procedure Informed consent obtained. Patient identified. He identified the operative site as the left foot fifth toe. Preoperative surgical timeout was performed. He also identified the left calf as a possible operative site. Preop dose of IV antibiotics given. He was taken to the operating room positioned supine on the operating room table. A general anesthetic was administered. Tourniquet was applied to the left calf. skin was removed from the left fifth toe area. There was a plantar ulcer over the metatarsal phalangeal joint area fifth ray. Proximal to this and dorsal there was a second area of ulceration and drainage. The dorsal area was about 1/2 cm in size in the plantar area 1 cm in size. The leg was pre-scrubbed with Betadine and then prepped with Betadine. The tourniquet was initially put up for a few minutes but did not seem to work well likely secondary to his calcified vessels and was shortly thereafter put down. Limb was exsanguinated with gravity. Prior to applying the tourniquet prepping and draping etc. flexibility of the calf muscles was assessed. The ankle could be dorsiflexed 5 to 7 degrees beyond neutral both with the knee extended and the knee flexed. The hip had a significant external rotation contracture. A bump was placed under the left hip. A tennis racquet type incision was made over the base of the fifth toe coursing then dorsally to near the base of the fifth ray. The skin was sharply incised. Electrocautery was utilized for hemostasis. The selected area of the resection was identified proximally using fluoroscopy. This would correspond to the natural cascade of a transmetatarsal amputation and was located just proximal to the midpoint of the metatarsal. The cut was then made with an oscillating saw beveling it from dorsal to plantar and medial to lateral. A rongeur was utilized to remove any sharp portions of the bone and smooth the edges. The metatarsal was then subperiosteally excised from the wound. In a likewise fashion using cautery and blunt dissection the toe and fifth metatarsal phalangeal joint were then removed in an extracapsular fashion taking care to remove the entire fifth metatarsal phalangeal joint. There was obvious erosion of the bone visually undercutting the fifth metatarsal head and into the base of the proximal phalanx. A culture was taken of these areas and sent for Gram stain aerobic and anaerobic. Resected toe sent for specimen. Meticulous hemostasis was performed with electrocautery and pressure. The areas of the ulcerations were ellipsed sharply with a knife and debrided with a rongeur as appropriate. Remaining tissue was healthy with no remaining areas of bone fragments. A medical claims representative fluoroscopic image was obtained. The draining areas were left open. The remainder of the wound was then closed using 3-0 nylon. Horizontal mattress stitches. No packing or stimulant beads were utilized. There was very good bleeding throughout the wound area. His dorsalis pedis pulse was 2+. Prior to wound closure copious irrigation was performed. A soft sterile dressing was applied along with a postop shoe. Patient awakened from anesthesia. Taken to recovery room in stable condition. Specimens were as mentioned above. Counts were correct. Blood loss estimated to be 30 cc. At the conclusion the operation spoke patient's girlfriend and informed her of my findings. Postoperative findings were discussed along with the postop plan. He will be admitted to the hospital and continue his intravenous antibiotics. He may weight-bear as tolerated on his heel. We will follow-up on specimen and cultures. Continue IV antibiotics. Infectious disease consult. I attest to the content of the Intraoperative Record and any orders documented therein. Any exceptions are noted below.
[2020-08-05] MEDS: fentaNYL citrate 100 MCG/2 ML VIAL IV PRN ×2 (14:00→14:05)
--- NOTE | 2020-08-05 14:33 | Anesthesiology Progress Note ---
Date of Service August 05, 2020 Anesthesia Post Procedure Vital Signs Vital Signs: Temp Pulse Pulse Pulse Resp BP Pulse Ox 08/05/20 14:10 36.1 C L 85 16 114/57 L 98 08/05/20 14:00 88 15 121/61 96 08/05/20 13:50 82 20 117/59 L 99 08/05/20 13:40 36.1 C L 75 16 116/55 L 100 08/05/20 11:50 36.7 C 73 20 115/57 L 94 08/05/20 11:20 36.6 C 79 17 122/70 93 08/05/20 08:25 112/74 08/05/20 08:00 71 08/05/20 07:56 36.8 C 81 17 97/56 L 94 08/05/20 02:47 36.7 C 71 18 114/63 94 08/04/20 23:54 76 08/04/20 22:05 36.8 C 78 18 109/57 L 94 08/04/20 19:32 36.7 C 81 18 115/61 95 08/04/20 15:49 37.0 C 87 17 128/62 95 Pain Intensity Left Foot: Pain Intensity: 4 Transfer of Care Handoff Completed per policy Notes Mental Status: alert / awake / arousable and participated in evaluation Patient Amnestic to Procedure: Yes Nausea / Vomiting: adequately controlled Pain: adequately controlled Airway Patency, RR, SpO2: stable & adequate BP & HR: stable & adequate Hydration State: stable & adequate Anesthetic Complications: no major complications apparent
[2020-08-05] MEDS ORDERED: NALOXONE HCL 0.4 MG/1 ML VIAL/CARP IV PRN (14:34)
[2020-08-05] MEDS: cefTRIAXone SODIUM 2,000 MG in DEXTROSE 5% 50 ML IV SCH (15:08)
[2020-08-05] MEDS: SODIUM CHLORIDE 0.9% 1000ML 1,000 ML IV SCH ×2 (15:10→23:58)
[2020-08-05] MEDS: levoFLOXacin/D5W 750 MG/150 ML BAG IV SCH (15:11)
--- NOTE | 2020-08-05 17:23 | Billing Data ---
Date of Service August 05, 2020 Coding Level of Care Code 74439 Prolonged Care (int'l) Comment In the room from 10:00 am - 10:15am and 4:50pm - 5:15pm.
[2020-08-05] MEDS: HYDROmorphone INJ 1 MG/ML SYRINGE IV PRN ×2 (19:06→23:39)
[2020-08-05] MEDS: ceFAZolin 2000MG 2,000 MG/15 ML SYR IV SCH (20:29)
[2020-08-05] MEDS: clonazePAM 0.5 MG TAB PO SCH (20:31)
[2020-08-05] MEDS: PREGABALIN 75 MG CAP PO SCH (20:31)
[2020-08-05] MEDS: ATORVASTATIN 40 MG TAB PO SCH (20:34)
[2020-08-05] MEDS: traMADol HCL 50 MG TABLET PO PRN (21:58)
[2020-08-06] MEDS: traMADol HCL 50 MG TABLET PO PRN ×2 (03:00→08:08)
[2020-08-06] MEDS: ceFAZolin 2000MG 2,000 MG/15 ML SYR IV SCH ×3 (03:26→19:32)
[2020-08-06] MEDS: HYDROmorphone INJ 1 MG/ML SYRINGE IV PRN ×4 (04:10→21:40)
[2020-08-06 05:42] LABS: Hematocrit (blood only) 36.1 % (42-52); Hemoglobin 12.1 g/dL (14.0-18.0); Mean Corpuscular Hemoglobin 31.5 pg (25-34); Mean Corpuscular Hgb Conc 33.5 g/dL (32-36); Mean Platelet Volume 10.4 fL (7.4-10.4); Platelet Count 172 K/uL (130-400); RDW Coefficient of Variation 13.6 % (11.5-14.5); RDW Standard Deviation 46.6 fL (36.4-46.3); Red Blood Count 3.84 M/uL (4.7-6.1); White Blood Count 12.92 K/uL (4.8-10.8)
[2020-08-06 06:09] LABS: BUN Creatinine Ratio 20.3 (10-20); Calcium 8.7 mg/dl (8.5-10.1); Creatinine Clr Calc Pharmacy 81.8 ml/min; Est GFR (Non-African American) 78.5; Magnesium 1.8 mg/dl (1.8-2.4); Potassium 4.6 mmol/L (3.5-5.1)
[2020-08-06] MEDS: SPIRONOLACTONE 12.5 MG TAB PO SCH ×2 (08:09→15:06)
[2020-08-06] MEDS: ASPIRIN 81 MG ECTAB PO SCH (08:09)
[2020-08-06] MEDS: METOPROLOL SUCC 25MG EXT REL TAB PO SCH ×3 (08:10→20:08)
[2020-08-06] MEDS: DOCUSATE SODIUM/SENNA 50/8.6MG TAB PO SCH (08:11)
[2020-08-06] MEDS: SACCHAROMYCES BOULARDII 250 MG CAP PO SCH (08:11)
[2020-08-06] MEDS: CLOPIDOGREL BISULFATE 75 MG TAB PO SCH (08:11)
[2020-08-06] MEDS: SACUBITRIL-VALSARTAN 24-26 MG TAB PO SCH ×2 (08:11→20:11)
[2020-08-06] MEDS: POLYETHYLENE (MIRALAX) 17 GM PACK PO SCH (08:12)
[2020-08-06] MEDS: INSULIN ASPART 100 UNITS/ML 3 ML PEN SC SCH ×4 (08:20→21:16)
--- NOTE | 2020-08-06 12:59 | Hospitalist Progress Note ---
Date of Service August 06, 2020 Assessment & Plan (1) Osteomyelitis: Osteomyelitis at the head of the fifth metatarsal and base of the fifth proximal phalanx seen on CT foot on 07/31. * Prior wound cultures grew MSSA & quinn-sensitive Pseudomonas in 04/2020. Culture in 06/2020 grew Actinomyces. Most recent culture with multiple patrick. * Started on daptomycin & cefepime --> Switched to ceftriaxone & levofloxacin on 08/03 and following ID recommended cefazolin utilized in place of ceftriaxone * BCx negative * Angiogram on 08/04 showed no lesions. No intervention. * POD#1 s/p Left 5th Ray partial resection(Left) - Ben Hunt on 08/05. EBL 30mL. * Cultures from OR with rare WBC, no organisms seen. Cx NGTD, follow * After discussion with Dr. Hunt who feels entire osteo removed, could consider shorter course of abx --> messaged ID from [facility] regarding tr eatment duration but will continue current course for now until we hear back as patient to remain inpatient throughout the weekend as he is being set up with wound vac by Dr. Hunt this afternoon and will need changed sunday * CM aware -- assisting with HH for abx. * Orthotics consulted for offloading shoe --> had previously supposed to see Lion Alcantara today as outpatient (2) Diabetic ulcer of left foot associated with type 2 diabetes mellitus, with fat layer exposed: * Wound RN consulted * Orthotics consulted for offloading shoe (3) Chronic systolic (congestive) heart failure: * Last ECHO EF was 25-30% May 2020 * Cardiology on consult -- appreciate assistance. To maintain DAPT given AIDEE x 30 May 2020, 1 to proximal LAD * No acute exacerbation at this time, 94% on RA --> however, patient wt up to 96.9kg today from 94.4kg (using bed scale) and had refused lasix due to low BPs on 08/04 and provider held on 08/03 -- Discussed importance of these medications and he is agreeable to take the spironolactone and metoprolol today * Baseline weight 205-208lb, but per patient this fluctuates frequently * Strict I&O, Daily weights -- talked with nursing to obtain standing scale weights as they have been getting built in bedscale * Continue Lasix 40 mg po 5x/weekly, Spironolactone 12.5mg daily, Metoprolol 12.5mg BID, Entresto * Lasix in AM * Continue to monitor (4) Ischemic cardiomyopathy: * EF 25 to 30% as above. * Continue ASA, plavix, atorvastatin, Entresto, metoprolol, spironolactone and lasix as above (5) H/O gastric bypass: * Notable history of this, B12 injections monthly. (6) Status post biventricular pacemaker: * Noted -- interrogated today as rates up to 130s on monitor and asked cardiology to eval today -- functioning appropriately. Did note some extra fluid --- see above (7) Hyperlipidemia: * Atorvastatin (8) [place] (myocardial infarction): * x 8. multiple stents * Most recent AIDEE x 30 May 2020 as above (9) Bypass gastroenterostomy: * 2012 (10) Diabetes mellitus: * Last A1c Jul 31, 2020 -- 6.6 * ISS while inpatient and metformin 500mg BID held * BSGs have been acceptable * Continue to monitor (11) CAD (coronary artery disease): * No chest pain to indicate ischemia. * Continue above cardiac meds * Appreciate cardiology consultation (12) DVT prophylaxis: * Chemical prophylaxis deferred pending surgical decision -- would like to continue to avoid currently * SCDs contraindicated given peripheral artery disease and current ulcer on left side. Dispo: to remain inpatient through weekend and have wound vac changed on 07/30 Admission and Anticipated Discharge Date Admission Date: July 30, 2020 Supervising Physician Co-Signing Physician Notes ELIAS Supervision Note: I did not personally see or examine the patient today, but I verified all hubbard points of ELIAS Dunlap's assessment and plan with the following exceptions/additions: None Subjective Patient evaluated this morning, doing well. Pain present in his foot but tolerable with medications as ordered. Discussed resuming some of his cardiac medications, although he was initially hesitant given borderline blood pressures. Discussed given he states he is not lightheaded, dizzy, short of breath or visual symptoms it is best to continue these medications given his low EF and his pacemaker interrogation showed that he has some fluid on board. Patient states he understands and had already taken them for his nurse after previous explanation. Discussed reaching out to ID about duration as I have discussed with orthopedics and they believe they have successfully removed all bone/affected tissue and plans are to keep over the weekend for wound vac and to be changed on sunday. Updated girlfriend on phone at bedside on speaker phone. They state they will need a new offloading shoe as the previous one is filthy and covered in drainage and pus. Discussed reaching out to Lion Alcantara and patient states he had seen him prior outpatient for initial boot and was actually supposed to see him in the office today. Denies fever, chills, chest pain, shortness of breath, abdominal pain, nausea, vomiting, or dysuria at this time. Review of Systems Review of Systems: All systems reviewed & are unremarkable except as noted in HPI & below Physical Exam Constitutional: WD/WN, vitals as above Eyes: EOM intact bilaterally; no conjunctival abnormality ENMT: external ear and nose normal, oropharynx normal Neck: trachea midline, no thyromegaly normal visual inspection Respiratory: normal respiratory effort, lungs clear to auscultation no respiratory distress Cardiovascular: RRR, no murmur, no edema Gastrointestinal (Abdomen): Inspection/Auscultation: abdomen normal to inspection and normal bowel sounds; abdomen not distended Percussion/Palpation: abdomen soft; abdomen nontender Musculoskeletal: no cyanosis or clubbing, extremities motor strength 5/5 Skin: no rashes, warm and dry + ulcer (Left foot) -- approximately 1cm ulceration to lateral aspect left foot, 5th digit amputation with sutures in place bloody drainage noted on dressing NVI calves non-tender cap refill <3 seconds palpable pulses Neurologic: moves all extremities and awake Psychiatric: Orientation: alert, oriented to person and cooperative Lymphatic: no cervical or axillary lymphadenopathy Results & Data Results & Data ([facility]) Vital Signs (Past 12 Hours) Vital Signs Temp Pulse Pulse Resp BP Pulse Ox 08/06/20 11:09 36.9 C 66 20 104/54 L 94 08/06/20 08:00 71 08/06/20 07:21 37.1 C 70 20 100/59 L 93 08/06/20 03:24 37.0 C 80 18 118/66 94 Laboratory Results 08/06/20 08/06/20 08/06/20 Range/Units 16:42 11:27 07:32 WBC (4.8-10.8) K/uL RBC (4.7-6.1) M/uL Hgb (14.0-18.0) g/dL Hct (42-52) % MCV (80-100) fL MCH (25-34) pg MCHC (32-36) g/dL RDW Std Deviation (36.4-46.3) fL RDW Coeff of Neyda (11.5-14.5) % Plt Count (130-400) K/uL MPV (7.4-10.4) fL Sodium (136-145) mmol/L Potassium (3.5-5.1) mmol/L Chloride (98-107) mmol/L Carbon Dioxide (21-32) mmol/L Anion Gap (3-11) BUN (7-18) mg/dl Creatinine (0.6-1.4) mg/dl Est Cr Clr Drug Dosing ml/min Est GFR ( Amer) Est GFR (Non-Af Amer) BUN/Creatinine Ratio (10-20) Glucose (70-99) mg/dl POC Glucose 162 H 185 H 161 H (70-99) mg/dl Calcium (8.5-10.1) mg/dl Magnesium (1.8-2.4) mg/dl 08/06/20 08/06/20 08/05/20 Range/Units 05:31 05:31 20:30 WBC 12.92 H (4.8-10.8) K/uL RBC 3.84 L (4.7-6.1) M/uL Hgb 12.1 L (14.0-18.0) g/dL Hct 36.1 L (42-52) % MCV 94.0 (80-100) fL MCH 31.5 (25-34) pg MCHC 33.5 (32-36) g/dL RDW Std Deviation 46.6 H (36.4-46.3) fL RDW Coeff of Neyda 13.6 (11.5-14.5) % Plt Count 172 (130-400) K/uL MPV 10.4 (7.4-10.4) fL Sodium 138 (136-145) mmol/L Potassium 4.6 (3.5-5.1) mmol/L Chloride 107 (98-107) mmol/L Carbon Dioxide 27 (21-32) mmol/L Anion Gap 4.0 (3-11) BUN 20 H (7-18) mg/dl Creatinine 0.99 (0.6-1.4) mg/dl Est Cr Clr Drug Dosing 81.8 ml/min Est GFR ( Amer) 91.0 Est GFR (Non-Af Amer) 78.5 BUN/Creatinine Ratio 20.3 H (10-20) Glucose 168 H (70-99) mg/dl POC Glucose 261 H (70-99) mg/dl Calcium 8.7 (8.5-10.1) mg/dl Magnesium 1.8 (1.8-2.4) mg/dl PG Care Time/CCT Total # of Minutes Spent Total Time Spent with Patient: Total time spent is greater than 50% in coordination of care (as documented) at patient's floor/unit and/or counseling patient: Coding Level of Care Code 48055 Subseq Hosp Care Lvl 3 Diagnoses Osteomyelitis M86.9 Diabetic ulcer of left foot associated with type 2 diabetes mellitus, with fat layer exposed E11.621; L97.522 Chronic systolic (congestive) heart failure I50.22 Ischemic cardiomyopathy I25.5 H/O gastric bypass Z98.84 Status post biventricular pacemaker Z95.0 Hyperlipidemia E78.5 Hyperlipidemia type: unspecified [place] (myocardial infarction) I21.9 Bypass gastroenterostomy Z98.0 Diabetes mellitus E11.9 CAD (coronary artery disease) I25.10 Associated angina: angina presence unspecified Coronary Disease-Associated Artery/Lesion type: [place] artery [place] vs. transplanted heart: [place] heart DVT prophylaxis Z29.9 (1) CAD (coronary artery disease) Associated angina: angina presence unspecified Coronary Disease-Associated Artery/Lesion type: [place] artery [place] vs. transplanted heart: [place] heart Qualified Code(s): I25.10 - Atherosclerotic heart disease of [place] coronary artery without angina pectoris (2) Hyperlipidemia Hyperlipidemia type: unspecified Qualified Code(s): E78.5 - Hyperlipidemia, unspecified
--- NOTE | 2020-08-06 14:32 | Cardiology Progress Note ---
Date of Service August 06, 2020 Assessment & Plan (1) Diabetic ulcer of left foot associated with type 2 diabetes mellitus, with fat layer exposed: (2) Osteomyelitis: (3) Chronic systolic (congestive) heart failure: (4) Status post biventricular pacemaker: (5) Ischemic cardiomyopathy: (6) H/O gastric bypass: The patient had his pacemaker interrogated today. On telemetry he had heart rates in the 1 teens up to 120 bpm, most likely when he is moving. These heart rates are appropriate. The pacemaker is functioning appropriately and shows no evidence of atrial fibrillation or other cardiac arrhythmias. He does have a biventricular pacemaker with the His bundle lead and a very narrow QRS complex. I informed the patient and his daughter who was on his mobile phone that the pacemaker is functioning appropriately however, we will continue to monitor him. Admission and Anticipated Discharge Date Admission Date: July 30, 2020 Subjective The patient had a successful debridement surgery yesterday. Review of Systems Review of Systems: All systems reviewed & are unremarkable except as noted in HPI & below Nothing additional to add. Physical Exam Physical Exam: General: no acute distress and stated age Head: normocephalic, no masses, lesions, tenderness or abnormalities Eyes: conjunctiva are pink and non-injected, sclera clear Neck: supple, no adenopathy, no bruits, normal jugular venous pulse, no hepatojugular reflux Chest: normal shape and normal respiratory effort Lungs: clear to auscultation and percussion Cardiac Exam: - regular rate & rhythm, no murmurs gallops or rubs - normal S1, normal S2 Pulses: 2(+) throughout Abdomen: abdomen soft, non-tender, no abnormal masses and no hepatosplenomegaly Musculoskeletal: no gait disturbance, no joint inflammation, no deforming arthritis Extremities: Left soft cast of the foot Neuro: grossly normal exam Results & Data ([facility]) Vital Signs (Past 12 Hours) Vital Signs Temp Pulse Pulse Resp BP Pulse Ox 08/06/20 11:09 36.9 C 66 20 104/54 L 94 08/06/20 08:00 71 08/06/20 07:21 37.1 C 70 20 100/59 L 93 08/06/20 03:24 37.0 C 80 18 118/66 94 Laboratory Results Laboratory Results - last 24 hr 08/05/20 08/05/20 08/06/20 16:36 20:30 05:31 WBC 12.92 H RBC 3.84 L Hgb 12.1 L Hct 36.1 L MCV 94.0 MCH 31.5 MCHC 33.5 RDW Std Deviation 46.6 H RDW Coeff of Neyda 13.6 Plt Count 172 MPV 10.4 Sodium Potassium Chloride Carbon Dioxide Anion Gap BUN Creatinine Est Cr Clr Drug Dosing Est GFR ( Amer) Est GFR (Non-Af Amer) BUN/Creatinine Ratio Glucose POC Glucose 277 H 261 H Calcium Magnesium 08/06/20 08/06/20 08/06/20 05:31 07:32 11:27 WBC RBC Hgb Hct MCV MCH MCHC RDW Std Deviation RDW Coeff of Neyda Plt Count MPV Sodium 138 Potassium 4.6 Chloride 107 Carbon Dioxide 27 Anion Gap 4.0 BUN 20 H Creatinine 0.99 Est Cr Clr Drug Dosing 81.8 Est GFR ( Amer) 91.0 Est GFR (Non-Af Amer) 78.5 BUN/Creatinine Ratio 20.3 H Glucose 168 H POC Glucose 161 H 185 H Calcium 8.7 Magnesium 1.8 Medications Administered Current Inpatient Medications Acetaminophen (Acetaminophen 325 Mg Tab) 650 mg PO Q4H PRN PRN Reason: Pain or Fever Stop: 08/29/20 17:09 Last Admin: 08/02/20 06:04 Dose: 650 mg Documented by: Hydrocodone Bitart/Acetaminophen (Hydrocodone/Acetamophen 5/325mg Tab) 1 tab PO Q4H PRN PRN Reason: Pain Stop: 08/16/20 14:29 Last Admin: 08/04/20 18:53 Dose: 1 tab Documented by: Aspirin (Aspirin 81 Mg Ectab) 81 mg PO [facility] Stop: 08/30/20 12:44 Last Admin: 08/06/20 08:09 Dose: 81 mg Documented by: Atorvastatin Calcium (Atorvastatin 40 Mg Tab) 40 mg PO [facility] Stop: 08/29/20 20:59 Last Admin: 08/05/20 20:34 Dose: 40 mg Documented by: Clonazepam (Clonazepam 0.5 Mg Tab) 0.5 mg PO [facility] Stop: 08/29/20 20:59 Last Admin: 08/05/20 20:31 Dose: 0.5 mg Documented by: Clopidogrel Bisulfate (Clopidogrel Bisulfate 75 Mg Tab) 75 mg PO [facility] Stop: 08/30/20 08:59 Last Admin: 10/09/20 08:11 Dose: 75 mg Documented by: Dextrose (Dextrose 50% 50 Ml Syringe) 25 - 50 ml IV UD PRN; Protocol PRN Reason: Hypoglycemia Protocol Stop: 08/29/20 17:09 Furosemide (Furosemide 40 Mg Tab) 40 mg PO [id number] [facility] Stop: 08/30/20 08:59 Last Admin: 08/04/20 08:19 Dose: Not Given Documented by: Glucagon (Glucagon For Inj 1 Mg Vial) 1 mg SQ UD PRN; Protocol PRN Reason: Hypoglycemia Protocol Stop: 08/29/20 17:09 Glucose (Glucose 10 Tabs/Tube) 4 - 8 tabs PO UD PRN; Protocol PRN Reason: Hypoglycemia Protocol Stop: 08/29/20 17:09 Glucose (Glucose 40% Gel 15 Gm Tube) 15 - 30 gm PO UD PRN; Protocol PRN Reason: Hypoglycemia Protocol Stop: 08/29/20 17:09 Hydromorphone HCl (Hydromorphone Inj 1 Mg/Ml Syringe) 1 mg IV Q4H PRN PRN Reason: Pain Stop: 08/19/20 18:56 Last Admin: 08/06/20 12:12 Dose: 1 mg Documented by: Levofloxacin/Dextrose (Levaquin/D5w) 750 mg in 150 mls @ 100 mls/hr IV Q24H [facility] Stop: 08/10/20 12:29 Last Infusion: 08/05/20 16:48 Dose: Infused Documented by: Cefazolin Sodium (Ancef 2000mg) 2,000 mg in 15 mls @ 3.75 mls/min IV Q8H [facility] Stop: 08/12/20 19:59 Last Admin: 08/06/20 13:22 Dose: 3.75 mls/min Documented by: Insulin Aspart (Insulin Aspart 100 Units/Ml 3 Ml Pen) 0 units SC ACHS [facility]; Protocol Stop: 08/31/20 16:29 Last Admin: 08/06/20 12:16 Dose: 1 units Documented by: Iodixanol (Visipaque) 35 ml IV UD PRN PRN Reason: Radiology Use Stop: 08/08/20 12:30 Last Admin: 08/04/20 12:09 Dose: 35 ml Documented by: Metoprolol Succinate (Metoprolol Succ 25mg Ext Rel Tab) 12.5 mg PO BID [facility] Stop: 08/29/20 20:59 Last Admin: 08/06/20 08:10 Dose: Not Given Documented by: Miscellaneous (Carbohydrates For Hypoglycemia ) 15 - 30 gm PO UD PRN PRN Reason: Hypoglycemia Protocol Stop: 08/29/20 17:09 Naloxone HCl (Naloxone Hcl 0.4 Mg/1 Ml Vial/Carp) 0.1 mg IV Q5M PRN PRN Reason: Oversedation/Resp Depression Stop: 09/04/20 14:33 Ondansetron HCl (Ondansetron Inj 2 Mg/Ml 2 Ml Vial) 4 mg IV Q6H PRN PRN Reason: Nausea Stop: 08/29/20 17:09 Last Admin: 08/01/20 05:47 Dose: 4 mg Documented by: Polyethylene Glycol (Polyethylene (Miralax) 17 Gm Pack) 17 gm PO DAILY [facility] Stop: 08/29/20 22:59 Last Admin: 08/06/20 08:12 Dose: 17 gm Documented by: Pregabalin (Pregabalin 75 Mg Cap) 75 mg PO HS [facility] Stop: 08/29/20 20:59 Last Admin: 08/05/20 20:31 Dose: 75 mg Documented by: Saccharomyces Boulardii (Saccharomyces Boulardii 250 Mg Cap) 250 mg PO DAILY [facility] Stop: 09/02/20 13:59 Last Admin: 08/06/20 08:11 Dose: 250 mg Documented by: Sacubitril/Valsartan (Sacubitril-Valsartan 24-26 Mg Tab) 1 tab PO BID [facility] Stop: 08/29/20 20:59 Last Admin: 08/06/20 08:11 Dose: 1 tab Documented by: Senna/Docusate Sodium (Docusate Sodium/Senna 50/8.6mg Tab) 1 tab PO QAM [facility] Stop: 09/02/20 13:59 Last Admin: 08/06/20 08:11 Dose: 1 tab Documented by: Spironolactone (Spironolactone 12.5 Mg Tab) 12.5 mg PO QAM [facility] Stop: 08/30/20 08:59 Last Admin: 08/06/20 08:09 Dose: Not Given Documented by: Tramadol HCl (Tramadol Hcl 50 Mg Tablet) 50 - 100 mg PO Q4H PRN PRN Reason: Pain & Pre PT Stop: 09/04/20 14:33 Last Admin: 08/06/20 08:08 Dose: 50 mg Documented by:
[2020-08-06] MEDS: levoFLOXacin/D5W 750 MG/150 ML BAG IV SCH (14:42)
--- NOTE | 2020-08-06 14:53 | Orthopedic Progress Note ---
Date of Service August 06, 2020 Assessment & Plan (1) Osteomyelitis: POD 1 - s/p 5th Ray resection left foot Doing well. Wound looks good, as expected Patient seen by myself and by Dr. Hunt Continue wound vac left foot if not too much drainage. Elevate as needed for swelling Orders placed for dressing change/removal of vac if necessary. May be out of bed, weight bear as tolerated on left heel with post op shoe in place. Will re-eval and change wound vac on Thursday 08/09 All questions answered, call with any questions or concerns. Admission and Anticipated Discharge Date Admission Date: July 30, 2020 Subjective Patient doing well, complaints of some pain in left foot, but tolerable. Better than last night. Physical Exam Physical Exam: Left foot dressings removed. Incision clean, dry, intact. Two open wounds, one within incision, one on lateral plantar surface of foot. Wounds with mild ooze, improved with pressure. Sutures retained. Wound cleansed with 4x4's. Wound vac applied today by Deanne Meeks. Results & Data ([facility]) Vital Signs (Past 12 Hours) Vital Signs Temp Pulse Pulse Resp BP Pulse Ox 08/06/20 11:09 36.9 C 66 20 104/54 L 94 08/06/20 08:00 71 08/06/20 07:21 37.1 C 70 20 100/59 L 93 08/06/20 03:24 37.0 C 80 18 118/66 94 (1) Osteomyelitis Laterality: left Osteomyelitis location: foot Osteomyelitis type: subacute Qualified Code(s): M86.272 - Subacute osteomyelitis, left ankle and foot
[2020-08-06] MEDS: clonazePAM 0.5 MG TAB PO SCH (20:08)
[2020-08-06] MEDS: PREGABALIN 75 MG CAP PO SCH (20:08)
[2020-08-06] MEDS: ATORVASTATIN 40 MG TAB PO SCH (20:08)
[2020-08-06] MEDS: HYDROCODONE/ACETAMOPHEN 5/325MG TAB PO PRN (20:15)
[2020-08-07] MEDS: HYDROmorphone INJ 1 MG/ML SYRINGE IV PRN ×5 (02:01→23:53)
[2020-08-07] MEDS: ceFAZolin 2000MG 2,000 MG/15 ML SYR IV SCH ×3 (03:50→20:01)
[2020-08-07 05:38] LABS: Basophils # (auto) 0.02 K/uL (0-0.2); Basophils % (auto) 0.3 %; Eosinophils # (auto) 0.18 K/uL (0-0.5); Eosinophils % (auto) 2.4 %; Hematocrit (blood only) 36.2 % (42-52); Hemoglobin 11.6 g/dL (14.0-18.0); Immature Granulocytes # (auto) 0.02 K/uL (0.00-0.02); Immature Granulocytes % (auto) 0.3 %; Lymphocytes # (auto) 1.31 K/uL (1.2-3.4); Lymphocytes % (auto) 17.3 %; Mean Corpuscular Hemoglobin 30.4 pg (25-34); Mean Corpuscular Volume 94.8 fL (80-100); Mean Platelet Volume 10.7 fL (7.4-10.4); Monocytes # (auto) 0.73 K/uL (0.11-0.59); Monocytes % (auto) 9.6 %; Neutrophils # (auto) 5.32 K/uL (1.4-6.5); Neutrophils % (auto) 70.1 %; Platelet Count 164 K/uL (130-400); RDW Coefficient of Variation 14.1 % (11.5-14.5); Red Blood Count 3.82 M/uL (4.7-6.1); White Blood Count 7.58 K/uL (4.8-10.8)
[2020-08-07 06:06] LABS: Albumin Level 3.1 gm/dl (3.4-5.0); BUN Creatinine Ratio 23.2 (10-20); Calcium 8.5 mg/dl (8.5-10.1); Est GFR (African American) 102.5; Est GFR (Non-African American) 88.5; Magnesium 1.7 mg/dl (1.8-2.4); Potassium 4.4 mmol/L (3.5-5.1)
[2020-08-07 06:08] LABS: Bilirubin,Total 0.4 mg/dl (0.2-1); Globulin 3.2 gm/dl (2.5-4.0); Phosphorus 2.9 mg/dl (2.5-4.9); Total Protein 6.3 gm/dl (6.4-8.2)
[2020-08-07] MEDS: DOCUSATE SODIUM/SENNA 50/8.6MG TAB PO SCH (08:22)
[2020-08-07] MEDS: METOPROLOL SUCC 25MG EXT REL TAB PO SCH ×2 (08:22→20:05)
[2020-08-07] MEDS: SACUBITRIL-VALSARTAN 24-26 MG TAB PO SCH ×2 (08:22→20:04)
[2020-08-07] MEDS: CLOPIDOGREL BISULFATE 75 MG TAB PO SCH (08:22)
[2020-08-07] MEDS: SACCHAROMYCES BOULARDII 250 MG CAP PO SCH (08:23)
[2020-08-07] MEDS: SPIRONOLACTONE 12.5 MG TAB PO SCH (08:23)
[2020-08-07] MEDS: ASPIRIN 81 MG ECTAB PO SCH (08:23)
[2020-08-07] MEDS: FUROSEMIDE 40 MG TAB PO SCH (08:24)
[2020-08-07] MEDS: POLYETHYLENE (MIRALAX) 17 GM PACK PO SCH (08:25)
[2020-08-07] MEDS: INSULIN ASPART 100 UNITS/ML 3 ML PEN SC SCH ×4 (08:25→21:22)
[2020-08-07] MEDS: MAGNESIUM SULFATE / D5W 1 GM/100 ML BAG IV SCH ×2 (09:49→12:19)
--- NOTE | 2020-08-07 10:57 | Hospitalist Progress Note ---
Date of Service August 07, 2020 Assessment & Plan (1) Osteomyelitis: Osteomyelitis at the head of the fifth metatarsal and base of the fifth proximal phalanx seen on CT foot on 07/31. * Prior wound cultures grew MSSA & quinn-sensitive Pseudomonas in 04/2020. Culture in 06/2020 grew Actinomyces. Most recent culture with multiple patrick. * Started on daptomycin & cefepime --> Switched to ceftriaxone & levofloxacin on 08/03 and following ID recommended cefazolin utilized in place of ceftriaxone * BCx negative * Angiogram on 08/04 showed no lesions. No intervention. POD#2 s/p Left 5th Ray partial resection(Left) - Ben Hunt on 08/05. EBL 30mL. * After discussion with Dr. Hunt who feels entire osteo removed, could consider shorter course of abx --> messaged ID from [facility] regarding treatment duration but will continue current course for now until we hear back as patient to remain inpatient throughout the weekend * Gram stain w/ rare WBC, no organisms --cx prelim without growth to date, follow * Received offloading shoe from [facility] 08/06 * Wound vac applied by wound RN and ortho to re-eval/change on Sunday-- CM aware and also assisting with IV abx * Orthotics consulted for offloading shoe --> had previously supposed to see [facility] today as outpatient * H/h 11.6/36.2 from 14 prior to surgery -- acute blood loss anemia following surgery * Continue to monitor labs (2) Diabetic ulcer of left foot associated with type 2 diabetes mellitus, with fat layer exposed: * Wound RN consulted * Orthotics consulted for offloading shoe -- in room with patient (3) Chronic systolic (congestive) heart failure: * Last ECHO EF was 25-30% May 2020 * Cardiology on consult -- appreciate assistance. To maintain DAPT given AIDEE x 30 May 2020, 1 to proximal LAD * No acute exacerbation at this time, 95% on RA * Wt 95.7kg (210lb). Baseline 205-208lb, but varies per patient * Strict I&O, Daily weights -- talked with nursing to obtain standing scale weights as they have been getting built in bedscale prior to yesterday * Continue Lasix 40 mg po 5x/weekly, Spironolactone 12.5mg daily, Metoprolol 12.5mg BID, Entresto * Continue to monitor (4) Ischemic cardiomyopathy: * EF 25 to 30% as above. * Continue ASA, plavix, atorvastatin, Entresto, metoprolol, spironolactone and lasix as above (5) H/O gastric bypass: * Notable history of this, B12 injections monthly. (6) Status post biventricular pacemaker: * Noted -- interrogated 08/06 as rates up to 130s on monitor and asked cardiology to eval today -- functioning appropriately. Did note some extra fluid on board * Rates now paced in the 70s on telemetry (7) Hyperlipidemia: * Atorvastatin (8) VT (myocardial infarction): * x 8. multiple stents * Most recent AIDEE x 30 May 2020 as above (9) Bypass gastroenterostomy: * 2012 (10) Diabetes mellitus: * Last A1c Jul 31, 2020 -- 6.6 * ISS while inpatient and metformin 500mg BID held * BSGs have been acceptable (11) CAD (coronary artery disease): * No chest pain to indicate ischemia. * Continue above cardiac meds * Appreciate cardiology consultation (12) Hypomagnesemia: * Mag 1.7 -- given 2gm IV * Mag in AM (13) DVT prophylaxis: * Chemical prophylaxis deferred pending surgical decision -- avoided immediately post-operatively but given SCDs contraindicated given PAD on ulcer side, discussed starting DVT prophylaxis with orthopedics and they did not recommend anything more than aspirin if cannot have SCDs Dispo: to remain inpatient through weekend and have wound vac changed on 07/30 Admission and Anticipated Discharge Date Admission Date: July 30, 2020 Supervising Physician Co-Signing Physician Notes ELIAS Supervision Note: I did not personally see or examine the patient today, but I verified all hubbard points of ELIAS Dunlap's assessment and plan with the following exceptions/additions: None Subjective Patient evaluated this morning. Doing well but still with some significant pain. Received Dilaudid this morning x 2 with results and we discussed increased PO to 2 tablets prn in hope to get him on suitable regimen for home. Passing lots of gas but no BM in 3 days. No abdominal pain noted. Had miralax and prune juice this morning but will add additional agent if needed. He states orthopedics to re-evaluate on sunday but possibly without the wound vac at discharge if no drainage by that time. He did receive offloading shoe from [facility] yesterday afternoon. BPs improved on his home regimen and he states he did receive his lasix this morning as well. Denies fever, chills, chest pain, shortness of breath, abdominal pain, nausea vomiting or dysuria. Review of Systems Review of Systems: All systems reviewed & are unremarkable except as noted in HPI & below Physical Exam Constitutional: WD/WN, vitals as above Eyes: + anicteric sclerae and PERRL ENMT: mmm Neck: trachea midline, no thyromegaly normal visual inspection Respiratory: normal respiratory effort, lungs clear to auscultation no respiratory distress Cardiovascular: RRR, no murmur, no edema Gastrointestinal (Abdomen): Inspection/Auscultation: abdomen normal to inspection and normal bowel sounds; abdomen not distended Percussion/Palpation: abdomen soft; abdomen nontender Musculoskeletal: no cyanosis or clubbing, extremities motor strength 5/5 Skin: + ulcer (Left foot) -- approximately 1cm ulceration to lateral aspect left foot, 5th digit amputation with sutures in place tender to palpation wound vac with scant blood in tubing NVI calves non-tender cap refill <3 seconds palpable pulses Neurologic: moves all extremities and awake Psychiatric: Orientation: alert, oriented to person and cooperative Lymphatic: no cervical or axillary lymphadenopathy Results & Data Results & Data ([facility]) Vital Signs (Past 12 Hours) Vital Signs Temp Pulse Pulse Pulse Resp BP Pulse Ox 08/07/20 08:12 35.9 C L 71 20 111/63 95 08/07/20 08:00 62 08/07/20 04:16 36.7 C 71 16 112/67 94 08/07/20 00:03 71 08/06/20 23:44 36.9 C 70 18 104/58 L 95 Laboratory Results 08/07/20 08/07/20 08/07/20 Range/Units 07:56 05:10 05:10 WBC 7.58 (4.8-10.8) K/uL RBC 3.82 L (4.7-6.1) M/uL Hgb 11.6 L (14.0-18.0) g/dL Hct 36.2 L (42-52) % MCV 94.8 (80-100) fL MCH 30.4 (25-34) pg MCHC 32.0 (32-36) g/dL RDW Std Deviation 48.0 H (36.4-46.3) fL RDW Coeff of Neyda 14.1 (11.5-14.5) % Plt Count 164 (130-400) K/uL MPV 10.7 H (7.4-10.4) fL Immature Gran % (Auto) 0.3 % Neut % (Auto) 70.1 % Lymph % (Auto) 17.3 % [place] % (Auto) 9.6 % Eos % (Auto) 2.4 % Baso % (Auto) 0.3 % Neut # (Auto) 5.32 (1.4-6.5) K/uL Lymph # (Auto) 1.31 (1.2-3.4) K/uL [place] # (Auto) 0.73 H (0.11-0.59) K/uL Eos # (Auto) 0.18 (0-0.5) K/uL Baso # (Auto) 0.02 (0-0.2) K/uL Immature Gran # (Auto) 0.02 (0.00-0.02) K/uL Sodium 138 (136-145) mmol/L Potassium 4.4 (3.5-5.1) mmol/L Chloride 107 (98-107) mmol/L Carbon Dioxide 27 (21-32) mmol/L Anion Gap 4.0 (3-11) BUN 21 H (7-18) mg/dl Creatinine 0.89 (0.6-1.4) mg/dl Est Cr Clr Drug Dosing 91.0 ml/min Est GFR ( Amer) 102.5 Est GFR (Non-Af Amer) 88.5 BUN/Creatinine Ratio 23.2 H (10-20) Glucose 122 H (70-99) mg/dl POC Glucose 122 H (70-99) mg/dl Calcium 8.5 (8.5-10.1) mg/dl Phosphorus 2.9 (2.5-4.9) mg/dl Magnesium 1.7 L (1.8-2.4) mg/dl Total Bilirubin 0.4 (0.2-1) mg/dl AST 9 L (15-37) U/L ALT 12 (12-78) U/L Alkaline Phosphatase 96 (45-117) U/L Total Protein 6.3 L (6.4-8.2) gm/dl Albumin 3.1 L (3.4-5.0) gm/dl Globulin 3.2 (2.5-4.0) gm/dl Albumin/Globulin Ratio 1.0 (0.9-2) 08/06/20 08/06/20 08/06/20 Range/Units 21:03 16:42 11:27 WBC (4.8-10.8) K/uL RBC (4.7-6.1) M/uL Hgb (14.0-18.0) g/dL Hct (42-52) % MCV (80-100) fL MCH (25-34) pg MCHC (32-36) g/dL RDW Std Deviation (36.4-46.3) fL RDW Coeff of Neyda (11.5-14.5) % Plt Count (130-400) K/uL MPV (7.4-10.4) fL Immature Gran % (Auto) % Neut % (Auto) % Lymph % (Auto) % [place] % (Auto) % Eos % (Auto) % Baso % (Auto) % Neut # (Auto) (1.4-6.5) K/uL Lymph # (Auto) (1.2-3.4) K/uL [place] # (Auto) (0.11-0.59) K/uL Eos # (Auto) (0-0.5) K/uL Baso # (Auto) (0-0.2) K/uL Immature Gran # (Auto) (0.00-0.02) K/uL Sodium (136-145) mmol/L Potassium (3.5-5.1) mmol/L Chloride (98-107) mmol/L Carbon Dioxide (21-32) mmol/L Anion Gap (3-11) BUN (7-18) mg/dl Creatinine (0.6-1.4) mg/dl Est Cr Clr Drug Dosing ml/min Est GFR ( Amer) Est GFR (Non-Af Amer) BUN/Creatinine Ratio (10-20) Glucose (70-99) mg/dl POC Glucose 138 H 162 H 185 H (70-99) mg/dl Calcium (8.5-10.1) mg/dl Phosphorus (2.5-4.9) mg/dl Magnesium (1.8-2.4) mg/dl Total Bilirubin (0.2-1) mg/dl AST (15-37) U/L ALT (12-78) U/L Alkaline Phosphatase (45-117) U/L Total Protein (6.4-8.2) gm/dl Albumin (3.4-5.0) gm/dl Globulin (2.5-4.0) gm/dl Albumin/Globulin Ratio (0.9-2) PG Care Time/CCT Total # of Minutes Spent Total Time Spent with Patient: Total time spent is greater than 50% in coordination of care (as documented) at patient's floor/unit and/or counseling patient: Coding Level of Care Code 99602 Subseq Hosp Care Lvl 3 Diagnoses Osteomyelitis M86.9 Diabetic ulcer of left foot associated with type 2 diabetes mellitus, with fat layer exposed E11.621; L97.522 Chronic systolic (congestive) heart failure I50.22 Ischemic cardiomyopathy I25.5 H/O gastric bypass Z98.84 Status post biventricular pacemaker Z95.0 Hyperlipidemia E78.5 Hyperlipidemia type: unspecified VT (myocardial infarction) I21.9 Bypass gastroenterostomy Z98.0 Diabetes mellitus E11.9 CAD (coronary artery disease) I25.10 Associated angina: angina presence unspecified Coronary Disease-Associated Artery/Lesion type: [place] artery [place] vs. transplanted heart: [place] heart Hypomagnesemia E83.42 DVT prophylaxis Z29.9 (1) CAD (coronary artery disease) Associated angina: angina presence unspecified Coronary Disease-Associated Artery/Lesion type: [place] artery [place] vs. transplanted heart: [place] heart Qualified Code(s): I25.10 - Atherosclerotic heart disease of [place] coronary artery without angina pectoris (2) Hyperlipidemia Hyperlipidemia type: unspecified Qualified Code(s): E78.5 - Hyperlipidemia, unspecified
--- NOTE | 2020-08-07 11:02 | Cardiology Progress Note ---
Date of Service August 07, 2020 Assessment & Plan (1) Diabetic ulcer of left foot associated with type 2 diabetes mellitus, with fat layer exposed: (2) Osteomyelitis: (3) Chronic systolic (congestive) heart failure: (4) Status post biventricular pacemaker: (5) Ischemic cardiomyopathy: (6) H/O gastric bypass: Diabetic foot wound with resultant osteomyelitis for which the patient underwent surgical intervention for left fifth toe osteomyelitis on 08/06/2020. Peripheral angiogram performed by vascular surgery on 08/04/2020 revealed no obstructive PAD. History of coronary heart disease [place] on cardiac catheterization for unstable angina on 06/12/2020 with findings and severe two-vessel coronary heart disease, with 70 to 80% in-stent restenosis of the proximal LAD, 70 to 80% distal circumflex stenosis, chronic occlusion of the proximal portion of OM 2 stent. Previously placed mid LAD and proximal to mid circumflex stents were widely patent at that time. Patient underwent PCI drug-eluting stent to the proximal LAD, PCI drug-eluting stent to the distal circumflex, 06/12/2020. History of ischemic cardiomyopathy LVEF 25 to 30%, for which patient underwent biventricular His bundle pacer ICD 07/30/2019 Continue dual antiplatelet therapy with aspirin 81 mg daily, clopidogrel 75 mg daily. Continue guideline based treatment for ischemic cardiomyopathy, chronic systolic heart failure, with metoprolol succinate, Entresto, spironolactone, furosemide, atorvastatin. Mild hypomagnesemia today, 1.7, for which she is receiving IV replacement, otherwise labs stable. Hbg stable, will discuss adding SQ lovenox for DVT prophylaxis with hospitlist team. Admission and Anticipated Discharge Date Admission Date: July 30, 2020 Subjective Patient seen in cardiology follow-up. He was comfortable, no complaints noted. Telemetry reveals sinus rhythm at 80 bpm. Review of Systems Review of Systems: All systems reviewed & are unremarkable except as noted in HPI & below Physical Exam Physical Exam: Temp Pulse Resp BP Pulse Ox 35.9 C L 71 20 111/63 95 08/07/20 08:12 08/07/20 08:12 08/07/20 08:12 08/07/20 08:12 08/07/20 08:12 Respiratory: normal respiratory effort, lungs clear to auscultation Cardiovascular: RRR, no murmur, no edema Results & Data ([facility]) Vital Signs (Past 12 Hours) Vital Signs Temp Pulse Pulse Pulse Resp BP Pulse Ox 08/07/20 08:12 35.9 C L 71 20 111/63 95 08/07/20 08:00 62 08/07/20 04:16 36.7 C 71 16 112/67 94 08/07/20 00:03 71 08/06/20 23:44 36.9 C 70 18 104/58 L 95
[2020-08-07] MEDS: HYDROCODONE/ACETAMOPHEN 5/325MG TAB PO PRN (12:09)
[2020-08-07] MEDS: levoFLOXacin/D5W 750 MG/150 ML BAG IV SCH (14:13)
[2020-08-07] MEDS ORDERED: bisacodyL 5 MG TABEC PO ONE (17:26)
[2020-08-07] MEDS ORDERED: bisacodyL 10 MG SUPP PR PRN (17:27)
[2020-08-07] MEDS: ATORVASTATIN 40 MG TAB PO SCH (20:04)
[2020-08-07] MEDS: clonazePAM 0.5 MG TAB PO SCH (20:09)
[2020-08-07] MEDS: PREGABALIN 75 MG CAP PO SCH (20:10)
[2020-08-08] MEDS: ceFAZolin 2000MG 2,000 MG/15 ML SYR IV SCH ×3 (04:17→20:18)
[2020-08-08 07:26] LABS: Basophils # (auto) 0.02 K/uL (0-0.2); Basophils % (auto) 0.3 %; Eosinophils # (auto) 0.35 K/uL (0-0.5); Eosinophils % (auto) 4.6 %; Hematocrit (blood only) 38.4 % (42-52); Hemoglobin 12.7 g/dL (14.0-18.0); Immature Granulocytes # (auto) 0.02 K/uL (0.00-0.02); Immature Granulocytes % (auto) 0.3 %; Lymphocytes # (auto) 1.17 K/uL (1.2-3.4); Lymphocytes % (auto) 15.4 %; Mean Corpuscular Hemoglobin 31.1 pg (25-34); Mean Corpuscular Hgb Conc 33.1 g/dL (32-36); Mean Corpuscular Volume 94.1 fL (80-100); Mean Platelet Volume 10.5 fL (7.4-10.4); Monocytes # (auto) 0.83 K/uL (0.11-0.59); Monocytes % (auto) 10.9 %; Neutrophils # (auto) 5.23 K/uL (1.4-6.5); Neutrophils % (auto) 68.5 %; Platelet Count 163 K/uL (130-400); RDW Coefficient of Variation 13.9 % (11.5-14.5); RDW Standard Deviation 47.6 fL (36.4-46.3); Red Blood Count 4.08 M/uL (4.7-6.1); White Blood Count 7.62 K/uL (4.8-10.8)
[2020-08-08] MEDS: HYDROmorphone INJ 1 MG/ML SYRINGE IV PRN ×4 (07:56→21:55)
[2020-08-08 08:01] LABS: BUN Creatinine Ratio 22.6 (10-20); Creatinine Clr Calc Pharmacy 96.4 ml/min; Est GFR (Non-African American) 90.6; Magnesium 2.1 mg/dl (1.8-2.4); Phosphorus 3.1 mg/dl (2.5-4.9); Potassium 4.1 mmol/L (3.5-5.1)
[2020-08-08] MEDS: POLYETHYLENE (MIRALAX) 17 GM PACK PO SCH (08:04)
[2020-08-08] MEDS: SPIRONOLACTONE 12.5 MG TAB PO SCH (08:04)
[2020-08-08] MEDS: ASPIRIN 81 MG ECTAB PO SCH (08:04)
[2020-08-08] MEDS: DOCUSATE SODIUM/SENNA 50/8.6MG TAB PO SCH (08:04)
[2020-08-08] MEDS: SACCHAROMYCES BOULARDII 250 MG CAP PO SCH (08:04)
[2020-08-08] MEDS: CLOPIDOGREL BISULFATE 75 MG TAB PO SCH (08:04)
[2020-08-08] MEDS: FUROSEMIDE 40 MG TAB PO SCH (08:05)
[2020-08-08] MEDS: SACUBITRIL-VALSARTAN 24-26 MG TAB PO SCH ×2 (08:05→20:20)
[2020-08-08] MEDS: INSULIN ASPART 100 UNITS/ML 3 ML PEN SC SCH ×4 (08:08→21:19)
[2020-08-08] MEDS: METOPROLOL SUCC 25MG EXT REL TAB PO SCH ×2 (08:09→20:22)
[2020-08-08] MEDS: HYDROCODONE/ACETAMOPHEN 5/325MG TAB PO PRN (11:36)
--- NOTE | 2020-08-08 12:34 | Hospitalist Progress Note ---
Date of Service August 08, 2020 Assessment & Plan (1) Osteomyelitis: Osteomyelitis at the head of the fifth metatarsal and base of the fifth proximal phalanx seen on CT foot on 07/31. * Prior wound cultures grew MSSA & quinn-sensitive Pseudomonas in 04/2020. Culture in 06/2020 grew Actinomyces. Most recent culture with multiple patrick. * Started on daptomycin & cefepime --> Switched to ceftriaxone & levofloxacin on 08/03 and following ID recommended cefazolin utilized in place of ceftriaxone * BCx negative * Angiogram on 08/04 showed no lesions. No intervention. POD#3 s/p Left 5th Ray partial resection(Left) - Ben Hunt on 08/05. EBL 30mL. * After discussion with Dr. Hunt who feels entire osteo removed, could consider shorter course of abx --> messaged ID from [employer] regarding treatment duration but will continue current course for now until we hear back as patient to remain inpatient throughout the weekend. * Gram stain w/ rare WBC, no organisms --cx with pin-point growth, re-incubating * Continue cefazolin IV and Levaquin IV for now --> will likely need US guided peripheral if need to continue IV cefazolin. To be continued 1-2 weeks from surgery date for surrounding soft tissue unless cultures negative and able to utilize Keflex in lieu of the ancef * Offloading shoe delivered, utilizing with ambulation * Wound vac applied by wound RN and ortho to re-eval/change on Sunday-- CM aware and also assisting with IV abx * Orthotics consulted for offloading shoe --> had previously supposed to see Lion Alcantara today as outpatient * H/h improved to 12.7/38.4 * Continue to monitor labs (2) Diabetic ulcer of left foot associated with type 2 diabetes mellitus, with fat layer exposed: * Wound RN consulted * Orthotics consulted for offloading shoe -- in room with patient (3) Chronic systolic (congestive) heart failure: * Last ECHO EF was 25-30% May 2020 * Cardiology on consult -- appreciate assistance. To maintain DAPT given AIDEE x 30 May 2020, 1 to proximal LAD * No acute exacerbation at this time, 95% on RA * Wt 92.5kg (203lb). Baseline 205-208lb, but varies per patient. Euvolemic on examination * Strict I&O, Daily weights with standing scale * Continue Lasix 40 mg po 5x/weekly, Spironolactone 12.5mg daily, Metoprolol 12.5mg BID, Entresto * Continue to monitor (4) Ischemic cardiomyopathy: * EF 25 to 30% as above. * Continue ASA, plavix, atorvastatin, Entresto, metoprolol, spironolactone and lasix as above (5) H/O gastric bypass: * Notable history of this, B12 injections monthly. (6) Status post biventricular pacemaker: * Noted -- interrogated 08/06 as rates up to 130s on monitor and asked car diology to eval -- functioning appropriately. Did note some extra fluid on board and resumed his lasix * Rates now paced in the 60-70s on telemetry today (7) Hyperlipidemia: * Atorvastatin (8) [place] (myocardial infarction): * x 8. multiple stents * Most recent AIDEE x 30 May 2020 as above (9) Bypass gastroenterostomy: * 2012 (10) Diabetes mellitus: * Last A1c Jul 31, 2020 -- 6.6 * ISS while inpatient and metformin 500mg BID held * BSGs have been acceptable (11) CAD (coronary artery disease): * No chest pain to indicate ischemia. * Continue above cardiac meds * Appreciate cardiology consultation (12) Hypomagnesemia: * Mag 1.7 -- given 2gm IV * Mag 2.1 -- resolved * Continue to monitor (13) DVT prophylaxis: * Chemical prophylaxis deferred pending surgical decision -- avoided immediately post-operatively but given SCDs contraindicated given PAD on ulcer side, discussed starting DVT prophylaxis with orthopedics and they did not recommend anything more than aspirin if cannot have SCDs at that time * Ok'd with ortho to start Lovenox SQ today Dispo: to remain inpatient through weekend and have wound vac changed on 07/30 Admission and Anticipated Discharge Date Admission Date: July 30, 2020 Supervising Physician Co-Signing Physician Notes PA Supervision Note: I did not personally see or examine the patient today, but I verified all hubbard points of ELIAS Dunlap's assessment and plan with the following exceptions/additions: None Subjective Patient evaluated this morning. Pain much better today compared to yesterday. Did have two successful BM. Eating/drinking without difficulty. Woundvac without significant output and discussed ortho will be by in morning to change. Wound cultures discussed with pinpoint growth, re-incubating, and will need to obtain peripheral IV access prior to discharge if decision is made to continue IV instead of keflex as previously discussed. Denies fever, chills, chest pain, shortness of breath, abdominal pain, nausea, vomiting, dysuria at this time. Has been up with his shoe and ambulating more frequently. Agreeable to begin lovenox today for DVT prophylaxis after ok'd by orthopedic team. Hopeful for possible discharge tomorrow. Updated girlfriend Maddy on phone in room. She would like to make sure CM aware they would like [facility] for home nursing as they had previous bad experiences elsewhere. Ok with [facility] for IV abx if continued. Review of Systems Review of Systems: All systems reviewed & are unremarkable except as noted in HPI & below Physical Exam Constitutional: WD/WN, vitals as above Eyes: + anicteric sclerae and PERRL ENMT: external ear and nose normal, oropharynx normal Neck: trachea midline, no thyromegaly normal visual inspection Respiratory: normal respiratory effort, lungs clear to auscultation no respiratory distress Cardiovascular: RRR, no murmur, no edema Gastrointestinal (Abdomen): Inspection/Auscultation: abdomen normal to inspection and normal bowel sounds; abdomen not distended Percussion/Palpation: abdomen soft; abdomen nontender Musculoskeletal: no cyanosis or clubbing, extremities motor strength 5/5 Skin: + ulcer (Left foot) ulcer to lateral L foot dressing c/d/i tender to palpation woundvac in place with scant brown/bloody drainage noted in canister NVI pulses palpable calves non-tender Neurologic: moves all extremities and awake Psychiatric: Orientation: alert, oriented to person and cooperative Lymphatic: no cervical or axillary lymphadenopathy Results & Data Results & Data ([facility]) Vital Signs (Past 12 Hours) Vital Signs Temp Pulse Pulse Resp BP Pulse Ox 08/08/20 11:00 36.9 C 72 18 94/58 L 96 08/08/20 08:00 37.0 C 68 18 113/65 95 08/08/20 07:00 72 08/08/20 04:00 36.6 C 72 18 108/66 93 Laboratory Results 08/08/20 08/08/20 08/08/20 Range/Units 11:40 07:32 06:54 WBC (4.8-10.8) K/uL RBC (4.7-6.1) M/uL Hgb (14.0-18.0) g/dL Hct (42-52) % MCV (80-100) fL MCH (25-34) pg MCHC (32-36) g/dL RDW Std Deviation (36.4-46.3) fL RDW Coeff of Neyda (11.5-14.5) % Plt Count (130-400) K/uL MPV (7.4-10.4) fL Immature Gran % (Auto) % Neut % (Auto) % Lymph % (Auto) % [place] % (Auto) % Eos % (Auto) % Baso % (Auto) % Neut # (Auto) (1.4-6.5) K/uL Lymph # (Auto) (1.2-3.4) K/uL [place] # (Auto) (0.11-0.59) K/uL Eos # (Auto) (0-0.5) K/uL Baso # (Auto) (0-0.2) K/uL Immature Gran # (Auto) (0.00-0.02) K/uL Sodium 140 (136-145) mmol/L Potassium 4.1 (3.5-5.1) mmol/L Chloride 107 (98-107) mmol/L Carbon Dioxide 28 (21-32) mmol/L Anion Gap 5.0 (3-11) BUN 19 H (7-18) mg/dl Creatinine 0.84 (0.6-1.4) mg/dl Est Cr Clr Drug Dosing 96.4 ml/min Est GFR ( Amer) 105.0 Est GFR (Non-Af Amer) 90.6 BUN/Creatinine Ratio 22.6 H (10-20) Glucose 139 H (70-99) mg/dl POC Glucose 190 H 153 H (70-99) mg/dl Calcium 9.0 (8.5-10.1) mg/dl Phosphorus 3.1 (2.5-4.9) mg/dl Magnesium 2.1 (1.8-2.4) mg/dl 08/08/20 08/07/20 08/07/20 Range/Units 06:54 20:31 17:17 WBC 7.62 (4.8-10.8) K/uL RBC 4.08 L (4.7-6.1) M/uL Hgb 12.7 L (14.0-18.0) g/dL Hct 38.4 L (42-52) % MCV 94.1 (80-100) fL MCH 31.1 (25-34) pg MCHC 33.1 (32-36) g/dL RDW Std Deviation 47.6 H (36.4-46.3) fL RDW Coeff of Neyda 13.9 (11.5-14.5) % Plt Count 163 (130-400) K/uL MPV 10.5 H (7.4-10.4) fL Immature Gran % (Auto) 0.3 % Neut % (Auto) 68.5 % Lymph % (Auto) 15.4 % [place] % (Auto) 10.9 % Eos % (Auto) 4.6 % Baso % (Auto) 0.3 % Neut # (Auto) 5.23 (1.4-6.5) K/uL Lymph # (Auto) 1.17 L (1.2-3.4) K/uL [place] # (Auto) 0.83 H (0.11-0.59) K/uL Eos # (Auto) 0.35 (0-0.5) K/uL Baso # (Auto) 0.02 (0-0.2) K/uL Immature Gran # (Auto) 0.02 (0.00-0.02) K/uL Sodium (136-145) mmol/L Potassium (3.5-5.1) mmol/L Chloride (98-107) mmol/L Carbon Dioxide (21-32) mmol/L Anion Gap (3-11) BUN (7-18) mg/dl Creatinine (0.6-1.4) mg/dl Est Cr Clr Drug Dosing ml/min Est GFR ( Amer) Est GFR (Non-Af Amer) BUN/Creatinine Ratio (10-20) Glucose (70-99) mg/dl POC Glucose 176 H 124 H (70-99) mg/dl Calcium (8.5-10.1) mg/dl Phosphorus (2.5-4.9) mg/dl Magnesium (1.8-2.4) mg/dl PG Care Time/CCT Total # of Minutes Spent Total Time Spent with Patient: Total time spent is greater than 50% in coordination of care (as documented) at patient's floor/unit and/or counseling patient: Coding Level of Care Code 31248 Subseq Hosp Care Lvl 2 Diagnoses Osteomyelitis M86.9 Diabetic ulcer of left foot associated with type 2 diabetes mellitus, with fat layer exposed E11.621; L97.522 Chronic systolic (congestive) heart failure I50.22 Ischemic cardiomyopathy I25.5 H/O gastric bypass Z98.84 Status post biventricular pacemaker Z95.0 Hyperlipidemia E78.5 Hyperlipidemia type: unspecified [place] (myocardial infarction) I21.9 Bypass gastroenterostomy Z98.0 Diabetes mellitus E11.9 CAD (coronary artery disease) I25.10 Associated angina: angina presence unspecified Coronary Disease-Associated Artery/Lesion type: [place] artery [place] vs. transplanted heart: [place] heart Hypomagnesemia E83.42 DVT prophylaxis Z29.9 (1) CAD (coronary artery disease) Associated angina: angina presence unspecified Coronary Disease-Associated Artery/Lesion type: [place] artery [place] vs. transplanted heart: [place] heart Qualified Code(s): I25.10 - Atherosclerotic heart disease of [place] coronary artery without angina pectoris (2) Hyperlipidemia Hyperlipidemia type: unspecified Qualified Code(s): E78.5 - Hyperlipidemia, unspecified
[2020-08-08] MEDS: ENOXAPARIN INJ 40 MG/0.4 ML SYR SQ SCH (13:11)
[2020-08-08] MEDS: levoFLOXacin/D5W 750 MG/150 ML BAG IV SCH (13:12)
[2020-08-08] MEDS: clonazePAM 0.5 MG TAB PO SCH (20:20)
[2020-08-08] MEDS: ATORVASTATIN 40 MG TAB PO SCH (20:21)
[2020-08-08] MEDS: PREGABALIN 75 MG CAP PO SCH (20:21)
[2020-08-08] MEDS: traMADol HCL 50 MG TABLET PO PRN (20:23)
[2020-08-09] MEDS: HYDROmorphone INJ 1 MG/ML SYRINGE IV PRN ×4 (02:07→21:04)
[2020-08-09] MEDS: ceFAZolin 2000MG 2,000 MG/15 ML SYR IV SCH ×2 (03:21→12:23)
[2020-08-09] MEDS: SACCHAROMYCES BOULARDII 250 MG CAP PO SCH (09:12)
[2020-08-09] MEDS: ASPIRIN 81 MG ECTAB PO SCH (09:13)
[2020-08-09] MEDS: SACUBITRIL-VALSARTAN 24-26 MG TAB PO SCH ×2 (09:13→20:51)
[2020-08-09] MEDS: CLOPIDOGREL BISULFATE 75 MG TAB PO SCH (09:13)
[2020-08-09] MEDS: ENOXAPARIN INJ 40 MG/0.4 ML SYR SQ SCH (09:14)
[2020-08-09] MEDS: METOPROLOL SUCC 25MG EXT REL TAB PO SCH ×2 (09:17→20:53)
[2020-08-09] MEDS: INSULIN ASPART 100 UNITS/ML 3 ML PEN SC SCH ×4 (09:20→20:55)
--- NOTE | 2020-08-09 09:28 | Progress Notes ---
DATE: 08/09/2020 The patient was seen in followup evaluation status post partial fifth ray resection, left foot and wound VAC application. Today in conjunction with the wound care nurse, the wound VAC is removed. There is some peripheral maceration. The incision is well approximated. There is no skin breakdown. The dorsal open area is almost completely healed and cannot be a probe with any depth. The main plantar ulcer remains patent with a depth of at least a centimeter. There is no active bleeding. I helped a cyst application of the new wound VAC applied at normal pressure. I spoke with patient and girlfriend/fiancee. Answered what questions I could. At this point, I would recommend we continue with the wound VAC. Elevate and offload IV antibiotics. He will need close followup and will need home health nursing to change his wound VAC as well as appointments in the [facility] wound care clinic. We will try to coordinate care with the wound clinic and my office as an outpatient. Cultures show pinpoint growth and are re-incubating . Blood cultures are negative. I recommend that he continue IV antibiotics. He is on Lovenox for DVT prophylaxis. He has been afebrile and his vital signs are stable. We will coordinate care with the Medical Team.
[2020-08-09] MEDS: FUROSEMIDE 40 MG TAB PO SCH (09:30)
[2020-08-09] MEDS: SPIRONOLACTONE 12.5 MG TAB PO SCH (09:30)
[2020-08-09] MEDS: DOCUSATE SODIUM/SENNA 50/8.6MG TAB PO SCH (10:48)
[2020-08-09] MEDS: POLYETHYLENE (MIRALAX) 17 GM PACK PO SCH (10:48)
[2020-08-09] MEDS: traMADol HCL 50 MG TABLET PO PRN (12:23)
[2020-08-09] MEDS: levoFLOXacin/D5W 750 MG/150 ML BAG IV SCH (13:59)
--- NOTE | 2020-08-09 14:40 | Cardiology Progress Note ---
Date of Service August 09, 2020 Assessment & Plan (1) Diabetic ulcer of left foot associated with type 2 diabetes mellitus, with fat layer exposed: (2) Chronic systolic (congestive) heart failure: (3) Ischemic cardiomyopathy: (4) Status post biventricular pacemaker: Is post surgical intervention for diabetic foot wound, fifth toe osteomyelitis on 08/05/2020. Patient continues to progress well. Tachycardia has resolved. Volume status stable. He is on his prior to hospital treatment with metoprolol, Entresto, spironolactone, furosemide which is being administered as 40 mg daily on Sundays, Mondays, Tuesdays, Wednesdays, and Saturdays. He is now on oral Keflex and levofloxacin. DVT prophylaxis: Lovenox 40 mg subcu daily. Hemoglobin 12.7. Admission and Anticipated Discharge Date Admission Date: July 30, 2020 Subjective Patient without complaints. Denies chest discomfort shortness of breath sinus rhythm in the 70s noted on telemetry. Physical Exam Physical Exam: Temp Pulse Resp BP Pulse Ox 36.4 C L 80 18 118/63 96 08/09/20 11:46 08/09/20 13:58 08/09/20 11:46 08/09/20 13:58 08/09/20 11:46 Constitutional: WD/WN, vitals as above Respiratory: normal respiratory effort, lungs clear to auscultation Cardiovascular: RRR, no murmur, no edema Musculoskeletal: Left lower leg/foot wound recently redressed Neurologic: PERRL, EOMI, accommodation nl, no face palsy, no dysarthria Results & Data ([facility]) Vital Signs (Past 12 Hours) Vital Signs Temp Pulse Pulse Pulse Resp BP BP 08/09/20 13:58 80 118/63 08/09/20 11:46 36.4 C L 79 18 105/64 08/09/20 07:52 36.8 C 80 18 96/55 L 08/09/20 07:29 74 08/09/20 04:00 36.8 C 90 18 121/74 Pulse Ox 08/09/20 13:58 08/09/20 11:46 96 08/09/20 07:52 96 08/09/20 07:29 08/09/20 04:00 96 Laboratory Results Intake and Output 08/08/20 08/09/20 08/09/20 22:59 06:59 14:59 Intake Total 275 / 1215 275 / 1215 Output Total 275 / 1276 350 / 1276 Balance 0 / -61 -75 / -61 Intake: Oral 275 / 1065 275 / 1065 Output: Urine 275 / 1275 350 / 1275 Other: Weight 92.2 kg 92.2 kg Weight Measurement Method Standing Scale Patient Weight 08/10/20 06:59 Weight 92.2 kg
--- NOTE | 2020-08-09 15:36 | Hospitalist Progress Note ---
Date of Service August 09, 2020 Assessment & Plan (1) Osteomyelitis: Osteomyelitis at the head of the fifth metatarsal and base of the fifth proximal phalanx seen on CT foot on 07/31. * Prior wound cultures grew MSSA & quinn-sensitive Pseudomonas in 04/2020. Culture in 06/2020 grew Actinomyces. Most recent culture with multiple patrick. * IV abx dc'd 08/09 following discussion with ID - surgery feels they were able to excise all of the osteomyelitis so patient should be treated for skin infec tion. Discussed this rec with surgery and they are in agreement. Will give patient po abx for another week cephalexin and levaquin. * BCx negative * Angiogram on 08/04 showed no lesions. No intervention. POD#4 s/p Left 5th Ray partial resection(Left) - Ben Hunt on 08/05. EBL 30mL. * Gram stain w/ rare WBC, no organisms --cx with pin-point growth, re-incubating * Offloading shoe delivered, utilizing with ambulation * Wound vac applied by wound RN and ortho changed dressing 08/09. Awaiting authorization for wound vac from insurance. * Orthotics consulted for offloading shoe (2) Diabetic ulcer of left foot associated with type 2 diabetes mellitus, with fat layer exposed: * Wound RN consulted * Orthotics consulted for offloading shoe (3) Chronic systolic (congestive) heart failure: * Last ECHO EF was 25-30% May 2020 * Cardiology on consult -- appreciate assistance. To maintain DAPT given AIDEE x 30 May 2020, 1 to proximal LAD * Wt 92.5kg (203lb). Baseline 205-208lb, but varies per patient. Euvolemic on examination * Strict I&O, Daily weights with standing scale * Continue Lasix 40 mg po 5x/weekly, Spironolactone 12.5mg daily, Metoprolol 12.5mg BID, Entresto (4) Ischemic cardiomyopathy: * EF 25 to 30% as above. * Continue ASA, plavix, atorvastatin, Entresto, metoprolol, spironolactone and lasix as above (5) H/O gastric bypass: * Notable history of this, B12 injections monthly. (6) Status post biventricular pacemaker: * Noted -- interrogated 08/06 as rates up to 130s on monitor and asked cardiology to eval -- functioning appropriately. Did note some extra fluid on board and resumed his lasix * Rates now paced in the 60-70s on telemetry today (7) Hyperlipidemia: * Atorvastatin (8) [place] (myocardial infarction): * x 8. multiple stents * Most recent AIDEE x 30 May 2020 as above (9) Bypass gastroenterostomy: * 2012 (10) Diabetes mellitus: * Last A1c Jul 31, 2020 -- 6.6 * ISS while inpatient and metformin 500mg BID held * BSGs have been acceptable (11) CAD (coronary artery disease): * No chest pain to indicate ischemia. * Continue above cardiac meds * Appreciate cardiology consultation (12) Hypomagnesemia: * replaced (13) DVT prophylaxis: * enoxaparin Dispo: discharge tomorrow once home wound vac approved and follow up arranged Admission and Anticipated Discharge Date Admission Date: July 30, 2020 Subjective Mr. Mcdowell is not having significant pain. He is feeling well and has no complaints. Rounded on him again this afternoon and updated him and his significant other via speaker phone ROS Constitutional: no chills, aches, sweats or fever Respiratory: no sob,cough, sputum, or wheezing Cardiac: no chest pain, palpitations, edema, orthopnea or lightheadedness GI: no abdominal pain, nausea, vomiting, diarrhea or constipation : no dysuria or hesitancy Extremities: no joint pain or weakness Skin: no rash All other systems reviewed and negative Physical Exam Physical Exam: General: no distress Eyes: normal inspection, PERLL Respiratory: chest non tender, clear to auscultation, normal breath sounds, no respiratory distress, no accessory muscle use Cardiac: regular rate and rhythm, no rub or gallop, no murmur, no edema, no jvd GI/: active bowel sounds, no abd pain or tenderness, soft, non distended Extremities: normal range of motion, normal strength, non tender Neuro/Psych: alert and oriented x 3, normal mood and affect Skin: normal color, dry Results & Data Results & Data ([facility]) Vital Signs (Past 12 Hours) Vital Signs Temp Pulse Pulse Pulse Resp BP BP 08/09/20 14:20 73 08/09/20 13:58 80 118/63 08/09/20 11:46 36.4 C L 79 18 105/64 08/09/20 07:52 36.8 C 80 18 96/55 L 08/09/20 07:29 74 08/09/20 04:00 36.8 C 90 18 121/74 Pulse Ox 08/09/20 14:20 08/09/20 13:58 08/09/20 11:46 96 08/09/20 07:52 96 08/09/20 07:29 08/09/20 04:00 96 PG Care Time/CCT Total # of Minutes Spent Total Time Spent with Patient: Total time spent is greater than 50% in coordination of care (as documented) at patient's floor/unit and/or counseling patient: Coding Level of Care Code 61189 Subseq Hosp Care Lvl 3 Diagnoses Osteomyelitis M86.9 Diabetic ulcer of left foot associated with type 2 diabetes mellitus, with fat layer exposed E11.621; L97.522 Chronic systolic (congestive) heart failure I50.22 Ischemic cardiomyopathy I25.5 H/O gastric bypass Z98.84 Status post biventricular pacemaker Z95.0 Hyperlipidemia E78.5 Hyperlipidemia type: unspecified [place] (myocardial infarction) I21.9 Bypass gastroenterostomy Z98.0 Diabetes mellitus E11.9 CAD (coronary artery disease) I25.10 Coronary Disease-Associated Artery/Lesion type: [place] artery [place] vs. transplanted heart: [place] heart Associated angina: angina presence unspecified Hypomagnesemia E83.42 DVT prophylaxis Z29.9 (1) Hyperlipidemia Hyperlipidemia type: unspecified Qualified Code(s): E78.5 - Hyperlipidemia, unspecified (2) CAD (coronary artery disease) Coronary Disease-Associated Artery/Lesion type: [place] artery [place] vs. transplanted heart: [place] heart Associated angina: angina presence unspecified Qualified Code(s): I25.10 - Atherosclerotic heart disease of [place] coronary artery without angina pectoris
[2020-08-09] MEDS: cephALEXin 500 MG CAP PO SCH ×2 (17:55→20:51)
[2020-08-09] MEDS: ATORVASTATIN 40 MG TAB PO SCH (20:51)
[2020-08-09] MEDS: PREGABALIN 75 MG CAP PO SCH (21:03)
[2020-08-09] MEDS: clonazePAM 0.5 MG TAB PO SCH (21:04)
[2020-08-10] MEDS: HYDROmorphone INJ 1 MG/ML SYRINGE IV PRN ×2 (06:02→11:52)
[2020-08-10] MEDS: ASPIRIN 81 MG ECTAB PO SCH (08:47)
[2020-08-10] MEDS: FUROSEMIDE 40 MG TAB PO SCH (08:47)
[2020-08-10] MEDS: CLOPIDOGREL BISULFATE 75 MG TAB PO SCH (08:47)
[2020-08-10] MEDS: SACUBITRIL-VALSARTAN 24-26 MG TAB PO SCH (08:48)
[2020-08-10] MEDS: cephALEXin 500 MG CAP PO SCH ×2 (08:48→11:49)
[2020-08-10] MEDS: METOPROLOL SUCC 25MG EXT REL TAB PO SCH (08:51)
[2020-08-10] MEDS: SACCHAROMYCES BOULARDII 250 MG CAP PO SCH (08:52)
[2020-08-10] MEDS: SPIRONOLACTONE 12.5 MG TAB PO SCH (08:53)
[2020-08-10] MEDS: ENOXAPARIN INJ 40 MG/0.4 ML SYR SQ SCH (08:54)
[2020-08-10] MEDS: POLYETHYLENE (MIRALAX) 17 GM PACK PO SCH (08:55)
[2020-08-10] MEDS: DOCUSATE SODIUM/SENNA 50/8.6MG TAB PO SCH (08:58)
[2020-08-10] MEDS: INSULIN ASPART 100 UNITS/ML 3 ML PEN SC SCH ×2 (08:59→12:36)
[2020-08-10 09:13] LABS: Hematocrit (blood only) 40.4 % (42-52); Hemoglobin 13.4 g/dL (14.0-18.0); Mean Corpuscular Hemoglobin 31.1 pg (25-34); Mean Corpuscular Hgb Conc 33.2 g/dL (32-36); Mean Corpuscular Volume 93.7 fL (80-100); Mean Platelet Volume 10.7 fL (7.4-10.4); Platelet Count 173 K/uL (130-400); RDW Coefficient of Variation 13.7 % (11.5-14.5); Red Blood Count 4.31 M/uL (4.7-6.1); White Blood Count 8.47 K/uL (4.8-10.8)
[2020-08-10 09:30] LABS: BUN Creatinine Ratio 20.1 (10-20); Calcium 9.4 mg/dl (8.5-10.1); Est GFR (African American) 100.7; Est GFR (Non-African American) 86.9; Potassium 4.4 mmol/L (3.5-5.1)
[2020-08-10] MEDS ORDERED: levoFLOXacin 750 MG TAB PO SCH (11:00)
--- NOTE | 2020-08-10 15:39 | Discharge Summary ---
Date of Service August 10, 2020 Admission HPI Per Admitting Provider Chandu Mcdowell is a 65-year-old male with diabetes who presents to the ER with worsening diabetic foot ulcer with surrounding cellulitis. He has had this ulcer for the last 6 months following with podiatry and wound clinic in [place]. He followed up with wound clinic on Sunday here for a second opinion and wound was debrided in the office with cultures taken. Since that was performed he reports sudden worsening of his pain with swelling and spreading erythema. He was unable to get much sleep last night due to the severity of the pain. He is currently not taking any antibiotics. Pain on arrival to the ER was 8/10, currently 6/10 but he reports it is starting to come back. Recent wound culture performed on July 20, 2020 grew out Actinomyces odontolyticus, prior to this wound cultures grew MSSA and Pseudomonas. He was started on cefepime and daptomycin in the ER. Of note he has a recent history of x2 cardiac AIDEE placed in May. He was discharged on aspirin and clopidogrel from that admission but he tells me that his management planner Dr Gaytan told him he doesn't need to take the aspirin in a follow up appointment. Principal Diagnosis Osteomyelitis Discharge Exam Constitutional WD/WN, vitals as above Respiratory normal respiratory effort, lungs clear to auscultation Cardiovascular RRR, no murmur, no edema Gastrointestinal (Abdomen) normal bowel sounds, soft, nontender, no hepatosplenomegaly Musculoskeletal no cyanosis or clubbing, extremities motor strength 5/5 Skin no rashes, warm and dry Neurologic moves all extremities and awake Psychiatric A+Ox3, euthymic affect Discharge Data Allergies Allergy/AdvReac Type Severity Reaction Status Date / Time Penicillins Allergy Unknown Unknown Verified 07/30/20 14:13 Sulfa (Sulfonamide Allergy Unknown Unknown Verified 07/30/20 14:13 Antibiotics) oxycodone AdvReac Mild Nausea/Vomi Verified 07/30/20 14:13 ting simvastatin AdvReac Unknown muscle pain Verified 07/30/20 14:13 Consultations 07/30/20 14:38 ED Decision to Admit Stat 07/30/20 14:40 ED Decision to Admit Stat 07/30/20 17:10 Consult Orthopedic Surgery Routine 07/30/20 17:26 Consult Cardiology Routine 08/01/20 10:12 Consult Podiatry Routine 08/02/20 13:21 Consult Vascular Surgery Routine 08/02/20 16:06 Consult Orthopedic Surgery Routine 08/04/20 08:03 Consult Infectious Diseases Routine 08/05/20 14:34 Consult Case Management - Discharge Planning Routine 08/09/20 15:31 Consult [facility] manager infusion Routine Procedures Performed Operation Date: 08/04/20 11:10 Actual Procedures p Left Lower Extremity Arteriogram, Ultrasound Localization Of Right Common Femoral Artery, Mechanical Closure Of Right Femoral Artery, Moderate Concious Sedation 1208 to 1236(Right) - Ruddy Hicks MD Operation Date: 08/05/20 11:40 Actual Procedures p Left 5th Ray Resection(Left) - Ben Hunt MD Ordered Studies 07/30/20 17:28 US arterial duplex LE LT Stat 07/31/20 10:06 CT foot LT wo con Urgent 08/04/20 00:18 EV angio LE LT Routine 08/04/20 12:28 US EV guide vascular access Routine 08/05/20 11:56 FL fluoroscopy <1hr Routine FL toe LT 2V Routine Hospital Course (1) Osteomyelitis: Osteomyelitis at the head of the fifth metatarsal and base of the fifth proximal phalanx seen on CT foot on 07/31. * Prior wound cultures grew MSSA & quinn-sensitive Pseudomonas in 04/2020. Culture in 06/2020 grew Actinomyces. Most recent culture with multiple patrick. * IV abx dc'd 08/09 following discussion with ID - surgery feels they were able to excise all of the osteomyelitis so patient should be treated for skin infection. Discussed this rec with surgery and they are in agreement. Will give patient po abx for another week cephalexin and levaquin. * BCx negative * Angiogram on 08/04 showed no lesions. No intervention. POD#4 s/p Left 5th Ray partial resection(Left) - Ben Hunt on 08/05. EBL 30mL. * Gram stain w/ rare WBC, no organisms --culture growing fingoldia magna which is normal skin patrick so may not represent infection however this bacteria can be an opportunistic infection so will ask lab to run sensitivities. Continue current drug regimen for now. Will contact patient at home if regimen needs to be adjusted * Offloading shoe delivered, utilizing with ambulation * Wound vac applied by wound RN and ortho changed dressing 08/09. Awaiting au thorization for wound vac from insurance. * Orthotics consulted for offloading shoe * Home health to change dressing MWF, patient will follow with wound center and with ortho (2) Diabetic ulcer of left foot associated with type 2 diabetes mellitus, with fat layer exposed: * Wound RN consulted * Orthotics consulted for offloading shoe (3) Chronic systolic (congestive) heart failure: * Last ECHO EF was 25-30% May 2020 * Cardiology on consult -- appreciate assistance. To maintain DAPT given AIDEE x 30 May 2020, 1 to proximal LAD * Wt 92.5kg (203lb). Baseline 205-208lb, but varies per patient. Euvolemic on examination * Strict I&O, Daily weights with standing scale * Continue Lasix 40 mg po 5x/weekly, Spironolactone 12.5mg daily, Metoprolol 12.5mg BID, Entresto (4) Ischemic cardiomyopathy: * EF 25 to 30% as above. * Continue ASA, plavix, atorvastatin, Entresto, metoprolol, spironolactone and lasix as above (5) H/O gastric bypass: * Notable history of this, B12 injections monthly. (6) Status post biventricular pacemaker: * Noted -- interrogated 08/06 as rates up to 130s on monitor and asked cardiology to eval -- functioning appropriately. Did note some extra fluid on board and resumed his lasix * Rates now paced in the 60-70s on telemetry today (7) Hyperlipidemia: * Atorvastatin (8) CO (myocardial infarction): * x 8. multiple stents * Most recent AIDEE x 30 May 2020 as above (9) Bypass gastroenterostomy: * 2012 (10) Diabetes mellitus: * Last A1c Jul 31, 2020 -- 6.6 * ISS while inpatient and metformin 500mg BID held - continue on discharge * BSGs have been acceptable (11) CAD (coronary artery disease): * No chest pain to indicate ischemia. * Continue above cardiac meds * Appreciate cardiology consultation (12) Hypomagnesemia: * replaced (13) DVT prophylaxis: * enoxaparin Dispo: home with home health Total Time Total Time Spent Total Time Spent (In Minutes): greater than 30 minutes Discharge Plan Discharge Items Patient Disposition: Home - Home Health Services Reason For Visit: DIABETIC ULCER WITH SURROUNDING CELLULITIS Discharge Diagnosis: Osteomyelitis, cellulitis Activity: As commented below Driving/Machine Use: do not drive while taking narcotics Non-emergency contact: Surgeon Call non-emergency contact if: your symptoms worsen, your pain is not controlled, your pain is worsening, your temperature is above 101, your wound has increased redness and your wound has increased drainage Follow-up/Referrals: Zac Torres MD [Primary Care Provider] - 08/16/20 2:30 pm (You have an appt with Dr. Torres on Thursday 08/16 at 2:30pm.) Claribel Ram PA-C [Physician [employer]] - 08/09/20 8:30 am Ben Hunt MD [Surgeon] - 08/17/20 9:30 am Ajay Linares DO [Physician] - 08/17/20 11:00 am (An appointment has been made for you with Dr. Linares to follow your appt. with Dr. Hunt. This will be at 11:00am.) Diet: Carb Consistent or DM2 Addtl Attending Provider Instructions: (1) Osteomyelitis: You will continue levofloxacin and cephalexin for a week. Home health will care for your wound and dressing changes as included in your discharge instructions You should not shower or immerse your foot until ok'd by your orthopedist or wound care physician You have been given a few doses of tramadol to help with pain. Tramadol, pregabalin and clonazepam are all sedating drugs. I would recommend you take as little tramadol as possible and avoid taking it at bedtime when you take your pregabalin and clonazepam. Addtl Wood Polisher Provider Instructions: -Elevate left foot above your heart to relieve pain/swelling. -Ice to left foot as needed for pain/swelling. Allowed for range of motion left ankle and toes left foot. Keep wound/incision covered at all times. Okay to reinforce and/or change dressing left foot as needed Wear post op shoe left foot at all times when out of bed Weight bear as tolerated on left foot with assistance of a walker while walking and post op shoe. Regular diet as tolerated. Pending Studies at Discharge: Yes Studies:: wound culture still incubating Stand-Alone Forms: My [employer], Smoking Cessation Medications and DC Order Prescriptions: New aspirin 81 mg Tablet,Delayed Release (Dr/Ec) 81 mg PO QAM Qty: 30 RF: 0 tramadol 50 mg Tablet 50 mg PO Q4H PRN (Reason: pain) Qty: 20 RF: 0 cephalexin 500 mg Capsule 500 mg PO QID Qty: 25 RF: 0 levofloxacin 750 mg Tablet 750 mg PO DAILY@1100 Qty: 6 RF: 0 Continued pregabalin [Lyrica] 75 mg capsule 75 mg PO HS RF: 0 Entresto 24-26 mg tablet 1 tab PO BID RF: 0 metformin [Glucophage] 1,000 mg Tablet 500 mg PO BID Qty: 0 RF: 0 metoprolol succinate 25 mg tablet extended release 24 hr 12.5 mg PO BID Qty: 0 RF: 0 furosemide 40 mg Tablet 40 mg PO 5XWK RF: 0 clonazepam 0.5 mg Tablet 0.5 mg PO HS RF: 0 clopidogrel 75 mg Tablet 75 mg PO QAM RF: 0 cyanocobalamin (vitamin B-12) 1,000 mcg/mL Solution 1,000 mcg IM MONTHLY RF: 0 atorvastatin 40 mg tablet 40 mg PO HS RF: 0 nitroglycerin 0.4 mg tablet, sublingual 0.4 mg sublingual DIRECTED PRN (Reason: Chest Pain) RF: 0 spironolactone 25 mg tablet 12.5 mg PO QAM RF: 0 Discharge Orders: Discharge Order (Routine); Ordered 08/10/20 Ordered By: Iona Richardson/Other Patient Handouts: Managing Type 2 Diabetes Admission Data Admit Date/Time: 07/30/20 14:43 Attending Provider: Guy Oleary Admit Provider: Shaw Powell Primary Care Provider: Zac Torres Other Providers: Dandy Fernandez ; Shaw Powell ; Ben Newton ; Terry Gaytan ; Divina Haney ; Ruddy Hicks ; Ben Hunt ; Corey Lai ; Maty Kay ; Akbar Villatoro I. ; Rob Bettencourt II ; Julee Gibson ; Lester Lynn ; [facility] Other Interventions: Discharge Summary Assessment (RN) Last Done: 08/10/20 13:05 Supervising Physician Co-Signing Physician Notes Patient seen and examined on the day of discharge. I agree with the discharge summary by Iona MONTEIRO. I have reviewed the chart including labs, imaging and plans for discharge. patient feels well, eating well, no fever, no dyspnea, no chest pain wound vac in place understands that he will be on oral antibiotics a few more days to cover skin infection - Osteomyelitis of 5th toe, metatarsal s/p amputation, tolerated well, wound vac in place discharge home on oral antibiotics as the osteomyelitis was excised wound care arranged with home nursing Coding Level of Care Code D/C Day Management >30 mins Diagnoses Osteomyelitis M86.9 Diabetic ulcer of left foot associated with type 2 diabetes mellitus, with fat layer exposed E11.621; L97.522 Chronic systolic (congestive) heart failure I50.22 Ischemic cardiomyopathy I25.5 H/O gastric bypass Z98.84 Status post biventricular pacemaker Z95.0 Hyperlipidemia E78.5 Hyperlipidemia type: unspecified CO (myocardial infarction) I21.9 Bypass gastroenterostomy Z98.0 Diabetes mellitus E11.9 CAD (coronary artery disease) I25.10 Associated angina: angina presence unspecified Coronary Disease-Associated Artery/Lesion type: [place] artery [place] vs. transplanted heart: [place] heart Hypomagnesemia E83.42 DVT prophylaxis Z29.9
== END 2020-08-10 15:50 | disposition home health service (06) | DRG 617 ==
LOC: ED 11:57 → SUATTDRO 14:43 → 2N 14:43

== ENCOUNTER 2022-03-02 15:14 | Inpatient (IN) ==
[2022-03-02] MEDS ORDERED: ACETAMINOPHEN 1,000 MG/100 ML VIAL IV STA (15:54)
[2022-03-02] MEDS ORDERED: FAMOTIDINE 20MG IV PUSH 20 MG/5 ML SYR IV STA (15:54)
--- NOTE | 2022-03-02 16:00 | Emergency Department Note ---
History of Present Illness General Chief complaint: Shortness of Breath/Dyspnea Time Seen by Provider: 03/02/22 15:29 Source: patient and family Mode of arrival: EMS Limitations: no limitations History of Present Illness Provider complaint: shortness of breath, chest pain Onset (ago): hour(s) Location: chest Radiation: non-radiation Maximum Pain Intensity: 6 Relieved By: + none Exacerbated By: + movement Associated symptoms: + chest pain, + diaphoresis, + loss of appetite, + shortness of breath and + weakness; no fever/chills or no nausea/vomiting Treatments prior to arrival: aspirin and other This is a 66-year-old male presents emergency department via EMS with complaints of chest pain and shortness of breath. Patient states this is similar to prior episodes of PA. Patient states he has had 8 prior heart attacks. States he follows with Dr. Gaytan of cardiology. He states he does have a pacer/defibrillator. He does have multiple cardiac stents. He believes his last heart attack was a year and a half ago. States he did see Dr. Gaytan earlier this year. Patient states he did not have much of an appetite today. He states he has been working harder on been more active over the last 2 days. Firidge at bedside states she believes he "overdid it". Patient states while outside today he began to feel short of breath and developed left-sided chest pressure. He states the discomfort was nonradiating. He states he felt lightheaded and diaphoretic and had to hold onto a tree to keep from falling down. He states he eventually felt well enough to go back in the house and he took 2 nitro sublingual. He states after that he felt well enough to call for his fiance and call her sister who is a nurse for help. They contacted 911. EMS gave the patient 2 additional nitro and 324 mg of aspirin. Patient states currently the pain is improved although not resolved. He states EMS also reported his oxygen was 90% and he was placed on oxygen via nasal cannula. Patient states he is a former smoker. Pt seen during a time of high acuity and national emergency pandemic while wearing PPE. Home Medications Medication Instructions Recorded Confirmed Type clonazepam 0.5 mg tablet 0.5 mg PO HS 02/09/19 03/02/22 History clopidogrel 75 mg tablet 75 mg PO QAM 02/09/19 03/02/22 History cyanocobalamin (vitamin B-12) 1,000 mcg IM MONTHLY 02/09/19 03/02/22 History 1,000 mcg/mL injection solution furosemide 40 mg tablet 40 mg PO [id number] 02/09/19 03/02/22 History pregabalin 75 mg capsule (Lyrica) 75 mg PO HS 04/26/19 03/02/22 History atorvastatin 40 mg tablet 40 mg PO HS 07/10/19 03/02/22 History nitroglycerin 0.4 mg sublingual 0.4 mg SUBLINGUAL DIRECTED PRN 07/10/19 03/02/22 History tablet sacubitril 24 mg-valsartan 26 mg 1 tab PO BID 06/12/20 03/02/22 History tablet (Entresto) metoprolol succinate 25 mg 12.5 mg PO BID #0 tab 06/14/20 03/02/22 Rx tablet,extended release 24 hr spironolactone 25 mg tablet 12.5 mg PO QAM 07/30/20 03/02/22 History Omegared 1 cap PO QAM 03/02/22 03/02/22 History ascorbic acid (vitamin C) 1,000 mg 0 g PO QAM 03/02/22 03/02/22 History tablet (Vitamin C) cholecalciferol (vitamin D3) 25 0 mcg PO QAM 03/02/22 03/02/22 History mcg (1,000 unit) tablet (Vitamin D3) metformin 500 mg tablet 1,000 mg PO BID 03/02/22 03/02/22 History [id number] 0.4 mg-calcium 162 1 tab PO QAM 03/02/22 03/02/22 History mg-iron 18 [id number] tablet Allergies Allergy/AdvReac Type Severity Reaction Status Date / Time Penicillins Allergy Unknown Unknown Verified 03/02/22 16:05 Sulfa (Sulfonamide Allergy Unknown Unknown Verified 03/02/22 16:05 Antibiotics) oxycodone AdvReac Mild Nausea/Vomi Verified 03/02/22 16:05 ting simvastatin AdvReac Unknown muscle pain Verified 03/02/22 16:05 Past Med/Surg History Medical History ACS (acute coronary syndrome) Atypical chest pain 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) [facility] CAD (coronary artery disease) Callus Chest pain Chronic systolic (congestive) heart failure Diabetes Diabetic foot ulcer Hyperlipidemia PA (myocardial infarction) x 8 events; 10 stents in total Peripheral arterial disease Peripheral neuropathy Surgical History H/O gastric bypass S/P appendectomy S/P cardiac catheterization S/P cholecystectomy Status post biventricular pacemaker Family History Father , 51 Coronary heart disease Myocardial infarction Brother Coronary heart disease Brother Coronary heart disease Other Diabetes Social History Smoking Status: Former smoker Tobacco Type: Cigarettes packs per day: 2; Years Smoked: 25; Second Hand Exposure: No; Do You Dip or Chew Tobacco: No; Tobacco Cessation Education Requested by Patient: No Hx Alcohol Use: No Hx Substance Use: No Preferred Language: [place] Communication Ability: Effective Visual Impairment: No Limitations 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: No Beliefs That Will Affect Care: Congregational Congregational Beliefs: Yarsanism of [place] marital status: Single marital status details: 01/2020 Current Living Situation: Significant Other current occupational status: employed 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 How many Children do You have: 1 How many Children do You have Comment: son Other Information That Helps Us Care for You: No Feels Safe at Home: Yes Safety Concerns: Feels Safe At This Time Assistive Devices: Cane, Denture - Upper and Hearing Aid - Bilateral Review of Systems A total of 10 systems reviewed and were otherwise negative All systems reviewed & are unremarkable except as noted in HPI & below Physical Exam Vital Signs Vital Signs - 24 hr 03/02/22 15:14 03/02/22 15:26 03/02/22 15:29 Temperature 36.9 C Temperature Source Oral Pulse Rate 84 78 Pulse Rate [Right] Pulse Rate from SpO2 Sensor Pulse Rhythm [Right] Pulse Strength [Right] Respiratory Rate 15 15 Respiratory Effort / Characteristics Respiratory Depth Respiratory Pattern Blood Pressure 109/51 L Blood Pressure [Left Arm] Blood Pressure [Right Arm] Blood Pressure Mean 70 Blood Pressure Mean [Left Arm] Blood Pressure Mean [Right Arm] Blood Pressure Position [Left Arm] Pulse Oximetry 97 93 95 Oxygen Delivery Method Room Air Room Air Sepsis Recent Fever Within 48 Hours No Sepsis New/Unexplained Change in Mental Status No Sepsis Action Taken by Nursing No Action Required 03/02/22 15:30 03/02/22 16:00 03/02/22 16:30 Temperature Temperature Source Pulse Rate 70 65 Pulse Rate [Right] Pulse Rate from SpO2 Sensor Pulse Rhythm [Right] Pulse Strength [Right] Respiratory Rate 16 16 Respiratory Effort / Characteristics Respiratory Depth Respiratory Pattern Blood Pressure 104/55 L 114/58 L 106/60 Blood Pressure [Left Arm] Blood Pressure [Right Arm] Blood Pressure Mean 71 76 75 Blood Pressure Mean [Left Arm] Blood Pressure Mean [Right Arm] Blood Pressure Position [Left Arm] Pulse Oximetry 96 97 Oxygen Delivery Method Sepsis Recent Fever Within 48 Hours Sepsis New/Unexplained Change in Mental Status Sepsis Action Taken by Nursing 03/02/22 16:58 03/02/22 19:00 03/02/22 19:30 Temperature Temperature Source Pulse Rate 63 66 63 Pulse Rate [Right] Pulse Rate from SpO2 Sensor 66 Pulse Rhythm [Right] Pulse Strength [Right] Respiratory Rate 16 18 14 Respiratory Effort / Characteristics Respiratory Depth Respiratory Pattern Blood Pressure 108/56 L 128/68 118/59 L Blood Pressure [Left Arm] Blood Pressure [Right Arm] Blood Pressure Mean 73 88 78 Blood Pressure Mean [Left Arm] Blood Pressure Mean [Right Arm] Blood Pressure Position [Left Arm] Pulse Oximetry 95 97 Oxygen Delivery Method Sepsis Recent Fever Within 48 Hours Sepsis New/Unexplained Change in Mental Status Sepsis Action Taken by Nursing 03/02/22 19:41 03/02/22 19:45 03/02/22 19:48 Temperature Temperature Source Pulse Rate 62 Pulse Rate [Right] 66 Pulse Rate from SpO2 Sensor 65 Pulse Rhythm [Right] Pulse Strength [Right] Respiratory Rate 20 18 16 Respiratory Effort / Characteristics Non-Labored Spontaneous Respiratory Depth Normal Respiratory Pattern Blood Pressure 127/54 L 117/61 Blood Pressure [Left Arm] Blood Pressure [Right Arm] 117/61 Blood Pressure Mean 78 79 Blood Pressure Mean [Left Arm] Blood Pressure Mean [Right Arm] 79 Blood Pressure Position [Left Arm] Pulse Oximetry 93 97 Oxygen Delivery Method Room Air Sepsis Recent Fever Within 48 Hours Sepsis New/Unexplained Change in Mental Status Sepsis Action Taken by Nursing 03/02/22 19:55 03/02/22 20:00 03/02/22 21:55 Temperature 36.4 C L Temperature Source Oral Pulse Rate 64 63 Pulse Rate [Right] 73 Pulse Rate from SpO2 Sensor 66 64 Pulse Rhythm [Right] Regular Pulse Strength [Right] Normal Respiratory Rate 21 6 L 16 Respiratory Effort / Characteristics Non-Labored Respiratory Depth Normal Respiratory Pattern Regular Blood Pressure 112/63 Blood Pressure [Left Arm] 123/70 Blood Pressure [Right Arm] Blood Pressure Mean 79 Blood Pressure Mean [Left Arm] 87 Blood Pressure Mean [Right Arm] Blood Pressure Position [Left Arm] Lying Pulse Oximetry 97 96 96 Oxygen Delivery Method Room Air Sepsis Recent Fever Within 48 Hours Sepsis New/Unexplained Change in Mental Status Sepsis Action Taken by Nursing GENERAL: alert, well appearing, well nourished, no distress, non-toxic EYE EXAM: normal conjunctiva, PERRL and EOM's grossly intact OROPHARYNX: no exudate, no erythema, lips, buccal mucosa, and tongue normal and mucous membranes are moist NECK: supple, no nuchal rigidity, no adenopathy, non-tender LUNGS: Clear to auscultation. Normal chest wall mechanics, no w/r/r HEART: no murmurs, S1 normal and S2 normal ABDOMEN: abdomen soft, non-tender, normo-active bowel sounds, no masses, no rebound or guarding. BACK: Back is symmetrical on inspection and there is no deformity, no midline tenderness, no CVA tenderness. SKIN: no rashes and no bruising UPPER EXTREMITIES: upper extremities are grossly normal. FROM, nml pulses b/l. LOWER EXTREMITIES: No pitting edema. FROM, nml pulses b/l. NEURO EXAM: Normal sensorium, cranial nerves II-XII grossly intact, normal speech, no gross weakness of arms, no gross weakness of legs. Gross sensation intact. Course Course 1630: Received phone call from [employer] ict sales representative. States patient's BiV pacer/defibrillator has a little over 1 year left of battery life. Diagnostics otherwise reassuring. Patient has had some episodes over the last year and a half of nonsustained intermittent VT. No other therapy/defibrilla tions initiated. 1829: Discussed with Dr. Roberts. Would like repeat trop and repeat EKG. 1899: Dr. Roberts came to the Er and saw the patient. Will contact Dr. Moya. 1944: Per additional discussion with cards, will call Heart Alert. Administered Medications Atorvastatin Calcium (Atorvastatin 40 Mg Tab) 40 mg PO HS SHANE Stop: 04/01/22 22:29 Last Admin: 03/02/22 22:49 Dose: 40 mg Documented by: [id number] Clonazepam (Clonazepam 0.5 Mg Tab) 0.5 mg PO HS [facility] Stop: 04/01/22 20:59 Last Admin: 03/02/22 22:49 Dose: 0.5 mg Documented by: [id number] Fentanyl Citrate (Fentanyl Citrate 100 Mcg/2 Ml Vial) 50 mcg IV Q15M PRN PRN Reason: Pain Stop: 03/16/22 15:53 Last Admin: 03/02/22 19:21 Dose: 50 mcg Documented by: [id number] Admin: 03/02/22 18:33 Dose: 50 mcg Documented by: [id number] Admin: 03/02/22 17:39 Dose: 50 mcg Documented by: [id number] Admin: 03/02/22 16:58 Dose: 50 mcg Documented by: [id number] Admin: 03/02/22 16:31 Dose: 50 mcg Documented by: [id number] Metoprolol Succinate (Metoprolol Succ 25mg Ext Rel Tab) 12.5 mg PO BID [facility] Stop: 04/01/22 20:59 Last Admin: 03/02/22 22:49 Dose: 12.5 mg Documented by: [id number] Pregabalin (Pregabalin 75 Mg Cap) 75 mg PO [facility] Stop: 04/01/22 20:59 Last Admin: 03/02/22 22:49 Dose: 75 mg Documented by: [id number] Sacubitril/Valsartan (Valsartan/Sacubitril 26/24mg Tab) 1 tab PO BID [facility] Stop: 04/01/22 20:59 Last Admin: 03/02/22 22:49 Dose: 1 tab Documented by: [id number] Discontinued Medications Clopidogrel Bisulfate (Clopidogrel Bisulfate 300 Mg Tab) Confirm Administered Dose 300 mg .ROUTE .STK-MED ONE Stop: 03/02/22 21:35 Last Admin: 03/02/22 21:38 Dose: 300 mg Documented by: [id number] Fentanyl Citrate (Fentanyl Citrate 100 Mcg/2 Ml Vial) Confirm Administered Dose 100 mcg .ROUTE .STK-MED ONE Stop: 03/02/22 20:08 Last Increment: 03/02/22 21:36 Dose: 50 mcg Documented by: [id number] Heparin Sodium (Porcine) (Heparin Sod (Porcine) 1000 Unit/Ml) 7,000 units IV NOW ONE Stop: 03/02/22 19:29 Last Admin: 03/02/22 19:44 Dose: 7,000 units Documented by: [id number] Cosigned by: [id number] Heparin Sodium (Porcine) (Heparin Sod (Porcine) 1000 Unit/Ml) Confirm Administered Dose 1,000 units .ROUTE .STK-MED ONE Stop: 03/02/22 19:39 Last Admin: 03/02/22 19:46 Dose: Not Given Documented by: [id number] Heparin Sodium (Porcine) (Heparin (Porcine) 1000 Unit/Ml 10 Ml (Retail Department Manager Use Only)) Confirm Administered Dose 10,000 units .ROUTE .STK-MED ONE Stop: 03/02/22 20:08 Last Admin: 03/02/22 21:37 Dose: 5,000 units Documented by: [id number] Heparin Sodium/Dextrose (Heparin Iv Adult Wt-Based Standard With Bolus Protocol) 1 ea IV NOW STA; Protocol Stop: 03/02/22 19:14 Last Admin: 03/02/22 19:45 Dose: 1 ea Documented by: [id number] Heparin Sodium/Sodium Chloride (Heparin In Nss Infusion 1000 Unit/500 Ml (2 U/Ml) Bag) Confirm Administered Dose 3,000 units IV .STK-MED ONE Stop: 03/02/22 20:08 Last Admin: 03/02/22 21:24 Dose: 3,000 units Documented by: [id number] Acetaminophen (Ofirmev) 1,000 mg in 100 mls @ 400 mls/hr IV NOW STA Stop: 03/02/22 16:08 Last Infusion: 03/02/22 16:20 Dose: 0 mls/hr Documented by: [id number] Admin: 03/02/22 16:04 Dose: 400 mls/hr Documented by: [id number] Famotidine (Pepcid 20mg Iv Push) 20 mg in 5 mls @ 2.5 mls/min IV NOW STA Stop: 03/02/22 15:55 Last Admin: 03/02/22 16:04 Dose: 2.5 mls/min Documented by: [id number] Magnesium Sulfate/Dextrose (Magnesium Sulfate / D5w) 1 gm in 100 mls @ 100 mls/hr IV NOW STA Stop: 03/02/22 18:10 Last Infusion: 03/02/22 18:14 Dose: 0 mls/hr Documented by: [id number] Admin: 03/02/22 17:14 Dose: 100 mls/hr Documented by: [id number] Heparin Sodium/Dextrose (Heparin Sodium/Dextrose) 25,000 units in 500 mls @ 31 mls/hr IV .Q16H8M [facility]; Protocol Stop: 04/01/22 19:29 Last Admin: 03/02/22 19:45 Dose: 1,550 units/hr, 31 mls/hr Documented by: [id number] Cosigned by: [id number] Nitroglycerin/Dextrose (Nitroglycerin/D5w 100 Mcg/Ml) 250 mls @ 3 mls/hr IV .Q24H [facility] Stop: 04/01/22 19:14 Last Admin: 03/02/22 19:28 Dose: 5 mcg/min, 3 mls/hr Documented by: [id number] Cosigned by: [id number] Midazolam HCl (Midazolam Hcl 1 Mg/Ml 2ml Vial) Confirm Administered Dose 2 mg .ROUTE .STK-MED ONE Stop: 03/02/22 20:08 Last Increment: 03/02/22 21:37 Dose: 1 mg Documented by: [id number] Nicardipine HCl (Nicardipine Hcl Inj 2.5 Mg/Ml 10 Ml Amp) Confirm Administered Dose 25 mg .ROUTE .STK-MED ONE Stop: 03/02/22 20:08 Last Admin: 03/02/22 21:25 Dose: 25 mg Documented by: [id number] Nitroglycerin/Dextrose (Nitroglycerin/D5w 100mcg/Ml 20ml Syr) Confirm Administered Dose 2,000 mcg .ROUTE .STK-MED ONE Stop: 03/02/22 20:09 Last Admin: 03/02/22 21:25 Dose: 2,000 mcg Documented by: [id number] Critical Care Time Critical Care Time: Yes Total Critical Care Time: 62 Critical care of 62 min performed to assess and manage high likelihood of life- threatening ACS, involving labs and imaging performed with assessment to evaluate ACS diagnosis with frequent reassessment. This time includes bedside time, treatment discussions with patient/family/consultants, documentation time and excludes procedure time. Medical Decision Making Differential Diagnosis Differential diagnoses includes but is not limited to acute coronary syndrome, myocardial infarction, pericarditis, pulmonary embolus, aortic dissection, pneumonia, pneumothorax, musculoskeletal, shingles, esophageal. Medical Records Attestation: I reviewed the patient's medical records. Home Medications Current Medication List: was personally reviewed by me Laboratory Data Attestation: I reviewed the patient's lab results. Result diagrams: 03/02/22 15:20 03/02/22 15:20 Lab Results 03/02/22 03/02/22 03/02/22 Range/Units 15:20 15:20 15:20 WBC 6.99 (4.8-10.8) K/uL RBC 4.26 L (4.7-6.1) M/uL Hgb 13.6 L (14.0-18.0) g/dL Hct 40.3 L (42-52) % MCV 94.6 (80-100) fL MCH 31.9 (25-34) pg MCHC 33.7 (32-36) g/dL RDW Std Deviation 45.8 (36.4-46.3) fL RDW Coeff of Neyda 13.3 (11.5-14.5) % Plt Count 210 (130-400) K/uL MPV 11.2 H (7.4-10.4) fL Immature Gran % (Auto) 0.3 % Neut % (Auto) 70.2 % Lymph % (Auto) 18.9 % [place] % (Auto) 8.4 % Eos % (Auto) 1.9 % Baso % (Auto) 0.3 % Neut # (Auto) 4.91 (1.4-6.5) K/uL Lymph # (Auto) 1.32 (1.2-3.4) K/uL [place] # (Auto) 0.59 (0.11-0.59) K/uL Eos # (Auto) 0.13 (0-0.5) K/uL Baso # (Auto) 0.02 (0-0.2) K/uL Immature Gran # (Auto) 0.02 (0.00-0.02) K/uL Sodium 140 (136-145) mmol/L Potassium 4.1 (3.5-5.1) mmol/L Chloride 104 (98-107) mmol/L Carbon Dioxide 27 (21-32) mmol/L Anion Gap 9 (3-11) BUN 18 (6-23) mg/dl Creatinine 1.09 (0.6-1.4) mg/dl Est Cr Clr Drug Dosing 73.3 ml/min Est GFR ( Amer) 80.4 ml/min Est GFR (Non-Af Amer) 69.4 ml/min BUN/Creatinine Ratio 16.5 (10-20) Glucose 122 H (70-99(Fasting)) mg/dl Calcium 9.2 (8.5-10.1) mg/dl Magnesium 1.6 L (1.7-2.4) mg/dl Total Bilirubin 0.9 (0.2-1.0) mg/dl AST 19 (13-39) U/L ALT 16 (7-52) U/L Alkaline Phosphatase 75 (34-104) U/L Troponin I High Sens 14.3 (0-20) pg/ml B-Natriuretic Peptide (0-100) pg/ml Total Protein 6.5 (6.0-8.3) gm/dl Albumin 4.2 (3.4-5.0) gm/dl Globulin 2.3 L (2.5-4.0) gm/dl Albumin/Globulin Ratio 1.8 (0.9-2) Lipase 45 (11-82) U/L TSH 1.760 (0.300-4.500) uIu/ml SARS-CoV-2, RNA, NAAT (NEGATIVE) 03/02/22 03/02/22 03/02/22 Range/Units 16:34 17:41 18:49 WBC (4.8-10.8) K/uL RBC (4.7-6.1) M/uL Hgb (14.0-18.0) g/dL Hct (42-52) % MCV (80-100) fL MCH (25-34) pg MCHC (32-36) g/dL RDW Std Deviation (36.4-46.3) fL RDW Coeff of Neyda (11.5-14.5) % Plt Count (130-400) K/uL MPV (7.4-10.4) fL Immature Gran % (Auto) % Neut % (Auto) % Lymph % (Auto) % [place] % (Auto) % Eos % (Auto) % Baso % (Auto) % Neut # (Auto) (1.4-6.5) K/uL Lymph # (Auto) (1.2-3.4) K/uL [place] # (Auto) (0.11-0.59) K/uL Eos # (Auto) (0-0.5) K/uL Baso # (Auto) (0-0.2) K/uL Immature Gran # (Auto) (0.00-0.02) K/uL Sodium (136-145) mmol/L Potassium (3.5-5.1) mmol/L Chloride (98-107) mmol/L Carbon Dioxide (21-32) mmol/L Anion Gap (3-11) BUN (6-23) mg/dl Creatinine (0.6-1.4) mg/dl Est Cr Clr Drug Dosing ml/min Est GFR ( Amer) ml/min Est GFR (Non-Af Amer) ml/min BUN/Creatinine Ratio (10-20) Glucose (70-99(Fasting)) mg/dl Calcium (8.5-10.1) mg/dl Magnesium (1.7-2.4) mg/dl Total Bilirubin (0.2-1.0) mg/dl AST (13-39) U/L ALT (7-52) U/L Alkaline Phosphatase (34-104) U/L Troponin I High Sens 17.1 (0-20) pg/ml B-Natriuretic Peptide 295 H (0-100) pg/ml Total Protein (6.0-8.3) gm/dl Albumin (3.4-5.0) gm/dl Globulin (2.5-4.0) gm/dl Albumin/Globulin Ratio (0.9-2) Lipase (11-82) U/L TSH (0.300-4.500) uIu/ml SARS-CoV-2, RNA, NAAT NEGATIVE (NEGATIVE) Imaging Data Radiologist's Impression: Chest X-Ray 03/02/22 15:51 XR chest 1V portable HISTORY: 66 years-old Male chest pain acute atypical chest pain COMPARISON: Chest radiograph 06/12/2020 TECHNIQUE: Portable AP view of the chest FINDINGS: The cardiac silhouette is mildly enlarged. Left subclavian pacer/AICD. There is no pneumothorax, pleural effusion, airspace consolidation or overt pulmonary edema. Degenerative changes of the shoulders and spine. IMPRESSION: No acute process. ACT 112: Negative or not required by law. The above report was generated using voice recognition software. It may contain grammatical, syntax or spelling errors. Electronically signed by: Ankit Orellana M.D. 03/02/2022 4:40 PM ECG Data Attestation: I personally reviewed and interpreted this ECG as follows: Indication: + chest pain Rate (beats per minute): 77 Rhythm: + other ECG Intervals/blocks: + IVCD and + Normal QT ECG [place]: + Normal ECG ST segments: + Nonspecific ST abnormalities MDM Narrative This is a 66-year-old male presents emergency department complaining of chest pain, shortness of breath, similar to prior episode of PA. Patient with extensive cardiac history. Patient had a total of 4 nitro sublingual and aspirin given prehospital. Patient's EKG was paced. Patient does have history of a BiV pacemaker/defibrillator. Patient had improvement of pain on arrival although not complete resolution. Due to borderline low blood pressures, he was given small doses of fentanyl intermittently. Patient's initial labs reassuring with negative troponin. Chest x-ray reassuring. Case discussed with [facility] for additional evaluation management due to patient's persistent need for additional pain medication, I did discuss with case with on-call cardiology, Dr. Roberts. Dr. Roberts recommended repeat EKG and troponin which were added. He did come and evaluate the patient at bedside himself and also discussed the case with on-call interventional cardiology, Dr. Moya. Patient's magnesium was repleted. Because of his continued need for additional pain control, some concern for possible unstable angina/ACS. Repeat troponin was negative. I again discussed this with Dr. Roberts who recommended making patient a heart alert. Dr. Moya did come and see the patient at bedside and patient taken to the Retail Department Manager urgently. I did reexamine the patient multiple times, patient and family were kept up-to-date on all of his results and plan as this was evolving. An order was placed for continuous cardiac monitoring. The monitor shows a rate of __66_ with _normal sinus__ rhythm. Impression & Plan Chest pain, Hypomagnesemia, Dyspnea, Elevated brain natriuretic peptide (BNP) level Discharge Plan Visit Data Chief Complaint: Shortness of Breath/Dyspnea ED Provider: Arabella Hilliard Discharge Problem: Chest pain, Hypomagnesemia, Dyspnea, Elevated brain natriuretic peptide (BNP) level Discharge Instructions Interventions: ED Discharge Assessment Last Done: 03/02/22 20:20 Discharge Problem: Chest pain Qualifiers: Chest pain type: unspecified Qualified Code(s): R07.9 - Chest pain, unspecified Dyspnea Qualifiers: Dyspnea type: shortness of breath Qualified Code(s): R06.02 - Shortness of breath
[2022-03-02 16:25] LABS: Basophils # (auto) 0.02 K/uL (0-0.2); Basophils % (auto) 0.3 %; Eosinophils # (auto) 0.13 K/uL (0-0.5); Eosinophils % (auto) 1.9 %; Hematocrit (blood only) 40.3 % (42-52); Hemoglobin 13.6 g/dL (14.0-18.0); Immature Granulocytes # (auto) 0.02 K/uL (0.00-0.02); Immature Granulocytes % (auto) 0.3 %; Lymphocytes # (auto) 1.32 K/uL (1.2-3.4); Lymphocytes % (auto) 18.9 %; Mean Corpuscular Hemoglobin 31.9 pg (25-34); Mean Corpuscular Hgb Conc 33.7 g/dL (32-36); Mean Corpuscular Volume 94.6 fL (80-100); Mean Platelet Volume 11.2 fL (7.4-10.4); Monocytes # (auto) 0.59 K/uL (0.11-0.59); Monocytes % (auto) 8.4 %; Neutrophils # (auto) 4.91 K/uL (1.4-6.5); Neutrophils % (auto) 70.2 %; Platelet Count 210 K/uL (130-400); RDW Coefficient of Variation 13.3 % (11.5-14.5); RDW Standard Deviation 45.8 fL (36.4-46.3); Red Blood Count 4.26 M/uL (4.7-6.1); White Blood Count 6.99 K/uL (4.8-10.8)
[2022-03-02] MEDS: fentaNYL citrate 100 MCG/2 ML VIAL IV PRN ×5 (16:31→19:21)
--- NOTE | 2022-03-02 16:42 | XRay Report ---
XR chest 1V portable HISTORY: 66 years-old Male chest pain acute atypical chest pain COMPARISON: Chest radiograph 06/12/2020 TECHNIQUE: Portable AP view of the chest FINDINGS: The cardiac silhouette is mildly enlarged. Left subclavian pacer/AICD. There is no pneumothorax, pleu ral effusion, airspace consolidation or overt pulmonary edema. Degenerative changes of the shoulders and spine. IMPRESSION: No acute process. ACT 112: Negative or not required by law. The above report was generated using voice recognition software. It may contain grammatical, syntax o r spelling errors. Electronically signed by: Ankit Orellana M.D. 03/02/2022 4:40 PM
[2022-03-02 16:59] LABS: Troponin I High Sensitivity 14.3 pg/ml (0-20)
[2022-03-02 17:05] LABS: Albumin Globulin Ratio 1.8 (0.9-2); Albumin Level 4.2 gm/dl (3.4-5.0); BUN Creatinine Ratio 16.5 (10-20); Bilirubin,Total 0.9 mg/dl (0.2-1.0); Calcium 9.2 mg/dl (8.5-10.1); Creatinine Clr Calc Pharmacy 73.3 ml/min; Est GFR (African American) 80.4 ml/min; Est GFR (Non-African American) 69.4 ml/min; Globulin 2.3 gm/dl (2.5-4.0); Magnesium 1.6 mg/dl (1.7-2.4); Potassium 4.1 mmol/L (3.5-5.1); Total Protein 6.5 gm/dl (6.0-8.3)
[2022-03-02] MEDS ORDERED: MAGNESIUM SULFATE / D5W 1 GM/100 ML BAG IV STA (17:11)
--- NOTE | 2022-03-02 18:22 | History & Physical Report ---
Date of Service March 02, 2022 Assessment & Plan (1) Atypical chest pain: Plan: Patient is being admitted with chest pain Concern over unstable angina. Will obtain serial trops. consult cardio. Plan is to discuss with Dr. Moya in the evening. Given how he symptoms are similar to his last cardiac event in 2019, patient will be getting a cardiac cath this evening. will hold off heparin drip. (2) Diabetes mellitus: Plan: check ACHS (3) Ischemic cardiomyopathy: Plan: LVEF 25 to 30% Continue metoprolol succinate 12.5 mg p.o. twice daily, Entresto 24/26 mg 1 tab twice daily (4) CAD (coronary artery disease): Plan: Continue clopidogrel, metoprolol succinate, Entresto, atorvastatin. MULTIPLE Stents noted in past. (5) Hyperlipidemia: Plan: continue statin Plan: dvt: heparin History of Present Illness Chief Complaint: chest pain Primary Care Provider: Zac Torres MD 66 yo male with significant PMH of CAD, multiple stents placed, presents to the ED with cheat pain. Patient reports being active over the last 2 days, scrubbing and cleaning steps. He reports today, he became SOB, and almost passed out. He also complained of left sided dull chest pain. He reports that pain was similar to his previous episode. Patient reports he took 2 nitroglycerin tablets at home with mild improvement. He reports that the fentanyl has been helping with his symptoms. Admission called for possible unstable angina. Family at bedside. Allergies Allergy/AdvReac Type Severity Reaction Status Date / Time Penicillins Allergy Unknown Unknown Verified 03/02/22 16:05 Sulfa (Sulfonamide Allergy Unknown Unknown Verified 03/02/22 16:05 Antibiotics) oxycodone AdvReac Mild Nausea/Vomi Verified 03/02/22 16:05 ting simvastatin AdvReac Unknown muscle pain Verified 03/02/22 16:05 Home Medications Medication Instructions Recorded Confirmed Type clonazepam 0.5 mg tablet 0.5 mg PO HS 02/09/19 03/02/22 History clopidogrel 75 mg tablet 75 mg PO QAM 02/09/19 03/02/22 History cyanocobalamin (vitamin B-12) 1,000 mcg IM MONTHLY 02/09/19 03/02/22 History 1,000 mcg/mL injection solution furosemide 40 mg tablet 40 mg PO 5XWK 02/09/19 03/02/22 History pregabalin 75 mg capsule (Lyrica) 75 mg PO HS 04/26/19 03/02/22 History atorvastatin 40 mg tablet 40 mg PO HS 07/10/19 03/02/22 History nitroglycerin 0.4 mg sublingual 0.4 mg SUBLINGUAL DIRECTED PRN 07/10/19 03/02/22 History tablet sacubitril 24 mg-valsartan 26 mg 1 tab PO BID 06/12/20 03/02/22 History tablet (Entresto) metoprolol succinate 25 mg 12.5 mg PO BID #0 tab 06/14/20 03/02/22 Rx tablet,extended release 24 hr spironolactone 25 mg tablet 12.5 mg PO QAM 07/30/20 03/02/22 History Omegared 1 cap PO QAM 03/02/22 03/02/22 History ascorbic acid (vitamin C) 1,000 mg 0 g PO QAM 03/02/22 03/02/22 History tablet (Vitamin C) cholecalciferol (vitamin D3) 25 0 mcg PO QAM 03/02/22 03/02/22 History mcg (1,000 unit) tablet (Vitamin D3) metformin 500 mg tablet 1,000 mg PO BID 03/02/22 03/02/22 History ujxkncgy-xgb-FD 0.4 mg-calcium 162 1 tab PO QAM 03/02/22 03/02/22 History mg-iron 18 sz-ipqevig-eofmaw tablet Past Med/Surg History Medical History ACS (acute coronary syndrome) Atypical chest pain 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) [facility] CAD (coronary artery disease) Callus Chest pain Chronic systolic (congestive) heart failure Diabetes Diabetic foot ulcer Hyperlipidemia [place] (myocardial infarction) x 8 events; 10 stents in total Peripheral arterial disease Peripheral neuropathy Surgical History H/O gastric bypass S/P appendectomy S/P cardiac catheterization S/P cholecystectomy Status post biventricular pacemaker Family History Father , 51 Coronary heart disease Myocardial infarction Brother Coronary heart disease Brother Coronary heart disease Other Diabetes Social History Smoking Status: Former smoker Tobacco Type: Cigarettes packs per day: 2; Years Smoked: 25; Second Hand Exposure: No; Do You Dip or Chew Tobacco: No; Tobacco Cessation Education Requested by Patient: No Hx Alcohol Use: No Hx Substance Use: No Preferred Language: Italian Communication Ability: Effective Visual Impairment: No Limitations Mri Manager Required: No Beliefs That Will Affect Care: Hinduism Hinduism Beliefs: Gnosticist of [place] marital status: Single marital status details: 01/2020 Current Living Situation: Significant Other current occupational status: employed 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 - [employer] How many Children do You have: 1 How many Children do You have Comment: son Other Information That Helps Us Care for You: No Feels Safe at Home: Yes Safety Concerns: Feels Safe At This Time Assistive Devices: Cane, Denture - Upper and Hearing Aid - Bilateral Review of Systems Constitutional: no fever and no body aches Eyes: no blind spots Ear, Nose, Mouth, Throat: no ear pain Respiratory: no cough Cardiovascular: + chest pain and + dyspnea on exertion Gastrointestinal: no abdominal pain Genitourinary: no dysuria Musculoskeletal: no back pain Integumentary: no acne Neurologic: no gait abnormality Psychiatric: no behavioral changes Endocrine: + fatigue Hematologic / Lymphatic: no easy bleeding Allergy / Immunological: no GI upset with certain foods Physical Exam Constitutional: WD/WN, vitals as above + ill appearing Eyes: PERRL, conjunctivae normal, anicteric sclerae ENMT: external ear and nose normal, oropharynx normal Neck: trachea midline, no thyromegaly Respiratory: normal respiratory effort, lungs clear to auscultation Cardiovascular: RRR, no murmur, no edema Gastrointestinal (Abdomen): normal bowel sounds, soft, nontender, no hepatosplenomegaly Musculoskeletal: no cyanosis or clubbing, extremities motor strength 5/5 Skin: no rashes, warm and dry Neurologic: PERRL, EOMI, accommodation nl, no face palsy, no dysarthria Psychiatric: A+Ox3, euthymic affect Lymphatic: no cervical or axillary lymphadenopathy Results & Data Results & Data ([facility]) Vital Signs (Past 12 Hours) Vital Signs Temp Pulse Resp BP Pulse Ox 03/02/22 16:58 63 16 108/56 L 95 03/02/22 16:30 65 16 106/60 97 05/05/22 16:00 70 16 114/58 L 96 03/02/22 15:30 104/55 L 03/02/22 15:29 95 03/02/22 15:26 78 15 93 03/02/22 15:14 36.9 C 84 15 109/51 L 97 PG Care Time/CCT Total # of Minutes Spent Total Time Spent with Patient: Total time spent is greater than 50% in coordination of care (as documented) at patient's floor/unit and/or counseling patient: Coding Level of Care Code 65653 Initial Inpt Care Lvl 3 Diagnoses Diabetes mellitus E11.9 Atypical chest pain R07.89 Ischemic cardiomyopathy I25.5 CAD (coronary artery disease) I25.10 Associated angina: angina presence unspecified Coronary Disease-Associated Artery/Lesion type: [place] artery [place] vs. transplanted heart: [place] heart Hyperlipidemia E78.5 Hyperlipidemia type: unspecified (1) CAD (coronary artery disease) Associated angina: angina presence unspecified Coronary Disease-Associated Artery/Lesion type: [place] artery [place] vs. transplanted heart: [place] heart Qualified Code(s): I25.10 - Atherosclerotic heart disease of [place] coronary artery without angina pectoris (2) Hyperlipidemia Hyperlipidemia type: unspecified Qualified Code(s): E78.5 - Hyperlipidemia, unspecified
[2022-03-02] MEDS ORDERED: NITROGLYCERIN SL 0.4 MG/TAB TAB SL PRN (18:39)
[2022-03-02] MEDS ORDERED: Heparin IV Adult Wt-Based Standard WITH Bolus Protocol IV STA (19:13)
--- NOTE | 2022-03-02 19:13 | Cardiology Consultation ---
Date of Consultation March 02, 2022 Assessment & Plan (1) ACS (acute coronary syndrome): (2) Ischemic cardiomyopathy: (3) Chronic systolic (congestive) heart failure: (4) Status post biventricular pacemaker: 66-year-old patient with complex cardiovascular history listed above presents to the ER with recurrent chest discomfort, near syncope, and dyspnea. ECG initially with inferior lateral ST changes in the setting of biventricular pacing. Repeat ECG demonstrating resolution of these ST changes. Initial high- sensitivity troponins not significantly elevated however, the second high sensitive troponin has increased nearly 20% despite remaining in the normal range. Patient experienced a similar presentation in May 2020 where his first 2 low sensitivity troponin studies were normal, only turning positive on the third assay. With ongoing chest discomfort and high suspicion for acute coronary syndrome, recommend initiation of intravenous heparin and IV nitroglycerin infusion. Patient continues to have discomfort despite sublingual nitro and fentanyl. If symptoms do not improve he will be taken to the cardiac catheterization lab this evening for definitive assessment with coronary angiography and intervention if indicated. History of Present Illness Reason for Consultation: Chest pain, acute coronary syndrome Requesting Physician: Dr. Arabella Hilliard Attending Physician: Dr. Leandro Gutierres History of Present Illness 66-year-old male presented to the emergency department with chest discomfort. Patient working around his yard and pool. He was scrubbing some steps when he became acutely short of breath and lightheaded. Reports near syncope. He on 2 occasions felt as if he was going to pass out. He returned to the indoors and took 2 sublingual nitroglycerin because "I cannot catch my breath". He then began to discuss developed left-sided chest discomfort similar to prior angina. Pain escalated to 7/10. He took 2 additional sublingual nitroglycerin and came to the ER where he was again treated with sublingual nitroglycerin and several doses of intravenous fentanyl. Patient seen and examined at the bedside. Currently noting 5/10 left-sided chest discomfort. Family present at bedside. Patient denies dyspnea at rest. No lightheadedness or dizziness currently. Initial ECG demonstrates an AV paced rhythm with ST-T wave abnormality in the inferolateral leads. Repeat ECG demonstrates resolution of ST changes. Reports stable functional capacity until acute symptoms beginning earlier today. Complex cardiovascular history listed below. Complex cardiac history copied from the [facility] medical record. 1. Atherosclerotic coronary disease, diffuse, with multiple coronaryinterventions including 2-vessel angioplasty in 1998 of circumflex and rightcoronary artery; left anterior descending in 2000; stenting of the leftanterior descending in 2007, stenting of the obtuse marginal in JanuaryNovember 2012. 2. Thrombotic occlusion with closure of the stented obtuse ohsuskcv09/20/2013 with lateral apical infarct. 3. Class II angina pectoris. 4. Low HDL dyslipidemia. 5. Diabetes mellitus. 6. Non ST segment elevation myocardial infarction February 09, 2019 setting of increased demand acute sinusitis. Coronary intervention drug-eluting stent to 99% AV groove circumflex, dominant vessel 7. Acute coronary syndrome in the setting of acute emotional stress June 12, 2020 undergoing cardiac catheterization and drug-eluting stent implantation proximal left anterior descending, very distal dominant left circumflex 7. Ischemic cardiomyopathy , EF 25 to 30% reconfirmed by study of May 28, 2019 8. Possible TIA /stroke post coronary intervention January 2019 9. Biventricular pacer defibrillator implantation July 30, 2019 :[email or web address] MRI CRTD [id number] 10. Moderate bilateral carotid artery disease 11. Gastric bypass surgery 1999 12. Diabetic foot ulcer left foot status post amputation left 5th toe August 05, 2020 13. Left lower extremity arteriography August 04, 2020 without obstruction Allergies Allergy/AdvReac Type Severity Reaction Status Date / Time Penicillins Allergy Unknown Unknown Verified 03/02/22 16:05 Sulfa (Sulfonamide Allergy Unknown Unknown Verified 03/02/22 16:05 Antibiotics) oxycodone AdvReac Mild Nausea/Vomi Verified 03/02/22 16:05 ting simvastatin AdvReac Unknown muscle pain Verified 03/02/22 16:05 Home Medications Medication Instructions Recorded Confirmed Type clonazepam 0.5 mg tablet 0.5 mg PO HS 02/09/19 03/02/22 History clopidogrel 75 mg tablet 75 mg PO QAM 02/09/19 03/02/22 History cyanocobalamin (vitamin B-12) 1,000 mcg IM MONTHLY 02/09/19 03/02/22 History 1,000 mcg/mL injection solution furosemide 40 mg tablet 40 mg PO 5XWK 02/09/19 03/02/22 History pregabalin 75 mg capsule (Lyrica) 75 mg PO HS 04/26/19 03/02/22 History atorvastatin 40 mg tablet 40 mg PO HS 07/10/19 03/02/22 History nitroglycerin 0.4 mg sublingual 0.4 mg SUBLINGUAL DIRECTED PRN 07/10/19 03/02/22 History tablet sacubitril 24 mg-valsartan 26 mg 1 tab PO BID 06/12/20 03/02/22 History tablet (Entresto) metoprolol succinate 25 mg 12.5 mg PO BID #0 tab 06/14/20 03/02/22 Rx tablet,extended release 24 hr spironolactone 25 mg tablet 12.5 mg PO QAM 07/30/20 03/02/22 History Omegared 1 cap PO QAM 03/02/22 03/02/22 History ascorbic acid (vitamin C) 1,000 mg 0 g PO QAM 03/02/22 03/02/22 History tablet (Vitamin C) cholecalciferol (vitamin D3) 25 0 mcg PO QAM 03/02/22 03/02/22 History mcg (1,000 unit) tablet (Vitamin D3) metformin 500 mg tablet 1,000 mg PO BID 03/02/22 03/02/22 History ejtbtesc-arf-IB 0.4 mg-calcium 162 1 tab PO QAM 03/02/22 03/02/22 History mg-iron 18 tm-bnhzayd-ozsqtw tablet Patient History Medical History ACS (acute coronary syndrome) Atypical chest pain 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) [facility] CAD (coronary artery disease) Callus Chest pain Chronic systolic (congestive) heart failure Diabetes Diabetic foot ulcer Hyperlipidemia [place] (myocardial infarction) x 8 events; 10 stents in total Peripheral arterial disease Peripheral neuropathy Surgical History H/O gastric bypass S/P appendectomy S/P cardiac catheterization S/P cholecystectomy Status post biventricular pacemaker Family History Father , 51 Coronary heart disease Myocardial infarction Brother Coronary heart disease Brother Coronary heart disease Other Diabetes Social History Smoking Status: Former smoker Tobacco Type: Cigarettes packs per day: 2; Years Smoked: 25; Hx Alcohol Use: No Hx Substance Use: No Preferred Language: Grenadian Communication Ability: Effective Visual Impairment: No Limitations Automotive Electrical Helper Required: No Beliefs That Will Affect Care: None marital status: Single marital status details: 01/2020 Current Living Situation: Alone current occupational status: employed 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 - [employer] How many Children do You have: 1 How many Children do You have Comment: son Feels Safe at Home: Yes Assistive Devices: Hearing Aid - Bilateral Review of Systems Review of Systems: All systems reviewed & are unremarkable except as noted in Subjective Physical Exam Constitutional: well developed, well nourished, + acute distress and + ill appearing Respiratory: no respiratory distress, no labored breathing and no retractions Auscultation: lungs clear to auscultation bilaterally; no crackles, no rales, no rhonchi and no wheezes Cardiovascular: Rate/Rhythm: regular rate and regular rhythm Heart Sounds: normal S1 and normal S2; no murmur and no cardiac rub Vessels: radial pulses present; no JVD and no carotid bruit Extremities: no edema Gastrointestinal (Abdomen): Inspection/Auscultation: abdomen normal to inspection and normal bowel sounds; abdomen not distended Percussion/Palpation: abdomen soft; abdomen nontender, no guarding and abdomen not rigid Neurologic: CN's II-XI intact bilaterally and moves all extremities; no focal motor deficits Motor/Sensory: no tremor Psychiatric: A+Ox3, euthymic affect Results & Data ([facility]) Vital Signs (Past 12 Hours) Vital Signs Temp Pulse Resp BP Pulse Ox 03/02/22 16:58 63 16 108/56 L 95 03/02/22 16:30 65 16 106/60 97 03/02/22 16:00 70 16 114/58 L 96 03/02/22 15:30 104/55 L 03/02/22 15:29 95 03/02/22 15:26 78 15 93 03/02/22 15:14 36.9 C 84 15 109/51 L 97
[2022-03-02] MEDS ORDERED: STAT IV Infusion **Titration per Protocol STA (19:14)
[2022-03-02] MEDS ORDERED: NITROGLYCERIN/D5W 100MCG/ML 250 ML IV SCH (19:15)
[2022-03-02] MEDS ORDERED: HEPARIN SOD (PORCINE) 1000 UNIT/ML IV ONE (19:28)
[2022-03-02] MEDS ORDERED: HEPARIN SODIUM/DEXTROSE 25,000 UNITS/500 ML BAG IV SCH (19:30)
[2022-03-02] MEDS ORDERED: HEPARIN SOD (PORCINE) 1000 UNIT/ML ONE (19:38)
[2022-03-02] MEDS ORDERED: niCARdipine HCL INJ 2.5 MG/ML 10 ML AMP ONE (20:07)
[2022-03-02] MEDS ORDERED: MIDAZOLAM HCL 1 MG/ML 2ML VIAL ONE (20:07)
[2022-03-02] MEDS ORDERED: fentaNYL citrate 100 MCG/2 ML VIAL ONE (20:07)
[2022-03-02] MEDS ORDERED: HEPARIN (PORCINE) 1000 UNIT/ML 10 ML (CATH LAB USE ONLY) ONE (20:07)
[2022-03-02] MEDS ORDERED: NITROGLYCERIN/D5W 100MCG/ML 20ML SYR ONE (20:08)
[2022-03-02] MEDS ORDERED: clonazePAM 0.5 MG TAB PO SCH (21:00)
[2022-03-02] MEDS ORDERED: ATORVASTATIN 40 MG TAB PO SCH ×2 (21:00→22:30)
[2022-03-02] MEDS ORDERED: FUROSEMIDE 40 MG TAB PO SCH ×2 (21:00→21:45)
[2022-03-02] MEDS ORDERED: PREGABALIN 75 MG CAP PO SCH (21:00)
[2022-03-02] MEDS ORDERED: CLOPIDOGREL BISULFATE 300 MG TAB ONE (21:34)
--- NOTE | 2022-03-02 21:51 | Post Anesthesia Assessment ---
Date of Service March 02, 2022 Post Sedation Assessment Vital Signs Temp Pulse Pulse Resp BP BP Pulse Ox 03/02/22 20:00 63 6 L 96 03/02/22 19:55 64 21 112/63 97 03/02/22 19:48 66 16 117/61 97 03/02/22 19:45 62 18 117/61 03/02/22 19:41 20 127/54 L 93 03/02/22 19:30 63 14 118/59 L 03/02/22 19:00 66 18 128/68 97 03/02/22 16:58 63 16 108/56 L 95 03/02/22 16:30 65 16 106/60 97 03/02/22 16:00 70 16 114/58 L 96 03/02/22 15:30 104/55 L 03/02/22 15:29 95 03/02/22 15:26 78 15 93 03/02/22 15:14 98.4 F 84 15 109/51 L 97 Recovery Score Activity: Moves 4 extremities Respiration: Deep Breath/Cough Circulation: +/-20% PreAnes Value Consciousness: Fully Awake Oxygen Saturation: O2 needed for >90% Discharge Sedation Level of Care: Fast Track Phase II Post Sedation Plan On clinical assessment, the patient appears to have tolerated the sedation without complications. Patient is recovering as anticipated. Patient will continue to be monitored by nursing and may be discharged when sedation discharge criteria are met per below protocol. Upon Completions of procedure up to 15 minutes continue every 5 minute vital signs and the P.A.R. score; then discharge to a Phase I or Fast Track to Phase II per the following guidelines: * Discharge Patient to appropriate Phase II area if PAR is 8 or greater or return to pre- procedure baseline. The post - procedure orders will be as directed. * If PAR score is less than 8 or not return to pre-procedure baseline then patient will follow Phase I monitoring till PAR is reached for Phase II. The Phase I may be done in procedure room or may call to secure a Phase I area. * If naloxone or flumazenil are used for reversal, hold in Phase I for c ontinued monitoring from when last reversal dose was given for a minimum of 60 minutes or longer pending the nurse and/or physician discretion of patient condition before discharge to Phase II. Please call the Sedation Physician to re-evaluate and complete post-note for discharge to Phase II area. Do NOT discharge from procedure sedation or Phase 1 until post- sedation evaluation note is complete by procedure /sedation MD Sedation Discharge Instructions to be given to the patient at discharge to home.
--- NOTE | 2022-03-02 21:51 | Pre Anesthesia Assessment ---
Date of Service March 02, 2022 Pre Sedation Assessment Vital Signs Temp Pulse Pulse Resp BP BP Pulse Ox 03/02/22 20:00 63 6 L 96 03/02/22 19:55 64 21 112/63 97 03/02/22 19:48 66 16 117/61 97 03/02/22 19:45 62 18 117/61 03/02/22 19:41 20 127/54 L 93 03/02/22 19:30 63 14 118/59 L 03/02/22 19:00 66 18 128/68 97 03/02/22 16:58 63 16 108/56 L 95 03/02/22 16:30 65 16 106/60 97 03/02/22 16:00 70 16 114/58 L 96 03/02/22 15:30 104/55 L 03/02/22 15:29 95 03/02/22 15:26 78 15 93 03/02/22 15:14 98.4 F 84 15 109/51 L 97 Cardiovascular RRR, no murmur, no edema Respiratory normal respiratory effort, lungs clear to auscultation Pre-Sedation Airway Assessment Smoking Status: Former smoker Hx Sleep Apnea: No Hx Difficult Intubation: No Short, Thick Neck: No Thyromental Distance: > or= 3.5 Finger Breadths Oral Cavity: + WNL Mallampati Class: III ASA: ASA3 Procedure Planning Contraindications for Sedation: none Current Medications Reviewed: Yes Notes The planned sedation has been discussed with the patient. Informed Consent was obtained. I have identified the patient, determined the appropriateness of sedation and have assessed the patient immediately prior to the procedure. All medicine(s) and interventions are by my order.
--- NOTE | 2022-03-02 22:09 | Cardiac Catheterization ---
[facility] Data: Unified Communications Engineer Cardiac Status Clinical evaluation leading to the procedure CAD Presenation: Unstable angina Anginal Classification: CCS IV Diagnostic Physicians Name: Iker Moya MD Closure Device Recommendations: PCI without planned CABG Cardiac Cath Procedure Full Procedure Date March 02, 2022 Pre-Procedure Diagnosis Pre-Procedure Diagnosis: Acute Coronary Syndrome AUC Score AUC Score: 8 Post-Procedure Diagnosis Post-Procedure Diagnosis: Severe CAD and Successful PCI Procedure(s) Performed Procedure(s) Performed: Coronary Angiography, Left Heart Cath and Drug Eluting Stent Insurance Broker Iker Moya MD Sheet Metal Superintendent(s) Nickolas Estimated Blood Loss Estimated Blood Loss: 15 Medication(s) Medication(s): Clopidogrel, Fentanyl, Heparin, Lidocaine 1%, Nicardipine, Nitroglycerin and Versed Summary of Findings Indication: Acute coronary syndrome, refractory angina Access: 6 Fr slender right radial artery Catheters: [place], EBU 3.5 guide Findings: LM -medium caliber, luminal irregularities LAD -30-40% ostial stenosis, proximal to mid stents widely patent, distal vessel without significant disease. 40% ostial first diagonal. Circumflex -dominant, medium caliber, 95% hazy ostial stenosis, mid to distal stents widely patent. Chronic occlusion of proximal OM 2 stent. Distal stent prior to left PLB widely patent. 70% distal stenosis before right PDA. RCA -small, nondominant, no significant disease -- PCI -- Antithrombotic therapy: Heparin, clopidogrel Procedure: Left main cannulated with EBU 3.5 guide Pre-procedure flow DOROTHY 3 [place] wire placed into mid LAD Patient Services Coordinator 50 wire passed across ostial circumflex lesion into distal vessel Ostial circumflex lesion predilated with 2.5 and 3.25 compliant balloons. Further dilated with 3.5 NC. Dilated lesion stented with 3.5 x 15 mm Xience drug-eluting stent Stent post-dilated with 4.0 noncompliant balloon to high atmospheres. Mild residual proximal stenosis. IC vasodilators administered for spasm Post procedure DOROTHY 3 flow, stent well expanded and no apparent cardiac complications. Arterial Closure: TR band Summary: 1. Multivessel coronary artery disease -95% acute on chronic ostial dominant circumflex 70% small distal circumflex prior to L PDA 30 to 40% ostial LAD Chronic 100% proximal OM 2 stent occlusion 2. Widely patent proximal to mid LAD stents, proximal to mid circumflex stents and distal circumflex stent. 3. Normal intracardiac filling pressure 4. Successful PCI of ostial circumflex with single drug-eluting stent (3.5 x 15 mm Xience; postdilated with 4.0 NC) overlapping proximal aspect of prior stent. Recommendations: To PCU for continued monitoring Related with clopidogrel 300 mg in Unified Communications Engineer Continue dual-antiplatelet therapy for at least 1 year, likely indefinitely in the setting of numerous overlapping stents. Continue statin, and ASCVD risk factor modification Consult cardiac Rehab Medical management of residual CAD. Hemodynamics Rest Ao:: 97/49/78 Final Ao: 102/48/70 LV: 99/7 Recommendations Recommendations: PCI without planned CABG Specimens Specimens: None Radiation Exposure (mGy) 2701 Contrast (mls) 95 Anesthesia Moderate 4212-6762 Procedural Complication(s) None Disposition PCU I attest to the content of the Intraoperative Record and any orders documented therein. Any exceptions are noted below. [facility] Card Cath Procedure Codes Cardiac Catheterization Procedure 1: Cardiovascular Cath Procedures: 04528 Coronaries and LHC (+/-LV) Moderate Sedation Procedure 1: Sedation/Anesthesia: 18306 Mod Sedation by the same physician;Init15 Min Child Age 5 & Up Procedure 2: Sedation/Anesthesia: 81947 Mod Sedation by the same physician; Ea [id number] Minutes Stenting Procedure 1: Cardiovascular Stent Procedures: 77936 Perc transcatheter placement of intracoronary stent(s), with ang PG Care Time/CCT Total # of Minutes Spent Total Time Spent with Patient: Total time spent is greater than 50% in coordination of care (as documented) at patient's floor/unit and/or counseling patient:
[2022-03-02] MEDS: VALSARTAN/SACUBITRIL 26/24MG TAB PO SCH (22:49)
[2022-03-02] MEDS: METOPROLOL SUCC 25MG EXT REL TAB PO SCH (22:49)
[2022-03-03 01:40] LABS: Partial Thromboplastin Ratio 1.3; Partial Thromboplastin Time 35.7 Seconds (21.0-31.0)
[2022-03-03 02:35] LABS: Basophils # (auto) 0.01 K/uL (0-0.2); Basophils % (auto) 0.1 %; Eosinophils # (auto) 0.22 K/uL (0-0.5); Eosinophils % (auto) 2.7 %; Hematocrit (blood only) 37.8 % (42-52); Hemoglobin 12.8 g/dL (14.0-18.0); Immature Granulocytes # (auto) 0.02 K/uL (0.00-0.02); Immature Granulocytes % (auto) 0.2 %; Lymphocytes # (auto) 1.32 K/uL (1.2-3.4); Lymphocytes % (auto) 16.5 %; Mean Corpuscular Hemoglobin 31.8 pg (25-34); Mean Corpuscular Hgb Conc 33.9 g/dL (32-36); Mean Platelet Volume 10.7 fL (7.4-10.4); Monocytes # (auto) 0.79 K/uL (0.11-0.59); Monocytes % (auto) 9.9 %; Neutrophils # (auto) 5.66 K/uL (1.4-6.5); Neutrophils % (auto) 70.6 %; Platelet Count 172 K/uL (130-400); RDW Coefficient of Variation 13.5 % (11.5-14.5); RDW Standard Deviation 46.5 fL (36.4-46.3); Red Blood Count 4.02 M/uL (4.7-6.1); White Blood Count 8.02 K/uL (4.8-10.8)
[2022-03-03] MEDS ORDERED: SODIUM CHLORIDE 0.9% 1000ML 250 ML IV ONE (02:36)
[2022-03-03 02:57] LABS: Albumin Globulin Ratio 1.7 (0.9-2); Albumin Level 3.7 gm/dl (3.4-5.0); BUN Creatinine Ratio 17.8 (10-20); Bilirubin Direct 0.1 mg/dl (0-0.2); Bilirubin,Total 0.6 mg/dl (0.2-1.0); Calcium 8.8 mg/dl (8.5-10.1); Chol HDL Ratio 2.6 (0-5); Creatinine Clr Calc Pharmacy 79.1 ml/min; Est GFR (African American) 88.2 ml/min; Est GFR (Non-African American) 76.1 ml/min; Globulin 2.2 gm/dl (2.5-4.0); Potassium 3.6 mmol/L (3.5-5.1); Total Protein 5.9 gm/dl (6.0-8.3)
--- NOTE | 2022-03-03 07:21 | Communication Note ---
Date of Service: March 03, 2022 Informed by patient's RN earlier in the evening that patient had softer pressures in the ~70/50 range but with HR in 70-80s, asymptomatic. He had received his Entresto/metoprolol a few hours before this. I visited the patient multiple times throughout the night. Each visit, including the first, he denied any lightheadedness, dizziness, chest pain, shortness of breath, or fatigue. Each exam, he appeared relaxed and well perfused, in Trendelenburg. He was in no distress. Neck - no JVD. Cardiac - NRRR, +S1/S2 w/o m/r/g. Pulm - CTAB w/o crackles or wheezes. Extremities - no peripheral edema, capillary refill < 1 second. Throughout the evening, the automatic cuff did yield pressures ranging from 70/40s - 90s/50s and normal HRs. He demonstrated consistently good perfusion without any symptoms on his exams. Manually elevating his legs did result in pressure increases (by +20mmHg systolic on the first attempt). For this reason, opted to give small fluid bolus - to which he responded well (persistently came up to high 90s/50s on the automatic cuff). Interestingly, taking his blood pressure manually did result in higher pressures -- closer to 100-110/50s-60s. Given that there were no signs or symptoms of cardiogenic insufficiency despite multiple exams (and his overall well appearance with regards to perfusion) - and with great response to small fluid bolus and manually elevating legs PLUS no symptoms/findings otherwise to suggest bleeding or obstructive process - primarily believe his pressures dropped secondarily to overresponse to En tresto/metoprolol. I also do question the accuracy of the specific automatic cuff that was used to a degree -- as the variability between our manual readings was notable. Discussed work-up and case throughout the evening with attending. Resident Activity Tracking Resident Involvement: Resident Care Provided Care Provided: Adult Hospital Medicine
[2022-03-03] MEDS: METOPROLOL SUCC 25MG EXT REL TAB PO SCH (08:53)
[2022-03-03] MEDS: VALSARTAN/SACUBITRIL 26/24MG TAB PO SCH (08:55)
[2022-03-03] MEDS ORDERED: SPIRONOLACTONE 12.5 MG TAB PO SCH (09:00)
[2022-03-03] MEDS ORDERED: FUROSEMIDE 40 MG TAB PO SCH (09:00)
[2022-03-03] MEDS ORDERED: CLOPIDOGREL BISULFATE 75 MG TAB PO SCH (09:00)
[2022-03-03] MEDS ORDERED: HEPARIN SOD 5,000 UNIT/0.5 ML VIAL SQ SCH (09:00)
[2022-03-03] MEDS ORDERED: GLUCOSE 10 TABS/TUBE PO PRN (09:42)
[2022-03-03] MEDS ORDERED: GLUCOSE 40% GEL 15 GM TUBE PO PRN (09:42)
[2022-03-03] MEDS ORDERED: CARBOHYDRATES FOR HYPOGLYCEMIA PO PRN (09:42)
[2022-03-03] MEDS ORDERED: DEXTROSE 50% 50 ML SYRINGE IV PRN (09:42)
[2022-03-03] MEDS ORDERED: GLUCAGON FOR INJ 1 MG VIAL SQ PRN (09:42)
--- NOTE | 2022-03-03 10:25 | Cardiology Progress Note ---
Date of Service March 03, 2022 Assessment & Plan (1) ACS (acute coronary syndrome): (2) Ischemic cardiomyopathy: (3) Chronic systolic (congestive) heart failure: (4) Status post biventricular pacemaker: Plan: 66-year-old patient with complex cardiovascular history presented to the ER with recurrent chest discomfort, near syncope, and dyspnea. ECG initially with inferior lateral ST changes in the setting of biventricular pacing. Repeat ECG demonstrating resolution of these ST changes. Initial high-sensitivity troponins not significantly elevated however, the second high sensitive troponin has increased nearly 20% despite remaining in the normal range. Patient experienced a similar presentation in May 2020 where his first 2 low sensitivity troponin studies were normal, only turning positive on the third assay. Symptoms are indicative of acute coronary syndrome. Patient underwent coronary angiography urgently last evening with evidence of acute plaque rupture in the proximal portion of the dominant left circumflex. Patient underwent successful PCI and is now asymptomatic Recommendations: We will review echo for outpatient management Prehospital medications be continued Ambulate in hallway and if clinically stable discharge later today with follow-up in cardiology 1 to 2 weeks time. (We will arrange appointment) Admission and Anticipated Discharge Date Admission Date: March 02, 2022 Subjective Patient seen and examined, chart, medications, telemetry reviewed. No arrhythmias overnight. Feels very well no further chest pain shortness of breath dizziness or lightheadedness. Ambulatory in room without difficulty. No bleeding or bruising issues. No fevers or chills. Tolerated coronary angiography and intervention last evening without difficulty and remains hemodynamically stable. Trivial elevation in troponin Review of Systems Review of Systems: All systems reviewed & are unremarkable except as noted in Subjective Physical Exam Constitutional: well developed, well nourished, + acute distress and + ill appearing Respiratory: no respiratory distress, no labored breathing and no retractions Auscultation: lungs clear to auscultation bilaterally; no crackles, no rales, no rhonchi and no wheezes Cardiovascular: Rate/Rhythm: regular rate and regular rhythm Heart Sounds: normal S1 and normal S2; no murmur and no cardiac rub Vessels: radial pulses present; no JVD and no carotid bruit Extremities: no edema Gastrointestinal (Abdomen): Inspection/Auscultation: abdomen normal to inspection and normal bowel sounds; abdomen not distended Percussion/Palpation: abdomen soft; abdomen nontender, no guarding and abdomen not rigid Neurologic: CN's II-XI intact bilaterally and moves all extremities; no focal motor deficits Motor/Sensory: no tremor Psychiatric: A+Ox3, euthymic affect Results & Data ([facility]) Vital Signs (Past 12 Hours) Vital Signs Temp Pulse Pulse Resp BP Pulse Ox 03/03/22 08:50 102/61 03/03/22 07:02 36.8 C 74 20 103/56 L 94 03/03/22 03:55 36.9 C 90 17 98/42 L 95 03/03/22 03:08 36.9 C 90 17 98/42 L 95 03/03/22 03:06 116/50 L 03/03/22 03:05 82/45 L 03/03/22 02:45 93/46 L 03/03/22 02:31 92/42 L 03/03/22 02:30 87 55/33 L 03/03/22 00:34 89 16 107/58 L 03/02/22 23:59 36.4 C L 84 16 94/50 L 94 03/02/22 23:24 36.4 C L 77 16 107/55 L 97 03/02/22 22:55 63 18 125/63 98 03/02/22 22:40 67 18 124/70 97 03/02/22 22:31 36.4 C L 65 18 123/70 96 03/02/22 22:30 71 Laboratory Results Laboratory Results - last 24 hr 03/02/22 03/02/22 03/02/22 15:20 15:20 15:20 WBC 6.99 RBC 4.26 L Hgb 13.6 L Hct 40.3 L MCV 94.6 MCH 31.9 MCHC 33.7 RDW Std Deviation 45.8 RDW Coeff of Neyda 13.3 Plt Count 210 MPV 11.2 H Immature Gran % (Auto) 0.3 Neut % (Auto) 70.2 Lymph % (Auto) 18.9 [place] % (Auto) 8.4 Eos % (Auto) 1.9 Baso % (Auto) 0.3 Neut # (Auto) 4.91 Lymph # (Auto) 1.32 [place] # (Auto) 0.59 Eos # (Auto) 0.13 Baso # (Auto) 0.02 Immature Gran # (Auto) 0.02 ESR APTT PTT Ratio Sodium 140 Potassium 4.1 Chloride 104 Carbon Dioxide 27 Anion Gap 9 BUN 18 Creatinine 1.09 Est Cr Clr Drug Dosing 73.3 Est GFR ( Amer) 80.4 Est GFR (Non-Af Amer) 69.4 BUN/Creatinine Ratio 16.5 Glucose 122 H POC Glucose Calcium 9.2 Magnesium 1.6 L Total Bilirubin 0.9 Direct Bilirubin AST 19 ALT 16 Alkaline Phosphatase 75 Troponin I High Sens 14.3 B-Natriuretic Peptide Total Protein 6.5 Albumin 4.2 Globulin 2.3 L Albumin/Globulin Ratio 1.8 Triglycerides Cholesterol LDL Cholesterol, Calc VLDL Cholesterol, Calc HDL Cholesterol Cholesterol/HDL Ratio Amylase Lipase 45 TSH 1.760 SARS-CoV-2, RNA, NAAT 03/02/22 03/02/22 03/02/22 16:34 17:41 18:49 WBC RBC Hgb Hct MCV MCH MCHC RDW Std Deviation RDW Coeff of Neyda Plt Count MPV Immature Gran % (Auto) Neut % (Auto) Lymph % (Auto) [place] % (Auto) Eos % (Auto) Baso % (Auto) Neut # (Auto) Lymph # (Auto) [place] # (Auto) Eos # (Auto) Baso # (Auto) Immature Gran # (Auto) ESR APTT PTT Ratio Sodium Potassium Chloride Carbon Dioxide Anion Gap BUN Creatinine Est Cr Clr Drug Dosing Est GFR ( Amer) Est GFR (Non-Af Amer) BUN/Creatinine Ratio Glucose POC Glucose Calcium Magnesium Total Bilirubin Direct Bilirubin AST ALT Alkaline Phosphatase Troponin I High Sens 17.1 B-Natriuretic Peptide 295 H Total Protein Albumin Globulin Albumin/Globulin Ratio Triglycerides Cholesterol LDL Cholesterol, Calc VLDL Cholesterol, Calc HDL Cholesterol Cholesterol/HDL Ratio Amylase Lipase TSH SARS-CoV-2, RNA, NAAT NEGATIVE 03/02/22 03/03/22 03/03/22 22:18 01:15 02:11 WBC RBC Hgb Hct MCV MCH MCHC RDW Std Deviation RDW Coeff of Neyda Plt Count MPV Immature Gran % (Auto) Neut % (Auto) Lymph % (Auto) [place] % (Auto) Eos % (Auto) Baso % (Auto) Neut # (Auto) Lymph # (Auto) [place] # (Auto) Eos # (Auto) Baso # (Auto) Immature Gran # (Auto) ESR APTT 35.7 H PTT Ratio 1.3 Sodium Potassium Chloride Carbon Dioxide Anion Gap BUN Creatinine Est Cr Clr Drug Dosing Est GFR ( Amer) Est GFR (Non-Af Amer) BUN/Creatinine Ratio Glucose POC Glucose 102 H Calcium Magnesium Total Bilirubin Direct Bilirubin AST ALT Alkaline Phosphatase Troponin I High Sens 27.6 H D B-Natriuretic Peptide Total Protein Albumin Globulin Albumin/Globulin Ratio Triglycerides Cholesterol LDL Cholesterol, Calc VLDL Cholesterol, Calc HDL Cholesterol Cholesterol/HDL Ratio Amylase Lipase TSH SARS-CoV-2, RNA, NAAT 03/03/22 03/03/22 03/03/22 02:11 02:11 02:11 WBC 8.02 RBC 4.02 L Hgb 12.8 L Hct 37.8 L MCV 94.0 MCH 31.8 MCHC 33.9 RDW Std Deviation 46.5 H RDW Coeff of Neyda 13.5 Plt Count 172 MPV 10.7 H Immature Gran % (Auto) 0.2 Neut % (Auto) 70.6 Lymph % (Auto) 16.5 [place] % (Auto) 9.9 Eos % (Auto) 2.7 Baso % (Auto) 0.1 Neut # (Auto) 5.66 Lymph # (Auto) 1.32 [place] # (Auto) 0.79 H Eos # (Auto) 0.22 Baso # (Auto) 0.01 Immature Gran # (Auto) 0.02 ESR 3 APTT PTT Ratio Sodium 139 Potassium 3.6 Chloride 106 Carbon Dioxide 28 Anion Gap 5 BUN 18 Creatinine 1.01 Est Cr Clr Drug Dosing 79.1 Est GFR ( Amer) 88.2 Est GFR (Non-Af Amer) 76.1 BUN/Creatinine Ratio 17.8 Glucose 126 H POC Glucose Calcium 8.8 Magnesium Total Bilirubin 0.6 Direct Bilirubin 0.1 AST 16 ALT 15 Alkaline Phosphatase 69 Troponin I High Sens B-Natriuretic Peptide Total Protein 5.9 L Albumin 3.7 Globulin 2.2 L Albumin/Globulin Ratio 1.7 Triglycerides 181 H Cholesterol 82 LDL Cholesterol, Calc 15 VLDL Cholesterol, Calc 36 H HDL Cholesterol 31 Cholesterol/HDL Ratio 2.6 Amylase 42 Lipase 48 TSH SARS-CoV-2, RNA, NAAT 03/03/22 03/03/22 07:38 08:22 WBC RBC Hgb Hct MCV MCH MCHC RDW Std Deviation RDW Coeff of Neyda Plt Count MPV Immature Gran % (Auto) Neut % (Auto) Lymph % (Auto) [place] % (Auto) Eos % (Auto) Baso % (Auto) Neut # (Auto) Lymph # (Auto) [place] # (Auto) Eos # (Auto) Baso # (Auto) Immature Gran # (Auto) ESR APTT PTT Ratio Sodium Potassium Chloride Carbon Dioxide Anion Gap BUN Creatinine Est Cr Clr Drug Dosing Est GFR ( Amer) Est GFR (Non-Af Amer) BUN/Creatinine Ratio Glucose POC Glucose 152 H Calcium Magnesium Total Bilirubin Direct Bilirubin AST ALT Alkaline Phosphatase Troponin I High Sens 89.8 H* D B-Natriuretic Peptide Total Protein Albumin Globulin Albumin/Globulin Ratio Triglycerides Cholesterol LDL Cholesterol, Calc VLDL Cholesterol, Calc HDL Cholesterol Cholesterol/HDL Ratio Amylase Lipase TSH SARS-CoV-2, RNA, NAAT
[2022-03-03] MEDS: INSULIN ASPART PER UNIT SC SCH ×2 (11:59→16:47)
--- NOTE | 2022-03-03 12:07 | Electrocardiogram Report ---
Test Reason : Blood Pressure : / mmHG Vent. Rate : 077 BPM Atrial Rate : 077 BPM P-R Int : 128 ms QRS Dur : 124 ms QT Int : 396 ms P-R-T Axes : 052 023 194 degrees QTc Int : 448 ms Atrial-sensed ventricular-paced rhythm Abnormal ECG When compared with ECG of 03-AUG-2020 10:10, Vent. rate has decreased BY 10 BPM Sinus rhythm has replaced Low right atrial rhythm Confirmed by Flako Hernández ([id number]) on 03/03/2022 12:06:37 PM Referred By: Confirmed By:Flako Hernández
--- NOTE | 2022-03-03 12:13 | Electrocardiogram Report ---
Test Reason : Blood Pressure : / mmHG Vent. Rate : 065 BPM Atrial Rate : 065 BPM P-R Int : 156 ms QRS Dur : 112 ms QT Int : 430 ms P-R-T Axes : 259 003 017 degrees QTc Int : 447 ms Atrial-sensed ventricular-paced rhythm Low right atrial rhythm Abnormal ECG When compared with ECG of 02-MAR-2022 15:17, (unconfirmed) Vent. rate has decreased BY 12 BPM Low right atrial rhythm has replaced Sinus rhythm Confirmed by Flako Hernández ([id number]) on 03/03/2022 12:12:32 PM Referred By: REFERRED SELF Confirmed By:Flako Hernández
--- NOTE | 2022-03-03 16:16 | Discharge Summary ---
Date of Service March 03, 2022 Admission HPI Per Admitting Provider 66 yo male with significant PMH of CAD, multiple stents placed, presents to the ED with cheat pain. Patient reports being active over the last 2 days, scrubbing and cleaning steps. He reports today, he became SOB, and almost passed out. He also complained of left sided dull chest pain. He reports that pain was similar to his previous episode. Patient reports he took 2 nitroglycerin tablets at home with mild improvement. He reports that the fentanyl has been helping with his symptoms. Admission called for possible unstable angina. Family at bedside. Principal Diagnosis NSTEMI Discharge Exam Constitutional WD/WN, vitals as above Eyes PERRL, conjunctivae normal, anicteric sclerae Respiratory normal respiratory effort, lungs clear to auscultation Auscultation: no crackles, no rales, no rhonchi and no wheezes Cardiovascular Rate/Rhythm: regular rate and regular rhythm Heart Sounds: no gallop, no murmur and no cardiac rub Vessels: normal peripheral pulses; no JVD Extremities: no edema Gastrointestinal (Abdomen) Inspection/Auscultation: normal bowel sounds; abdomen not distended Percussion/Palpation: abdomen soft; abdomen nontender and no guarding Musculoskeletal no cyanosis or clubbing, extremities motor strength 5/5 Psychiatric Orientation: alert and oriented x 3 Discharge Data Allergies Allergy/AdvReac Type Severity Reaction Status Date / Time Penicillins Allergy Unknown Unknown Verified 03/02/22 16:05 Sulfa (Sulfonamide Allergy Unknown Unknown Verified 03/02/22 16:05 Antibiotics) oxycodone AdvReac Mild Nausea/Vomi Verified 03/02/22 16:05 ting simvastatin AdvReac Unknown muscle pain Verified 03/02/22 16:05 Consultations 03/02/22 18:03 ED Decision to Admit Stat 03/02/22 18:34 Consult Cardiology Routine 03/02/22 22:11 Consult Cardiac Rehabilitation Routine Procedures Performed Operation Date: 03/02/22 20:15 Actual Procedures p Cineradiography w/Routine Exam - Estuardo Moya MD p Cath, Left with Cors and Vent - Estuardo Moya MD p Aspiration/PCI w/AIDEE for Stemi - Estuardo Moya MD Ordered Studies 03/02/22 20:13 CL Cath Imgs for PACS use only Stat Hospital Course (1) ACS (acute coronary syndrome): Chandu Mcdowell is a 66y/o M with complex past medical history most significant for biventricular pacemaker, multiple previous MIs; who presented to the hospital for concerns of chest pain. NSTEMI: s/p PCI and AIDEE x1 - troponin negative on admission - continuation of symptoms in high risk individual lead to cardiac catheterization overnight - PCI with AIDEE x1 to ostial circumflex overlapping - troponin marginally elevated on discharge - discussed with cardiology, this is consistent with the demonstrated coronary artery change on catheterization - resolution of symptoms with AIDEE - continue Metoprolol succinate 12.5m BID, Entresto 24/26mg 1 tab BID, continue plavix 75mg, and Atorvastatin 40mg daily - follow-up with [facility] in 1-2 weeks. Ischemic cardiomyopathy: - Echo from 03/03 demonstrating EF of 35-40% (improved form 05/2020), large wall motion abnormality involving the inferior, posterior, and basal inferior septum with hypokinesis to akineses; moderate aortic valve sclerosis, grade I diastolic dysfunction - multiple previous MIs - lipid profile on admission with LDL-C of 15 - continue Metoprolol succinate 12.5m BID, Entresto 24/26mg 1 tab BID, continue plavix 75mg, Atorvastatin 40mg daily, spironolactone 12.5mg daily, Lasix 40mg 5x/week (2) Ischemic cardiomyopathy: (3) Chronic systolic (congestive) heart failure: (4) Status post biventricular pacemaker: Total Time Total Time Spent Total Time Spent (In Minutes): 30 Discharge Plan Discharge Items Patient Disposition: Home - Self-Care Reason For Visit: SOB Discharge Diagnosis: NSTEMI Activity: Per Instructions section Non-emergency contact: Primary Care Provider and Erosion Control Specialist Call non-emergency contact if: you have any medication questions, your symptoms worsen and your pain is concerning for you Follow-up/Referrals: Zac Torres MD [Primary Care Provider] - Diet: Heart Healthy Addtl Attending Provider Instructions: You were seen and admitted for concerns of chest pain, with your extensive history of cardiac disease these scenarios should always be closely monitored. During this admission, you had another stent placed to correct blockage in one of your heart vessels. 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 You should have follow-up with Dr. Gaytan at his offices in the next 1-2 weeks, for continued monitoring of your heart and a repeat echo at that time. Pending Studies at Discharge: No Stand-Alone Forms: My [facility], Smoking Cessation Medications and DC Order Prescriptions: Continued pregabalin [Lyrica] 75 mg capsule 75 mg PO HS RF: 0 Entresto 24-26 mg tablet 1 tab PO BID RF: 0 metoprolol succinate 25 mg tablet extended release 24 hr 12.5 mg PO BID Qty: 0 RF: 0 furosemide 40 mg Tablet 40 mg PO 5XWK RF: 0 clonazepam 0.5 mg Tablet 0.5 mg PO HS RF: 0 clopidogrel 75 mg Tablet 75 mg PO QAM RF: 0 cyanocobalamin (vitamin B-12) 1,000 mcg/mL Solution 1,000 mcg IM MONTHLY RF: 0 atorvastatin 40 mg tablet 40 mg PO HS RF: 0 nitroglycerin 0.4 mg tablet, sublingual 0.4 mg sublingual DIRECTED PRN (Reason: Chest Pain) RF: 0 spironolactone 25 mg tablet 12.5 mg PO QAM RF: 0 metformin 500 mg tablet 1,000 mg PO BID RF: 0 ascorbic acid (vitamin C) [Vitamin C] 1,000 mg Tablet 0 g PO QAM RF: 0 bn-ene-FC-Lo-Ai-ryiaaiu-lutein 0.4-162-18 mg Tablet 1 tab PO QAM RF: 0 cholecalciferol (vitamin D3) [Vitamin D3] 25 mcg (1,000 unit) Tablet 0 mcg PO QAM RF: 0 Omegared 1 cap PO QAM RF: 0 Discharge Orders: Discharge Order (Routine); Ordered 03/03/22 Ordered By: Deejay Mcdonnell Admission Data Admit Date/Time: 03/02/22 22:03 Attending Provider: Cari Leroy Admit Provider: Leandro Gutierres Primary Care Provider: Zac Torres Other Providers: Leandro Gutierres ; Terry Gaytan Other Interventions: Discharge Summary Assessment (RN) Last Done: 03/03/22 16:50 Supervising Physician Co-Signing Physician Notes Resident Physician Supervision Note: I independently interviewed and examined the patient and verified the hubbard history and physical, reviewed labs and image studies and agree with resident Dr. Mcdonnell findings and care plan. Resident Activity Tracking Resident Involvement: Resident Care Provided Care Provided: [facility]
--- NOTE | 2022-03-04 07:38 | Electrocardiogram Report ---
Test Reason : Blood Pressure : / mmHG Vent. Rate : 077 BPM Atrial Rate : 077 BPM P-R Int : 180 ms QRS Dur : 110 ms QT Int : 408 ms P-R-T Axes : 257 005 005 degrees QTc Int : 461 ms Atrial-sensed ventricular-paced rhythm Low right atrial rhythm Abnormal ECG When compared with ECG of 02-MAR-2022 18:43, (unconfirmed) Vent. rate has increased BY 12 BPM Confirmed by Flako Hernández ([id number]) on 03/04/2022 7:38:37 AM Referred By: REFERRED SELF Confirmed By:Flako Hernández
[2022-04-01] MEDS ORDERED: CYANOCOBALAMIN 1000 MCG/ML VIAL IM SCH (09:00)
== END 2022-03-03 17:23 | disposition home or self-care (01) | DRG 247 ==
LOC: ED 15:14 → 2S 20:20 → CC 20:20 → SUATTDRO 22:03 → 2S 22:03